=== PATIENT | male | born 1945 | race Caucasian/White ===

== ENCOUNTER 2023-08-21 15:14 | Outpatient (AMB) | payer OTHER, SELFPAY ==
--- NOTE | 2023-08-21 15:24 | HO.SPINEOV ---
Intake Intake Visit Reasons: back pain Intake Note: Mr. Ramirez is here today c/o back pain. Nursing Professor Required: No Assessment & Plan Assessment & Plan (1) Lumbar spinal stenosis due to adjacent segment disease after fusion procedure: Code(s): M48.061 - Spinal stenosis, lumbar region without neurogenic claudication; M51.36 - Other intervertebral disc degeneration, lumbar region Plan Dear colleague Thank you for referring Slava Ramirez to the office today with a chief complaint of back pain. HPI: This 77-year-old male underwent an L3-4 and L4-5 lumbar fusion in 2020 for chronic back pain. Dear original back pain disappeared but it was replaced by a back pain in the low lumbar region that comes with changing positions, standing or climbing stairs. Sitting relieves his symptoms. There is no radiation to the legs. He denies weakness or numbness. I had numerous followed up with x-rays that show a stable L3-L5 construct. I send him for L5-S1 facet blocks in the past which did not help. He recently saw a PA in the office with Dr. Patel who reviewed a new MRI and ordered standing x-rays and told the patient that there is no role for surgery in that he should go to acupuncture. He returns to my clinic. Physical Exam: He is uncomfortable with changing positions. Extension of the lumbar spine is painful. He walks in a slightly flexed position. No neurological deficits. Radiological Studies: MRI done at [facility] in July 2023 was compared to prior imaging and shows the development of adjacent degenerative disc disease L2-3 with moderate stenosis. A dynamic x-ray of the lumbar spine shows no instability. Impression/Plan: This patient is suffering from a new type of back pain following lumbar fusion surgery. The pain has features of lumbar stenosis with aggravation with standing. I would refer him back to with a request to do an L2-3 injection. He will return to my office after the injection to discuss the results. Thank you for allowing me to participate in your patients care. total time spent was 30 minutes in counseling ,coordination of plan, personal review of imaging, surgical decision making and subsequent plan Giovanny Rincon MD, PhD Spine Fellowship Trained Neurosurgeon Director, [facility] Orders: Referrals Physiatry Referral M48.061 - Spinal stenosis, lumbar region without neurogenic claudication, M51.36 - Other intervertebral disc degeneration, lumbar region Coding Level of Care Code New Pt Level 3 (45339) Diagnoses Lumbar spinal stenosis due to adjacent segment disease after fusion procedure M48.061; M51.36
== END 2023-08-21 16:31 | disposition home or self-care (01) ==
PROVIDERS: Visit Provider Neurological Surgery
DX: M48.061 Spinal stenosis, lumbar region without neurogenic claudication (principal); M51.36 Other intervertebral disc degeneration, lumbar region
CPT/HCPCS: 99203

== ENCOUNTER → 2023-08-21 15:14 | Outpatient (BNVA) | payer MEDICARE, SELFPAY | PROVIDERS: Visit Provider Neurological Surgery | DX: M48.061 Spinal stenosis, lumbar region without neurogenic claudication (principal); M51.36 Other intervertebral disc degeneration, lumbar region | CPT/HCPCS: 99202 ==

== ENCOUNTER 2023-10-16 15:03 | Outpatient (AMB) | payer OTHER, SELFPAY ==
--- NOTE | 2023-10-16 16:01 | MHC.OFFVIS ---
Intake Intake Visit Reasons: f/up after injection Marketing Database Coordinator Required: No Assessment & Plan Assessment & Plan (1) Status post lumbar and lumbosacral fusion by anterior technique: Code(s): Z98.1 - Arthrodesis status (2) Lumbar spinal stenosis due to adjacent segment disease after fusion procedure: Code(s): M48.061 - Spinal stenosis, lumbar region without neurogenic claudication; M51.36 - Other intervertebral disc degeneration, lumbar region Plan Dear colleague, Today I saw for follow-up Mr. Slava Ramirez. This patient underwent a minimally invasive lumbar fusion which address his original symptoms but gave him a new type of back pain with walking and standing. In other words he suffering from back pain without neurogenic claudication. His MRI shows adjacent lumbar stenosis L2-3 and therefore I referred him for an epidural steroid injection which unfortunately did not improve his symptoms. I explained to the patient that he is having back pain that we see inpatient with spinal stenosis that response to surgical intervention is unpredictable results. I would like to obtain a CT scan of the lumbar spine to assess fusion of the previously instrumented levels. He will return after the CT is done. Giovanny Rincon MD, PhD Spine Fellowship Trained Neurosurgeon Director, [facility] Orders: Orders CT lumbar spine wo IV con Today M48.061 - Spinal stenosis, lumbar region without neurogenic claudication, M51.36 - Other intervertebral disc degeneration, lumbar region, Z98.1 - Arthrodesis status Coding Level of Care Code Est Pt Level 2 (40056) Diagnoses Status post lumbar and lumbosacral fusion by anterior technique Z98.1 Lumbar spinal stenosis due to adjacent segment disease after fusion procedure M48.061; M51.36
== END 2023-10-16 16:42 | disposition home or self-care (01) ==
PROVIDERS: PCP Family Medicine; Visit Provider Physician Assistant
DX: Z98.1 Arthrodesis status (principal); M48.061 Spinal stenosis, lumbar region without neurogenic claudication; M51.36 Other intervertebral disc degeneration, lumbar region
CPT/HCPCS: 99212

== ENCOUNTER → 2023-10-16 15:03 | Outpatient (BNVA) | payer OTHER, SELFPAY | PROVIDERS: PCP Family Medicine; Visit Provider Physician Assistant ==

== ENCOUNTER 2024-01-24 11:20 | Outpatient (AMB) | payer OTHER, SELFPAY ==
--- NOTE | 2024-01-24 11:21 | A.SPINEOV_ITS ---
Intake Visit Reasons: Physical evaluation Intake Note: Mr. Ramirez is here today for a Physical Evaluation Digital Solution Architect Required: No Assessment & Plan Assessment & Plan (1) Lumbar radiculopathy: Code(s): M54.16 - Radiculopathy, lumbar region Category: Medical Plan Mr. Ramirez comes in today for a subsequent follow-up visit regarding his upcoming surgery; L2-3 Transkambin Lumbar Interbody Fusion. I extensively discussed his symptoms with him to get to the bottom of his pathology, and to most accurately continue his insurance appeal. After evaluation by Dr. Rincon he was scheduled for the surgery to address his low back pain with neurogenic claudication. He was quoted at 60-70% likelihood of relief of low back pain, and we discussed how his neurogenic claudication symptom resolution will likely be about the same, and will be a slow resolution over the course of multiple months as he heals from his surgery. Mr. Ramirez reports today during this office visit that he not only is suffering from low back pain and progressively worsening difficulties with ambulation, but has also been having shooting pains into the lateral sides of his bilateral hips / thighs for the past several months. He had this previously worked up by Orthopedics at [facility], and went so far as to have trochanteric bursa injections, after his hip MRIs revealed no notable pathology. He was under the impression that is shooting pain into the lateral hip/thighs was an issue unrelated to his back pain, and therefore told Dr. Rincon during his previous visit that he had no shooting pains into his legs. He further stated that he did not believe his hips / thighs constituted legs when he was questio derrick regarding his pain. Interestingly, this is actually classic for lumbar radiculopathy if the patient has pathology at L3. It seems he is suffering from a bilateral L3 lumbar radiculopathy due to the severe degenerative disc disease seen at L2-3. After this evaluation office today we will be resubmitting for insurance approval for his L2-3 transkambin lumbar interbody fusion. The primary reason for this fusion will be lumbar radiculopathy in an L3 dermatomal distribution, and we will be addressing his low back pain with neurogenic claudication on a secondary basis as a result this surgery. Jose Alejandro Rincon MD,PhD [facility] Coding Level of Care Code Est Pt Level 3 (84311) Diagnoses Lumbar radiculopathy M54.16
== END 2024-01-24 11:55 | disposition home or self-care (01) ==
PROVIDERS: PCP Family Medicine; Visit Provider Physician Assistant
DX: M54.16 Radiculopathy, lumbar region (principal)
CPT/HCPCS: 99213

== ENCOUNTER → 2024-01-24 11:20 | Outpatient (BNVA) | payer OTHER, SELFPAY | PROVIDERS: PCP Family Medicine; Visit Provider Physician Assistant ==

== ENCOUNTER 2024-03-20 10:04 | Outpatient (AMB) | payer OTHER, SELFPAY ==
--- NOTE | 2024-03-20 10:16 | A.SPINEOV_ITS ---
Intake Visit Reasons: Worsening Symptoms Intake Note: Mr. Ramirez is here today as his lower back pain in worsening. 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 He is a gentleman known to us from an L3- 5 fusion done a few years back for correction of a degenerative scoliosis. He did well initially after surgery and then presented back to our office with recurrent back pain as well as pain shooting into his left hip and into his left anterior thigh last year. The pain is aggravated with standing and walking. Even simple things like getting in the shower and standing and trying to reach for things makes him feel like he is going to fall because the pain will shoot down into his hip and leg. Getting out of bed is very difficult. There is a distinct sense of weakness when walking up stairs, he will have to go very slowly. He is very concerned about his lack of activities because he is a diabetic and obviously exercises critically important to his overall health. His A1c went from 8-12 due to the lack of activity. Overall his quality of life is suffering quite a bit and he is very frustrated with his inability to do meaningful things in his life that are enjoyable. We saw him here in the office and put him through a rigorous course of conservative management after doing an MRI at the [facility] which showed worsening of degeneration at L2-3 with almost complete collapse of the disc space, with a retrolisthesis at L2-3. There was mild to moderate stenosis at this level as well. Subsequent CT imaging confirms that the previous hardware is in good position with no evidence of pseudoarthrosis suggesting that the pain was coming from the L2-3 level. His course of conservative management included the followin weeks of physical therapy done last fall when the pain was escalating. That gave him no significant improvement. He has been taking Tylenol and anti-inflammatories as needed daily. He also underwent an L2-3 epidural which did give him a few weeks of relief, albeit temporary. Unfortunately his insurance company has continued to deny his surgery for various reasons, all of which have been accommodated for by our office. We were just recently told that he went past the 60 day window for his appeal so we would have to start his process of trying to get surgery approved all over again. He is here today to give me an update on his status. Obviously nothing has gotten better, in fact that is only continued to get worse. On my exam today, the patient is very uncomfortable having a hard time just getting out of the chair. He limps across the examining room to the examining table. I had to help him stand up to get up onto the table. He does have significant amounts of back pain with simple efforts such as motor testing. He has a slight left quadriceps weakness which I would rate as 4-5. Reflexes are intact at the patella. Negative MARYA testing. Positive straight leg raise at about 20 degrees. Impression: 78-year-old male with a history of an L3-4 fusion done a few years ago, presents with severe low back pain radiating down into his left hip and left anterior thigh. His clinical presentation is classic adjacent segment disease with almost complete collapse of the L2-3 disc space, and retrolisthesis at L2-3. He underwent generous amounts of conservative treatment. He did have a nice response to his epidural injection at L2-3 done in September which helps reinforced that this is the source of his pain. I can also see that compared to the CT done at [place] in 2021 of the abdomen, there was no retrolisthesis of the L2-3 at that time and the disc space has collapsed further on his more recent CT. His quality of life is suffering significantly. The insurance company has denied the surgery for reasons that still remain arbitrary. However, all of the objections to surgery and road blocks have been answered and accommodated for even up to and including the type of interbody cage that we will use. I am not sure what more can be done to prove that this is the source of his pain and that this is a surgical indication. I think we are doing this gentleman a great disservice by not allowing him to undergo this surgery that can yield him a significant potential improvement in his quality of life. Total amount of time spent in this visit was 20 minutes in discussion of symptoms, lumbar CT, lumbar MRI imaging results and subsequent plan of care Claude Rincon MD,PhD [facility] Coding Level of Care Code Est Pt Level 3 (74664) Diagnoses Lumbar radiculopathy M54.16 Lumbar spinal stenosis due to adjacent segment disease after fusion procedure M48.061; M51.36
== END 2024-03-20 13:01 | disposition home or self-care (01) ==
PROVIDERS: PCP Family Medicine; Visit Provider Physician Assistant
DX: M54.16 Radiculopathy, lumbar region (principal); M48.061 Spinal stenosis, lumbar region without neurogenic claudication; M51.36 Other intervertebral disc degeneration, lumbar region
CPT/HCPCS: 99213

== ENCOUNTER → 2024-03-20 10:04 | Outpatient (BNVA) | payer OTHER, SELFPAY | PROVIDERS: PCP Family Medicine; Visit Provider Physician Assistant ==

== ENCOUNTER → 2024-04-08 13:03 | Outpatient (BNV) | payer MEDICARE, SELFPAY | PROVIDERS: PCP Family Medicine; Visit Provider Internal Medicine Cardiovascular Disease | DX: R94.31 Abnormal electrocardiogram [ECG] [EKG] (principal); I49.1 Atrial premature depolarization; Z01.810 Encounter for preprocedural cardiovascular examination | CPT/HCPCS: 93010 ==

== ENCOUNTER 2024-04-22 06:02 | Inpatient (IN) | payer MEDICARE, SELFPAY ==
--- NOTE | 2024-04-08 | ECG_ITS ---
Test Reason : preop Blood Pressure : / mmHG Vent. Rate : 061 BPM Atrial Rate : 061 BPM P-R Int : 168 ms QRS Dur : 086 ms QT Int : 454 ms P-R-T Axes : 008 -40 043 degrees QTc Int : 457 ms Sinus rhythm with Premature atrial complexes Left axis deviation Inferior infarct , age undetermined Abnormal ECG No previous ECGs available Referred By: Kiera Jack Electronically Signed By:NOLBERTO MADERA MD
[2024-04-08 12:18] VITALS: BP 110/56; PULSE 63; RESP 18; O2SAT 94; BMI 32.0
[2024-04-08 13:57] LABS: Hematocrit 48.1 % (42.0-52.0); Hemoglobin 15.7 g/dl (14.0-18.0); Mean Corpuscular HGB Conc 32.6 g/dl (31.0-36.0); Mean Corpuscular Hemoglobin 29.7 pg (27.0-33.0); Mean Corpuscular Volume 90.9 fL (80.0-98.0); Mean Platelet Volume 9.6 fL (9.4-12.4); Platelet Count 222 X10*3/uL (160-400); Red Blood Count 5.29 X10*6/uL (4.60-5.80); Red Cell Distribution Width 13.7 % (11.0-16.0); White Blood Count 5.8 X10*3/uL (4.8-10.8)
[2024-04-08 14:33] LABS: Estimated Average Glucose 160 mg/dL; Hemoglobin A1c % 7.2 % (<6.0)
[2024-04-08 14:41] LABS: Anion Gap 15 (12-20); Blood Urea Nitrogen 13 mg/dL (9-16); Calcium 10.6 mg/dL (8.4-10.2); Carbon Dioxide 28 mmol/L (22-29); Chloride 101 mmol/L (96-108); Creatinine Clr Calc Pharmacy 86.6; Estimated Glomerular Filt Rate > 60; Glucose Random 119 mg/dL (60-115); Potassium 3.6 mmol/L (3.3-5.1); Sodium 140 mmol/L (135-145)
[2024-04-22] VITALS (15 sets, daily range): BP systolic 130–177; BP diastolic 64–102; PULSE 49–65; RESP 11–18; TEMP 35.7–36.8; O2SAT 94–98; BMI 32.5
--- NOTE | ~2024-04-22 | FL_ITS ---
EXAMINATION: XR FLUOROSCOPY WITH IMAGES CLINICAL INFORMATION: L2-L3 trans-Kambin revision. COMPARISON: None available. TECHNIQUE: Fluoroscopy Supervised By: Dr. Rincon. Fluoroscopy Time: 1 min 67 sec. Cumulative Dose: 73.9 mGy. DAP: 26.64 Gycm2. Images: 4. FINDINGS: Intraoperative fluoroscopy and spot films were performed during a procedure in the OR. Please correlate with Jose Albertos' report for complete details. FL/FL guidance in OR IMPRESSION: Intraoperative fluoroscopy and spot films were obtained. Please see Pennings' report for complete details.
[2024-04-22] MEDS: methocarbamoL 750 MG TABLET PO ×2 (06:30→17:01)
[2024-04-22] MEDS: Lactated Ringers 1,000 ML 100 ML IVCONT (06:31)
[2024-04-22 06:47] LABS: Glucose, Whole Blood 201 mg/dL (60-115)
--- NOTE | 2024-04-22 07:10 | P.CONAN_ITS ---
Documented by User: Kiera Jack NP 04/21/24 09:53 HPI - Anesthesia Eval Consult details Narrative: 78yo M for L2-3 Transkambin Lumbar Interbody Fusion, (Revision of Posterior Instrumentation), 04/22/24 No recent illness No CP/SOB withiin limits of back pain, golf 3 x weekly (uses cart) CAD: No prior intervention, medical management and obs only DM: FBS ~ 130 DVT's: 2020, eliquis ~ 1.5 years, No OAC now Anesthesia Pre-Procedure Meds Is the patient on any of the following meds?: SGLT2 Inhib PMFSH Active Problems Active Problems: All Active Problems Lumbar radiculopathy (Acute) Status post lumbar and lumbosacral fusion by anterior technique (Acute) Lumbar spinal stenosis due to adjacent segment disease after fusion procedure (Acute) Past Medical History Medical History (Updated 04/08/24 @ 11:53 by Gracie Lawrence RN) Back pain Obesity (BMI 30.0-34.9) HTN (hypertension) Hyperlipidemia BPH (benign prostatic hyperplasia) Vitamin D deficiency DDD (degenerative disc disease), cervical CAD (coronary artery disease) Chronic neck pain with history of cervical spinal surgery Tubular adenoma of colon History of basal cell carcinoma (BCC) of skin Actinic keratosis of scalp Diverticulosis Diabetes Chronic lower back pain Spinal stenosis at L4-L5 level Prostate cancer Acute deep vein thrombosis (DVT) of femoral vein of right lower extremity History of COVID-19 Dizziness 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 Lumbar degenerative disc disease Hyponatremia Adrenal nodule Nocturnal leg cramps Osteoarthritis of both hips Palpitations Nonhealing ulcer of right lower extremity PAC (premature atrial contraction) Atherosclerosis Insomnia Family History Family history of problems with anesthesia: No Surgical History Surgical History (Updated 04/08/24 @ 12:03 by Gracie Lawrence RN) History of back surgery Hx of bilateral cataract extraction Hx of prostate biopsy Hx of inguinal hernia repair Hx of shoulder surgery History of neck surgery H/O colonoscopy Hx of cardiac catheterization History of Problems with Anesthesia: No Social History Social History Are you a primary palliative care physician to a significant other at home: No Do you presently have visiting nurse or other home services: No Patient Tobacco Use Status: Never used Tobacco Use of substances other than those prescribed or required for medical reasons: Yes Substance Use Type Other:: THC Substance Use Frequency: Weekly Have you been hit, kicked, punched, or otherwise hurt by someone within the past year? If so, by whom?: No Are you DNR?: No Advance Directives: No Advance Directives Information Provided: Yes Advance Directives on File: No Recently lost weight without trying: No Eating poorly because of decreased appetite: No Nutrition Risks: No Nutritional Risk Poor oral hygiene: Yes (crowns upper and lower) Meds Allergies Allergy/AdvReac Type Severity Reaction Status Date / Time No Known Allergies Allergy Verified 04/22/24 06:10 Home Medications ?Medication ?Instructions ?Recorded ?Confirmed ?Last Taken ?Type acetaminophen 650 mg 650 mg PO Q8H PRN Pain 04/03/24 04/03/24 Unknown History tablet,extended release (Tylenol 8 Hour) atorvastatin 80 mg tablet 80 mg PO BEDTIME 04/03/24 04/08/24 04/21/24 History cholecalciferol (vitamin D3) 50 50 mcg PO DAILY 04/03/24 04/03/24 04/15/24 History mcg (2,000 unit) tablet (Vitamin D3) empagliflozin 10 mg tablet 10 mg PO DAILY 04/03/24 04/08/24 04/17/24 History ezetimibe 10 mg tablet 10 mg PO BEDTIME 04/03/24 04/08/24 04/21/24 History gabapentin 300 mg capsule 300 mg PO QAM 04/03/24 04/08/24 04/22/24 History hydroxyzine HCl 50 mg tablet 50 mg PO BEDTIME PRN Insomnia 04/03/24 04/03/24 04/21/24 History multivitamin 1 tab PO DAILY 04/03/24 04/03/24 04/15/24 History omega-3 fatty acids 1,000 mg 1,000 mg PO DAILY 04/03/24 04/03/24 04/15/24 History capsule aspirin 81 mg tablet,delayed 81 mg PO DAILY 04/08/24 04/08/24 04/16/24 History release gabapentin 300 mg capsule 600 mg PO BEDTIME 04/08/24 04/08/24 04/20/24 History glipizide 5 mg tablet 5 mg PO DAILY 04/08/24 04/08/24 04/21/24 History losartan 100 mg tablet 100 mg PO BEDTIME 04/08/24 04/08/24 04/21/24 History metoprolol succinate 25 mg 25 mg PO BID 04/08/24 04/08/24 04/22/24 History tablet,extended release 24 hr tadalafil 5 mg tablet 5 mg PO QPM 04/08/24 04/08/24 Unknown History Exam Height,Weight and Vital Signs: Height 5 ft 9 in Weight 98.43 kg Last Vital Signs Pulse 63 04/08/24 12:18 Resp 18 04/08/24 12:18 BP 110/56 L 04/08/24 12:18 Pulse Ox 94 04/08/24 12:18 O2 Del Method Room Air 04/08/24 12:18 Pertinent Lab Results Pertinent Lab Results: Lab Results 04/08/24 04/08/24 Range/Units 13:20 13:31 WBC 5.8 (4.8-10.8) X10*3/uL RBC 5.29 (4.60-5.80) X10*6/uL Hgb 15.7 (14.0-18.0) g/dl Hct 48.1 (42.0-52.0) % MCV 90.9 (80.0-98.0) fL MCH 29.7 (27.0-33.0) pg MCHC 32.6 (31.0-36.0) g/dl RDW 13.7 (11.0-16.0) % Plt Count 222 (160-400) X10*3/uL MPV 9.6 (9.4-12.4) fL Absolute Nucleated RBC 0.000 (0.0-0.012) X10*3/uL Nucleated RBC % (auto) 0.0 (0.0-0.2) /100WBC Sodium 140 (135-145) mmol/L Potassium 3.6 (3.3-5.1) mmol/L Chloride 101 (96-108) mmol/L Carbon Dioxide 28 (22-29) mmol/L Anion Gap 15 (12-20) BUN 13 (9-16) mg/dL Creatinine 0.80 (0.5-1.4) mg/dL Estim Creat Clear Calc 86.6 Estimated GFR > 60 Random Glucose 119 H (60-115) mg/dL Estimat Average Glucose 160 mg/dL Hemoglobin A1c % 7.2 H (<6.0) % Calcium 10.6 H (8.4-10.2) mg/dL Blood Type O Negative Antibody Screen NEGATIVE Narrative Narrative: EKG 03/2024 Vent. Rate : 061 BPM Atrial Rate : 061 BPM P-R Int : 168 ms QRS Dur : 086 ms QT Int : 454 ms P-R-T Axes : 008 -40 043 degrees QTc Int : 457 ms Sinus rhythm with Premature atrial complexes Left axis deviation Inferior infarct , age undetermined Abnormal ECG No previous ECGs available (no change when c/w previous outside EKG) Airway Mallampati Class: III TM Dist: <=3cm Neck ROM: Limited (s/p cspine) Loose/Missing/Broken Teeth: Yes (Molars pulled, crowns throughout) Heart: RRR Lungs: CTAB Assessment and Plan Assessment Anesthesia Assessment: Anesthesia Plan Discussed and PAT Visit Final Anesthetic Review Family History of Problems with Anesthesia: No History of Problems with Anesthesia: No Documented by User: Elizabeth Dean DO 04/22/24 07:15 HPI - Anesthesia Eval Anesthesia Pre-Procedure Meds Is the patient on any of the following meds?: SGLT2 Inhib If yes to any meds - educate patient: Pt education - increased risk of aspira tion and/or euvolemic [facility] Past Medical History Medical History (Updated 04/08/24 @ 11:53 by Gracie Lawrence RN) Back pain Obesity (BMI 30.0-34.9) HTN (hypertension) Hyperlipidemia BPH (benign prostatic hyperplasia) Vitamin D deficiency DDD (degenerative disc disease), cervical CAD (coronary artery disease) Chronic neck pain with history of cervical spinal surgery Tubular adenoma of colon History of basal cell carcinoma (BCC) of skin Actinic keratosis of scalp Diverticulosis Diabetes Chronic lower back pain Spinal stenosis at L4-L5 level Prostate cancer Acute deep vein thrombosis (DVT) of femoral vein of right lower extremity History of COVID-19 Dizziness 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 Lumbar degenerative disc disease Hyponatremia Adrenal nodule Nocturnal leg cramps Osteoarthritis of both hips Palpitations Nonhealing ulcer of right lower extremity PAC (premature atrial contraction) Atherosclerosis Insomnia Family History Family history of problems with anesthesia: No Surgical History Surgical History (Updated 04/08/24 @ 12:03 by Gracie Lawrence RN) History of back surgery Hx of bilateral cataract extraction Hx of prostate biopsy Hx of inguinal hernia repair Hx of shoulder surgery History of neck surgery H/O colonoscopy Hx of cardiac catheterization History of Problems with Anesthesia: No Social History Social History Are you a primary palliative care physician to a significant other at home: No Do you presently have visiting nurse or other home services: No Patient Tobacco Use Status: Never used Tobacco Use of substances other than those prescribed or required for medical reasons: Yes Substance Use Type Other:: THC Substance Use Frequency: Weekly Have you been hit, kicked, punched, or otherwise hurt by someone within the past year? If so, by whom?: No Are you DNR?: No Advance Directives: No Advance Directives Information Provided: Yes Advance Directives on File: No Recently lost weight without trying: No Eating poorly because of decreased appetite: No Nutrition Risks: No Nutritional Risk Poor oral hygiene: Yes (crowns upper and lower) Meds Allergies Allergy/AdvReac Type Severity Reaction Status Date / Time No Known Allergies Allergy Verified 04/22/24 06:10 Home Medications ?Medication ?Instructions ?Recorded ?Confirmed ?Last Taken ?Type acetaminophen 650 mg 650 mg PO Q8H PRN Pain 04/03/24 04/03/24 Unknown History tablet,extended release (Tylenol 8 Hour) atorvastatin 80 mg tablet 80 mg PO BEDTIME 04/03/24 04/08/24 04/21/24 History cholecalciferol (vitamin D3) 50 50 mcg PO DAILY 04/03/24 04/03/24 04/15/24 History mcg (2,000 unit) tablet (Vitamin D3) empagliflozin 10 mg tablet 10 mg PO DAILY 04/03/24 04/08/24 04/17/24 History ezetimibe 10 mg tablet 10 mg PO BEDTIME 04/03/24 04/08/24 04/21/24 History gabapentin 300 mg capsule 300 mg PO QAM 04/03/24 04/08/24 04/22/24 History hydroxyzine HCl 50 mg tablet 50 mg PO BEDTIME PRN Insomnia 04/03/24 04/03/24 04/21/24 History multivitamin 1 tab PO DAILY 04/03/24 04/03/2424 History omega-3 fatty acids 1,000 mg 1,000 mg PO DAILY 04/03/24 04/03/24 04/15/24 History capsule aspirin 81 mg tablet,delayed 81 mg PO DAILY 04/08/24 04/08/24 04/16/24 History release gabapentin 300 mg capsule 600 mg PO BEDTIME 04/08/24 04/08/24 04/20/24 History glipizide 5 mg tablet 5 mg PO DAILY 04/08/24 04/08/24 04/21/24 History losartan 100 mg tablet 100 mg PO BEDTIME 04/08/24 04/08/24 04/21/24 History metoprolol succinate 25 mg 25 mg PO BID 04/08/24 04/08/24 04/22/24 History tablet,extended release 24 hr tadalafil 5 mg tablet 5 mg PO QPM 04/08/24 04/08/24 Unknown History Exam Exam Date and Time: April 22, 2024709 Airway Mallampati Class: III TM Dist: <=3cm Neck ROM: Limited (hx of cervical fusion) Loose/Missing/Broken Teeth: Yes (broken molar right bottom jaw, a few missing molars) Heart: S1S2 Assessment and Plan Assessment Anesthesia Assessment: Anesthesia Plan Discussed and Chart Reviewed Final Anesthetic Review Family History of Problems with Anesthesia: No History of Problems with Anesthesia: No NPO: Yes ASA Class: III Final Preanesthetic Review: No Changes in Pt Med Stat, Meds/Allgs Chart Reviewed, Consent Obtained/Reviewed and Anes Risks/Benef Reviewed Patient Risk: Intermediate Procedure Risk: Intermediate Anesthetic Plan Anesthetic Plan: GA and Agree w/ Assess. and Plan Disposition: Standard PACU
--- NOTE | 2024-04-22 07:23 | MHC.SHP ---
Pre-Procedural Eval Section A - 24 Hr Update-Section A only Date of Service: 04/22/24 The patient is an INPATIENT: No Changes since office visit: No Cold of Flu in the past 2 weeks, No New Medical Problems, No Changes in Medication and No Patient answered all questions The patient has been examined within 24 hours of the surgical procedure. The History & Physical has been completed within 30 days and I have reviewed it.: No Section B - Complete if H&P > 30 days Chief Complaint: lumbar DDD Allergies: Allergies Allergy/AdvReac Type Severity Reaction Status Date / Time No Known Allergies Allergy Verified 04/22/24 06:10 Review of Systems Sugical H&P ROS: Negative: Constitution, Cardiovascular, Respiratory, Neurological, Psychiatric, Hem-Onc, Allergic/Immunologic, Gastrointestinal, Genitourinary, Musculoskeletal, Integumentary, Endocrine and Eyes/Ears/Nose/Throat Exam Surgical H&P Exam: Normal: HEENT, Normal: Heart, Normal: Lungs, Normal: Extremities, Normal: Abdomen, Normal: Skin and Normal: Neurological (awake, alert,oriented ) Plan Diagnosis/Plan: Unchanged L2-3 transkambin interbody fusion with revision of posterior instrumentation Time Spent With Patient Time: Total time managing care of this patient today _6___ minutes.
--- NOTE | 2024-04-22 10:13 | W.PM.OPN ---
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 2) status post L3-L5 lumbar fusion Postprocedure diagnosis: 1) same as above Procedure: 1) L2-3 oblique lateral lumbar interbody fusion with discectomy, preparation of the endplates and placement of a titanium bullet cage packed with allograft, anterior to the transverse process in modified prone position, with intraoperative biplanar fluoroscopy imaging and electrophysiological monitoring 2) Exploration of posterior instrumented fusion and removal of L4 and L5 pedicle screws 3) Posterior minimally invasive pedicle screw placement L2 and posterior lateral instrumentation and fusion L2-3 with intraoperative biplanar fluoroscopic imaging and electrophysiological monitoring Consent Informed Consent was obtained for this operation. I have explained the nature, purpose and benefits of the operation. I have discussed the risks and benefit of the operation including possible complications or adverse events with patient/family. Alternative(s) were discussed with the patient with their relative benefits and risks as well as the consequences of not accepting the operation were included in obtaining consent. Surgeon: LEA CHEN MD, PHD Procedure Assisted By: taylor Madden Description of Procedure: This is a complex surgery on the lumbar spine and an assistant professor of nursing as needed for safety of the surgery for setup of instrumentation, retraction and closing. History: 78-year-old male had a previous L 3 to L5 fusion done. He presented with adjacent degenerative disc disease L2-3. The patient was offered an oblique lumbar lateral interbody fusion L2-3 followed by exploration and partial removal of posterior instrumentation followed by a a posterior lateral instrumented fusion L2-3. The procedure and complications were explained and the patient was consented. Procedure: The patient was brought to the operating room and endotracheally intubated. The patient was positioned on the Tio spine table in a modified prone position for ease of access from the [] side.. 2C arms were installed for fluoroscopy. Prepping and draping was done followed by timeout. The landmarks, including spinal processes, transverse processes, disc space, endplates and pedicles are identified and marked. The following steps are taken for each specified level: L2-3 level: Cage size 10 mm high and 33 mm long titanium . The patient was turned using the rotation of the surgical table so a near direct anterior lateral approach to the lumbar spine could be achieved. A small incision was then made superior to the mid iliac crest and then using biplanar fluoroscopy visualization, under electrophysiological monitoring and stimulation, we introduced an electrophysiological probe through the retroperitoneal space into the desired disc anterior to the transverse process and then passed it into the disc space after finding a silent window. The sleeve was retained and the probe was removed, then the K wire was passed sequentially into the disc space. A dilating tube was then passed along the same route. Following this, a working channel, a working channel was then passed sequentially into the disc space. The working channel was manually held in position while a series of disc cleaning tools were passed through the channel to remove the affected disc under clear and direct biplanar fluoroscopic visualization, decompress the nerve roots and equal corticated vertebral endplates at this segment. Arthrodesis of the intervertebral space via an anterior retroperitoneal exposure was achieved through Kambin's Golva and lateral extraforaminal space. Allograft was added into the anterior disc space. The working channel was then removed. A titanium interbody cage tightly packed with allograft was then inserted into the midportion of the intervertebral disc space over a K-wire under biplanar fluoroscopic visualization and intraoperative neuro monitoring. The inter pedicular and intradiscal space was significantly enlarged and disc height was restored to worked normal anatomy there for releasing pressure on the nerve roots visual largely the spinal canal and lateral recess as well as foramen were bilateral decompressed and all bones were confined to the borders of the disc space . Accordingly the previous paramedian incisions were opened to expose the L3-L5 instrumentation. The locking caps were removed as well as the bilateral rods. Then the bilateral L4 and L5 pedicle screws were removed in the L3 screw was left insitu. A jamshidi was used to create a trajectory transpedicular into the L2 vertebral body. The K-wire was placed. A small periosteal decorticator along the screws to refresh the surface of the bone and facet and I put some amount of allograft for additional stability for the posterolateral fusion. Then a 6.5 x 45 mm screw was advanced over the K-wire into the L2 pedicle bilaterally. The L2 and L3 pedicle screws were connected with a 45 mm rods bilaterally. More allograft was laid down in the posterolateral gutter to finalize the L2-3 posterolateral fusion. The incisions were closed with 0 Vicryl for the fascia and a 3-0 Vicryl for the subdermal layer. Steri-Strips were used to approximate the incisions. An OpSite with Tegaderm was used to cover the incision. Final x-rays and AP and lateral projection showed good position of the interbody device and instrumentation. All sponge and needle counts were correct. The patient was extubated and transported in a stable condition to the recovery room. This procedure was done with the aid of a physician assistant professor of nursing as a qualified resident was not available. Anesthesia: General Estimated Blood Loss (ml): 130 ml Specimen: None Duration of Surgery: 2 hr 10 min Postoperative Plan: Admit to inpatient
[2024-04-22] MEDS: HYDROmorphone HCl 0.5 MG/0.5 ML SYRINGE IVPUSH ×2 (10:48→10:53)
[2024-04-22] MEDS: 0.9 % Sodium Chloride 1,000 ML 75 ML IVCONT (11:49)
[2024-04-22 11:59] LABS: Glucose, Whole Blood 229 mg/dL (60-115)
[2024-04-22] MEDS: oxyCODONE HCl Immed Release 5 MG TABLET 10 MG PO ×2 (11:59→19:50)
--- NOTE | 2024-04-22 13:00 | PHA.MEDREC ---
Addendum entered by Kelly Cortez RPh 04/22/24 13:08: reviewed by [facility] Original Note: Pharmacy Consult ? Medication Reconciliation Pharmacy has completed the medication reconciliation.Spoke to patient to confirm med list.
[2024-04-22] MEDS: ceFAZolin Sodium/Dextrose,Iso 2 GM/50 ML PIGGYBACK IV ×2 (13:51→19:51)
[2024-04-22] MEDS: Insulin Lispro 100 UNIT/ML 3 ML VIAL SUBCUT ×3 (13:53→21:35)
[2024-04-22] MEDS: HYDROmorphone HCl 1 MG/ML SYRINGE IVPUSH ×3 (14:12→22:07)
--- NOTE | 2024-04-22 15:05 | P.DS_ITS ---
DS: Providers Provider Date of Service: 04/23/24 Date of admission: 04/22/24 06:02 Primary care physician: Tammy Mooney MD DS: Summary Hospital Course Hospital Course: Eventful L2-3 fusion for adjacent degenerative disc disease. Patient is neurologically intact. The incisions are dry. No fever. Patient will be discharged today Time spent discussing smoking cessation with patient: more than 10 minutes Status at Discharge Functional status at discharge: independent ambulation Overall status at discharge: patient is back to baseline Time Attestation Total time managing care of this patient today: 10 mintues. Discharge Coordination Time (in mins): 10 minutes Quality: Safe Use of Opioids Does Pt have an Active Cancer Diagnosis on the Problem List?: No Quality: Stroke Does the patient have a stroke diagnosis?: No Physical Exam Vital Signs: Vital Signs: Last Vital Signs Temp 96.8 F 04/22/24 11:59 Pulse 50 04/22/24 13:26 Resp 16 04/22/24 11:59 BP 175/79 H 04/22/24 13:26 Pulse Ox 96 04/22/24 13:26 O2 Del Method Nasal Cannula 04/22/24 11:59 O2 Flow Rate 2 04/22/24 11:59 BMI result Body Mass Index 32.5 DS: Data Data Completed and Pending Labs on day of discharge: Laboratory Results - last 24 hr 04/22/24 04/22/24 06:44 11:54 POC Glucose 201 H 229 H Discharge Plan Discharge Anticipated Discharge Date/Time: 04/23/24 10:26 Patient Disposition: Home, Self-Care Discharge Diagnosis: Lumbar fusion L2-3 for adjacent lumbar degenerative disc disease Referrals: [facility] [Outside] - 3-5 Days ([facility] will call you to schedule physical therapy appointments) Tammy Mooney MD [Primary Care Provider] - 1 Week Discharge Medications: New oxycodone 5 mg tablet 5 mg PO Q6H PRN (Reason: pain) Qty: 30 0RF Rx Instructions: Partial Fill upon patient request. Continued hydroxyzine HCl 50 mg tablet 50 mg PO BEDTIME PRN (Reason: Insomnia) gabapentin 300 mg Capsule 300 mg PO TID multivitamin Tablet 1 tab PO DAILY atorvastatin 80 mg tablet 80 mg PO BEDTIME omega-3 fatty acids 1,000 mg Capsule 1,000 mg PO DAILY acetaminophen [Tylenol 8 Hour] 650 mg Tablet Extended Release 650 mg PO Q8H PRN (Reason: Pain) cholecalciferol (vitamin D3) [Vitamin D3] 50 mcg (2,000 unit) Tablet 50 mcg PO DAILY glipizide 5 mg tablet 5 mg PO DAILY metoprolol succinate 25 mg Tablet Extended Release 24 Hr 25 mg PO DAILY tadalafil 5 mg Tablet 5 mg PO QPM losartan-hydrochlorothiazide 100-25 mg tablet 1 tab PO DAILY Jardiance 25 mg tablet 25 mg PO DAILY Held aspirin 81 mg Tablet,Delayed Release (Dr/Ec) 81 mg PO DAILY Hold Instructions: Resume on 04/28/24. Diet: Advance to usual diet Activity on Discharge: As tolerated Stand Alone Forms: Patient Portal Discharge page Print Language: Nicaraguan Activity Restrictions/Additional Instructions: After your spinal surgery we ask you to observe the following restrictions/guidelines: Activity: It is normal to feel some discomfort as you increase your activity, but that will improve with time. We ask you avoid heavy lifting or acitivities that cause pain. As a general rule, 8lbs is a safe limit for lifting right after surgery. Walk as much as you feel comfortable but not to exhaustion. You will feel extra tired the first few days after surgery. Stay well hydrated. It is OK to walk up and down stairs You may return to driving when you are off narcotics (such as vicodin, oxycodone, dilaudid, etc), and you are back to normal functional capacity. If you have any concerns please check with office before driving. Return to work is specific to each patient and each surgery, so please speak with your doctor/PA at first follow up. Please bring paperwork such as FMLA at that time if you need it filled out. Medications: We will give you a short supply of narcotics after surgery (usually one weeks worth). If you need more please call the office but do not use more than prescribed. You will need to give our office 48 hours notice if you need narcotics refilled and we do not fill narcotics on weekends or evenings. If you are on a narcotic, it is a good idea to take a stool softener such as colace or senna to avoid constipation If you take blood thinner such as aspirin, Plavix, Coumadin, Effient, Eliquis etc for conditions such as Afib, DVT, Pulmonary embolus, coronary disease, stents etc please speak with your surgeon about specific details as to when you can resume these medications. You can resume NSAIDs on post op day 1 (eg: Motrin, Naproxen, etc). Follow up: Please call the office, , after surgery to arrange a 3 week follow up for wound check. Wound Care: You may remove your dressing on the first day after surgery. You may leave open to air. Please do not remove the steri strips underneath. they will fall off on their own in one week. IT IS NORMAL FOR THE WOUND TO OOZE OR BE BLOODY FOR A FEW DAYS AFTER SURGERY. IF THIS HAPPENS JUST PLACE NEW DRESSING OVER IT TO AVOID STAINING CLOTHES. You may shower on post op day # 1 We ask that you do not let the water soak the wound. If it does get wet, just towel dry lightly. Please do not scrub your incision or place any type of chemical/ointment on the wound. No tub baths, pools or jacuzzis for one month. If you have any leaking or redness from your wound, or fevers, please call office Care Plan Goals: Discharge home Health Concerns: None Plan of Treatment: Discharge home Assessment: Stable
[2024-04-22] MEDS: Acetaminophen 1,000 MG/100 ML PIGGYBACK 400 MG IV ×2 (15:13→21:28)
[2024-04-22] MEDS: hydrOXYzine HCL 25 MG TABLET PO ×2 (15:14→21:29)
[2024-04-22 16:14] LABS: Glucose, Whole Blood 233 mg/dL (60-115)
--- NOTE | 2024-04-22 16:43 | P.DS_ITS ---
DS: Providers Provider Date of Service: 04/22/24 Date of admission: 04/22/24 06:02 Date of discharge: 04/23/24 Primary care physician: Tammy Mooney MD Admitting clinician: Giovanny Rincon DS: Diagnosis Discharge Diagnosis (1) Lumbar spinal stenosis due to adjacent segment disease after fusion procedure: Status: Acute Physical Exam Vital Signs: Vital Signs: Last Vital Signs Temp 96.3 F L 04/22/24 15:58 Pulse 50 04/22/24 15:58 Resp 12 04/22/24 15:58 BP 152/71 H 04/22/24 15:58 Pulse Ox 96 04/22/24 15:58 O2 Del Method Nasal Cannula 04/22/24 15:58 O2 Flow Rate 2 04/22/24 15:58 BMI result Body Mass Index 32.5 DS: Data Data Completed and Pending Labs on day of discharge: Laboratory Results - last 24 hr 04/22/24 04/22/24 04/22/24 06:44 11:54 16:02 POC Glucose 201 H 229 H 233 H Discharge Plan Discharge Patient Disposition: Home, Self-Care Referrals: Tammy Mooney MD [Primary Care Provider] - 1 Week Discharge Medications: Continued hydroxyzine HCl 50 mg tablet 50 mg PO BEDTIME PRN (Reason: Insomnia) gabapentin 300 mg Capsule 300 mg PO TID multivitamin Tablet 1 tab PO DAILY atorvastatin 80 mg tablet 80 mg PO BEDTIME omega-3 fatty acids 1,000 mg Capsule 1,000 mg PO DAILY acetaminophen [Tylenol 8 Hour] 650 mg Tablet Extended Release 650 mg PO Q8H PRN (Reason: Pain) cholecalciferol (vitamin D3) [Vitamin D3] 50 mcg (2,000 unit) Tablet 50 mcg PO DAILY glipizide 5 mg tablet 5 mg PO DAILY metoprolol succinate 25 mg Tablet Extended Release 24 Hr 25 mg PO DAILY tadalafil 5 mg Tablet 5 mg PO QPM aspirin 81 mg Tablet,Delayed Release (Dr/Ec) 81 mg PO DAILY losartan-hydrochlorothiazide 100-25 mg tablet 1 tab PO DAILY Jardiance 25 mg tablet 25 mg PO DAILY Diet: Advance to usual diet Activity on Discharge: As tolerated Stand Alone Forms: Patient Portal Discharge page Print Language: Kinyarwanda Activity Restrictions/Additional Instructions: After your spinal surgery we ask you to observe the following restrictions/guidelines: Activity: It is normal to feel some discomfort as you increase your activity, but that will improve with time. We ask you avoid heavy lifting or acitivities that cause pain. As a general rule, 8lbs is a safe limit for lifting right after surgery. Walk as much as you feel comfortable but not to exhaustion. You will feel extra tired the first few days after surgery. Stay well hydrated. It is OK to walk up and down stairs You may return to driving when you are off narcotics (such as vicodin, oxycodone, dilaudid, etc), and you are back to normal functional capacity. If you have any concerns please check with office before driving. Return to work is specific to each patient and each surgery, so please speak with your doctor/PA at first follow up. Please bring paperwork such as FMLA at that time if you need it filled out. Medications: We will give you a short supply of narcotics after surgery (usually one weeks worth). If you need more please call the office but do not use more than prescribed. You will need to give our office 48 hours notice if you need narcotics refilled and we do not fill narcotics on weekends or evenings. If you are on a narcotic, it is a good idea to take a stool softener such as colace or senna to avoid constipation If you take blood thinner such as aspirin, Plavix, Coumadin, Effient, Eliquis etc for conditions such as Afib, DVT, Pulmonary embolus, coronary disease, stents etc please speak with your surgeon about specific details as to when you can resume these medications. You can resume NSAIDs on post op day 1 (eg: Motrin, Naproxen, etc). Follow up: Please call the office, , after surgery to arrange a 3 week follow up for wound check. Wound Care: You may remove your dressing on the first day after surgery. You may leave open to air. Please do not remove the steri strips underneath. they will fall off on their own in one week. IT IS NORMAL FOR THE WOUND TO OOZE OR BE BLOODY FOR A FEW DAYS AFTER SURGERY. IF THIS HAPPENS JUST PLACE NEW DRESSING OVER IT TO AVOID STAINING CLOTHES. You may shower on post op day # 1 We ask that you do not let the water soak the wound. If it does get wet, just towel dry lightly. Please do not scrub your incision or place any type of chemical/ointment on the wound. No tub baths, pools or jacuzzis for one month. If you have any leaking or redness from your wound, or fevers, please call office Care Plan Goals: Discharge home Health Concerns: None Plan of Treatment: Discharge home Assessment: Stable
[2024-04-22] MEDS: Ketorolac Tromethamine 15 MG/ML VIAL IVPUSH ×2 (16:58→21:35)
[2024-04-22 20:02] LABS: Glucose, Whole Blood 190 mg/dL (60-115)
[2024-04-22] MEDS: Melatonin 3 MG TABLET 6 MG PO (21:27)
[2024-04-22] MEDS: Docusate Sodium 100 MG CAPSULE PO (21:29)
[2024-04-22] MEDS: Atorvastatin Calcium 80 MG TABLET PO (21:29)
[2024-04-23] MEDS: HYDROmorphone HCl 1 MG/ML SYRINGE IVPUSH ×2 (01:05→08:02)
[2024-04-23] MEDS: ceFAZolin Sodium/Dextrose,Iso 2 GM/50 ML PIGGYBACK IV (01:09)
[2024-04-23] MEDS: 0.9 % Sodium Chloride 1,000 ML 75 ML IVCONT (01:11)
[2024-04-23] MEDS: Ketorolac Tromethamine 15 MG/ML VIAL IVPUSH (03:52)
[2024-04-23] MEDS: Acetaminophen 1,000 MG/100 ML PIGGYBACK 400 MG IV ×2 (03:53→09:37)
[2024-04-23 04:00] VITALS: BP 139/66; PULSE 52; RESP 18; TEMP 36.1; O2SAT 93
[2024-04-23] MEDS: oxyCODONE HCl Immed Release 5 MG TABLET 10 MG PO ×2 (05:44→09:44)
[2024-04-23 07:18] VITALS: BP 143/69; PULSE 53; RESP 16; TEMP 36; O2SAT 94
[2024-04-23 07:56] LABS: Glucose, Whole Blood 212 mg/dL (60-115)
[2024-04-23] MEDS: hydrOXYzine HCL 25 MG TABLET PO (08:04)
[2024-04-23 08:57] VITALS: BP 143/69; PULSE 53; O2SAT 94
[2024-04-23] MEDS: Multivitamin TABLET 1 TAB PO (09:02)
[2024-04-23] MEDS: glipiZIDE 5 MG TABLET PO (09:02)
[2024-04-23] MEDS: Docusate Sodium 100 MG CAPSULE PO (09:02)
[2024-04-23] MEDS: Cholecalciferol (Vitamin D3) 25 MCG TABLET 50 MCG PO (09:02)
[2024-04-23] MEDS: Gabapentin 300 MG CAPSULE PO (09:02)
[2024-04-23] MEDS: Metoprolol Succinate ER 25 MG TAB.ER.24H PO (09:02)
[2024-04-23] MEDS: Insulin Lispro 100 UNIT/ML 3 ML VIAL SUBCUT (09:08)
--- NOTE | 2024-04-23 09:40 | MHC.CM.PN ---
Addendum entered by Mihaela Villagran RN 04/23/24 09:43: IMM delivered. Original Note: Patient lives in a home w/ . Functionally independent. Denies use of DME or services. PCP Dr Mooney Patient reports he has an HCP naming as [facility]. Copy requested. DP: PT rec home w/ services. Patient prefers [facility], who has accepted. Medically cleared for dc home today. to transport.
--- NOTE | 2024-04-23 10:06 | HO.POSTANES ---
Post Anesthesia Evaluation Post Anesthesia Evaluation Date of Service: 04/22/24 Vital Signs: Vital Signs Temp Pulse Resp BP Pulse Ox O2 Del Method 04/23/24 08:57 53 143/69 H 94 04/23/24 07:18 96.8 F 53 16 143/69 H 94 Room Air 04/23/24 04:00 96.9 F 52 18 139/66 93 Room Air 04/22/24 23:04 97.4 F 52 18 130/64 95 Room Air Anesthesia: General Mental Status: Awake Pain Control: Satisfactory Nausea/Vomiting: None Hydration: Adequate Anesthesia-Related Issues: No Anes. Related Issues
--- NOTE | 2024-04-23 10:37 | W.MHC.F2F ---
Service Date Service Date: 04/23/24 Encounter Date of encounter: 04/23/24 Reasons for Services Signs and symptoms assessed: Status post L2-3 lumbar fusion. Need to muscle strengthening Reason for physical therapy: home safety and mobility and restore joint function Homebound: Leaving the home is medically contraindicated at this time without the asist of a device and/or another person due th the listed conditions above and below. Reason homebound: pain with ambulation Certification: Based on the above findings, I certify that this patient is confined to the home and needs intermittent custodial care, physical therapy and/or speech therapy, or continues to need occupational therapy. The patient is under my care, and I have initiated the establishment of the plan of care. The patient will be followed by a physician who will periodically review the plan of care. Time Spent With Patient Time: Total time managing care of this patient today 10____ minutes.
[2024-04-23 11:19] LABS: Glucose, Whole Blood 174 mg/dL (60-115)
== END 2024-04-23 12:56 | disposition home or self-care (01) | DRG 460 ==
LOC: HO.SSSA 06:23 → HO.S3 10:54
PROVIDERS: Nurse Practitioner; Admitting Provider Physician Assistant; PCP Family Medicine; Visit Provider Neurological Surgery
PROC: 0SG00A0 Fusion of Lumbar Vertebral Joint with Interbody Fusion Device, Anterior Approach, Anterior Column, Open Approach (ICD-10-PCS; principal; 2024-04-22 07:30)
DX: M48.061 Spinal stenosis, lumbar region without neurogenic claudication (principal); M51.36 Other intervertebral disc degeneration, lumbar region; I25.10 Atherosclerotic heart disease of native coronary artery without angina pectoris; E11.9 Type 2 diabetes mellitus without complications; Z98.1 Arthrodesis status; Z79.82 Long term (current) use of aspirin; Z79.84 Long term (current) use of oral hypoglycemic drugs; Z79.899 Other long term (current) drug therapy
CPT/HCPCS: 36415; 80048; 82947; 83036; 85027; 86850; 86900; 86901; 93005; 97116; 97162; C1713; C1889; C9290; J0131; J0665; J0690; J1100; J1170; J1596; J1885; J2250; J2405; J2704; J3010; L8699

== ENCOUNTER → 2024-04-22 06:02 | Outpatient (BNV) | payer MEDICARE, SELFPAY | PROVIDERS: Admitting Provider Physician Assistant; PCP Family Medicine; Visit Provider Neurological Surgery | DX: M51.36 Other intervertebral disc degeneration, lumbar region (principal) | CPT/HCPCS: 20930; 22558; 22612; 22840; 22853; 63056; 99499; G0180 ==

== ENCOUNTER 2024-05-13 14:29 | Outpatient (REF) | payer MEDICARE, SELFPAY ==
--- NOTE | ~2024-05-13 | XR_ITS ---
EXAMINATION: XR LUMBOSACRAL SPINE CLINICAL INFORMATION: Lumbar radiculopathy. COMPARISON: Fluoroscopy dated 04/22/2024. TECHNIQUE: AP and lateral views of the lumbar spine were obtained. Lateral views were obtained in flexion, extension, and neutral positions. FINDINGS: There is bony demineralization. There has been a prior posterior fusion at L2-3, with intact posterior fixator rods, pedicular screws and disc spacer. Further intact disc spacers are seen seen at L3-4 and L4-5. No acute fracture or spondylolisthesis is seen. There is multi-level endplate and facet arthropathy. The posterior elements are intact. There is diffuse aortoiliac atherosclerotic calcification. XR/XR lumbar spine 4V min IMPRESSION: There is well-maintained alignment status-post L2-3 posterior fusion and L3-4 and L4-5 discectomies. There is no hardware failure or loosening. Electronically signed by: Richard Holman MD 06/05/2024 11:14 PM EDT
== END 2024-05-13 14:30 | disposition home or self-care (01) ==
LOC: HO.HOSX 14:29
PROVIDERS: PCP Family Medicine; Visit Provider Physician Assistant
DX: M54.16 Radiculopathy, lumbar region (principal)
CPT/HCPCS: 72110; 99212

== ENCOUNTER 2024-05-13 14:29 | Outpatient (AMB) | payer MEDICARE, SELFPAY ==
--- NOTE | 2024-05-13 14:31 | HO.SPINEOV ---
Intake Visit Reasons: 1st post-op Intake Note: Mr. Ramirze is here today for his 1st post op visit. 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 Ramirez was seen today in follow up after hacing a L2-3 Tranksambin Lumbar Interbody Fusion completed 3-4 weeks ago. Unfortunately he has continued to report pain in his low back and shooting pains into his leg since the surgery. To briefly recap he had shooting pains into the lateral sides of his bilateral hips / thighs for the past several months prior to his surgery. He is now stating that he has shooting pains originating from his groin down his anterior/medial thighs bilaterally but worse on the left. He states the pain can not be controlled with [id number] medications and the current pain medication regimen that he is on. He has essentially been ?miserable? for the last couple of weeks and is here today seeking a solution to his current state. He is having difficulty with ambulation as this exacerbates the shooting pain into his anterior thighs. Some newer distribution radicular pain but no new neurological deficits. The patient is able to ambulate well and does not seem to have an antalgic or spastic gait. He is able to rise from a seated position on his own without bracing himself via the chair. His posterior incision sites are closed and well healed. There are a few Steri-Strips overlying 1 of his incision still which I removed. Slava is unfortunately continuing to suffer from some pretty severe postoperative pain. His oxycodone is not enough to keep him out of pain, and he is to the point where he is quite miserable. I canceled his oxycodone prescription and instead ordered him Dilaudid to be taken every 4 hours, I also canceled his methocarbamol prescription and ordered him baclofen to be taken 3 times daily. I informed him that both of these medications can make him quite drowsy and we discussed the risks/benefits of starting them. I believe it is important that he is not in so much pain is he is not able to focus on his recovery/healing in his not able to walk and complete ADLs without pain. I also sent him for a set of lumbar spine x-rays at the end of this visit. I informed him that I will send him a health portal message with the results after I review them. Jose Alejandro Rincon MD,PhD [facility] Orders: Orders XR lumbar spine 4V min Today M54.16 - Radiculopathy, lumbar region Medications: New hydromorphone 2 mg (1/2 x 4 mg) PO Q4H PRN 14 tabs 0RF severe pain (scale score 7-10) baclofen 10 mg PO TID 21 tabs 0RF msucle spasms / cramping Discontinued oxycodone Partial Fill upon patient request. Discontinued Reason: Doctor's Order 5 mg PO Q6H PRN 30 tabs 0RF severe pain (scale score 7-10) methocarbamol Discontinued Reason: Doctor's Order 500 mg PO TID 30 tabs 0RF pain Coding Level of Care Code Global (22987) Diagnoses Lumbar radiculopathy M54.16
== END 2024-05-13 15:28 | disposition home or self-care (01) ==
PROVIDERS: PCP Family Medicine; Visit Provider Physician Assistant
DX: M54.16 Radiculopathy, lumbar region (principal)
CPT/HCPCS: 99024

== ENCOUNTER 2024-05-14 15:19 | Outpatient (REF) | payer MEDICARE, SELFPAY ==
--- NOTE | ~2024-05-14 | CT_ITS ---
EXAMINATION: CT LUMBAR SPINE CLINICAL INFORMATION: Lumbar radiculopathy COMPARISON: Lumbar spine x-ray on 05/13/2024 TECHNIQUE: Multiple 2.0 and 1.5 mm axial images of the lumbar spine were obtained from lower T12 to S1 levels without IV contrast enhancement. Bone window and soft tissue window images were reconstructed. Coronal and Sagittal bone window images were also reconstructed from the axial image data. This CT examination was performed using dose optimization techniques as appropriate, variously including the following: *Automated exposure control *Adjustment of mA and/or kV according to patient size (this includes techniques or standardized protocols for targeted exams where dose is matched to indication/reason for exam; i.e. extremities or head) *Use of iterative reconstruction technique DLP: 827 mGy-cm FINDINGS: The visualized lumbar vertebrae are intact with normal alignment. T12/L1: Bony structures are intact with normal alignment. Intervertebral disc height is normal. Bilateral neuroforamina are patent. Bilateral apophyseal joints are intact with normal alignment. L-1/L-2: Bony structures are intact with normal alignment. Intervertebral disc height is normal. Bilateral neuroforamina are patent. Bilateral apophyseal joints are intact with normal alignment. L2/L3: There is L2-L3 interbody fusion with metallic spacer. Posterior L2-L3 spinal fixation with bilateral transpedicular screws and vertical posterior is seen. Bilateral neuroforamina are patent. Bilateral apophyseal joints are intact with normal alignment. Bilateral apophyseal joints show loss of joint space, sclerosis, facet hypertrophy and osteophytosis. L3/L4: There is L3-L4 interbody fusion with metallic spacer. Bilateral neuroforamina are patent. Bilateral apophyseal joints are intact with normal alignment. Bilateral apophyseal joints show loss of joint space, sclerosis, facet hypertrophy and osteophytosis. L4/L5: There is L4-L5 interbody fusion with metallic spacer. Bilateral neuroforamina are patent. Bilateral apophyseal joints are intact with normal alignment. Bilateral apophyseal joints show loss of joint space, sclerosis, facet hypertrophy and osteophytosis. L5/S1: Bony structures are intact with normal alignment. Intervertebral disc height is normal, with vacuum disc phenomenon. Bilateral neuroforamina are patent. Bilateral apophyseal joints are intact with normal alignment. Bilateral apophyseal joints show loss of joint space, sclerosis, facet hypertrophy and osteophytosis. A large 2.8 cm rim calcified gallstone is seen near the gallbladder neck. CT/CT lumbar spine wo IV con IMPRESSION: 1. No evidence of acute fracture or dislocation. 2. L2-L3 interbody fusion with metallic spacer. Posterior L2-L3 spinal fixation with bilateral transpedicular screws and vertical posterior rods. 3. L3-L4 interbody fusion with metallic spacer. 4. L4-L5 interbody fusion with metallic spacer. 5. L5-S1 degenerative disc disease. 6. Multilevel facet arthropathy. 7. Cholelithiasis. Electronically signed by: Bharat Rios MD 05/15/2024 10:36 AM EDT
== END 2024-05-14 15:20 | disposition home or self-care (01) ==
LOC: HO.CT 15:19
PROVIDERS: Visit Provider Physician Assistant
DX: M54.16 Radiculopathy, lumbar region (principal)
CPT/HCPCS: 72131

== ENCOUNTER 2024-06-24 13:25 | Outpatient (AMB) | payer MEDICARE, SELFPAY ==
--- NOTE | 2024-06-24 13:26 | A.SPINEOV_ITS ---
Intake Visit Reasons: 2nd post op Intake Note: Mr. Ramirez is here today for his 2nd post-op visit. 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 To recap he had quite a bit of pain after surgery and struggled with pain control. I changed his oxycodone and methocarbamol to Dilaudid and baclofen which provided good relief of his pain. He does feel a bit deconditioned due to his lack of mobility in the midst of the worst of his pain. He is now to the point where his radicular and low back pain has subsided and he feels very satisfied with his surgery. He does continue to report bilateral hip pain, but states this pain was present before surgery, and has previously been addressed with hip injections. No new neurological deficits. The patient is able to ambulate well and rises from a seated position without difficulty. He is well-appearing in no acute distress. Slava requested possible evaluation/treatment by physical therapy for his feeling of being weak/deconditioned. I completed a referral for him to take to [facility] in [place] where he would like to go. I also completed a referral to Orthopedics for evaluation of his hip pain. He does not feel the injections are worth getting anymore as they have provided less & less relief each time he gets them. The last time he got a hip injection it only provided him with 2 weeks of relief. Jose Alejandro Rincon MD,PhD [facility] Orders: Orders PT Evaluation and Treatment Today Z98.1 - Arthrodesis status Referrals Orthopedics Referral M25.551 - Pain in right hip, M25.552 - Pain in left hip Coding Level of Care Code Global (19049) Diagnoses S/P lumbar spinal fusion Z98.1
== END 2024-06-24 13:47 | disposition home or self-care (01) ==
PROVIDERS: PCP Family Medicine; Visit Provider Physician Assistant
DX: Z98.1 Arthrodesis status (principal)
CPT/HCPCS: 99024

== ENCOUNTER → 2024-06-24 13:25 | Outpatient (BNVA) | payer MEDICARE, SELFPAY | PROVIDERS: PCP Family Medicine; Visit Provider Physician Assistant | DX: M25.551 Pain in right hip (principal); M25.552 Pain in left hip; Z98.1 Arthrodesis status | CPT/HCPCS: 99212 ==

== ENCOUNTER 2024-07-21 08:27 | Outpatient (REF) | payer MEDICARE, SELFPAY ==
--- NOTE | ~2024-07-21 | XR_ITS ---
EXAMINATION: XR PELVIS 1 VIEW CLINICAL INFORMATION: Pain in unspecified hip M25.559. COMPARISON: None available TECHNIQUE: AP view of the pelvis. FINDINGS: No acute fracture is identified. There is asymmetric joint space narrowing of the right hip with severe medial narrowing with a [id number] appearance of the acetabulum and femoral head and small subchondral cyst formation. There is osteophyte formation at the margins of the right acetabulum. The hips are otherwise in alignment. There are mild degenerative changes of the sacroiliac joints. There are partially visualized postsurgical changes relating to lumbar discectomy and fusion. There are phleboliths within the pelvis. There is heterotopic ossification of the soft tissues on the left lateral to the acetabulum. XR/XR pelvis 1-2V IMPRESSION: Severe asymmetric degenerative change of the right hip with subchondral cyst formation of the acetabulum and femoral head compatible degenerative osteoarthritis. Electronically signed by: Jose Luis Rutledge MD 09/05/2024 02:19 PM [facility]
== END 2024-07-21 08:28 | disposition home or self-care (01) ==
LOC: HO.HOSX 08:27
PROVIDERS: Visit Provider Orthopaedic Surgery
DX: M25.551 Pain in right hip (principal); M25.552 Pain in left hip; M76.899 Other specified enthesopathies of unspecified lower limb, excluding foot; Z98.1 Arthrodesis status
CPT/HCPCS: 72170; 99202

== ENCOUNTER 2024-07-21 09:56 | Outpatient (AMB) | payer MEDICARE, SELFPAY ==
--- NOTE | 2024-07-21 10:02 | MHC.OFFVIS ---
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 Hx of L2-3 Tranksambin Lumbar Interbody Fusion. Patient reports that he has been having bilateral hip pain for a few years now. His hips are equally painful. Pain is worsened with gait initiation, once moving his symptoms improve. He does see Dr. Medina who injects bilateral hip hip bursas, last injection was dont sunday of last week. 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 Hx of L2-3 Tranksambin Lumbar Interbody Fusion. Patient reports that he has been having bilateral hip pain for a few years now. His hips are equally painful. Pain is worsened with gait initiation, once moving his symptoms improve. He does see Dr. Medina who injects bilateral hip hip bursas, last injection was last sunday of last week. He states his back has felt very good after surgery but his lateral hip pain persists. This has been something he has been dealing with for quite a while and has had bursa injections which are minimally helpful. He describes lateral hip pain left greater than right. If this is difficult for him when he is lying on his side, trying to sleep for going up and downstairs standing from a seated position. [facility] Medical History (Updated 07/21/24 @ 12:18 by Cristofer Soler MD) Back pain Obesity (BMI 30.0-34.9) HTN (hypertension) Hyperlipidemia BPH (benign prostatic hyperplasia) Vitamin D deficiency DDD (degenerative disc disease), cervical CAD (coronary artery disease) Chronic neck pain with history of cervical spinal surgery Tubular adenoma of colon History of basal cell carcinoma (BCC) of skin Actinic keratosis of scalp Diverticulosis Diabetes Chronic lower back pain Spinal stenosis at L4-L5 level Prostate cancer Acute deep vein thrombosis (DVT) of femoral vein of right lower extremity History of COVID-19 Dizziness 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 Lumbar degenerative disc disease Hyponatremia Adrenal nodule Nocturnal leg cramps Osteoarthritis of both hips Palpitations Nonhealing ulcer of right lower extremity PAC (premature atrial contraction) Atherosclerosis Insomnia Surgical History (Updated 06/24/24 @ 13:42 by ADE Paiz) History of back surgery Hx of bilateral cataract extraction Hx of prostate biopsy Hx of inguinal hernia repair Hx of shoulder surgery History of neck surgery H/O colonoscopy Hx of cardiac catheterization Social History Household Members: Spouse Housing: House Are you a primary professional healthcare representative to a significant other at home: No Do you presently have visiting nurse or other home services: No Comment: COUNTS CORRECT Patient Tobacco Use Status: Never used Tobacco service: No Physical Exam Vital Signs: BMI result Body Mass Index 31.5 Extrem Other: Eye exam he has a warm with gait. He has tenderness to palpation over the greater trochanter and pain along the course and the attachment of the gluteus medius. Results Reviewed Results Reviewed: I personally reviewed relevant radiographs. There is right greater troch enthesophytes and less so on the left. Mild left hip arthritis and moderate right hip arthritis Assessment & Plan Assessment & Plan (1) S/P lumbar spinal fusion: Code(s): Z98.1 - Arthrodesis status Category: Surgical Plan: Patient appears to be doing very well status post lumbar fusion. This is pain that is only indirectly related to the spine and that his core is weak and his gait mechanics are slightly abnormal. I recommend physical therapy. I reviewed with him his radiographs and do not think he would benefit from arthroplasty as his pain is extra-articular. I will see him back in 6 weeks. (2) Tendinitis involving hip abductors: Code(s): M76.899 - Other specified enthesopathies of unspecified lower limb, excluding foot Category: Medical Plan: Physical therapy written. I described to him the details of his ailment and what to work on in PT. Orders: Orders XR pelvis 1-2V Today M25.559 - Pain in unspecified hip Coding Level of Care Code New Pt Level 4 (64165) Diagnoses S/P lumbar spinal fusion Z98.1 Tendinitis involving hip abductors M76.899
[2024-07-21 10:07] VITALS: BMI 31.5
== END 2024-07-21 10:59 | disposition home or self-care (01) ==
PROVIDERS: PCP Family Medicine; Visit Provider Orthopaedic Surgery
DX: M25.561 Pain in right knee (principal); M25.562 Pain in left knee; Z98.1 Arthrodesis status; M76.899 Other specified enthesopathies of unspecified lower limb, excluding foot
CPT/HCPCS: 99204

== ENCOUNTER 2024-10-09 09:31 | Outpatient (AMB) | payer MEDICARE, SELFPAY ==
--- NOTE | 2024-10-09 09:32 | A.OFFVIS_ITS ---
Vital Signs 10/09/24 09:33 Height 5 ft 8.5 in Weight 210 lb BMI 31.5 Intake Visit Reasons: OV - Bilateral Hip tendonitis Intake Note: Slava is a 78 year old male who presents today as a new patient with complaints of right hip pain. Hx of L2-3 Tranksambin Lumbar Interbody Fusion. His pain is extra-articular/hip tendonitis and it is not believed that he would benefit from arthroplasty. Physical Therapy was ordered. Patient reports that he is here today for concerns of his lower back, not his hips. He explains that he has procedure done with [facility] which alleviated the shooting pain he was having in his back radiating to the hips, but it has not alleviated his general back pain. Allergies No Known Allergies Allergy (Verified 06/24/24 13:29) HPI HPI OV - Bilateral Hip tendonitis: Details: Slava is a 78 year old male who presents today as a new patient with complaints of right hip pain. Hx of L2-3 Tranksambin Lumbar Interbody Fusion. His pain is extra-articular/hip tendonitis and it is not believed that he would benefit from arthroplasty. Physical Therapy was ordered. Patient reports that he is here today for concerns of his lower back, not his hips. He explains that he has procedure done with [facility] which alleviated the shooting pain he was having in his back radiating to the hips, but it has not alleviated his general back pain. He complains of burning pain when he stands from a seated position. He complains of difficulty standing for extended periods with burning in the lumbar thoracic region. There is some mild left anterolateral pain. The posterolateral burning that was present prior to spine surgery is gone. [facility] Medical History (Updated 07/21/24 @ 12:18 by Cristofer Soler MD) Back pain Obesity (BMI 30.0-34.9) HTN (hypertension) Hyperlipidemia BPH (benign prostatic hyperplasia) Vitamin D deficiency DDD (degenerative disc disease), cervical CAD (coronary artery disease) Chronic neck pain with history of cervical spinal surgery Tubular adenoma of colon History of basal cell carcinoma (BCC) of skin Actinic keratosis of scalp Diverticulosis Diabetes Chronic lower back pain Spinal stenosis at L4-L5 level Prostate cancer Acute deep vein thrombosis (DVT) of femoral vein of right lower extremity History of COVID-19 Dizziness 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 Lumbar degenerative disc disease Hyponatremia Adrenal nodule Nocturnal leg cramps Osteoarthritis of both hips Palpitations Nonhealing ulcer of right lower extremity PAC (premature atrial contraction) Atherosclerosis Insomnia Surgical History (Updated 06/24/24 @ 13:42 by ADE Paiz) History of back surgery Hx of bilateral cataract extraction Hx of prostate biopsy Hx of inguinal hernia repair Hx of shoulder surgery History of neck surgery H/O colonoscopy Hx of cardiac catheterization Social History Household Members: Spouse Housing: House Are you a primary pediatric acute care unit nurse to a significant other at home: No Do you presently have visiting nurse or other home services: No Comment: COUNTS CORRECT Patient Tobacco Use Status: Never used Tobacco service: No Physical Exam Vital Signs: BMI result Body Mass Index 31.5 Extrem Other: On exam he does have mildly positive impingement test bilaterally. He has a nonantalgic gait. He has subjective discomfort in the lumbosacral spine and long the quadratus lumborum bilaterally. Results Reviewed Results Reviewed: I personally reviewed relevant radiographs. AP pelvis shows spinal fusion hardware with no obvious hardware complications. There is bilateral hip arthritis with moderate to severe on the right and [id number] on the left. Assessment & Plan Assessment & Plan (1) S/P lumbar spinal fusion: Code(s): Z98.1 - Arthrodesis status Category: Surgical Plan: Patient is seeing Dr. Moore and we will continue to follow up as needed. (2) Hip pain, bilateral: Code(s): M25.551 - Pain in right hip; M25.552 - Pain in left hip Category: Medical Plan: We had a long discussion regarding the patient's hip pain. I recommend physical therapy and a referral to Dr. Pedro Munguia in pain management. From my perspective, at this time, he has mood symptoms of arthritis that are mild and overall not contributory to his primary pain complaint. He understands this and would like to try physical therapy to strengthen his hips and talk to Dr. Munguia about possible interventions to alleviate some of the residual back pain that has persisted postoperatively. Coding Level of Care Code Est Pt Level 3 (34365) Diagnoses S/P lumbar spinal fusion Z98.1 Hip pain, bilateral M25.551; M25.552
[2024-10-09 09:33] VITALS: BMI 31.5
== END 2024-10-09 10:05 | disposition home or self-care (01) ==
PROVIDERS: PCP Family Medicine; Visit Provider Orthopaedic Surgery
DX: Z98.1 Arthrodesis status (principal); M25.551 Pain in right hip; M25.552 Pain in left hip
CPT/HCPCS: 99213

== ENCOUNTER → 2024-10-09 09:31 | Outpatient (BNVA) | payer MEDICARE, SELFPAY | PROVIDERS: PCP Family Medicine; Visit Provider Orthopaedic Surgery | DX: M25.551 Pain in right hip (principal); M25.552 Pain in left hip; Z98.1 Arthrodesis status | CPT/HCPCS: 99212 ==

== ENCOUNTER 2024-10-22 08:46 | Outpatient (AMB) | payer MEDICARE, SELFPAY ==
--- NOTE | 2024-10-22 08:51 | A.OFFVIS_ITS ---
Vital Signs 10/22/24 08:52 Height 5 ft 8.5 in Weight 223 lb BMI 33.4 BP 133/63 Blood Pressure Location Lt brachial Position Sitting Respiration 16 Pulse 86 Pulse Source Pulse Oximeter Pulse Oximetry (%) 94 Oxygen Delivery Method Room Air Intake Visit Reasons: Arthrodesis status Tool Mechanic Required: No Allergies No Known Allergies Allergy (Verified 10/22/24 08:56) Medication List - Last Reconciled 10/22/24 by Domitila Fisher LPN aspirin 81 mg PO DAILY atorvastatin 80 mg PO BEDTIME cholecalciferol (vitamin D3) (Vitamin D3) 50 mcg PO DAILY empagliflozin (Jardiance) 25 mg PO DAILY gabapentin 300 mg PO TID glipizide 10 mg PO BID hydroxyzine HCl 50 mg PO BEDTIME PRN losartan-hydrochlorothiazide 100-25 mg 1 tab PO DAILY metoprolol succinate ER 25 mg PO DAILY multivitamin 1 tab PO DAILY omega-3 fatty acids 1,000 mg PO DAILY tadalafil 5 mg PO QPM HPI HPI Arthrodesis status: Details: History of Present Illness The patient is a 78-year-old male presenting with chronic low back pain. This pain has persisted for 3 to 4 years, despite two prior lumbar surgeries. The patient underwent an L3-5 lumbar fusion in approximately and an L2-3 lateral lumbar interbody fusion in March last year. Previous surgical interventions alleviated certain pain symptoms, particularly those radiating int o the hip, but left a persistent issue above the surgical site. The pain intensifies upon standing and is non-existent while sitting. It is exacerbated by movement such as standing or walking, and engaging in daily tasks becomes increasingly difficult beyond short periods. Previous interventions included opioid treatment for neck pain, which ended following a neck operation and a shift in pain management approach using Zoloft. Observations allude to post- laminectomy syndrome as a contributing factor to the recurrent and persistent back pain. Pain Description - Intensity described as 10/10 - Pain onset: 3 to 4 years ago - Quality: Burning, aching pain localized in the lower lumbar region; described as burning in the center when standing - Pain exacerbated by standing for more than 5 minutes, walking, and performing tasks like brushing teeth or preparing food - Pain alleviated by sitting - Post-surgical pain radiating into the hip was alleviated by previous surgeries - Non-existent when sitting Physical Exam - Musculoskeletal- Well-healed incisions from prior lumbar surgeries, no tenderness upon palpation of the lumbar spinous processes - Localization of pain to the lower lumbar region upon standing Results Pain Management - Affect: Current pain level of 10/10; patient reports impact on performing daily activities and normal functioning - Analgesia: Previously on opioids; now taking aspirin; not seeking further opioids - Adverse Effects: History of significant opioid use with ineffective pain relief; transitioned off opioids successfully - Activities of Daily Living: Significant interference due to pain when standing or performing simple tasks; localized burning pain greatly limits activity - Aberrant Drug-Related Behaviors: History of long-term opioid use, currently managed without opioids [facility] Medical History (Updated 11/04/24 @ 10:05 by Bashir Dominguez MD) Back pain Obesity (BMI 30.0-34.9) HTN (hypertension) Hyperlipidemia BPH (benign prostatic hyperplasia) Vitamin D deficiency DDD (degenerative disc disease), cervical CAD (coronary artery disease) Chronic neck pain with history of cervical spinal surgery Tubular adenoma of colon History of basal cell carcinoma (BCC) of skin Actinic keratosis of scalp Diverticulosis Diabetes Chronic lower back pain Spinal stenosis at L4-L5 level Prostate cancer Acute deep vein thrombosis (DVT) of femoral vein of right lower extremity History of COVID-19 Dizziness 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 Lumbar degenerative disc disease Hyponatremia Adrenal nodule Nocturnal leg cramps Osteoarthritis of both hips Palpitations Nonhealing ulcer of right lower extremity PAC (premature atrial contraction) Atherosclerosis Insomnia Surgical History (Updated 06/24/24 @ 13:42 by ADE Paiz) History of back surgery Hx of bilateral cataract extraction Hx of prostate biopsy Hx of inguinal hernia repair Hx of shoulder surgery History of neck surgery H/O colonoscopy Hx of cardiac catheterization Social History Household Members: Spouse Housing: House Are you a primary social worker palliative care to a significant other at home: No Do you presently have visiting nurse or other home services: No Comment: COUNTS CORRECT Patient Tobacco Use Status: Never used Tobacco service: No Physical Exam Vital Signs: Last Vital Signs Pulse 86 10/22/24 08:52 Resp 16 10/22/24 08:52 BP 133/63 10/22/24 08:52 Pulse Ox 94 10/22/24 08:52 Oxygen Delivery Method Room Air 10/22/24 08:52 BMI result Body Mass Index 33.4 Assessment & Plan Assessment & Plan (1) Lumbar radiculopathy: Code(s): M54.16 - Radiculopathy, lumbar region Category: Medical (2) Postlaminectomy syndrome: Code(s): M96.1 - Postlaminectomy syndrome, not elsewhere classified Category: Medical Plan Plan - Obtain psychological clearance prior to initiating a spinal cord stimulation trial. - Discuss and consider a Misael Sci spinal cord stimulator trial as a non-invasive intervention for pain management. - If trial proves successful, plan for implantation of spinal cord stimulator leads and battery under sedation. - As a secondary option, consider intrathecal pump trial local opioid administration if spinal cord stimulator is ineffective. Patient was informed and verbally consented to the use of an ambient scribe for clinic note documentation during this visit. Discussion Notes I discussed the persistent chronic low back pain likely secondary to post- laminectomy syndrome, exploring non-invasive pain management avenues. I elab orated on the potential benefits, risks, and procedural details of the spinal cord stimulation trial, including a need for psychological evaluation as part of insurance requirements. The patient expressed a clear understanding of the 3- step process: psychological clearance, trial with an external device, and if successful, permanent implantation of the spinal cord stimulator. We agreed on this approach with patient consent. I advised him to weigh the option of canceling his appointment with another clinician, considering the plan we established appears comprehensive. Patient Instructions - Proceed with obtaining psychological clearance, as discussed. - Await scheduling for the spinal cord stimulator trial. - Monitor and report any significant changes in symptoms. - Engage in prescribed activities that do not exacerbate the pain. - Cancel the appointment with Dr. Rincon if our outlined management plan takes precedence over further consultations. Coding Level of Care Code New Pt Level 4 (33478) Diagnoses Lumbar radiculopathy M54.16 Postlaminectomy syndrome M96.1
[2024-10-22 08:52] VITALS: BP 133/63; PULSE 86; RESP 16; O2SAT 94; BMI 33.4
--- OUTSIDE RECORDS SUMMARY | 2024-10-22 09:31 | XMS_ITS | Encounter Summary ---
Author Organization [facility] Address [address] [place] [address] Care Team Providers Care Set Up And Lay Out Inspector Name Role Phone Tammy Mooney MD Primary Care Pr ovider Reason for Visit * Reason Comments Follow-up 3 mo diabetic foot e xam Encounter Details Date Type Department Care Team ([facility] st Contact Info) Description 10/15/2024 8:30 AM EST Office Visit Orthopedic Surgery - [place] [address] [phone] Abdoul Chavez, DPM [address] [address] Diabetic mononeuropathy simplex (CMS/HCC) (Primary Dx); Dermatophytosis of nail; Pain in toe of right foot; Pain in toe of left foot; Type II diabetes mellitus with peripheral circulatory disorder (CMS/HCC); Corns and callosities; Tailor's bunionette, right; Tailor's bunionette, left Social History Tobacco Use Types Packs/Day Years Used Date Smoking Tobacco: Never Smokeless Tobacco: Never Tobacco Cessation:Counseling Given: Not Answered Alcohol Use Standard Drinks/Week Comments Yes 0 (1 standard drink = 0.6 oz pur e alcohol) Sex and Gender Information Value Date Recorded Sex Assigned at Male 07/25/2024 12:34 PM EDT Gender Identity Male 07/25/2024 12:34 PM EDT Sexual Orientation Straight 07/25/2024 12 :34 PM EDT Job Start Date Occupation Industry Not on file Not on file Not on file documented as of this encounter Last Filed Vital Signs Vital Sign Reading Time Taken Comments Blood Pressure - - Pulse - - Temperature - - Respiratory Rate - - Oxygen Saturation - - Inhaled Oxygen Concentration - - Weight 99.8 kg (220 lb) 10/15/2024 8:23 AM EST Height 172.7 cm (5' 7.99 ) 10/15/2024 8:23 AM ES T Body Mass Index 33.46 10/15/2024 8:23 AM EST documented in this encounter Progress Notes * Abdoul Chavez DPM - 10/15/2024 8:30 AM EST Last PCP visit:Referring MD: 10/06/2024 Dr. Tammy Mooney MD IDENTIFIER: James is a 78 y.o. year old male who presents for consultation. CC: Foot pain HPI: Presents today complaining of worsening numbness burning tingling to his feet states more experiencing at night he has been symptoms it wakes him up he feels like is been irritating achy he notes he is a type II diabetic states his swelling has been well-controlled he denies new wound formations does note that his nails elongated painful thickened his skin and calluses and assess his feet he has been using the padding previously instructed and prescribed it states is helped tremendously his callus have not been getting as thick or painful ROS: GENERAL: Pt denies nausea, fever, vomiting, chills, or shortness of breath. Pt in NAD. CARDIOLOGY: pt denies chest pain, palpitations LUNGS: pt denies shortness of breath MUSCULOSKELETAL: See HPI, otherwise no joint pain or swelling, back pain, or muscle pain. 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 (CMS/HCC) Adrenal nodule (CMS/HCC) Atherosclerosis of chilkoot artery of both lower extremities with rest pain (CMS/HCC) BPH (benign prostatic hyperplasia) Cataract Chronic deep vein thrombosis (DVT) of femoral vein of right lower extremity (CMS/HCC) Chronic bilateral low back pain without sciatica Chronic neck pain Coronary artery disease involving chilkoot coronary artery of chilkoot heart without angina pectoris DDD (degenerative disc disease), cervical Lumbar degenerative disc disease Diverticulosis Dizziness Essential hypertension Insomnia Hyperlipidemia Nocturnal leg cramps Obesity (BMI 30.0-34.9) Osteoarthritis of both hips PAC (premature atrial contraction) Palpitations Prostate cancer (CMS/HCC) Spinal stenosis at L4-L5 level Trochanteric bursitis of both hips Tubular adenoma of colon 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) 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 aspirin 81 mg EC tablet Take 1 Tablet by mouth. atorvastatin (LIPITOR) 80 mg tablet Take 1 Tablet by mouth daily. Autolet lancing device LANCET DEVICES (ONE TOUCH DELICA LANCING DEV) [facility] [place] Use to test blood sugar once a day . DX-E11.9. NIDDM *One Touch Ultra 2* blood sugar diagnostic (ONETOUCH ULTRA TEST [facility] [place] USE TO TEST BLOOD SUGAR ONCE DAILY blood-glucose meter kit Use to test blood sugar once a day . DX-E11.9. NIDDM *One Touch Ultra 2* cholecalciferol (VITAMIN D-3) 50 mcg (2,000 unit) tablet Take 2,000 Units by mouth daily. empagliflozin (Jardiance) 25 mg tablet Take 1 tablet (25 mg total) by mouth 1 (one) time each day in the morning. 90 tablet 1 ezetimibe (ZETIA) 10 mg tablet TAKE 1 TABLET BY MOUTH EVERY DAY FA/mv,Ca,iron,min/lycopene/lut (MULTIVITAL ORAL) Take by mouth. gabapentin (NEURONTIN) 300 mg capsule Take 1 Capsule by mouth 2 times daily. 1 caps in the morning and 2 in the evening glipiZIDE (GLUCOTROL) 10 mg tablet Take 1 tablet (10 mg total) by mouth 2 (two) times a day before meals. 180 each 1 hydrOXYzine HCL (ATARAX) 50 mg tablet Take 1 Tablet by mouth at bedtime as needed for Anxiety (insomnia). lancets (Over[employer] DelAwdio Plus Lancet) 33 gauge USE TO TEST BLOOD SUGAR DAILY losartan-hydroCHLOROthiazide (HYZAAR) 100-25 mg per tablet Take 1 tablet by mouth 1 (one) time eachday. 90 each 1 metoprolol succinate (TOPROL-XL) 50 mg 24 hr tablet TAKE ONE TABLET BY MOUTH DAILY 90 tablet 3 omega-3 acid ethyl esters (LOVAZA) 1 gram capsule Take 1 g by mouth daily. tadalafiL (CIALIS) 5 mg tablet Take 1 Tablet by mouth daily. ALLERGIES: No Known Allergies PHYSICAL EXAM: Visit Vitals Ht 1.727 m (67.99 ) Wt 99.8 kg (220 lb) BMI 33.46 kg/m?? Smoking Status Never BSA 2.13 m?? PODIATRIC EXAMINATION: GENERAL: Patient appears well nourished, with NAD. VASCULAR: Dorsalis pedis pulses are 0/4 bilaterally and Posterior tibial pulses are 0/4 bilaterally. Capillary filling time within normal limits the digits. No pallor on elevation or rubor on dependency. No varicosities. Denies rest pain or claudication pain. NEUROLOGICAL: Sharp/dull sensation slightly altered, protective sensation intact 10/10 with 5.07 semmes janna bilaterally, vibratory sensation with tuning fork intact to the tibial tuberosity. ORTHOPEDIC: Good muscle strength 5/5 of all flexors and extensors. Dorsi flexion of ankle ,10 degrees, plantar flexion WNL. No muscle atrophy. DERMATOLOGICAL:. Toenails: Left Toenail(s) 1-5: Crumbling upon debridement, subungual debris, discoloration, dystrophy, elongation, mycotic appearance, onychomycosis, pain and thickening. Right Toenail(s) 1-5: Crumbling upon debridement, subungual debris, discoloration, dystrophy, elongation, mycotic appearance, onychomycosis, pain and thickening. Annular scaling bilateral feet moccasin distribution Skin thinning texture shiny appearance diffuse hyperpigmentation bilaterally pedal hair decreased Hyperkeratotic tissue outer border of subfifth metatarsal bilateral BIOMECHANICS: Ankle ROM WNL, STJ ROM wnl, MTJ ROM wnl, 1st MPJ ROM wnl. IMAGING: IMPRESSION: 1. Diabetic mononeuropathy simplex (CMS/HCC) 2. Dermatophytosis of nail 3. Pain in toe of right foot 4. Pain in toe of left foot 5. 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 Corns and callosities 7. Tailor's bunionette, right 8. Tailor's bunionette, left PLAN: Pt was seen and examined, history reviewed. Lidocaine patches discussed prescription offered patient declined he would like to pursue [id number] options recommendations given for lidocaine topical New signs of neuritis and neuropathy were discussed and reviewed Alternative options including Voltaren gel for arthritis was neuritis was discussed Continue with previously adjusted insoles Discussed with patient regarding proper glucose control, exercise, and diet. Explained to patient proper shoe gear, and importance of daily foot checks. I reviewed neuropathy and why it occurs in diabetics. I educated the patient on proper blood sugar control and the importance of an HgBA1c of less than 7.0%. I reviewed the signs and symptoms of neuropathy with the patient Pt to return for another evaluation in 3 months. Debridement of mycotic toenails 6-10: Verbal informed consent was obtained from the patient. Greater than 6 nails were aseptically debrided in thickness and length with nail nippers Hyperkeratotic tissue debrided pared with a number #15 scalpel blade x2 Abdoul Chavez DPM documented in this encounter Plan of Treatment Upcoming Encounters Date Type Department Care Team (Late st Contact Info) Description 10/23/2024 8:15 AM EST Appointment Radiology Department [address] [phone] 11/07/2024 10:40 AM EST Office Visit [facility] [address] [phone] Shu Styles NP 300 [facility] 102 [place] [address] 11/19/2024 1:20 PM EST Office Visit Gastroenterology - [address] [phone] Brenna Savage, FIRST SAMPLER [address] [address] 01/15/2025 8:15 AM EDT Office Visit Orthopedic Surgery - [place] [address] [phone] Abdoul Chavez, DPM [address] [address] 01/15/2025 9:45 AM EDT Office Visit Endocrinology [address] [phone] Lacey Bey MD [address] [place] [phone] 02/03/2025 8:30 AM EDT Office Visit Adult Medicine [address] [phone] Lena Sorto PA [address] [place] [address] documented as of this encounter Visit Diagnoses Diagnosis Diabetic mononeuropathy simplex (CMS/HCC)- Primary Type II or unspecified type diabetes mellitus with neurological manifestations, not stated as uncontrolled Dermatophytosis of nail Pain in toe of right foot Pain in soft tissues of limb Pain in toe of left foot Pain in soft tissues of limb 

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
--- OUTSIDE RECORDS SUMMARY | 2024-10-22 09:31 | XMS_ITS | Clinical Summary ---
Author Organization [facility] Address [address] [id number] Care Team Providers Care Sales Operations Analyst Name Role Phone Tl Stevens MD Primary Care Provider Unavailab le Allergies No known active allergies Medications Medication Sig Dispensed Refills Start Date End Date Status ezetimibe (ZETIA) tablet 10 mg Take 1 tablet (10 mg total) by mouth daily. 0 Active gabapentin (NEURONTIN) 300 MG capsule Take 1 capsule (300 mg total) by mouth 3 (three) times a day. 0 Active metoprolol succinate (TOPROL-XL) 24 hr tablet 50 mg Take by mouth daily. 0 Active losartan (COZAAR) 100 MG tablet Take 1 tablet (100 mg total) by mouth daily. 0 Active amLODIPine (NORVASC) tablet 10 mg Take 1 tablet (10 mg total) by mouth daily. 0 Active atorvastatin (LIPITOR) tablet 80 mg Take 1 tablet (80 mg total) by mouth daily. 0 Active empagliflozin (Jardiance) 10 MG tablet Take 5 mg by mouth 2 (two) times a day. 0 Active metFORMIN (GLUCOPHAGE) tablet 500 mg Take 1 tablet (500 mg total) by mouth 2 (two) times a day with meals. 0 Active Cholecalciferol (Vitamin D3) 50 MCG (2000 UT) capsule Take 2,000 Units by mouth daily. 0 Active aspirin EC 81 MG tablet Take 1 tablet (81 mg total) by mouth daily. 0 Active Marion-3 Fatty Acids (Fish Oil) 1000 MG CPDR Take by mouth. 0 Active Multiple Vitamins-Iron (MULTIVITAMIN/IRON PO) Take by mouth. 0 Active apixaban (ELIQUIS) 5 MG TABS tablet Take 1 tablet (5 mg total) by mouth every 12 (twelve) hours. 180 tablet 3 10/03/2022 Active apixaban (Eliquis) 2.5 MG TABS tablet Take 1 tablet (2.5 mg total) by mouth every 12 (twelve) hours. 180 tablet 3 10/03/2022 Active Active Problems Problem Noted Date Diagnosed Date Acute deep vein thrombosis ( DVT) of proximal vein of left lower extremity 08/18/2020 Immunizations Name Administration Dates Next Due Covid-19 (Pfizer) Dilution Required 11/17/2020,0 10/25/2020 Family History Medical History Relation Name Comments Stroke Father Uterine cancer Mother Relation Name Status Comments Father Mother Social History Tobacco Use Types Packs/Day Years Used Date Smoking Tobacco: Never Smokeless Tobacco: Never Alcohol Use Standard Drinks/Week Comments No 0 (1 standard drink = 0.6 oz pur e alcohol) Sex and Gender Information Value Date Recorded Sex Assigned at Not on file Gender Identity Not on file Sexual Orientation Not on file Job Start Date Occupation Industry Not on file Not on file Not on file Last Filed Vital Signs Vital Sign Reading Time Taken Comments Blood Pressure 112/55 10/02/2023 9:05 AM EST Pulse 80 10/02/2023 9:05 AM EST Temperature 36.4 ??C (97.6 ??F) 10/02/2023 9:05 AM ES T Respiratory Rate - - Oxygen Saturation 98% 10/02/2023 9:05 AM EST Inhaled Oxygen Concentration - - Weight 95.4 kg (210 lb 6.4 oz) 10/02/2023 9:05 A M EST Height 172.7 cm (5' 8 ) 04/03/2023 9:09 AM EDT Body Mass Index 31.99 04/03/2023 9:09 AM EDT Plan of Treatment Health Maintenance Due Date Last Done Comments Hepatitis C Screening 1944 Depression Screening 1956 BMI Counseling 1962 Preventative Health Evaluation 1962 Fall Risk Assessment 2009 RSV Adult > 60+ Yrs or (1 - 1-dose 75+ series) 2019 COVID-19 Vaccine ( season) 2024 06/26/2023, 06/16/2022, 12/26/2021, Additional history exists Influenza Vaccine (#1) 2024 , 06/15/2022, 06/15/2022, Additional history exists DTap / Tdap / Td (3 - Td or Tdap) 01/15/2033 01/15/2023, 04/24/2018 Pneumococcal Vaccine Completed 06/19/2017, 01/31/20 13 Shingrix-Zoster Vaccine Completed 01/10/20, 09/20/2021, 08/24/2021 Hepatitis B Vaccines Aged Out No long er eligible based on patient's age to complete this topic RSV Ped < 20 months Aged Out No longe r eligible based on patient's age to complete this topic Care Teams Sales Operations Analyst Relationship Specialty Start Date End Date Tl Stevens MD PCP - General Internal Medicine 10/03/22
--- OUTSIDE RECORDS SUMMARY | 2024-10-22 09:31 | XMS_ITS | Encounter Summary ---
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 Chest pain, unspecified type Tammy Mooney MD [address] [place] [phone] Abiodun Nichols MD [address] [place] [id number] Referral ID Status Reason Start Date Expiration Date Visits Requested Visits Authorized [id number] Authorized Specialty Services Required 10/06/2024 10/06/2025 6 6 Reason for Visit * Reason Comments Diabetes Hyperlipidemia Coronary Artery Disease Hypertension Encounter Details Date Type Department Care Team (Late st Contact Info) Description 10/06/2024 12:45 PM EST Office Visit Adult Medicine [address] [phone] Tammy Mooney MD [address] [place] [address] 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); Mixed hyperlipidemia; Benign prostatic hyperplasia, unspecified whether lower urinary tract symptoms present; History of prostate cancer; Essential hypertension; Easy bruising; Need for hepatitis C screening test; Coronary artery disease involving saxman coronary artery of saxman heart, unspecified whether angina present; Chest pain, unspecified type Social History Tobacco Use Types Packs/Day Years [...] Sign Reading Time Taken Comments Blood Pressure 136/77 10/06/2024 12:45 PM EST Pulse 63 10/06/2024 12:45 PM EST Temperature 36.9 ??C (98.5 ??F) 10/06/2024 12:[address] Respiratory Rate 17 10/06/2024 12:45 PM EST Oxygen Saturation - - Inhaled Oxygen Concentration - - Weight 99.8 kg (220 lb) 10/06/2024 12:45 PM EST Height 172.7 cm (5' 8 ) 10/06/2024 12:45 PM EST Body Mass Index 33.45 10/06/2024 12:45 PM EST documented in this encounter Ordered Prescriptions Prescription Sig Dispensed Refills Start Date End Da te losartan-hydroCHLOROthiaz kenan (HYZAAR) 100-25 mg per tabletIndications:Fabiano al hypertension,Coronary artery disease involving saxman coronary artery of saxman heart, unspecified whether angina present Take 1 tablet by mouth 1 (one) time each day. 90 each 1 10/07/2024 04/05/2025 empagliflozin (Jardiance) 25 mg tablet Take 1 tablet (25 mg total) by mouth 1 (one) time each day in the morning. 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 Continue Cialis 5mg daily * Tammy Mooney MD - 10/06/2024 12:45 PM ESTAssociated Problem(s): Essential hypertension BP is stable. Goal is <130/80. Close to goal. Continue current meds. Orders: losartan-hydroCHLOROthiazide (HYZAAR) 100-25 mg per tablet; Take 1 tablet by mouth 1 (one) time each day. 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 He noted some chest aching ; he reiterated multiple times this was not Chest pain . 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 He had a stress test done in February 2023 which was negative He was counselled on signs and symptoms of ACS. Strongly advised to go to the ER if he experiences ACS symptoms In the meantime I do think he needs more urgent follow up with cardiology. Will send a message to his administrative services officer-Dr. Nichols Orders: ECG 12 lead Tracing Only; Future Ambulatory referral to Cardiology; Future losartan-hydroCHLOROthiazide (HYZAAR) 100-25 mg per tablet; Take 1 tablet by mouth 1 (one) time each day. * Tammy Mooney MD - 10/06/2024 12:45 PM EST Images from the original note were not included. Patient Education High Blood Pressure: Care Instructions Overview It's normal for blood pressure to go up and down throughout the day. But if it stays up, you have high blood pressure. Another name for high blood pressure is hypertension. For diagnosis, the top number may be 130 to 140 or higher. The bottom number may be 80 to 90 or higher. Despite what a lot of people think, high blood pressure usually doesn't cause headaches or make youfeel dizzy or lightheaded. It usually has no symptoms. But it does increase your risk of stroke, heart attack, and other problems. You and your doctor will talk about your risks of these problems based on your blood pressure. Your doctor will give you a goal for your blood pressure. Your goal will be based on your health and your age. Lifestyle changes, such as eating healthy and being active, are always important to help lower blood pressure. You might also take medicine to reach your blood pressure goal. Follow-up care is a barbosa part of your treatment and safety. Be sure to make and go to all appointments, and call your doctor if you are having problems. It's also a good idea to know your test resultsand keep a list of the medicines you take. How can you care for yourself at home? Medical treatment If you stop taking your medicine, your blood pressure will go back up. You may take one or more types of medicine to lower your blood pressure. Be safe with medicines. Take your medicine exactly as prescribed. Call your doctor if you think you are having a problem with your medicine. Talk to your doctor before you start taking aspirin every day. Aspirin can help certain people lower their risk of a heart attack or stroke. But taking aspirin isn't right for everyone, because it can cause serious bleeding. See your doctor regularly. You may need to see the doctor more often at first or until your blood pressure comes down. If you are taking blood pressure medicine, talk to your doctor before you take decongestants or anti-inflammatory medicine, such as ibuprofen. Some of these medicines can raise blood pressure. Learn how to check your blood pressure at home. Lifestyle changes Stay at a healthy weight. This is especially important if you put on weight around the waist. Losing even 10 pounds can help you lower your blood pressure. If your doctor recommends it, get more exercise. Walking is a good choice. Bit by bit, increase theamount you walk every day. Try for at least 30 minutes on most days of the week. You also may want to swim, bike, or do other activities. Avoid or limit alcohol. Talk to your doctor about whether you can drink any alcohol. Try to limit how much sodium you eat to less than 2,300 milligrams (mg) a day. Your doctor may ask you to try to eat less than 1,500 mg a day. Eat plenty of fruits (such as bananas and oranges), vegetables, legumes, whole grains, and low-fat dairy products. Lower the amount of saturated fat in your diet. Saturated fat is found in animal products such as milk, cheese, and meat. Limiting these foods may help you lose weight and also lower your risk for heart disease. Do not smoke. Smoking increases your risk for heart attack and stroke. If you need help quitting, talk to your doctor about stop-smoking programs and medicines. These can increase your chances of quitting for good. When should you call for help? Call 911 anytime you think you may need emergency care. This may mean having symptoms that suggest that your blood pressure is causing a serious heart or blood vessel problem. Your blood pressure maybe over 180/120. For example, call 911 if: You have symptoms of a heart attack. These may include: Chest pain or pressure, or a strange feeling in the chest. Sweating. Shortness of breath. Nausea or vomiting. Pain, pressure, or a strange feeling in the back, neck, jaw, or upper belly or in one or both shoulders or arms. Lightheadedness or sudden weakness. A fast or irregular heartbeat. You have symptoms of a stroke. These may include: Sudden numbness, tingling, weakness, or loss of movement in your face, arm, or leg, especially on only one side of your body. Sudden vision changes. Sudden trouble speaking. Sudden confusion or trouble understanding simple statements. Sudden problems with walking or balance. A sudden, severe headache that is different from past headaches. You have severe back or belly pain. Do not wait until your blood pressure comes down on its own. Get help right away. Call your doctor now or seek immediate care if: Your blood pressure is much higher than normal (such as 180/120 or higher), but you don't have symptoms. You think high blood pressure is causing symptoms, such as: Severe headache. Blurry vision. Watch closely for changes in your health, and be sure to contact your doctor if: Your blood pressure measures higher than your doctor recommends at least 2 times. That means the top number is higher or the bottom number is higher, or both. You think you may be having side effects from your blood pressure medicine. Where can you learn more? Scan the QR code or Go to https://www.[employer].net/danniechart Enter X567 in the search box to learn more about High Blood Pressure: Care Instructions. Current as of: July 17, 2023 Content Version: 14.2 ?? 2023 [facility] DailyLook. Care instructions adapted under license by your healthcare professional. If you have questions about a medical condition or this instruction, always ask your healthcare professional. [employer] disclaims any warranty or liability for your use of this information. * Tammy Mooney MD - 10/06/2024 12:45 PM EST Images from the original note were not included. Chief Complaint Slava Ramirez is a 78 y.o. male presenting for Diabetes, Hyperlipidemia, Coronary Artery Disease, and Hypertension Subjective Type 2 Diabetes with microalbuminuria/hyperlipidemia: Continues on Jardiance 25 mg daily and glipizide 10mg BID. Now Following with Dr. Bey Last A1c was 7.9 in August. Now has CGM He continues on atorvastatin 80 mg daily and Zetia 10 mg daily for hyperlipidemia. Hx of prostate cancer/BPH: following with urology. Continues on Cialis 5mg daily Hypertension/CAD: Continues on metoprolol 50 mg daily, losartan- hydrochlorothiazide 100-25 mg daily. BP today is 136/77. He reports he has chest aches/discomfort that comes and goes. Very brief. Not related to exertion. Onset about a month ago. He does have a known hx of CAD confirmed by angiography done by cardiology when he lived in [facility]. He tells me plan was for stent placement vs other intervention but when he moved to [facility] this was deferred. He has been following with cardiology() and was last seen in June 2024. Visit notes reviewed He notes easy brusing in the arms and legs. 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 He has been off eliquis for about a year but takes aspirin daily. The following portions of the patient's history were reviewed by a provider in this encounter and updated as appropriate: Meds Allergies: He has No Known Allergies. Medications: Current Outpatient Medications Medication Instructions acetaminophen (TYLENOL 8 HOUR) 650 mg 8 hr tablet Take 1 Tablet by mouth every 8 hours as needed for Pain. aspirin 81 mg EC tablet Take 1 Tablet by mouth. atorvastatin (LIPITOR) 80 mg tablet Take 1 Tablet by mouth daily. Autolet lancing device LANCET DEVICES (ONE TOUCH DELICA LANCING DEV) [facility]: Use to test blood sugar once a day . DX-E11.9. NIDDM *One Touch Ultra 2* blood sugar diagnostic (ONETOUCH ULTRA TEST [facility]) USE TO TEST BLOOD SUGAR ONCE DAILY blood-glucose meter kit Use to test blood sugar once a day . DX-E11.9. NIDDM *One Touch Ultra 2* cholecalciferol (VITAMIN D-3) 50 mcg (2,000 unit) tablet Take 2,000 Units by mouth daily. empagliflozin (JARDIANCE) 25 mg, oral, Every morning ezetimibe (ZETIA) 10 mg tablet TAKE 1 TABLET BY MOUTH EVERY DAY FA/mv,Ca,iron,min/lycopene/lut (MULTIVITAL ORAL) Take by mouth. gabapentin (NEURONTIN) 300 mg capsule Take 1 Capsule by mouth 2 times daily. 1 caps in the morning and 2 in the evening glipiZIDE (GLUCOTROL) 10 mg, oral, 2 times daily before meals hydrOXYzine HCL (ATARAX) 50 mg tablet Take 1 Tablet by mouth at bedtime as needed for Anxiety (insomnia). lancets ([employer] Plus Lancet) 33 gauge USE TO TEST BLOOD SUGAR DAILY losartan-hydroCHLOROthiazide (HYZAAR) 100-25 mg per tablet 1 tablet, oral, Daily metoprolol succinate (TOPROL-XL) 50 mg 24 hr tablet Take 1 Tablet by mouth daily. omega-3 acid ethyl esters (LOVAZA) 1 gram capsule Take 1 g by mouth daily. tadalafiL (CIALIS) 5 mg tablet Take 1 Tablet by mouth daily. Depression Screening (PHQ2/9): Anxiety Screening: Social Influencer of Health (SIOH): Review of Systems: Review of Systems As noted in HPI Objective BP 136/77 Pulse 63 Temp 36.9 ??C (98.5 ??F) (Temporal) Resp 17 Ht 1.727 m (68 ) Wt 99.8 kg (220 lb) BMI 33.45 kg/m?? Physical Exam Constitutional: Appearance: Normal appearance. He is obese. HENT: Head: Normocephalic and atraumatic. Cardiovascular: Rate and Rhythm: Normal rate and regular rhythm. Pulses: Normal pulses. Heart sounds: No murmur heard. Pulmonary: Effort: Pulmonary effort is normal. No respiratory distress. Breath sounds: Normal breath sounds. Abdominal: Palpations: Abdomen is soft. Tenderness: There is no abdominal tenderness. Skin: Comments: Multiple areas of bruising across the arms. Venous stasis changes in the legs Neurological: General: No focal deficit present. Mental Status: He is alert and oriented to person, place, and time. Psychiatric: Mood and Affect: Mood normal. 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 Continue Cialis 5mg daily History of prostate cancer PSA is undetectable Essential hypertension BP is stable. Goal is <130/80. Close to goal. Continue current meds. Orders: losartan-hydroCHLOROthiazide (HYZAAR) 100-25 mg per tablet; Take 1 tablet by mouth 1 (one) time each day. Easy bruising Likely related to aspirin use ; counseling provided regarding changes in skin which occurs with ageand aspirin use. Will check labs Orders: CBC and differential; Future Prothrombin time with INR; Future Von Willebrand factor activity; Future Activated partial thromboplastin time; Future Need for hepatitis C screening test Orders: Hepatitis C antibody; Future Coronary artery disease involving saxman coronary artery of saxman heart, unspecified whether angina present See HPI. He noted some chest aching ; he reiterated multiple times this was not Chest pain . 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 He had a stress test done in February 2023 which was negative He was counselled on signs and symptoms of ACS. Strongly advised to go to the ER if he experiences ACS symptoms In the meantime I do think he needs more urgent follow up with cardiology. Will send a message to his administrative services officer-Dr. Nichols Orders: ECG 12 lead Tracing Only; Future Ambulatory referral to Cardiology; Future losartan-hydroCHLOROthiazide (HYZAAR) 100-25 mg per tablet; Take 1 tablet by mouth 1 (one) time each day. Chest pain, unspecified type As above Orders: ECG 12 lead Tracing Only; Future Ambulatory referral to Cardiology; Future Tammy Mooney MD ADULT MEDICINE [facility] [address] Dept: [phone] Dept Date of Visit: 10/06/2024 documented in this encounter Plan of Treatment Upcoming Encounters Date Type Department Care Team (Late st Contact Info) Description 10/23/2024 8:15 AM EST Appointment Radiology Department - [address] [phone] 11/07/2024 10:40 AM EST Office Visit [facility] [address] [phone] Shu Styles NP [address] [address] 11/19/2024 1:20 PM EST Office Visit Gastroenterology - [address] [place] [phone] Brenna Savage, WOOD BARKER [address] [address] 01/15/2025 8:15 AM EDT Office Visit Orthopedic Surgery - [place] [address] [phone] Abdoul Chavez DPM [address] [address] 01/15/2025 9:45 AM EDT Office Visit Endocrinology - [address] [phone] Lacey Bey MD [address] [place] [phone] 02/03/2025 8:30 AM EDT Office Visit Adult Medicine [address] [phone] Lena Sorto PA [address] [place] [address] Scheduled Orders Name Type Priority Associated Diagnoses Orde r Schedule ECG 12 lead Tracing Only ECG Routine Coronary artery disease involving saxman coronary artery of saxman heart, unspecified whether angina present Chest pain, unspecified type 1 Occurrences starting 10/06/2024 until 10/06/2025 Scheduled Referrals Name Type Priority Associated Diagnoses Order Schedule Ambulatory referral to Cardiology Outpatient Referral Routine Coronary artery disease involving saxman coronary artery of saxman heart, unspecified whether angina present Chest pain, unspecified type 1 Occurrences starting 10/06/2024 until 10/06/2025 documented as of this encounter Results * Hepatitis C antibody (10/06/2024 1:54 PM EST) [facility] Hepatitis C Antibody Negative Negative LAB CHEMISTRY METHOD 10/06/2024 6:44 PM EST [facility] Blood Venous blood specimen / Unknown Venipuncture / Unknown 10/06/2024 1:54 PM EST 10/06/2024 1:54 PM EST Tammy Mooney MD LAB BLOO D ORDERABLES [facility] [address] [place] [address], * Activated partial thromboplastin time (10/06/2024 1:54 PM EST) [facility] aPTT 38.1 24.1 - 39.3 sec LAB COAGULATION METHOD 10/06/2024 4:51 PM EST [facility] Blood Venous blood specimen / Unknown Venipuncture / Unknown 10/06/2024 1:54 PM EST 10/06/2024 1:54 PM EST Tammy Mooney MD LAB BLOO D ORDERABLES [facility] [address] [place] [address], * Von Willebrand factor activity (10/06/2024 1:54 PM EST) [facility] von Willebrand Factor Activity Percent 96 51 - 215 % 10/11/2024 1:24 PM EST [facility] Comment: REFERENCE INTERVAL: von Willebrand Factor, Activity (RCF) Access complete set of age- and/or gender-specific reference intervals for this test in the [facility] Test Directory ([employer]). Performed By: [facility] [address] [place] [address] Prison Guard: Eric Luu MD, PhD CLIA Number: [id number] Blood Venous blood specimen / Unknown Venipuncture / Unknown 10/06/2024 1:54 PM EST 10/06/2024 1:54 PM EST Tammy Mooney MD LAB BLOO D ORDERABLES Performing Organization Address City/[facility]/ZIP Co de Phone Number [facility] [address] 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)- Primary Mixed hyperlipidemia Benign prostatic hyperplasia, unspecified whether lower urinary tract symptoms present History of prostate cancer Personal history of malignant neoplasm of prostate Essential hypertension Unspecified essential hypertension Easy bruising Other symptoms involving skin and integumentary tissues Need for hepatitis C screening test Special screening examination for other specified viral diseases Coronary artery disease involving saxman coronary artery of saxman heart, unspecified whether angina present Chest pain, unspecified type documented in this encounter Discontinued Medications Medication Sig Discontinue Reason Start Date End Da te empagliflozin (Jardiance) 25 mg tablet Take 1 tablet (25 mg total) by mouth 1 (one) time each day in the morning. Reorder 08/27/2024 10/06/2024 silver sulfADIAZINE (SILVADENE, SSD) 1 % cream Apply topically to wound bed daily Therapy completed 11/27/2023 10/07/2024 losartan-hydroCHLOROthia zide (HYZAAR) 100-25 mg per tablet Take 1 Tablet by mouth daily. Reorder 02/01/2024 10/07/2024 documented as of this encounter Care Teams Fingerprint Technician Relationship Specialty Start Date End Date Tammy Mooney MD [address] [place] [phone] PCP - General Internal Medicine 09/04/24 documented as of this encounter
--- OUTSIDE RECORDS SUMMARY | 2024-10-22 09:33 | XMS_ITS | Encounter Summary ---
Author Organization [facility] Address [address] [place] [address] Care Team Providers Care Dairy Hand Name Role Phone Tammy Mooney MD Primary Care Pr ovider Reason for Visit * Reason Comments Blood Sugar Problem Encounter Details Date Type Department Care Team ([facility] st Contact Info) Description 09/23/2024 8:30 AM EST Consult Endocrinology - [id number] [place] [phone] Lacey Bey MD [address] [place] [address] Type 2 diabetes mellitus with cataract ([facility]/HCC) (Primary Dx) Social History Tobacco Use Types Packs/Day Years [...] Sign Reading Time Taken Comments Blood Pressure 130/78 09/23/2024 8:27 AM EST Pulse 71 09/23/2024 8:27 AM EST Temperature 36.3 ??C (97.3 ??F) 09/23/2024 8:27 AM ES T Respiratory Rate - - Oxygen Saturation 97% 09/23/2024 8:27 AM EST Inhaled Oxygen Concentration - - Weight 103 kg (228 lb) 09/23/2024 8:27 AM EST Height 172.7 cm (5' 8 ) 09/23/2024 8:27 AM EST Body Mass Index 34.67 09/23/2024 8:27 AM EST documented in this encounter Progress Notes * Lacey Bey MD - 09/23/2024 8:[address] the michael 3 CGM sample * Lacey Bey MD - 09/23/2024 8:30 AM EST CHIEF COMPLAINT: Blood Sugar Problem IDENTIFIER: Slava Ramirez is a 78 y.o. old male. REFERRING PROVIDER: Tammy Mooney MD HPI: 78 years old M referred for DM type 2 Diagnosed since 4 years Currently on Jardiance 25 mg daily and Glipizide 10 mg BID Checking sugars, not very often. He was on metformin, was having GI issues so stopped. ROS: No new complaints. PAST MEDICAL HISTORY: Patient Active Problem List Diagnosis Date Noted Chronic deep vein thrombosis (DVT) of femoral vein of right lower extremity ([facility]) 06/25/2024 Type 2 diabetes mellitus with cataract ([facility]) 06/25/2024 Trochanteric bursitis of both hips 06/05/2024 Insomnia 04/27/2023 Atherosclerosis of kiana artery of both lower extremities with rest pain ([facility]) 03/22/2023 PAC (premature atrial contraction) 03/19/2023 Venous stasis ulcer of right calf limited to breakdown of skin with varicose veins ([facility]) 03/19/2023 Palpitations 02/07/2023 Nocturnal leg cramps 01/01/2023 Osteoarthritis of both hips 01/01/2023 Adrenal nodule ([facility]) 07/07/2022 Lumbar degenerative disc disease 09/26/2021 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 ([facility]/HCC) 03/23/2021 Dizziness 02/09/2021 Acute deep vein thrombosis (DVT) of femoral vein of right lower extremity ([facility]) 07/27/2020 Prostate cancer ([facility]) 03/16/2020 Spinal stenosis at L4-L5 level 09/30/2019 Chronic bilateral low back pain without sciatica 04/02/2019 Cataract 02/26/2019 Type 2 diabetes mellitus with microalbuminuria ([facility]) 02/26/2019 Diverticulosis 01/14/2019 Actinic keratosis 12/30/2018 Chronic neck pain 12/12/2018 Tubular adenoma of colon 12/12/2018 BPH (benign prostatic hyperplasia) 12/04/2018 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 lancets ([employer] Delica Plus Lancet) 33 gauge USE TO TEST BLOOD SUGAR DAILY losartan-hydroCHLOROthiazide (HYZAAR) 100-25 mg per tablet Take 1 Tablet by mouth daily. metoprolol succinate (TOPROL-XL) 50 mg 24 hr tablet Take 1 Tablet by mouth daily. omega-3 acid ethyl esters (LOVAZA) 1 gram capsule Take 1 g by mouth daily. silver sulfADIAZINE (SILVADENE, SSD) 1 % cream Apply topically to wound bed daily tadalafiL (CIALIS) 5 mg tablet Take 1 Tablet by mouth daily. ALLERGIES: No Known Allergies PHYSICAL EXAM: Visit Vitals BP 130/78 (BP Location: Right arm, Patient Position: Sitting, BP Cuff Size: Adult) Pulse 71 Temp 36.3 ??C (97.3 ??F) (Temporal) Ht 1.727 m (68 ) Wt 103 kg (228 lb) SpO2 97% BMI 34.67 kg/m?? Smoking Status Never BSA 2.16 m?? APPEARANCE: Alert and in no acute distress EYES: EOMI. HEART: RRR with normal S1 and S2, no murmurs NECK: no adenopathy, thyroid symmetric and of normal size LUNG: clear to auscultation ABDOMEN: soft, non-tender NEURO: Awake, alert LABS: Lab Results Component Value Date HGBA1C 7.9 (H) 09/04/2024 CHOL 152 09/04/2024 LDL 58 02/29/2024 HDL 66 09/04/2024 TRIG 135 09/04/2024 IMPRESSION: 1. Type 2 diabetes mellitus with cataract ([facility]) PLAN: Had a detailed discussion, discussed the medications he is on and the potential side effects. Limited data, A1c moves a bit. Shall get more data and gave michael 3 CGM sample shall review in a week. Gave names and he shall ask regarding coverage of GLP1A. All questions answered. Retinopathy: absent; Last Eye Exam within previous: 12 months Neuropathy: Denies Nephropathy: Last UAC not elevated Lipids: On statins Medication and lab orders: Orders Placed This Encounter Procedures POC glucose manually resulted Other orders: None Lacey Bey MD on 09/23/2024 at 9:17 AM EST * Jyothi Shanks MA - 09/23/2024 8:30 AM EST Procedures documented in this encounter Plan of Treatment Upcoming Encounters Date Type Department Care Team (Late st Contact Info) Description 10/23/2024 8:15 AM EST Appointment Radiology Department - [address] [phone] 11/07/2024 10:40 AM EST Office Visit [facility] [address] [facility] [address] [place] [phone] Shu Styles, ENIO [address] [address] 11/19/2024 1:20 PM EST Office Visit Gastroenterology - [address] [facility] [address] [phone] Brenna Savage NP [address] [address] 01/15/2025 8:15 AM EDT Office Visit Orthopedic Surgery - [place] [address] [phone] Abdoul Chavez, DPM [address] [address] 01/15/2025 9:45 AM EDT Office Visit Endocrinology - [address] [phone] Lacey Bey MD [address] [place] [phone] 02/03/2025 8:30 AM EDT [facility] - [address] [phone] Lena Sorto PA [address] [place] [address] documented as of this encounter Procedures Procedure Name Priority Date/Time Associated Diagnosis Comments POC GLUCOSE Routine 09/23/2024 8:53 AM EST 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) documented in this encounter Results * (ABNORMAL) POC glucose manually resulted (09/23/2024 8:53 AM EST) Glucose POC 180 mg/dL Blood Capillary blood specimen / Unknown 09/23/2024 8:53 AM EST Lacey Bey MD POINT OF CARE TEST E NTER/EDIT ORDERABLES documented in this encounter Visit Diagnoses Diagnosis 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)- Primary documented in this encounter Care Teams Dairy Hand Relationship Specialty Start Date End Date Tammy Mooney MD [address] [place] [phone] PCP - General Internal Medicine 09/04/24 documented as of this encounter
--- OUTSIDE RECORDS SUMMARY | 2024-10-22 09:33 | XMS_ITS | Clinical Summary ---
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 Assembler: Eric Luu MD, PhD CLIA Number: [id number] Blood Venous blood specimen / Unknown Venipuncture / Unknown 10/06/2024 1:54 PM EST 10/06/2024 1:54 PM EST Tammy Mooney MD LAB BLOO D ORDERABLES [facility] [address] [place] [address] * Activated partial thromboplastin time (10/06/2024 1:54 PM EST) Pathologist [facility] aPTT 38.1 24.1 - 39.3 sec LAB COAGULATION METHOD 10/06/2024 4:51 PM EST [facility] Blood Venous blood specimen / Unknown Venipuncture / Unknown 10/06/2024 1:54 PM EST 10/06/2024 1:54 PM EST Tammy Mooney MD LAB BLOO D ORDERABLES Performing Organization Address City/[facility]/ZIP Co de Phone Number [facility] [address] [place] [address], [place] [phone] * Prothrombin time with INR (10/06/2024 1:54 PM EST) [facility] Protime 11.4 10.6 - 13.9 sec LAB COAGULATION METHOD 10/06/2024 4:51 PM EST [facility] INR 0.9 LAB COAGULATION METHOD 10/06/2024 4:51 PM EST [facility] Blood Venous blood specimen / Unknown Venipuncture / Unknown 10/06/2024 1:54 PM EST 10/06/2024 1:54 PM EST Tammy Mooney MD LAB BLOO D ORDERABLES Performing Organization Address City/[facility]/ZIP Co de Phone Number [facility] [address] [place] [address], [place] [phone] * (ABNORMAL) Hepatic function panel (10/06/2024 1:54 PM EST) [facility] Total Protein 7.6 6.0 - 8.0 g/dL LAB CHEMISTRY METHOD 10/06/2024 5:56 PM EST [facility] Albumin 4.4 3.2 - 5.0 g/dL LAB CHEMISTRY METHOD 10/06/2024 5:56 PM EST [facility] Total Bilirubin 2.1(H) 0.0 - 1.4 mg/dL LAB CHEMISTRY METHOD 10/06/2024 5:56 PM EST [facility] Bilirubin, Direct 0.4(H) 0.0 - 0.3 mg/dL LAB CHEMISTRY METHOD 10/06/2024 5:56 PM [facility] Bilirubin, Indirect 1.7(H) 0.0 - 1.1 mg/dL LAB CHEMISTRY METHOD 10/06/2024 5:56 PM [facility] ALT (SGPT) 41 10 - 60 unit/L LAB CHEMISTRY METHOD 10/06/2024 5:56 PM [facility] AST (SGOT) 26 10 - 42 unit/L LAB CHEMISTRY METHOD 10/06/2024 5:56 PM [facility] Alkaline Phosphatase 82 42 - 121 unit/L LAB CHEMISTRY METHOD 10/06/2024 5:56 PM [facility] Blood Venous blood specimen / Unknown Venipuncture / Unknown 10/06/2024 1:54 PM EST 10/06/2024 1:54 PM EST Tammy Mooney MD LAB BLOO D ORDERABLES [facility] [address] [place] [address], * (ABNORMAL) POC glucose manually resulted (09/23/2024 8:53 AM EST) Glucose POC 180 mg/dL Blood Capillary blood specimen / Unknown 09/23/2024 8:53 AM EST Lacey Bey MD POINT OF CARE TEST E NTER/EDIT ORDERABLES * Lipid panel with reflex to direct LDL (09/04/2024 9:59 AM EST) Cholesterol 152 0 - 200 mg/dL LAB CHEMISTRY METHOD 09/04/2024 1:50 PM EST [facility] Triglycerides 135 0 - 150 mg/dL LAB CHEMISTRY METHOD 09/04/2024 1:50 PM EST [facility] HDL 66 >=40 mg/dL LAB CHEMISTRY METHOD 09/04/2024 1:50 PM [facility] LDL Calculated 59 0 - 100 mg/dL LAB CHEMISTRY METHOD 09/04/2024 1:50 PM EST [facility] VLDL Cholesterol Alex 27 mg/dL LAB CHEMISTRY METHOD 09/04/2024 1:50 PM [facility] Non HDL Chol. (LDL+VLDL) 86 <145 mg/dL LAB CHEMISTRY METHOD 09/04/2024 1:50 PM [facility] Chol/HDL Ratio 2.3 0.0 - 4.4 LAB CHEMISTRY METHOD 09/04/2024 1:50 PM EST [facility] Blood Venous blood specimen / Unknown Venipuncture / Unknown 09/04/2024 9:59 AM EST 09/04/2024 9:59 AM EST Tammy Mooney MD LAB BLOO D ORDERABLES [facility] [address] [place] [address], * Microalbumin creatinine urine ratio (09/04/2024 9:59 AM EST) Creatinine, Urine 57.0 mg/dL LAB CHEMISTRY METHOD 09/04/2024 4:54 PM [facility] Microalb, Ur 15.5 0.0 - 29.0 mg/L LAB CHEMISTRY METHOD 09/04/2024 4:54 PM [facility] Microalb/Creat Ratio 27 <30 mg/g creat LAB CHEMISTRY METHOD 09/04/2024 4:54 PM [facility] Urine Urine specimen obtained by clean catch procedure / Unknown Non-blood Collection / Unknown 09/04/2024 9:59 AM EST 09/04/2024 9:59 AM EST Tammy Mooney MD LAB URIN E ORDERABLES Performing Organization Address [facility]/ZIP Co de Phone Number [facility] [address] [place] [address], * (ABNORMAL) Hemoglobin A1c (09/04/2024 9:59 AM EST) Pathologist [facility] Hemoglobin A1C 7.9(H) <6.5 % LAB CHEMISTRY METHOD 09/04/2024 3:18 PM EST [facility] Mean Bld Glu Estim. 180 mg/dL LAB CHEMISTRY METHOD 09/04/2024 3:18 PM EST [facility] Blood Venous blood specimen / Unknown Venipuncture / Unknown 09/04/2024 9:59 AM EST 09/04/2024 9:59 AM EST Tammy Mooney MD LAB BLOO D ORDERABLES Performing Organization Address [facility]/ZIP Co de Phone Number [facility] [address] [place] [address], * (ABNORMAL) Comprehensive metabolic panel (09/04/2024 9:59 AM EST) Pathologist [facility] Sodium 141 133 - 145 mmol/L LAB CHEMISTRY METHOD 09/04/2024 1:50 PM EST [facility] Potassium 3.9 3.5 - 5.5 mmol/L LAB CHEMISTRY METHOD 09/04/2024 1:50 PM EST [facility] Chloride 106 96 - 110 mmol/L LAB CHEMISTRY METHOD 09/04/2024 1:50 PM EST [facility] CO2 26 21 - 32 mmol/L LAB CHEMISTRY METHOD 09/04/2024 1:50 PM [facility] Anion Gap 9 3 - 11 LAB CHEMISTRY METHOD 09/04/2024 1:50 PM [facility] Glucose 167(H) 70 - 100 mg/dL LAB CHEMISTRY METHOD 09/04/2024 1:50 PM [facility] BUN 13 5 - 25 mg/dL LAB CHEMISTRY METHOD 09/04/2024 1:50 PM [facility] Creatinine 0.86 0.70 - 1.30 mg/dL LAB CHEMISTRY METHOD 09/04/2024 1:50 PM [facility] eGFR 88 >=60 mL/min/1. 73m2 LAB CHEMISTRY METHOD 09/04/2024 1:50 PM [facility] Comment:Calculation based on the??Chronic Kidney Disease Epidemiology Collaboration (CKD-EPI) equation refit??without adjustment for race. BUN/Creatinine Ratio 15.1 LAB CHEMISTRY METHOD 09/04/2024 1:50 PM [facility] Calcium 9.8 8.5 - 10.5 mg/dL LAB CHEMISTRY METHOD 09/04/2024 1:50 PM [facility] AST (SGOT) 18 10 - 42 unit/L LAB CHEMISTRY METHOD 09/04/2024 1:50 PM [facility] ALT (SGPT) 30 10 - 60 unit/L LAB CHEMISTRY METHOD 09/04/2024 1:50 PM [facility] Alkaline Phosphatase 74 42 - 121 unit/L LAB CHEMISTRY METHOD 09/04/2024 1:50 PM [facility] Total Protein 6.9 6.0 - 8.0 g/dL LAB CHEMISTRY METHOD 09/04/2024 1:50 PM [facility] Albumin 4.0 3.2 - 5.0 g/dL LAB CHEMISTRY METHOD 09/04/2024 1:50 PM [facility] Total Bilirubin 1.7(H) 0.0 - 1.4 mg/dL LAB CHEMISTRY METHOD 09/04/2024 1:50 PM EST [facility] Blood Venous blood specimen / Unknown Venipuncture / Unknown 09/04/2024 9:59 AM EST 09/04/2024 9:59 AM EST Tammy Mooney MD LAB BLOO D ORDERABLES Performing Organization Address [facility]/ZIP Co de Phone Number [facility] [address] [place] [address], [place] [phone] * PSA total, free and complexed (08/13/2024 10:27 AM EST) PSA <0.06 0.00 - 4.00 ng/mL LAB CHEMISTRY METHOD 08/14/2024 9:37 PM EST [facility] PSA, Complexed <0.07 0.00 - 3.00 ng/mL LAB CHEMISTRY METHOD 08/14/2024 9:37 PM EST [facility] PSA, Free LAB CHEMISTRY METHOD 08/14/2024 9:37 PM EST [facility] PSA, Free Pct LAB CHEMISTRY METHOD 08/14/2024 9:37 PM EST [facility] Blood Venous blood specimen / Unknown 08/13/2024 10:27 AM EST 08/13/2024 1:22 PM EST Narrative [facility] - 08/14/2024 9:37 PM EST Free PSA is a calculated value. ??The diagnostic usefulness of % free PSA has not been established in patients with Total PSA below 2.6 or above 10 ng/mL. ?? This test was performed using the [employer] Chemiluminescent method. ??PSA values obtained with other methods cannot be used interchangeably. Aden Stevens MD LAB BLOOD ORDERABLES Performing Organization Address City/[facility]/ZIP Co de Phone Number [facility] [address] [place] [address], [place] [phone] from Last 3 Months Care Teams Service Now Developer Relationship Specialty Start Date End Date Tammy Mooney MD [address] [place] [address] PCP - General Internal Medicine 09/04/24
--- OUTSIDE RECORDS SUMMARY | 2024-10-22 09:33 | XMS_ITS | Encounter Summary ---
Author Organization [facility] Address [address] [place] [address] Care Team Providers Care Loan Supervisor Name Role Phone Tammy Mooney MD Primary Care Pr ovider Encounter Details Date Type Department Care Team (Late Contact Info) Description 08/13/2024 Lab Requisition [facility] - Main Lab [address] [facility] [place] [address] Aden Stevens MD [address] [facility] [address] [place] [phone] Personal history of malignant neoplasm of prostate Social History Tobacco Use Types Packs/Day Years Used Date Smoking Tobacco: Never Smokeless Tobacco: Never Alcohol Use Standard Drinks/Week Comments Yes 0 [...] on file documented as of this encounter Plan of Treatment Upcoming Encounters Date Type Department Care Team (Late Contact Info) Description 10/23/2024 8:15 AM EST Appointment Radiology Department - [address] [phone] 11/07/2024 10:40 AM EST Office Visit [facility] [address] [phone] Shu Styles, ENIO [address] [address] 11/19/2024 1:20 PM EST Office Visit Gastroenterology - [address] [phone] Brenna Savage NP [address] [address] 01/15/2025 8:15 AM EDT Office Visit Orthopedic Surgery - [place] [address] [phone] Abdoul Chavez DPM [address] [address] 01/15/2025 9:45 AM EDT Office Visit Endocrinology [address] [phone] Lacey Bey MD [address] [place] [phone] 02/03/2025 8:30 AM EDT Office Visit Adult Medicine [address] [phone] Lena Sorto PA [address] [place] [address] documented as of this encounter Procedures Procedure Name Priority Date/Time Associated Diagnosis Comments PSA TOTAL, FREE AND COMPLEXED, DIAGNOSTIC Routine 08/13/2024 10:27 AM EST Personal history of malignant neoplasm of prostate documented in this encounter Results * PSA total, free and complexed (08/13/2024 10:27 AM EST) PSA <0.06 0.00 - 4.00 ng/mL LAB CHEMISTRY METHOD 08/14/2024 9:37 PM [facility] PSA, Complexed <0.07 0.00 - 3.00 ng/mL LAB CHEMISTRY METHOD 08/14/2024 9:37 PM [facility] PSA, Free LAB CHEMISTRY METHOD 08/14/2024 9:37 PM [facility] PSA, Free Pct LAB CHEMISTRY METHOD 08/14/2024 9:37 PM [facility] Blood Venous blood specimen / Unknown 08/13/2024 10:27 AM EST 08/13/2024 1:22 PM EST [facility] - 08/14/2024 9:37 PM EST Free PSA is a calculated value. ??The diagnostic usefulness of % free PSA has not been established in patients with Total PSA below 2.6 or above 10 ng/mL. ?? This test was performed using the Centaur Chemiluminescent method. ??PSA values obtained with other methods cannot be used interchangeably. Aden Stevens MD LAB BLOOD ORDERABLES [facility] [address] [place] [address], documented in this encounter Visit Diagnoses Diagnosis Personal history of malignant neoplasm of prostate documented in this encounter Care Teams Loan Supervisor Relationship Specialty Start Date End Date Tammy Mooney MD [address] [place] [address] PCP - General Internal Medicine 09/04/24 documented as of this encounter
--- OUTSIDE RECORDS SUMMARY | 2024-10-22 09:33 | XMS_ITS | Patient Health Record ---
Author Organization [facility] fatimah DotyHenderson Address [address] [facility] [place] [address] Care Team Providers Care Sql Report Developer Name Role Phone Medina Catherine Unavailable [phone] Allergies No Known Allergies Reason For Referral No Information Medications Medication SIG (Take, Route, Frequency, Duration) Notes Start Date End Date Status Andrew Low Dose Not-T aking Finasteride 5 MG 1 tablet Orally Not-Taking Eliquis 2.5 MG 1 tablet Orally Twic e a day Active Vitamin D3 Active Jardiance 10 MG 1 tablet Orally Once a day Active Red Yeast Rice Not-T aking metFORMIN HCl Active Gabapentin 300 MG 1 capsule Orally thr ee a day Active glipiZIDE Not-Taking Multi Vitamin Active Ezetimibe 10 MG Orally Acti ve Extra Depth Orthopedic Shoes (1 Pair) with Customized Heat Molded Multidensity Innersoles (3 Pair) as directed Dx: NIDDM (E11.9), Hammertoe Foot Deformity (M20.41,M20.42), Preulcerative Skin Lesion(s) (L85.1) 11/15/2020 Active Atorvastatin Calcium 80 MG 1 tablet Orally Once a day Active Metoprolol Succinate 50 MG 1 capsule Orally Once a day Active amLODIPine Besylate 10 MG 1 tablet Orally Once a day Not-Taking Losartan Potassium 100 MG 1 tablet Orally Once a day Active Immunizations Vaccine Route Administration Date Status Comme nts COVID-19 Pfizer BioNTech Vaccine Unknown 10/25/2020 Adm inistered Influenza Unknown 06/09/2022 Administered Social History Tobacco Use: Social History Observation Description Date Details (start date - stop date) Never Smoker NA - NA Tobacco Use/Smoking Question Answer Notes Are you a: nonsmoker Additional Findings: Tobacco Non-User Aggressive non-smoker Alcohol Screen Question Answer Notes Did you have a drink contain ing alcohol in the past year? Yes How often did you have a dri nk containing alcohol in the past year? 2 to 3 times a week (3 points) How many drinks did you have on a typical day when you were drinking in the past year? 3 or 4 drinks (1 point) How often did you have 6 or more drinks on one occasion in the past year? Never (0 point) Points 4 Interpretation Positive Tobacco use other than smoking: Question Answer Notes Are you an other tobacco user? No Problems Problem Type SNOMED Code ICD Code Onset Dates Problem Status W/U Status Risk Notes Problem Acquired hammer toe of right foot (960449469282386 5) Other hammer toe(s) (acquired), right foot (M20.41) Active confirmed Problem Acquired hammer toe of left foot (378675905372171 3) Other hammer toe(s) (acquired), left foot (M20.42) Active confirmed Problem Type II diabetes mellitus without complication (419623552) Type 2 diabetes mellitus without complications (E11.9) Active confirmed Problem 75162757 Osteoarthritis o f right ankle and foot (M19.071) Active confirmed Problem 89087999 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.072) Active confirmed Plan Of Treatment Pending Test Test Name Order Date X ray : Foot, left 3V 11/15/2020 X ray : Foot, right 3V 11/15/2020 [id number] NAIL, 6 OR MORE 02/27/2023 Insurance Providers Payer Name Payer Address Payer Phone Subscriber Number Group Number Insured Name Patient Relationship to Insured Coverage Start Date Coverage End Date [address] [place] [phone] [id number] Slava Ramirez Self - patient is the insured Medical (General) History Medical History History ICD Code Back,Hip,and Knee pain type II diabetes High blood pressure Measles Mumps Chicken pox Prostate cancer Surgical History Surgery Date(Month/Year) neck fusion 2016 prostate surgery 02/2020 lower back surgery 08/2021
== END 2024-10-22 09:41 | disposition home or self-care (01) ==
PROVIDERS: PCP Family Medicine; Referring Provider Orthopaedic Surgery; Visit Provider Internal Medicine
DX: M54.16 Radiculopathy, lumbar region (principal); M96.1 Postlaminectomy syndrome, not elsewhere classified
CPT/HCPCS: 99204

== ENCOUNTER → 2024-10-22 08:46 | Outpatient (BNVA) | payer MEDICARE, SELFPAY | PROVIDERS: PCP Family Medicine; Referring Provider Orthopaedic Surgery; Visit Provider Internal Medicine | DX: M54.16 Radiculopathy, lumbar region (principal); M96.1 Postlaminectomy syndrome, not elsewhere classified | CPT/HCPCS: 99202 ==

== ENCOUNTER 2024-11-19 14:18 | Outpatient (AMB) | payer MEDICARE, SELFPAY ==
--- NOTE | 2024-11-19 14:24 | HO.SPINEOV ---
Intake Visit Reasons: persistent LBP sx 04/22/24 Intake Note: Mr. Ramirez is here today c/o Persistent Low back pain. Plaster Form Maker Required: No Allergies No Known Allergies Allergy (Verified 10/22/24 08:56) Assessment & Plan Assessment & Plan (1) Postlaminectomy syndrome: Code(s): M96.1 - Postlaminectomy syndrome, not elsewhere classified Category: Medical Plan Dear colleague, On November 19, 2024, I saw Slava Ramirez. I performed 2 lumbar fusion surgeries on him for neurogenic claudication symptoms which disappeared. However, he continues to complain of a lumbar back pain with walking and standing that disappears when he sits down. I explained to him that this is a symptom that usually does not respond to any forms of surgery. He was seen by pain management and he did not like the original position. He is going to see tomorrow to discuss the possibility of a spinal cord stimulator, , which seems to be a reasonable approach to his ongoing problem. I spent 12 minutes in his consult for answering questions. Giovanny Rincon MD, PhD Spine Fellowship Trained Neurosurgeon Director, [facility] Coding Level of Care Code Est Pt Level 2 (00261) Diagnoses Postlaminectomy syndrome M96.1
--- OUTSIDE RECORDS SUMMARY | 2024-11-19 17:43 | XMS_ITS | Encounter Summary ---
Author Organization [facility] Address [address] [place] [address] Care Team Providers Care Athletic Agent Name Role Phone Tammy Mooney MD Primary Care Pr ovider Reason for Visit * Reason Comments Follow-up hyperbillirubinimia Encounter Details Date Type Department Care Team (Latest Contact Info) Description 11/19/2024 1:20 PM EST Office Visit Gastroenterology - [address] [facility] [address] [place] [phone] Brenna Savage, ENIO [address] [place] [phone] Hyperbilirubinemia (Primary Dx) Social History Tobacco Use Types Packs/Day Years Used Date Smoking Tobacco: Never Smokeless Tobacco: Never Alcohol Use Standard Drinks/Week Comments Not Currently 0 (1 standard drink = 0.6 oz pur e alcohol) Sex and Gender Information Value Date Recorded Sex Assigned at Male 07/25/2024 12:34 PM EDT Legal Sex Male 10:18 AM EST Gender Identity Male 07/25/2024 12:34 PM EDT Sexual Orientation Straight 07/25/2024 12 :34 PM EDT documented as of this encounter Last Filed Vital Signs Vital Sign Reading Time Taken Comments Blood Pressure - - Pulse - - Temperature - - Respiratory Rate - - Oxygen Saturation - - Inhaled Oxygen Concentration - - Weight 102 kg (225 lb) 11/19/2024 1:30 PM EST Height 165.1 cm (5' 5 ) 11/19/2024 1:30 PM EST Body Mass Index 37.44 11/19/2024 1:30 PM EST documented in this encounter Progress Notes * Brenna Savage, HAND MOLDER - 11/19/2024 1:20 PM EST CHIEF COMPLAINT: Large gallstone on US Elevated Bilirubin DATE OF LAST ENDOSCOPIC PROCEDURES: HPI: Slava Ramirez is a 79 y.o. old male who was originally referred to us by Tammy Mooney MD now presents to the gastroenterology department today as a new patient. Mr. Ramirez has ahistory of fatty liver. His risk factors for this are obesity, hyperlipidemia and diabetes. He tells me he stopped using alcohol years ago. He feels well overall. He had a recent ultrasound showing a large gallstone for which he is asymptomatic. He tells me he is scheduled for a surgical consultation soon. 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 No intervention is needed. He had no GI complaints today. He denies abdominal pain, weight loss, nausea or vomiting. He tells me he has had CRC screening in the past with normal results and at age 79 no longer requires screening. ROS: GENERAL: No malaise, significant weight loss or fever HEENT: No changes in hearing or vision or swallowing problems RESPIRATORY: No cough, wheezing or shortness of breath CARDIOVASCULAR: No chest pain, leg swelling or palpitations GI: See H&P The remainder of the review of systems is reviewed and negative. PAST MEDICAL HISTORY: Past Medical History: Diagnosis Date Acute deep vein thrombosis (DVT) (CMS/HCC) DX:Acute deep vein thrombosis (DVT) (HCC) BPH (benign prostatic hyperplasia) 12/04/2018 DX:BPH (benign prostatic hyperplasia); COMMENT: History of elevated PSA and several biopsies done in [facility]. Negative for malignancy CAD (coronary artery disease) 12/04/2018 DX:CAD (coronary artery disease); COMMENT: With severely abnormal calcium score Cataract 02/26/2019 DX:Cataract; COMMENT: 2017, Bilateral, removed Chronic neck pain 12/12/2018 DX:Chronic neck pain; COMMENT: S/p 2 surgeries DDD (degenerative disc disease), cervical 12/04/2018 DX:DDD (degenerative disc disease), cervical Diabetes mellitus (CMS/HCC) DX:Diabetes mellitus (HCC) Diabetes mellitus type 2, uncontrolled 12/30/2018 DX:Diabetes mellitus type 2, uncontrolled Diverticulosis 01/14/2019 DX:Diverticulosis History of basal cell carcinoma (BCC) of skin 12/12/2018 DX:History of basal cell carcinoma (BCC) of skin; COMMENT: Mid back, abdomen, rodriguez Hyperlipemia DX:Hyperlipemia Hyperlipidemia 12/04/2018 DX:Hyperlipidemia Hypertension DX:Hypertension Hypertension 12/04/2018 DX:Hypertension Hyponatremia 04/03/2022 DX:Hyponatremia Obesity (BMI 30.0-34.9) 12/04/2018 DX:Obesity (BMI 30.0-34.9) Prostate cancer (CMS/HCC) DX:Prostate cancer (HCC) Prostate cancer (CMS/HCC) DX:Prostate cancer (HCC) Skin cancer DX:Skin cancer Tubular adenoma of colon 12/12/2018 DX:Tubular adenoma of colon 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) 02/26/2019 DX:Type 2 diabetes mellitus with cataract (HCC) Vitamin D deficiency 12/04/2018 DX:Vitamin D deficiency PAST SURGICAL HISTORY: Past Surgical History: Procedure Laterality Date BACK [...] HISTORY PROCEDURE:neck fusion OTHER SURGICAL HISTORY PROCEDURE: VA BIOPSY PROSTATE INCISIONAL ANY APPROACH; COMMENT: x6 SHOULDER SURGERY Bilateral PROCEDURE: HISTORICAL SHOULDER SURGERY; COMMENT: acromioplasty SOCIAL HISTORY: Social History Tobacco Use Smoking status: Never Smokeless tobacco: Never Substance Use Topics Alcohol use: Not Currently FAMILY HISTORY: Family History Problem Relation Name Age of Onset Uterine cancer Mother Stroke Father Diabetes Mother Cancer- other, CAD ACTIVE MEDICATIONS: Current Outpatient Medications Medication Sig Dispense Refill aspirin 81 mg EC tablet Take 1 Tablet by mouth. atorvastatin (LIPITOR) 80 mg tablet Take 1 Tablet by mouth daily. Autolet lancing device LANCET DEVICES (ONE TOUCH DELICA LANCING DEV) [facility]: Use to test blood sugar once a day . DX-E11.9. NIDDM *One Touch Ultra 2* blood sugar diagnostic (ONETOUCH ULTRA TEST [facility]) USE TO TEST BLOOD SUGAR ONCE [...] a day before meals. 180 each 1 lancets (JolancerTouch Delica Plus Lancet) 33 gauge USE TO [...] tablet Take 1 Tablet by mouth daily. No current facility-administered medications for this visit. ALLERGIES: No Known Allergies PHYSICAL EXAM: Visit Vitals Smoking Status Never APPEARANCE: Alert and in no acute distress EYES: PERRLA, conjunctiva and sclera normal. 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 I would like to thank Tammy Mooney MD for the opportunity to partake in the patient's care. Board Certified Gastroenterology [facility] Medical [facility] W [phone] [place] [id number] [email or web address] Brenna Savage NP documented in this encounter Plan of Treatment Upcoming Encounters Date Type Department Care Team (Late st Contact Info) Description 11/25/2024 8:15 AM EST Appointment Radiology Department - [address] [phone] 12/29/2024 9:00 AM EDT Consult General Surgery [address] [phone] Alejandro Casas MD [address] [address] 01/15/2025 8:15 AM EDT Office Visit Orthopedic Surgery - [place] [address] [phone] Abdoul Chavez DPM [address] [address] 01/15/2025 9:45 AM EDT Office Visit Endocrinology - [address] [phone] Lacey Bey MD [address] [place] [phone] 02/03/2025 8:30 AM EDT Office Visit Adult Medicine [address] [phone] Lena Sorto PA [address] [place] [address] 06/02/2025 9:10 AM EDT Office Visit [facility] [address] [phone] Shu Styles, ENIO [address] [address] documented as of this encounter Visit Diagnoses Diagnosis Hyperbilirubinemia- Primary Disorders of bilirubin excretion documented in this encounter Care Teams Athletic Agent Relationship Specialty Start Date End Date Tammy Mooney MD [address] [place] [address] PCP - General Internal Medicine 09/04/24 documented as of this encounter
--- OUTSIDE RECORDS SUMMARY | 2024-11-19 17:43 | XMS_ITS | Clinical Summary ---
Author Organization [facility] Address [address] [id number] Care Team Providers Care Labor Contractor Name Role Phone Tl Stevnes MD Primary Care Provider Unavailab le Allergies [...] mg total) by mouth daily. 0 Active [place]-3 Fatty Acids (Fish Oil) 1000 MG CPDR [...] Health Maintenance Due Date Last Done Comments Depression Screening 1956 BMI Counseling 1962 Preventative [...] age to complete this topic Care Teams Labor Contractor Relationship Specialty Start Date End Date Tl Stevens MD PCP - General Internal Medicine 10/03/22
--- OUTSIDE RECORDS SUMMARY | 2024-11-19 17:43 | XMS_ITS | Continuity of Care Document ---
Author Organization [facility] [address] [facility] [address] [place] [address] Phone [phone] Care Team Providers Care Supervisor Cook Room Name Role Phone Pari Villafana M.D. Care Team Information Manager [employer] [phone] Tammy Mooney Care Team Information Rece iver [phone] Problems Active Problems Provider Date Type 2 diabetes mellitus Francis Colmenares M.D. Onset: 06/13/2022 Coronary atherosclerosis Francis Colmenares M.D. Onset: 06/13/2022 Hyperlipidemia Francis Colmenares M.D. Onset: 0 06/13/2022 Deep venous thrombosis Francis Colmenares M.D. O nset: 06/13/2022 Carcinoma of prostate Francis Colmenares M.D. On set: 06/13/2022 Essential hypertension Francis Colmenares M.D. O nset: 06/13/2022 Social History Type Date Description Comments Sex Unknown Lives With Spouse ETOH Use Occasionally consumes alcoho l Tobacco Use Start: Unknown Patient has never smoked Smoking Status Reviewed: 01/23/23 Patient has never sm oked Allergies and adverse reactions Description No Known Drug Allergies Medications Active Medications SIG Qnty Indications Order ing Provider Date [id number] Tablets 1 tab by mouth every day as directed 90tabs Francis Colmenares M.D. 03/13/2024 Omwqzbwcl0wt Tablets 1 tablet by mouth twice daily 180tabs Francis Colmenares M.D. 12/06/2023 [id number] Capsules 1 tab by mouth three times a day as directed 180caps Francis Colmenares M.D. 06/13/2022 Zvbujsn77rn Tablets 1 by mouth every day 90tabs Francis Colmenares M.D. 06/13/[address] 1 by mouth every day Francis Colmenares M.D. 06/13/2022 Onetouch UltraStrips Pari Huggins M.D. Atorvastatin [id number] Tablets Take 1 tablet daily Unknown Npfybbnka15ev Tablets Take 1 tablet daily Unknown Metoprolol Succinate ER50mg Tablets ER 24HR Take 1 tablet daily Unknown Losartan Potassium/Hydrochloro bvirzpvi466-08nl Tablets Take 1 tablet daily Unknown History Medications Wcqqwckf5xo/0.5ML Solution Pen-Inject 1 injection every week as directed 2ml Francis Colmenares M.D. 06/26/2024 - 06/26/2024 Vital Signs Date Vital Result Comment 06/26/2024 9:22am BP Systolic 122 mmHg BP Diastolic 76 mmHg Heart Rate 72 /min Height 69 inches 5'9 Weight 218.00 lb BMI (Body Mass Index) 32.2 kg/m2 Results Test Acquired Date Facility Test Result H/L Range N ote Laboratory test finding 06/26/2024 Inhouse Glucose Fingerstick 155 Laboratory test finding 03/13/2024 Inhouse Glucose Fingerstick 144 Laboratory test finding 12/06/2023 Inhouse Glucose Fingerstick 291 Laboratory test finding 09/03/2023 Inhouse Glucose Fingerstick 334 Laboratory test finding 05/22/2023 Inhouse Glucose Fingerstick 157 Laboratory test finding 01/23/2023 Inhouse Glucose Fingerstick 157 Hemoglobin A1c 7.3% Laboratory test finding 10/17/2022 Inhouse Hemoglobin A1c 7.7% Laboratory test finding 06/13/2022 Inhouse Glucose Fingerstick 120 Hemoglobin A1c 6.9% Medical Devices Description No Information Available Encounters Type Date Location Provider Dx Diagnosis Office Visit 06/26/2024 9:15a Main Office Francis Colmenares M.D. E11.8 Type 2 diabetes mellitus with unspecified complications I25.10 Athscl heart disease of [place] coronary artery w/o ang pctrs Assessments Date Code Description Provider 06/26/2024 E11.8 Type 2 diabetes mellitus with unspecified complications Francis Colmenares M.D. 06/26/2024 I25.10 Coronary arteriosclerosis Ara Colmenares M.D. Plan of Treatment 06/26/2024 - Francis Colmenares M.D.* E11.8 Type 2 diabetes mellitus with unspecified complications * I25.10 Coronary arteriosclerosis * Functional Status Description No Information Available Mental Status Description No Information Available Referrals Description No Information Available
--- OUTSIDE RECORDS SUMMARY | 2024-11-19 17:43 | XMS_ITS | Encounter Summary ---
Author Organization [facility] Address [address] [place] [address] Care Team Providers Care Corporate Legal Intern Name Role Phone Tammy Mooney MD Primary Care Pr ovider Reason for Referral * Cardiac Stress Testing (Routine) - Closed Specialty Diagnoses / Procedures Referred By Alicja nina Referred To Contact Cardiology Diagnoses Coronary artery disease involving tununak coronary artery of tununak heart, unspecified whether angina present Chest pain, unspecified type Procedures Exercise nuclear stress test with myocardial perfusion MT MYOCARDIAL PERFUSION IMAGING TOMOGRAPHIC MULTI STUDIES AT REST OR STRESS MT MYOCARDIAL PERFUSION IMAGING TOMOGRAPHIC SINGLE STUDY AT REST OR STRESS MT CARDIOVASCULAR STRESS TEST GLOBAL MT CV TMST/BIKE MAX/SUBMAX CONTINUOUS ECG MON/PHARM STRESS SUPVSR ONLY MT CV STRESS TEST/BIKE CONT ECG MON/PHARM STRESS INTERP & REPORT ONLY MT TEST STRESS CARDIOVASCULAR TRACING ONLY Abiodun Dong MD [address] [address] Phone: tel: fax: [facility] Referral ID Status Reason Start Date Expiration Date Visits Re quested Visits Authorized [id number] Closed 10/24/2024 04/22/2025 1 1 * Consultation (Urgent) - Authorized Specialty Diagnoses / Procedures Referred By Contac t Referred To Contact Cardiology Diagnoses Coronary artery disease involving tununak coronary artery of tununak heart without angina pectoris Chest pain, unspecified type Tammy Mooney MD [address] [place] [address] Phone: tel: fax: Abiodun Dong MD [address] [address] Phone: tel: fax: Referral ID Status Reason Start Date Expiration Date Visits Requested Visits Authorized [id number] Authorized Specialty Services Required 10/06/2024 10/06/2025 6 6 Reason for Visit * Reason Comments Diabetes Hyperlipidemia Coronary Artery Disease Hypertension Encounter Details Date Type Department Care Team (Late st Contact Info) Description 10/06/2024 12:45 PM EST Office Visit Adult Medicine [address] [phone] Tammy Mooney MD [address] [place] [address] Coronary artery disease involving tununak coronary artery of tununak heart, unspecified whether angina present (Primary Dx); 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); Mixed hyperlipidemia; Benign prostatic hyperplasia, unspecified whether lower urinary tract symptoms present; History of prostate cancer; Essential hypertension; Easy bruising; Need for hepatitis C screening test; Chest pain, unspecified type Social History Tobacco [...] in this encounter Ordered Prescriptions Prescription Sig Dispense Quantity Refills Last Filled Start Date End Date losartan-hydroCHLO ROthiazide (HYZAAR) 100-25 mg per tabletIndications: Essential hypertension,Coron rajat artery disease involving tununak coronary artery of tununak heart, unspecified whether angina present Take 1 [...] PM ESTAssociated Problem(s): Coronary artery disease involving tununak coronary artery of tununak heart See HPI. He noted some chest aching [...] cardiology. 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 Dong Orders: ECG 12 lead Tracing Only; Future [...] Where can you learn more? Scan the ROCKETHOME code or Go to [email or web address] Enter X567 in the search box to learn more about High Blood Pressure: Care Instructions. Current as of: July 17, 2023 Content Version: 14.2 ?? 2023 [employer]. Care instructions adapted under license by your healthcare professional. If you have questions about a medical condition or this instruction, always ask your healthcare professional. [employer] disclaims any warranty or liability for your use of this information. * Abiodun Dong MD - 10/06/2024 12:45 PM ESTAddended by: ABIODUN DONG on: 10/24/2024 12:26 PM Modules accepted: Orders * Tammy Mooney MD - 10/06/2024 12:45 [...] done by cardiology when he lived in [facility]. He tells me plan was for stent placement vs other intervention but when he moved to [facility] this was deferred. He has been following [...] LANCET DEVICES (ONE TOUCH DELICA LANCING DEV) [facility]: Use to test blood sugar once a day . DX-E11.9. NIDDM *One Touch Ultra 2* blood sugar diagnostic (ONETOUCH ULTRA TEST [facility]) USE TO TEST BLOOD SUGAR ONCE DAILY [...] bedtime as needed for Anxiety (insomnia). lancets (OneTouch Delica Plus Lancet) 33 gauge [...] C antibody; Future Coronary artery disease involving tununak coronary artery of tununak heart, unspecified whether angina present See HPI. [...] cardiology. 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 Dong Orders: ECG 12 lead Tracing Only; Future Ambulatory referral to Cardiology; Future losartan-hydroCHLOROthiazide (HYZAAR) 100-25 mg per tablet; Take 1 tablet by mouth 1 (one) time each day. Chest pain, unspecified type As above Orders: ECG 12 lead Tracing Only; Future Ambulatory referral to Cardiology; Future Tammy Mooney MD ADULT MEDICINE [address] Dept: [phone] Dept Date of Visit: 10/06/2024 documented in this encounter Plan of Treatment Upcoming Encounters Date Type Department Care Team (Late st Contact Info) Description 11/25/2024 8:15 AM EST Appointment Radiology Department [address] [phone] 12/29/2024 9:00 AM EDT Consult General Surgery [facility] [address] [phone] Alejandro Casas MD [address] [address] 01/15/2025 8:15 AM EDT Office Visit Orthopedic Surgery [place] [address] [phone] Abdoul Chavez DPM [address] [address] 01/15/2025 9:45 AM EDT Office Visit Endocrinology - [address] [phone] Lacey Bey MD [address] [place] [phone] 02/03/2025 8:30 AM EDT Office Visit Adult Medicine [place] - [address] [phone] Lena Sorto PA [address] [place] [address] 06/02/2025 9:10 AM EDT Office Visit [facility] - [address] [place] [phone] Shu Styles NP [address] [place] [address] Scheduled Orders Name Type Priority Associated Diagnoses Orde r Schedule ECG 12 lead Tracing Only ECG Routine Coronary artery disease involving tununak coronary artery of tununak heart, unspecified whether angina present Chest pain, unspecified type 1 Occurrences starting 10/06/2024 until 10/06/2025 Scheduled Referrals Name Type Priority Associated Diagnoses Order Schedule Ambulatory referral to Cardiology Outpatient Referral Routine Coronary artery disease involving tununak coronary artery of tununak heart, unspecified whether angina present Chest pain, unspecified type 1 Occurrences starting 10/06/2024 until 10/06/2025 documented as of this encounter Results * NM EXERCISE STRESS TEST W/ MYOCARDIAL PERFUSION (10/27/2024 10:49 AM EST) Exercise/injec tion duration (min) 4 CV PACS STRESS Exercise/injec tion duration (sec) 15 CV PACS STRESS Peak SBP 158 mmHg CV PACS STRESS Peak DBP 78 mmHg CV PACS STRESS Peak HR 127 bpm CV PACS STRESS Baseline HR 74 bpm CV PACS STRESS Baseline SBP 124 mmHg CV PACS STRESS Baseline DBP 60 mmHg CV PACS STRESS Estimated workload 4.6 METS CV PACS STRESS Percent HR 90 % CV PACS STRESS Rate Pressure Product 20,066.0 mmHg*bpm CV PACS STRESS Target HR 120 bpm CV PACS STRESS BSA 2.2 m2 CV PACS STRESS TID 1.06 CV PACS STRESS Nuc Stress EF 78 % CV PAC S STRESS Nuc Rest EF 70 % CV PACS STRESS Anatomical Region Laterality Modality Nuclear Medicine 10/27/2024 9:40 AM EST 10/27/2024 10:24 AM EST Impressions 10/27/2024 2:49 PM EST Normal exercise ??stress test with nuclear imaging. ?? Nuclear imaging revealed normal myocardial perfusion without ischemic and infarction after attenuation correction was applied. There is a normal TID ratio. Gated SPECT imaging was performed and revealed normal LV systolic function and regional wall motion with an LVEF of >75%. The right ventricle is ??normal in size with normal systolic function. Narrative 10/27/2024 2:49 PM EST ?Exercise stress test was performed. Patient reported no chest pain during the stress test. Exercise capacity was below average. Normal blood pressure response. The test was stopped because the patient experienced fatigue and mild dizziness which resolved in early recovery. The patient reported no chest pain during the stress test. ?Stress ECG was normal. ?Nuclear imaging results below. Raw imaging reveals diaphragmatic attenuation artifact in the inferior wall. The left ventricular cavity is small (55 ml end diastolic volume). ?? There is also slight vertical and horizontal motion artifact seen on sinogram and linogram. ??It does not appear to be affecting the quality of the image however. Myocardial perfusion imaging of the left ventricle reveals a decrease in counts at the basal to mid inferior and inferoseptal piedra on both rest and stress imaging. CT attenuation correction was applied to the study which completely normalized the previously mentioned perfusion abnormality. ??Taken together, this likely represents diaphragmatic attenuation artifact. There are no other residual defects noted. Gated SPECT imaging was performed which demonstrated normal left ventricular systolic function. Regional wall motion is normal. The calculated LVEF is greater than 75%. TID ratio is 1.06. The right ventricle is normal in size. Right ventricular systolic function is normal. Stress Findings A modified Hernan protocol stress test was performed, held in stage 1. Overall, the patient's exercise capacity was below average. Total stress time was 4 min and 15 sec. The test was stopped because the patient experienced fatigue and mild dizziness which resolved in early recovery. Blood pressure demonstrated a normal response. Heart rate demonstrated a normal response. The patient reported no chest pain during the stress test. ECG 78 year old male with reports of atypical chest discomfort. PMH of CAD, HTN, HLD and DM. The ECG shows normal sinus rhythm. There are occasional APCs. The ECG axis shows left deviation. The baseline ECG has poor R-wave progression. Non-specific ST abnormalities noted at baseline. Arrhythmias during stress: occasional premature atrial contractions (PACs) . There is no significant ST abnormalities during stress. Arrhythmias during recovery: occasional premature atrial contractions (PACs). The result of the stress ECG was negative for ischemia. Nuclear Study Quality Study technique: MPI, SPECT, multi, rest and stress, 1 day. Overall image quality is excellent. CT attenuation correction was utilized. There are no artifacts present. No radiopharmaceutical dose was extravasated. The time from injection to rest imaging is 35 mins. The time from injection to stress imaging is 25 mins. Stress Function Comments Stress ejection fraction is 78%. Rest Function Comments Resting ejection fraction was 70%. Abiodun Dong MD CV STRESS PROCEDURES Final Resu lt * Hepatitis C antibody (10/06/2024 1:54 PM EST) [facility] Hepatitis C Antibody Negative Negative LAB CHEMISTRY METHOD 10/06/2024 6:44 PM EST [facility] Blood Venous blood specimen / Unknown Venipuncture / Unknown 10/06/2024 1:54 PM EST 10/06/2024 1:54 PM EST Tammy Mooney MD LAB BLOOD ORDERA BLES Final Result [facility] [address] [place] [address], [place] [phone] * Activated partial thromboplastin time (10/06/2024 1:54 PM EST) [facility] aPTT 38.1 24.1 - 39.3 sec LAB COAGULATION METHOD 10/06/2024 4:51 PM EST [facility] Blood Venous blood specimen / Unknown Venipuncture / Unknown 10/06/2024 1:54 PM EST 10/06/2024 1:54 PM EST Tammy Mooney MD LAB BLOOD ORDERA BLES Final Result Performing Organization Address City/[facility]/ZIP Co de Phone Number [facility] [address] [place] [address], [place] [phone] * Von Willebrand factor activity (10/06/2024 1:54 PM EST) [facility] von Willebrand Factor Activity Percent 96 51 - 215 % 10/11/2024 1:24 PM EST [facility] Comment: REFERENCE INTERVAL: von Willebrand Factor, Activity (RCF) Access complete set of age- and/or gender-specific reference intervals for this test in the [employer] ([employer]) Laboratory Test Directory ([employer]). Performed By: [employer] [address] [place] [id number] Rectification Printer: Eric Luu MD, PhD CLIA Number: [id number] Blood Venous blood specimen / Unknown Venipuncture / Unknown 10/06/2024 1:54 PM EST 10/06/2024 1:54 PM EST Tammy Mooney MD LAB BLOOD ORDERA BLES Final Result [facility] [address] [place] [address] * Prothrombin time with INR (10/06/2024 1:54 PM EST) [facility] Protime 11.4 10.6 - 13.9 sec LAB COAGULATION METHOD 10/06/2024 4:51 PM EST [facility] INR 0.9 LAB COAGULATION METHOD 10/06/2024 4:51 PM EST [facility] Blood Venous blood specimen / Unknown Venipuncture / Unknown 10/06/2024 1:54 PM EST 10/06/2024 1:54 PM EST Tammy Mooney MD LAB BLOOD ORDERA BLES Final Result [facility] [address] [place] [address], documented in this encounter Visit Diagnoses Diagnosis Coronary artery disease involving tununak coronary artery of tununak heart, unspecified whether angina present- Primary 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) Mixed hyperlipidemia Benign prostatic hyperplasia, unspecified whether lower urinary tract symptoms present History of prostate cancer Personal history of malignant neoplasm of prostate Essential hypertension Unspecified essential hypertension Easy bruising Other symptoms involving skin and integumentary tissues Need for hepatitis C screening test Special screening examination for other specified viral diseases Chest pain, unspecified type Coronary artery disease involving tununak coronary artery of tununak heart, unspecified whether angina present Chest pain, [...] documented as of this encounter Care Teams Corporate Legal Intern Relationship Specialty Start Date End Date Tammy Mooney MD [address] [place] [address] PCP - General Internal Medicine 09/04/24 documented as of this encounter
--- OUTSIDE RECORDS SUMMARY | 2024-11-19 17:43 | XMS_ITS | Encounter Summary ---
Author Organization [facility] Address [address] [place] [address] Care Team Providers Care Real Estate Firm Manager Name Role Phone Tammy Mooney MD Primary Care Pr ovider Encounter Details Date Type Department Care Team (Late Contact Info) Description 08/13/2024 Lab Requisition [facility] [address] [facility] [place] [address] Aden Stevens MD [address] [facility] 103 [place] [phone] Personal history of malignant neoplasm of prostate [...] PM EDT documented as of this encounter Plan of Treatment Upcoming Encounters Date Type Department Care Team (Late Contact Info) Description 11/25/2024 8:15 AM EST Appointment Radiology Department - [address] [phone] 12/29/2024 9:00 AM EDT Consult General Surgery - [address] [place] [phone] Alejandro Casas MD 175 [facility] 110 [place] [address] 01/15/2025 8:15 AM EDT Office Visit Orthopedic Surgery - [place] [address] 175 [facility] 250 [place] [address] Abdoul Chavez, DPM [address] [address] 01/15/2025 9:45 AM EDT Office Visit Endocrinology [address] [phone] Lacey Bey MD [address] [place] [address] 02/03/2025 8:30 AM EDT Office Visit Adult Medicine [address] [phone] Lena Sorto PA [address] [place] [address] 06/02/2025 9:10 AM EDT Office Visit [facility] - [facility] 102 300 [facility] 102 [place] [phone] Shu Styles NP 300 [facility] 102 [place] [address] documented as of this encounter Procedures Procedure Name Priority Date/Time Associated Diagnosis Comments PSA TOTAL, FREE AND COMPLEXED, DIAGNOSTIC Routine 08/13/2024 10:27 AM EST Personal history of malignant neoplasm of prostate documented in this encounter Results * PSA total, free and complexed (08/13/2024 10:27 AM EST) PSA <0.06 0.00 - 4.00 ng/mL LAB CHEMISTRY METHOD 08/14/2024 9:37 PM [facility] PSA, Complexed <0.07 0.00 - 3.00 ng/mL LAB CHEMISTRY METHOD 08/14/2024 9:37 PM [facility] PSA, Free LAB CHEMISTRY METHOD 08/14/2024 9:37 PM [facility] PSA, Free Pct LAB CHEMISTRY METHOD 08/14/2024 9:37 PM [facility] Blood Venous blood specimen / Unknown 08/13/2024 10:27 AM EST 08/13/2024 1:22 PM EST [facility] - 08/14/2024 9:37 PM EST Free PSA is a calculated value. ??The diagnostic usefulness of % free PSA has not been established in patients with Total PSA below 2.6 or above 10 ng/mL. ?? This test was performed using the [employer] Chemiluminescent method. ??PSA values obtained with other methods cannot be used interchangeably. us Aden Stevens MD LAB BLOOD ORDERABLES Final Resul t [facility] [address] [place] [address], documented in this encounter Visit Diagnoses Diagnosis Personal history of malignant neoplasm of prostate documented in this encounter Care Teams Real Estate Firm Manager Relationship Specialty Start Date End Date Tammy Mooney MD [address] [place] [address] PCP - General Internal Medicine 09/04/24 documented as of this encounter
--- OUTSIDE RECORDS SUMMARY | 2024-11-19 17:44 | XMS_ITS | Encounter Summary ---
Author Organization [facility] Address [address] [place] [address] Care Team Providers Care Residential Insurance Inspector Name Role Phone Tammy Mooney MD Primary Care Pr ovider Reason for Visit * Reason Comments Follow-up Chest pain f/u * Consultation (Urgent) - Authorized Specialty Diagnoses / Procedures Referred By Contac t Referred To Contact Cardiology Diagnoses Coronary artery disease involving [place] coronary artery of [place] heart without angina pectoris Chest pain, unspecified type Tammy Mooney MD [address] [place] [address] Phone: tel: fax: Abiodun Nichols MD [address] [place] [address] Phone: tel: fax: Referral ID Status Reason Start Date Expiration Date Visits Requested Visits Authorized [id number] Authorized Specialty Services Required 10/06/2024 10/06/2025 6 6 Encounter Details Date Type Department Care Team (Late st Contact Info) Description 11/07/2024 10:40 AM EST Office Visit [facility] [address] 300 [facility] 102 [place] [address] Shu Styles NP 300 [facility] [address] [place] [address] Essential hypertension (Primary Dx); Chest pain, unspecified type; Coronary artery disease involving [place] coronary artery of [place] heart, unspecified whether angina present; Hyperlipidemia, unspecified hyperlipidemia type; Obesity (BMI 30.0-34.9) Social History Tobacco Use Types Packs/Day Years [...] Sign Reading Time Taken Comments Blood Pressure 120/70 11/07/2024 10:48 AM EST Pulse 62 11/07/2024 10:48 AM EST Temperature - - Respiratory Rate - - Oxygen Saturation 98% 11/07/2024 10:48 AM EST Inhaled Oxygen Concentration - - Weight 101 kg (223 lb) 11/07/2024 10:48 AM EST Height - - Body Mass Index 33.41 10/27/2024 8:37 AM EST documented in this encounter Progress Notes * Shu Styles NP - 11/07/2024 10:40 AM ESTAssociated Problem(s): Coronary artery disease involving [place] coronary artery of [place] heart The patient has a history of abnormal calcium score in 2018 with subsequent cardiac catheterizationshowing 70% LAD lesion that was treated medically. As above, his recent reports of chest discomfortare atypical and he had a normal stress test which is reassuring. Within his current functional capacity, he does not experience any exertional symptoms; he was encouraged to increase his activity level as tolerated, returning to care or seeking emergent medical attention as appropriate for any exertional symptoms that do not resolve with rest. We will continue with cardioprotective medical therapies including metoprolol, ezetimibe and atorvastatin, and daily ASA. The patient was advised to seek emergent medical attention by calling 911 if they were to develop severe dyspnea, chest pain that did not resolve with rest or nitroglycerin, or if they were to faint. Orders: Ambulatory referral to Cardiology * Shu Styles NP - 11/07/2024 10:40 AM ESTAssociated Problem(s): Chest pain Though the patient does have a documented history of coronary artery disease, his current chest discomfort appears atypical for a cardiac cause. Additionally, he had a normal exercise nuclear stress test on 10/27/2024. We had an in depth discussion regarding this today and he was reassured by these findings. Orders: Ambulatory referral to Cardiology * Shu Styles NP - 11/07/2024 10:40 AM ESTAssociated Problem(s): Essential hypertension Blood pressure is favorable on current medical therapy; continue metoprolol and losartan-hydrochlorothiazide. The patient's most recent metabolic panel showed stable renal function and electrolytes. * Shu Styles NP - 11/07/2024 10:40 AM ESTAssociated Problem(s): Hyperlipidemia LDL goal for this patient was a history of coronary artery disease as well as diabetes is less than55. The patient's most recent lipid panel completed 09/04/2024 revealed an LDL of 59 which is very close to goal. We discussed lifestyle modifications with improved diet and increased activity as tolerated to help meet this goal in addition to continuing ezetimibe and atorvastatin 80 mg daily. I have reviewed with the patient the importance of a heart healthy lifestyle which includes eating a low-fat low-salt diet, getting regular exercise, maintaining a healthy weight, not smoking, and following up with routine medical care. * Shu Styles NP - 11/07/2024 10:40 AM ESTAssociated Problem(s): Obesity (BMI 30.0-34.9) The patient is obese. Approaches towards weight loss are discussed, including burning more caloriesthan one takes in by portion control and regular exercise with an emphasis on duration rather than intensity. * Shu Styles NP - 11/07/2024 10:40 AM EST Images from the original note were not included. [facility] PRIMARY GREASE RACK WORKER: Abiodun Nichols MD PCP: Tammy Mooney MD HPI: Slava Ramirez is a 79 y.o. old male with a past medical history of CAD, hypertension, hyperlipidemia, prostate cancer, type 2 diabetes, and history of DVT while ill with COVID in 2019 (Eliquis has since been stopped due to bruising). In March 2024 he had an L2-L3 fusion at [facility] for degene rative disc disease. He was last seen by Dr. Nichols in June 2024. He has known moderate coronary disease managed medically; diagnosed via cardiac cath in 2018 in [place], [place] after the patient was found to have an elevated calcium score. Cath revealed a 70%LAD lesion, FFR was normal, 60% circumflex OMB lesion, and mild disease in the RCA. In 2020 he underwent a stress echocardiogram, exercising for 7 minutes to 94% MPHR, no EKG changes suggestive for ischemia. There were no resting wall motion abnormalities though the postexercise imaging was poor. The patient underwent exercise treadmill test on 02/14/2023 for reports of palpitations, exercising for a total of 3 minutes and 30 seconds on a standard Hernan protocol achieving 114% of max predictedheart rate. He had no chest pain and no ECG changes suggestive of ischemia. Frequent PACs but no significant arrhythmias. Functional capacity was average for age and gender. Beta-lisa was increased at that time. The CTA of the head and neck dated 02/20/2023 revealed mild diffuse atherosclerotic changes without any significant stenosis, aneurysm, thrombosis or occlusion. 14-day ROCT completed on 04/01/2023 revealed predominant rhythm of sinus rhythm with sinus arrhythmia. There were premature atrial contractions (burden of 1.3%) and couplets and occasional atrial runs with the fastest reaching 140-150 beats for about 8 beats. Rare PVCs and ventricular couplets. Therewere 3 patient triggered symptomatic events that coincided with premature atrial activity. Lower extremity arterial duplex in March 2023 revealed an LANDON of 1.1 on the right and left. Mild plaque in the bilateral lower extremity arteries. He was followed previously by podiatry for lower extremity wounds which have since healed. Exercise nuclear stress test completed 10/27/2024 for reports of chest pain was normal; he exercised for 4 minutes and 15 seconds to 90% MPHR. He presents today for triage visit to follow up on reports of chest pain. History of Present Illness He has been experiencing intermittent chest discomfort, described as an ache or mild burn, for approximately 1.5 months. This discomfort is not associated with sleep disturbances or exertion. It is typically non-radiating and is located over his left chest; episodes are brief, lasting only a few seconds. He has a history of 2 back surgeries, which have limited his physical activity. He is currently undergoing physical therapy twice a week, which has improved his ability to ascend and descend stairs; he rides a stationary bike and also does leg exercises as tolerated. He is considering a trialnerve stimulator for pain management in the near future. He experiences difficulty with activities that require him to remain upright as this precipitates his back pain. He denies any chest pain or pressure with exertion; no shortness of breath at rest or with exertion. No palpitations, peripheral edema, lightheadedness or dizziness, syncope or presyncope, orthopnea or PND. He reports no current wounds. He reports excellent blood pressure control. ACTIVE MEDICATIONS: Current Outpatient Medications Medication Instructions acetaminophen (TYLENOL 8 HOUR) 650 mg 8 hr tablet Take 1 Tablet by mouth every 8 hours as needed for Pain. aspirin 81 mg EC tablet Take 1 Tablet by mouth. atorvastatin (LIPITOR) 80 mg tablet Take 1 Tablet by mouth daily. Autolet lancing device LANCET DEVICES (ONE TOUCH DELICA LANCING DEV) [facility] Use to test blood sugar once a day . DX-E11.9. NIDDM *One Touch Ultra 2* blood sugar diagnostic (ONETOUCH ULTRA TEST [facility] USE TO TEST BLOOD SUGAR ONCE DAILY [...] meals hydrOXYzine HCL (ATARAX) 50 mg tablet 1 tablet (50 mg total). lancets (iiyumaTouch Delica Plus Lancet) 33 gauge USE TO TEST BLOOD SUGAR DAILY losartan-hydroCHLOROthiazide (HYZAAR) 100-25 mg per tablet 1 tablet, oral, Daily metoprolol succinate (TOPROL-XL) 50 mg, oral, Daily omega-3 acid ethyl esters (LOVAZA) 1 gram capsule Take 1 g by mouth daily. tadalafiL (CIALIS) 5 mg tablet Take 1 Tablet by mouth daily. 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 (CMS/HCC) Adrenal nodule (CMS/HCC) Atherosclerosis of [place] artery of both lower extremities with rest pain (CMS/HCC) BPH (benign prostatic hyperplasia) Cataract Chronic deep vein thrombosis (DVT) of femoral vein of right lower extremity (CMS/HCC) Chronic bilateral low back pain without sciatica Chronic neck pain Coronary artery disease involving [place] coronary artery of [place] heart DDD (degenerative disc disease), cervical Lumbar degenerative [...] with varicose veins (CMS/HCC) Vitamin D deficiency Fatty liver Chest pain ALLERGIES: No Known Allergies SOCIAL HISTORY: Social History Tobacco Use Smoking status: Never Smokeless tobacco: Never Substance Use Topics Alcohol use: Not Currently PHYSICAL EXAM: Vitals: 11/07/24 1048 BP: 120/70 Pulse: 62 SpO2: 98% Weight: 101 kg (223 lb) Body mass index is 33.41 kg/m??. Physical Exam Vitals reviewed. Constitutional: General: He is not in acute distress. Appearance: Normal appearance. He is obese. He is not ill-appearing. HENT: Head: Normocephalic and atraumatic. Mouth/Throat: Mouth: Mucous membranes are moist. Eyes: General: No scleral icterus. Extraocular Movements: Extraocular movements intact. Pupils: Pupils are equal, round, and reactive to light. Neck: Vascular: No carotid bruit. Cardiovascular: Rate and Rhythm: Normal rate and regular rhythm. Pulses: Normal pulses. Heart sounds: Normal heart sounds. No murmur heard. No friction rub. No gallop. Comments: No chest wall discomfort with palpitation Pulmonary: Effort: Pulmonary effort is normal. No respiratory distress. Breath sounds: Normal breath sounds. No wheezing, rhonchi or rales. Abdominal: General: There is no distension. Palpations: Abdomen is soft. Tenderness: There is no abdominal tenderness. Musculoskeletal: General: No swelling. Cervical back: Neck supple. Right lower leg: No edema. Left lower leg: No edema. Skin: General: Skin is warm and dry. Neurological: General: No focal deficit present. Mental Status: He is alert and oriented to person, place, and time. Cranial Nerves: No cranial nerve deficit. Gait: Gait normal. Psychiatric: Attention and Perception: Attention normal. Mood and Affect: Mood and affect normal. Behavior: Behavior normal. Thought Content: Thought content normal. EKG: Not completed today. TESTING: Lab Results Component Value Date CHOL 152 09/04/2024 CHOL 146 02/29/2024 Lab Results Component Value Date HDL 66 09/04/2024 HDL 63 02/29/2024 Lab Results Component Value Date LDLCALC 59 09/04/2024 Lab Results Component Value Date TRIG 135 09/04/2024 TRIG 127 02/29/2024 Lab Results Component Value Date CHOLHDL 2.3 09/04/2024 Lab Results Component Value Date WBC 7.6 10/06/2024 HGB 16.5 10/06/2024 HCT 51.8 10/06/2024 MCV 95.0 10/06/2024 PLT 269 10/06/2024 Lab Results Component Value Date GLUCOSE 180 09/23/2024 CALCIUM 9.8 09/04/2024 NA 141 09/04/2024 K 3.9 09/04/2024 CO2 26 09/04/2024 CL 106 09/04/2024 BUN 13 09/04/2024 CREATININE 0.86 09/04/2024 Lab Results Component Value Date HGBA1C 7.9 (H) 09/04/2024 ASSESSMENT/PLAN: Assessment & Plan Chest pain, unspecified type Though the patient does have a documented history of coronary artery disease, his current chest discomfort appears atypical for a cardiac cause. Additionally, he had a normal exercise nuclear stress test on 10/27/2024. We had an in depth discussion regarding this today and he was reassured by these findings. Orders: Ambulatory referral to Cardiology Coronary artery disease involving [place] coronary artery of [place] heart, unspecified whether angina present The patient has a history of abnormal calcium score in 2018 with subsequent cardiac catheterizationshowing 70% LAD lesion that was treated medically. As above, his recent reports of chest discomfortare atypical and he had a normal stress test which is reassuring. Within his current functional capacity, he does not experience any exertional symptoms; he was encouraged to increase his activity level as tolerated, returning to care or seeking emergent medical attention as appropriate for any exertional symptoms that do not resolve with rest. We will continue with cardioprotective medical therapies including metoprolol, ezetimibe and atorvastatin, and daily ASA. The patient was advised to seek emergent medical attention by calling 911 if they were to develop severe dyspnea, chest pain that did not resolve with rest or nitroglycerin, or if they were to faint. Orders: Ambulatory referral to Cardiology Essential hypertension Blood pressure is favorable on current medical therapy; continue metoprolol and losartan-hydrochlorothiazide. The patient's most recent metabolic panel showed stable renal function and electrolytes. Hyperlipidemia, unspecified hyperlipidemia type LDL goal for this patient was a history of coronary artery disease as well as diabetes is less than55. The patient's most recent lipid panel completed 09/04/2024 revealed an LDL of 59 which is very close to goal. We discussed lifestyle modifications with improved diet and increased activity as tolerated to help meet this goal in addition to continuing ezetimibe and atorvastatin 80 mg daily. I have reviewed with the patient the importance of a heart healthy lifestyle which includes eating a low-fat low-salt diet, getting regular exercise, maintaining a healthy weight, not smoking, and following up with routine medical care. Obesity (BMI 30.0-34.9) The patient is obese. Approaches towards weight loss are discussed, including burning more caloriesthan one takes in by portion control and regular exercise with an emphasis on duration rather than intensity. I have obtained verbal consent from Slava Ramirez prior to the recording. I have advised Slava Ramirez that he may refuse the recording and require the recording to be turned off at any time during this encounter. Thank you for allowing us to participate in the care of this patient. The patient will follow up in6 months, sooner PRN. As per AHA guidelines and previously established plan of care by Dr. Abiodun Nichols MD, we discussed the following today: 1. Essential hypertension 2. Chest pain, unspecified type 3. Coronary artery disease involving [place] coronary artery of [place] heart, unspecified whether angina present 4. Hyperlipidemia, unspecified hyperlipidemia type 5. Obesity (BMI 30.0-34.9) [facility] Cosigned by Alexandria Yap MD at 11/10/2024 8:52 PM EST documented in this encounter Plan of Treatment Upcoming Encounters Date Type Department Care Team (Late st Contact Info) Description 11/25/2024 8:15 AM EST Appointment Radiology Department [address] [phone] 12/29/2024 9:00 AM EDT Consult General Surgery - [place] [address] [phone] Alejandro Casas MD [address] [address] 01/15/2025 8:15 AM EDT Office Visit Orthopedic Surgery - [place] [address] [phone] Abdoul Chavez, DPDavid [address] [address] 01/15/2025 9:45 AM EDT Office Visit Endocrinology [address] [phone] Lacey Bey MD 725 [place] [address] 02/03/2025 8:30 AM EDT Office Visit Adult Medicine [address] [phone] Lena Sorto PA 305 [place] [address] 06/02/2025 9:10 AM EDT Office Visit [facility] - [facility] [address] [phone] Shu Styles NP [address] [address] documented as of this encounter Visit Diagnoses Diagnosis Essential hypertension- Primary Unspecified essential hypertension Chest pain, unspecified type Coronary artery disease involving [place] coronary artery of [place] heart, unspecified whether angina present Hyperlipidemia, unspecified hyperlipidemia type Obesity (BMI 30.0-34.9) documented in this encounter Orders Outpatient Referral Count Last Ordered Date Fir st Ordered Date AMB REFERRAL TO CARDIOLOGY 11/07/2024 documented in this encounter Care Teams Residential Insurance Inspector Relationship Specialty Start Date End Date Tammy Mooney MD [address] [place] [address] PCP - General Internal Medicine 09/04/24 documented as of this encounter
--- OUTSIDE RECORDS SUMMARY | 2024-11-19 17:44 | XMS_ITS | Encounter Summary ---
Author Organization [facility] Address [address] [place] [address] Care Team Providers Care Robotics Specialist Name Role Phone Tammy Mooney MD Primary Care Pr ovider Encounter Details Date Type Department Care Team (Late st Contact Info) Description 11/12/2024 Nurse Triage Adult Medicine [address] [phone] Evelina Meek, RN Social History Tobacco Use Types Packs/Day Years [...] PM EDT documented as of this encounter Progress Notes * Evelina Meek RN - 11/12/2024 4:21 PM EST An appointment was made for him to be seen in the office on 11/18/24 at 2:00 pm with Lena Hathaway he is in agreement with this plan. Answer Assessment - Initial Assessment Questions 1. ONSET: When did the pain begin? He denies neck pain but reports swelling to the right side of his neck. 2. LOCATION: Where does it hurt? Right side of his neck 3. PATTERN Does the pain come and go, or has it been constant since it started? He said the swelling started last summer and was the size of a golf ball. [place] [facility] [place] cause [place] be found. The swelling resolved on it's own. No palpable lump at this time. He denies difficulty swallowing or breathing. 4. SEVERITY: How bad is the pain? (Scale 1-10; or mild, moderate, severe) - NO PAIN (0): no pain or only slight stiffness - MILD (1-3): doesn't interfere with normal activities - MODERATE (4-7): interferes with normal activities or awakens from sleep - SEVERE (8-10): excruciating pain, unable to do any normal activities 0/10 5. RADIATION: Does the pain go anywhere else, shoot into your arms? none 6. CORD SYMPTOMS: Any weakness or numbness of the arms or legs? No 7. CAUSE: What do you think is causing the neck pain? Unknown 8. NECK OVERUSE: Any recent activities that involved turning or twisting the neck? No 9. OTHER SYMPTOMS: Do you have any other symptoms? (e.g., headache, fever, chest pain, difficultybreathing, neck swelling) Neck swelling. No other symptoms 10. : Is there any chance you are ? When was your last menstrual period? No. Pt is a male. He is able to touch his chin to his chest. Protocols used: Neck Pain or [id number] documented in this encounter Plan of Treatment Upcoming Encounters Date Type Department Care Team (Late st Contact Info) Description 11/25/2024 8:15 AM EST Appointment Radiology Department [address] [phone] 12/29/2024 9:00 AM EDT Consult General Surgery [facility] [address] [phone] Alejandro Casas MD 175 [facility] 110 [place] [address] 01/15/2025 8:15 AM EDT Office Visit Orthopedic Surgery [facility] 250 175 [facility] 250 [place] [phone] Abdoul Chavez, DPM 175 [facility] 250 [place] [address] 01/15/2025 9:45 AM EDT Office Visit Endocrinology [address] [phone] Lacey Bey MD 725 [place] [address] 02/03/2025 8:30 AM EDT Office Visit Adult Medicine [place] - [address] [phone] Lena Sorto PA 305 [place] [address] 06/02/2025 9:10 AM EDT Office Visit [facility] 102 300 [facility] 102 [place] [address] Shu Styles, ENIO [address] [address] documented as of this encounter Visit Diagnoses Not on filedocumented in this encounter Care Teams Robotics Specialist Relationship Specialty Start Date End Date Tammy Mooney MD [address] [place] [address] PCP - General Internal Medicine 09/04/24 documented as of this encounter
--- OUTSIDE RECORDS SUMMARY | 2024-11-19 17:44 | XMS_ITS | Encounter Summary ---
Author Organization [facility] Address [address] [place] [address] Care Team Providers Care Director Transportation Name Role Phone Tammy Mooney MD Primary Care Pr ovider Reason for Visit * Reason Onset Date Comments Medication 11/13/2024 Pre-op Visit 11/13/2024 Encounter Details Date Type Department Care Team (Late st Contact Info) Description 11/13/2024 Telephone [facility] - [facility] 102 300 [facility] 102 [place] [phone] Shu Styles NP 300 [facility] 102 [place] [address] Medication; Pre-op Visit Social History Tobacco Use Types Packs/Day Years [...] as of this encounter Progress Notes * Emani Vick RN - 11/14/2024 9:38 AM EST Faxed information wit Dr. Nichols's response to fax number as requested attn Lena I called Lena as well. * Ovi Lobo - 11/13/2024 2:45 PM EST Lena from [facility] states patient is having a Spinal Cord Stimulator on 12/10/[address]. Bashir Dominguez. She would like to know if patient can stop aspirin 7 days prior. Please fax confirmation to [phone] documented in this encounter Plan of Treatment Upcoming Encounters Date Type Department Care Team (Late st Contact Info) Description 11/25/2024 8:15 AM EST Appointment Radiology Department [address] [phone] 12/29/2024 9:00 AM EDT Consult General Surgery [address] [phone] Alejandro Casas MD [address] [place] [address] 01/15/2025 8:15 AM EDT Office Visit Orthopedic Surgery [facility] [address] [place] [phone] Abdoul Chavez DPM [address] [place] [address] 01/15/2025 9:45 AM EDT Office Visit Endocrinology [address] [phone] Lacey Bey MD [address] [place] [phone] 02/03/2025 8:30 AM EDT Office Visit Adult Medicine [address] [phone] Lena Sorto PA [address] [place] [address] 06/02/2025 9:10 AM EDT Office Visit [facility] [address] 300 [facility] 102 [place] [address] Shu Styles, ENIO 300 [facility] 102 [place] [address] documented as of this encounter Visit Diagnoses Not on filedocumented in this encounter Care Teams Director Transportation Relationship Specialty Start Date End Date Tammy Mooney MD [address] [place] [address] PCP - General Internal Medicine 09/04/24 documented as of this encounter
--- OUTSIDE RECORDS SUMMARY | 2024-11-19 17:44 | XMS_ITS | Clinical Summary ---
Author Organization 175 [facility] Address 175 [place] [address] Phone Care Team Providers Care Mold Finisher Name Role Phone Tammy Mooney MD Primary Care Pr ovider Allergies No known active allergies Medications aspirin 81 mg EC tablet Take 1 Tablet by mouth. Active atorvastatin (LIPITOR) 80 mg tablet Take 1 Tablet by mouth daily. 02/01/20 24 Active blood-glucose meter kit Use to test blood sugar once a day . DX-E11.9. NIDDM *One Touch Ultra 2* 02/01/20 19 Active cholecalciferol (VITAMIN D-3) 50 mcg (2,000 unit) tablet Take 2,000 Units by mouth daily. Active ezetimibe (ZETIA) 10 mg tablet TAKE 1 TABLET BY MOUTH EVERY DAY 07/10/20 24 Active gabapentin (NEURONTIN) 300 mg capsule Take 1 Capsule by mouth 2 times daily. 1 caps in the morning and 2 in the evening Active blood sugar diagnostic (ONETOUCH ULTRA TEST MISC) USE TO TEST BLOOD SUGAR ONCE DAILY 02/16/20 23 Active lancets (OneTouch Delica Plus Lancet) 33 gauge USE TO TEST BLOOD SUGAR DAILY 08/24/20 21 Active FA/mv,Ca,iron,min/l ycopene/lut (MULTIVITAL ORAL) Take by mouth. Active omega-3 acid ethyl esters (LOVAZA) 1 gram capsule Take 1 g by mouth daily. Active tadalafiL (CIALIS) 5 mg tablet Take 1 Tablet by mouth daily. Active Autolet lancing device LANCET DEVICES (ONE TOUCH DELICA LANCING DEV) [facility]: Use to test blood sugar once a day . DX-E11.9. NIDDM *One Touch Ultra 2* 07/31/20 Active glipiZIDE (GLUCOTROL) 10 mg tabletIndications:T ype 2 diabetes mellitus with microalbuminuria (CMS/HCC) Take 1 tablet (10 mg total) by mouth 2 (two) times a day before meals. 180 each 1 09/04/20 24 025 Active empagliflozin (Jardiance) 25 mg tablet Take 1 tablet (25 mg total) by mouth 1 (one) time each day in the morning. 90 tablet 1 10/06/19 25 Active losartan-hydroCHLOR Othiazide (HYZAAR) 100-25 mg per tabletIndications:E ssential hypertension,Carballo ry artery disease involving northway coronary artery of northway heart, unspecified whether angina present Take 1 tablet by mouth 1 (one) time each day. 90 each 1 10/07/19 25 025 Active metoprolol succinate (TOPROL-XL) 50 mg 24 hr tablet TAKE ONE TABLET BY MOUTH DAILY 90 tablet 3 10/09/19 25 Active acetaminophen (TYLENOL 8 HOUR) 650 mg 8 hr tablet Take 1 Tablet by mouth every 8 hours as needed for Pain. 02/17/20 22 025 Discontinued hydrOXYzine HCL (ATARAX) 50 mg tablet 1 tablet (50 mg total). 07/12/20 23 025 Discontinued Hospital, Clinic, or Other Facility Administered Medication Ordered Dose Route Frequency Start Date End Date Status TC-99M tetrofosmin P radio-isotope injection 9.9 millicurie 9.9 millicurie IV Once in imaging 10/27/2024 10/27/2024 Ended TC-99M tetrofosmin P radio-isotope injection 30 millicurie 30 millicurie IV Once in imaging 10/27/2024 10/27/2024 Ended Active Problems Problem Noted Date Diagnosed Date Hyperbilirubinemia 11/19/2024 Chest pain 11/07/2024 Assessment & Plan (11/09/2024 2:11 PM EST): Though the patient does have a documented history of coronary artery disease, his current chest discomfort appears atypical for a cardiac cause. Additionally, he had a normal exercise nuclear stress test on 10/27/2024. We had an in depth discussion regarding this today and he was reassured by these findings. Orders: Ambulatory referral to Cardiology Fatty liver 10/24/2024 Chronic deep vein thrombosis (DVT) of femoral vein of right lower extremity 06/25/2024 Type 2 diabetes mellitus with cataract Trochanteric bursitis of both hips 06/05/2024 Insomnia 04/27/2023 Atherosclerosis of northway ar ashley of both lower extremities with [...] elevated PSA and several biopsies done in [facility]. Negative for malignancy Assessment & Plan (10/07/2024 9:15 PM EST): Continue follow up with urology. Continue Cialis 5mg daily Coronary artery disease invo lving northway coronary artery of northway heart 12/04/2018 Assessment & Plan (11/09/2024 2:11 PM EST): The patient has a history of abnormal calcium score in 2018 with subsequent cardiac catheterization showing 70% LAD lesion that was treated medically. As above, his recent reports of chest discomfort are atypical and he had a normal stress [...] to faint. Orders: Ambulatory referral to Cardiology Assessment & Plan (10/07/2024 9:15 PM EST): [...] cardiology. Will send a message to his grab operator-Dr. Nichols Orders: ECG 12 lead Tracing Only; [...] 07/12/2023. Continue current plan. Assessment & Plan (11/09/2024 2:11 PM EST): Blood pressure is favorable on current medical therapy; continue metoprolol and losartan-hydrochlorothiazide. The patient's most recent metabolic panel showed stable renal function and electrolytes. Assessment & Plan (10/07/2024 9:15 PM EST): [...] Continue statin and Zetia. Assessment & Plan (11/09/2024 2:11 PM EST): LDL goal for this patient was a history of coronary artery disease as well as diabetes is less than 55. The patient's most recent lipid panel completed [...] and following up with routine medical care. Assessment & Plan (10/07/2024 9:15 PM EST): Continue atorvastatin 80 mg daily and Zetia 10 mg daily Obesity (BMI 30.0-34.9) 12/04/2018 Overview (08/12/2024): Last Assessment & Plan: Patient is overweight. Approaches towards weight loss are discussed, including burning more calories than one takes in by portion control and regular exercise with an emphasis on duration rather than intensity . Assessment & Plan (11/09/2024 2:11 PM EST): The patient is obese. Approaches towards weight loss are discussed, including burning more calories than one takes in by portion control and regular exercise with an emphasis on duration rather than intensity. Vitamin D deficiency 12/04/2018 Encounters Date Type Department Care Team Description 11/19/2024 1:20 PM EST Office Visit Gastroenterology - [address] [facility] [address] [place] [phone] Brenna Savage NP Hyperbilirubinemia (Primary Dx) 11/18/2024 2:00 PM EST Office Visit Adult Medicine [address] [phone] Lena Sorto PA Localized swelling, mass or lump of neck (Primary Dx); Calculus of gallbladder without cholecystitis without obstruction; DDD (degenerative disc disease), cervical; Chronic neck pain 11/13/2024 Telephone [facility] 102 300 [facility] 102 [place] [address] Shu Styles NP Medication; Pre-op Visit 11/12/2024 Nurse Triage Adult Medicine [address] [phone] Evelina Meek RN 11/07/2024 10:40 AM EST Office Visit [facility] [address] [facility] [address] [place] [address] Shu Styles NP Essential hypertension (Primary Dx); Chest pain, unspecified type; Coronary artery disease involving northway coronary artery of northway heart, unspecified whether angina present; Hyperlipidemia, unspecified hyperlipidemia type; Obesity (BMI 30.0-34.9) 10/27/2024 8:30 AM EST Ancillary Procedure [facility]iology [facility] [address] [facility] [address] [place] [address] Coronary artery disease involving northway coronary artery of northway heart, unspecified whether angina present; Chest pain, unspecified type 10/23/2024 7:45 AM EST - 10/23/2024 11:59 PM EST Hospital Encounter Radiology Department [address] [phone] Hyperbilirubinemia Discharge Disposition: Home or Self Care 10/17/2024 12:00 PM EST Office Visit [address] [phone] Lacey Bey MD 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) (Primary Dx); Essential hypertension 10/15/2024 8:30 AM EST Office Visit Orthopedic Surgery [facility] 250 175 [facility] 250 [place] [phone] Abdoul Chavez DPDavid Diabetic mononeuropathy simplex (CMS/HCC) (Primary Dx); Dermatophytosis of nail; Pain in toe of right foot; Pain in toe of left foot; Type II diabetes mellitus with peripheral circulatory disorder (CMS/HCC); Corns and callosities; Tailor's bunionette, right; Tailor's bunionette, left 10/06/2024 12:45 PM EST Office Visit Adult Medicine [address] [phone] Tammy Mooney MD Coronary artery disease involving northway coronary artery of northway heart, unspecified whether angina present (Primary Dx); 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); Mixed hyperlipidemia; Benign prostatic hyperplasia, unspecified whether lower urinary tract symptoms present; History of prostate cancer; Essential hypertension; Easy bruising; Need for hepatitis C screening test; Chest pain, unspecified type 09/23/2024 8:30 AM EST Consult [address] [phone] Lacey Bey MD 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) (Primary Dx) 09/03/2024 Telephone Adult Medicine [address] [phone] Tammy Mooney MD PT Progress Note (ATI/Progress Note 08/25/24) from Last 3 Months Immunizations Name Administration Dates Next Due Influenza trivalent, 0.5mL ( Fluad) 65yo and older 06/21/2023,05/30/2019 Influenza trivalent, 0.5mL, preservative free (Fluarix; FluLaval; Fluzone) ages 6mo and older (Afluria) 3 years and older 06/15/2022,06/03/2020 Influenza trivalent, with pr eservative (Fluzone; Afluria) 6mo and older 06/01/2021 Moderna SARS-CoV-2 COVID-19, mRNA, LNP-S, preservative free 06/04/2024 Pfizer (ages 12 & older) Bivalent, COVID-19 /10/2022,06/16/2022 Pfizer SARS-CoV-2 COVID-19, mRNA, LNP-S, preservative free [...] SURGERY; COMMENT: acromioplasty OTHER SURGICAL HISTORY PROCEDURE: [place] BIOPSY PROSTATE INCISIONAL ANY APPROACH; COMMENT: x6 [...] elevated PSA and several biopsies done in [facility]. Negative for malignancy Hyperlipidemia 12/04/2018 DX:Hyperlipidemi a [...] Type 2 diabetes mellitus wit h cataract ([facility]/HCC) 02/26/2019 DX:Type 2 diabetes mellitus with cataract (HCC) Cataract 02/26/2019 DX:Cataract; COM MENT: 2017, Bilateral, removed Prostate cancer ([facility]) DX:Pro state cancer (HCC) Hyponatremia 04/03/2022 DX:Hyponatremia Family History Medical History Relation Name Comments Stroke Father Diabetes Mother Cancer- other, CAD Uterine cancer Mother Relation Name Status Comments Brother 1 Alive Brother 2 Alive Father Mother Sister Alive Social History Tobacco Use Types Packs/Day Years Used Date Smoking Tobacco: Never Smokeless Tobacco: Never Tobacco Cessation:Counseling Given: Not Answered Alcohol Use Standard Drinks/Week Comments Not Currently 0 (1 standard drink = 0.6 oz pur e alcohol) Sex and Gender Information Value Date Recorded Sex Assigned at Male 07/25/2024 12:34 PM EDT Legal Sex Male 10:18 AM EST Gender Identity Male 07/25/2024 12:34 PM EDT Sexual Orientation Straight 07/25/2024 12 :34 PM EDT Obstetrics History Last Filed Vital Signs Vital Sign Reading Time Taken Comments Blood Pressure 131/69 11/18/2024 2:03 PM EST Pulse 63 11/18/2024 2:03 PM EST Temperature 36.4 ??C (97.5 ??F) 11/18/2024 2:03 PM ES T Respiratory Rate 12 11/18/2024 2:03 PM EST Oxygen Saturation 95% 11/18/2024 2:03 PM EST Inhaled Oxygen Concentration - - Weight 102 kg (225 lb) 11/19/2024 1:30 PM EST Height 165.1 cm (5' 5 ) 11/19/2024 1:30 PM EST Body Mass Index 37.44 11/19/2024 1:30 PM EST Plan of Treatment Upcoming Encounters Date Type Department Care Team (Late st Contact Info) Description 11/25/2024 8:15 AM EST Appointment Radiology Department - [address] [phone] 12/29/2024 9:00 AM EDT Consult General Surgery [facility] [address] [phone] Alejandro Casas MD [address] [phone] 01/15/2025 8:15 AM EDT Office Visit Orthopedic Surgery [facility] [address] [phone] Abdoul Chavez DPM [address] [phone] 01/15/2025 9:45 AM EDT Office Visit Endocrinology - [address] [phone] Lacey Bey MD [address] [place] [phone] 02/03/2025 8:30 AM EDT Office Visit Adult Medicine [facility] - [address] [phone] Lena Sorto PA [address] [place] [phone] 06/02/2025 9:10 AM EDT Office Visit [facility] [address] [phone] Shu Styles NP [address] [address] Health Maintenance Due Date Last Done Comments [...] Tdap) 01/15/2033 01/15/2023, 05/21/2021, 04/24/2018 Pneumococcal Vaccine: 50+ Years Completed 06/19/2017, 01/30/2013 Zoster Vaccines Completed 01/09/2022, 08/25, 08/24/2021, Additional history exists RSV Immunization Patients 60+ Years Old Completed 06/26/2023 Influenza Vaccine Completed 06/02/2024, , 06/15/2022, Additional history exists HIB Vaccines Aged Out No longer eligi [...] patient's age to complete this topic Meningococcal B Vacine Aged Out No lo nger eligible based on patient's age to complete this topic RSV Immunization Patients Under 20 months Aged Out No longer eligible based on patient's age to complete this topic Varicella Vaccines Aged Out No longer eligible based on patient's age to complete this topic Procedures Procedure Name Priority Date/Time Associated Diagnosis Comments NM EXERCISE STRESS TEST W/ MYOCARDIAL PERFUSION Routine 10/27/2024 10:49 AM EST Coronary artery disease involving northway coronary artery of northway heart, unspecified whether angina present Chest pain, unspecified type US ABDOMEN COMPLETE Routine 10/23/2024 8 :23 AM EST Hyperbilirubinemia CBC WITH AUTO DIFFERENTIAL Routine 10/06/2024 1:54 [...] 9:59 AM EST Coronary artery disease involving northway coronary artery of northway heart without angina pectoris 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) Mixed hyperlipidemia CBC AND DIFFERENTIAL Routine 09/04/2024 9:59 AM EST Coronary artery disease involving northway coronary artery of northway heart without angina pectoris 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) Mixed hyperlipidemia MICROALBUMIN CREATININE URINE RATIO Routine 09/04/2024 9:59 AM EST Coronary artery disease involving northway coronary artery of northway heart without angina pectoris 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) Mixed hyperlipidemia HEMOGLOBIN A1C Routine 09/04/2024 9:59 AM EST Coronary artery disease involving northway coronary artery of northway heart without angina pectoris 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) Mixed hyperlipidemia LIPID PANEL WITH REFLEX TO DIRECT LDL Routine 09/04/2024 9:59 AM EST Coronary artery disease involving northway coronary artery of northway heart without angina pectoris 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) Mixed hyperlipidemia COMPREHENSIVE METABOLIC PANEL Routine 09/04/2024 9:59 AM EST Coronary artery disease involving northway coronary artery of northway heart without angina pectoris 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) Mixed hyperlipidemia from Last 3 Months Results * NM EXERCISE STRESS TEST W/ [...] Function Comments Resting ejection fraction was 70%. us Abiodun Nichols MD CV STRESS PROCEDURES Final Resu lt * US Abdomen Complete (10/23/2024 8:23 AM EST) Anatomical Region Laterality Modality Body Ultrasound 10/23/2024 9:01 AM EST Impressions 10/23/2024 9:03 AM EST Solitary 2.6 cm gallstone. Hepatic steatosis. -------- FINAL REPORT -------- Dictated By: Rohini Marroquin Dictated Date: 10/23/2024 09:01 ET Assigned Physician: Rohini Marroquin Reviewed and Electronically Signed By: Rohini Marroquin Signed Date: 10/23/2024 09:03 ET Workstation ID: [id number] Transcribed By: Self Edit Transcribed Date: 10/23/2024 09:01 ET Narrative 10/23/2024 9:03 AM EST ABDOMINAL ULTRASOUND History: ??Elevated bilirubin levels. Comparison: CT abdomen 07/07/2022. FINDINGS: There is a 2.6 cm mobile gallstone. The common bile duct is not dilated, measuring 3 mm. ??The gallbladder wall is not thickened. No pericholecystic fluid is seen. No ascites are seen. The pancreas is not visualized. The liver measures 15.8 cm in length and demonstrates echogenic echotexture. No focal lesions are seen in the liver and there is no evidence of intrahepatic ductal dilation. Normal hepatopedal flow is seen in the main portal vein. No evidence of hydronephrosis, mass, or calculus was seen in either kidney. ??The right kidney measures 12.3 cm in greatest length. ??The left kidney measures 11.2 cm in length. The spleen measures ??10.8 cm in length. There is atherosclerosis. The visualized abdominal aorta and IVC are otherwise unremarkable. Procedure Note Rohini Marroquin MD - 10/23/2024 ABDOMINAL ULTRASOUND History: Elevated bilirubin levels. Comparison: CT abdomen 07/07/2022. FINDINGS: There is a 2.6 cm mobile gallstone. The common bile duct is notdilated, measuring 3 mm. The gallbladder wall is not thickened. Nopericholecystic fluid is seen. No ascites are seen. The pancreas is not visualized. The liver measures 15.8 cm in length and demonstrates echogenicechotexture. No focal lesions are seen in the liver and there is noevidence of intrahepatic ductal dilation. Normal hepatopedal flow is seenin the main portal vein. No evidence of hydronephrosis, mass, or calculus was seen in eitherkidney. The right kidney measures 12.3 cm in greatest length. The leftkidney measures 11.2 cm in length. The spleen measures 10.8 cm in length. There is atherosclerosis. The visualized abdominal aorta and IVC areotherwise unremarkable. IMPRESSION: Solitary 2.6 cm gallstone. Hepatic steatosis. -------- FINAL REPORT -------- Dictated By: Rohini Marroquin Dictated Date: 10/23/2024 09:01 ET Assigned Physician: Rohini Marroquin Reviewed and Electronically Signed By: Rohini Marroquin Signed Date: 10/23/2024 09:03 ET Workstation ID: [id number] Transcribed By: Self Edit Transcribed Date: 10/23/2024 09:01 ET us Tammy Mooney MD [facility] US PROCEDURE S Final Result * Hepatitis C antibody (10/06/2024 1:54 PM EST) Hepatitis C Antibody Negative Negative LAB CHEMISTRY METHOD 10/06/2024 6:44 PM EST [facility] Blood Venous blood specimen / Unknown Venipuncture / Unknown 10/06/2024 1:54 PM EST 10/06/2024 1:54 PM EST Tammy Mooney MD LAB BLOOD ORDERA BLES Final Result [facility] [address] [place] [address], * (ABNORMAL) CBC auto differential (10/06/2024 1:54 PM EST) Only the most recent of2 resultswithin the time period is included. WBC 7.6 4.8 - 10.8 K/mcL LAB HEMETOLOGY METHOD 10/06/2024 4:48 PM [facility] RBC 5.50 4.50 - 5.50 M/mcL LAB HEMETOLOGY METHOD 10/06/2024 4:48 PM [facility] Hemoglobin 16.5 13.5 - 17.5 g/dL LAB HEMETOLOGY METHOD 10/06/2024 4:48 PM [facility] Hematocrit 51.8 42.0 - 54.0 % LAB HEMETOLOGY METHOD 10/06/2024 4:48 PM [facility] MCV 95.0 79.0 - 98.0 FL LAB HEMETOLOGY METHOD 10/06/2024 4:48 PM [facility] MCH 30.3 27.0 - 32.0 pcg LAB HEMETOLOGY METHOD 10/06/2024 4:48 PM [facility] MCHC 31.9(L) 32.0 - 37.0 g/dL LAB HEMETOLOGY METHOD 10/06/2024 4:48 PM [facility] RDW 14.2 11.0 - 15.0 % LAB HEMETOLOGY METHOD 10/06/2024 4:48 PM [facility] Platelets 269 130 - 400 K/mcL LAB HEMETOLOGY METHOD 10/06/2024 4:48 PM [facility] MPV 10.2 7.0 - 11.0 FL LAB HEMETOLOGY METHOD 10/06/2024 4:48 PM [facility] NRBC 0.0 <1.0 % LAB HEMETOLOGY METHOD 10/06/2024 4:48 PM [facility] NRBC Absolute 0.00 <0.10 K/mcL LAB HEMETOLOGY METHOD 10/06/2024 4:48 PM [facility] Neutrophils Relative 65.6 % LAB HEMETOLOGY METHOD 10/06/2024 4:48 PM [facility] Lymphocytes Relative 21.3 % LAB HEMETOLOGY METHOD 10/06/2024 4:48 PM [facility] Monocytes Relative 10.7 % LAB HEMETOLOGY METHOD 10/06/2024 4:48 PM [facility] Eosinophils Relative 1.1 % LAB HEMETOLOGY METHOD 10/06/2024 4:48 PM [facility] Basophils Relative 0.9 % LAB HEMETOLOGY METHOD 10/06/2024 4:48 PM [facility] Immature Granulocytes Relative 0.4 % LAB HEMETOLOGY METHOD 10/06/2024 4:48 PM [facility] Neutrophils Absolute 4.97 1.50 - 7.00 K/mcL LAB HEMETOLOGY METHOD 10/06/2024 4:48 PM [facility] Lymphocytes Absolute 1.61 1.00 - 5.00 K/mcL LAB HEMETOLOGY METHOD 10/06/2024 4:48 PM [facility] Monocytes Absolute 0.81 0.20 - 1.00 K/mcL LAB HEMETOLOGY METHOD 10/06/2024 4:48 PM [facility] Eosinophils Absolute 0.08 0.00 - 0.50 K/mcL LAB HEMETOLOGY METHOD 10/06/2024 4:48 PM EST [facility] Basophils Absolute 0.07 0.00 - 0.20 K/[facility] LAB HEMETOLOGY METHOD 10/06/2024 4:48 PM EST [facility] Immature Granulocytes Absolute 0.03 0.00 - 0.03 K/[facility] LAB HEMETOLOGY METHOD 10/06/2024 4:48 PM EST [facility] Blood Venous blood specimen / Unknown Venipuncture / Unknown 10/06/2024 1:54 PM EST 10/06/2024 1:54 PM EST Tammy Mooney MD LAB BLOOD ORDERA BLES Final Result Performing Organization Address City/[facility]/ZIP Co de Phone Number [facility] [address] [place] [address], * Von Willebrand factor activity (10/06/2024 1:54 PM EST) von Willebrand Factor Activity Percent 96 51 - 215 % 10/11/2024 1:24 PM EST [facility] Comment: REFERENCE INTERVAL: von Willebrand Factor, Activity (RCF) Access complete set of age- and/or gender-specific reference intervals for this test in the [employer] Laboratory Test Directory ([employer]). Performed By: [employer] [address] [place] [id number] Milk Vendor: Eric Luu MD, PhD CLIA Number: [id number] Blood Venous blood specimen / Unknown Venipuncture / Unknown 10/06/2024 1:54 PM EST 10/06/2024 1:54 PM EST Tammy Mooney MD LAB BLOOD ORDERA BLES Final Result [facility] [address] [place] [address] * Activated partial thromboplastin time (10/06/2024 1:54 PM EST) [facility] aPTT 38.1 24.1 - 39.3 sec LAB COAGULATION METHOD 10/06/2024 4:51 PM EST [facility] Blood Venous blood specimen / Unknown Venipuncture / Unknown 10/06/2024 1:54 PM EST 10/06/2024 1:54 PM EST Tammy Mooney MD LAB BLOOD ORDERA BLES Final Result [facility] [address] [place] [address], [place] [phone] * Prothrombin time with INR (10/06/2024 1:54 PM EST) [facility] Protime 11.4 10.6 - 13.9 sec LAB COAGULATION METHOD 10/06/2024 4:51 PM EST [facility] INR 0.9 LAB COAGULATION METHOD 10/06/2024 4:51 PM EST [facility] Blood Venous blood specimen / Unknown Venipuncture / Unknown 10/06/2024 1:54 PM EST 10/06/2024 1:54 PM EST Tammy Mooney MD LAB BLOOD ORDERA BLES Final Result [facility] [address] [place] [address], [place] [phone] * (ABNORMAL) Hepatic function panel (10/06/2024 1:54 PM EST) [facility] Total Protein 7.6 6.0 - 8.0 g/dL LAB CHEMISTRY METHOD 10/06/2024 5:56 PM EST [facility] Albumin 4.4 3.2 - 5.0 g/dL LAB CHEMISTRY METHOD 10/06/2024 5:56 PM EST [facility] Total Bilirubin 2.1(H) 0.0 - 1.4 mg/dL LAB CHEMISTRY METHOD 10/06/2024 5:56 PM [facility] Bilirubin, Direct 0.4(H) 0.0 - 0.3 mg/dL LAB CHEMISTRY METHOD 10/06/2024 5:56 PM [facility] Bilirubin, Indirect 1.7(H) 0.0 - 1.1 mg/dL LAB CHEMISTRY METHOD 10/06/2024 5:56 PM [facility] ALT (SGPT) 41 10 - 60 unit/L LAB CHEMISTRY METHOD 10/06/2024 5:56 PM [facility] AST (SGOT) 26 10 - 42 unit/L LAB CHEMISTRY METHOD 10/06/2024 5:56 PM [facility] Alkaline Phosphatase 82 42 - 121 unit/L LAB CHEMISTRY METHOD 10/06/2024 5:56 PM [facility] Blood Venous blood specimen / Unknown Venipuncture / Unknown 10/06/2024 1:54 PM EST 10/06/2024 1:54 PM EST Tammy Mooney MD LAB BLOOD ORDERA BLES Final Result [facility] [address] [place] [address], * (ABNORMAL) POC glucose manually resulted (09/23/2024 8:53 AM EST) Glucose POC 180 mg/dL Blood Capillary blood specimen / Unknown 09/23/2024 8:53 AM EST Lacey Bey MD POINT OF CARE TEST ENTER/EDIT OR DERABLES Final Result * Lipid panel with reflex to direct LDL (09/04/2024 9:59 AM EST) Cholesterol 152 0 - 200 mg/dL LAB CHEMISTRY METHOD 09/04/2024 1:50 PM EST [facility] Triglycerides 135 0 - 150 mg/dL LAB CHEMISTRY METHOD 09/04/2024 1:50 PM [facility] HDL 66 >=40 mg/dL LAB CHEMISTRY METHOD 09/04/2024 1:50 PM EST [facility] LDL Calculated 59 0 - 100 mg/dL LAB CHEMISTRY METHOD 09/04/2024 1:50 PM [facility] VLDL Cholesterol Alex 27 mg/dL LAB CHEMISTRY METHOD 09/04/2024 1:50 PM [facility] Non HDL Chol. (LDL+VLDL) 86 <145 mg/dL LAB CHEMISTRY METHOD 09/04/2024 1:50 PM [facility] Chol/HDL Ratio 2.3 0.0 - 4.4 LAB CHEMISTRY METHOD 09/04/2024 1:50 PM [facility] Blood Venous blood specimen / Unknown Venipuncture / Unknown 09/04/2024 9:59 AM EST 09/04/2024 9:59 AM EST Tammy Mooney MD LAB BLOOD ORDERA BLES Final Result [facility] [address] [place] [address], * Microalbumin creatinine urine ratio (09/04/2024 9:59 AM EST) Creatinine, Urine 57.0 mg/dL LAB CHEMISTRY METHOD 09/04/2024 4:54 PM EST [facility] Microalb, Ur 15.5 0.0 - 29.0 mg/L LAB CHEMISTRY METHOD 09/04/2024 4:54 PM [facility] Microalb/Creat Ratio 27 <30 mg/g creat LAB CHEMISTRY METHOD 09/04/2024 4:54 PM EST [facility] Urine Urine specimen obtained by clean catch procedure / Unknown Non-blood Collection / Unknown 09/04/2024 9:59 AM EST 09/04/2024 9:59 AM EST Tammy Mooney MD LAB URINE ORDERA BLES Final Result Performing Organization Address [facility]/ZIP Co de Phone Number [facility] [address] [place] [address], [place] [phone] * (ABNORMAL) Hemoglobin A1c (09/04/2024 9:59 AM EST) Hemoglobin A1C 7.9(H) <6.5 % LAB CHEMISTRY METHOD 09/04/2024 3:18 PM EST [facility] Mean Bld Glu Estim. 180 mg/dL LAB CHEMISTRY METHOD 09/04/2024 3:18 PM [facility] Blood Venous blood specimen / Unknown Venipuncture / Unknown 09/04/2024 9:59 AM EST 09/04/2024 9:59 AM EST Tammy Mooney MD LAB BLOOD ORDERA BLES Final Result Performing Organization Address City/[facility]/ZIP Co de Phone Number [facility] [address] [place] [address], [place] [phone] * (ABNORMAL) Comprehensive metabolic panel (09/04/2024 9:59 AM EST) Sodium 141 133 - 145 mmol/L LAB CHEMISTRY METHOD 09/04/2024 1:50 PM EST [facility] Potassium 3.9 3.5 - 5.5 mmol/L LAB CHEMISTRY METHOD 09/04/2024 1:50 PM EST [facility] Chloride 106 96 - 110 mmol/L LAB CHEMISTRY METHOD 09/04/2024 1:50 PM [facility] CO2 26 21 - 32 mmol/L LAB CHEMISTRY METHOD 09/04/2024 1:50 PM [facility] Anion Gap 9 3 - 11 LAB CHEMISTRY METHOD 09/04/2024 1:50 PM [facility] Glucose 167(H) 70 - 100 mg/dL LAB CHEMISTRY METHOD 09/04/2024 1:50 PM [facility] BUN 13 5 - 25 mg/dL LAB CHEMISTRY METHOD 09/04/2024 1:50 PM [facility] Creatinine 0.86 0.70 - 1.30 mg/dL LAB CHEMISTRY METHOD 09/04/2024 1:50 PM [facility] eGFR 88 >=60 mL/min/1. 73m2 LAB CHEMISTRY METHOD 09/04/2024 1:50 PM [facility] Comment:Calculation based on the??Chronic Kidney Disease Epidemiology Collaboration (CKD-EPI) equation refit??without adjustment for race. BUN/Creatinine Ratio 15.1 LAB CHEMISTRY METHOD 09/04/2024 1:50 PM [facility] Calcium 9.8 8.5 - 10.5 mg/dL LAB CHEMISTRY METHOD 09/04/2024 1:50 PM [facility] AST (SGOT) 18 10 - 42 unit/L LAB CHEMISTRY METHOD 09/04/2024 1:50 PM [facility] ALT (SGPT) 30 10 - 60 unit/L LAB CHEMISTRY METHOD 09/04/2024 1:50 PM [facility] Alkaline Phosphatase 74 42 - 121 unit/L LAB CHEMISTRY METHOD 09/04/2024 1:50 PM [facility] Total Protein 6.9 6.0 - 8.0 g/dL LAB CHEMISTRY METHOD 09/04/2024 1:50 PM [facility] Albumin 4.0 3.2 - 5.0 g/dL LAB CHEMISTRY METHOD 09/04/2024 1:50 PM EST [facility] Total Bilirubin 1.7(H) 0.0 - 1.4 mg/dL LAB CHEMISTRY METHOD 09/04/2024 1:50 PM EST [facility] Blood Venous blood specimen / Unknown Venipuncture / Unknown 09/04/2024 9:59 AM EST 09/04/2024 9:59 AM EST Tammy Mooney MD LAB BLOOD ORDERA BLES Final Result [facility] ([facility]) [facility] [address] [place] [address], from Last 3 Months Insurance [employer] MED[employer]ARE [employer] Care Teams Mold Finisher Relationship Specialty Start Date End Date Tammy Mooney MD [address] [place] [phone] PCP - General Internal Medicine 09/04/24
--- OUTSIDE RECORDS SUMMARY | 2024-11-19 17:44 | XMS_ITS | Encounter Summary ---
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, unspecified whether angina present Chest pain, unspecified type Procedures Exercise nuclear stress test with myocardial perfusion OR MYOCARDIAL PERFUSION IMAGING TOMOGRAPHIC MULTI STUDIES AT REST OR STRESS OR MYOCARDIAL PERFUSION IMAGING TOMOGRAPHIC SINGLE STUDY AT REST OR STRESS OR CARDIOVASCULAR STRESS TEST GLOBAL OR CV TMST/BIKE MAX/SUBMAX CONTINUOUS ECG MON/PHARM STRESS SUPVSR ONLY OR CV STRESS TEST/BIKE CONT ECG MON/PHARM STRESS INTERP & REPORT ONLY OR TEST STRESS CARDIOVASCULAR TRACING ONLY Abiodun Nichols MD [address] [place] [address] Phone: tel: fax: [facility] Referral ID Status Reason Start Date Expiration Date Visits Re quested Visits Authorized [id number] Closed 10/24/2024 04/22/2025 1 1 Encounter Details Date Type Department Care Team (Latest Contact Info) Description 10/27/2024 8:30 AM EST Ancillary Procedure [facility] - [address] [place] [address] 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, unspecified whether angina present; Chest pain, [...] Sign Reading Time Taken Comments Blood Pressure 124/60 10/27/2024 8:52 AM EST Pulse - - Temperature - - Respiratory Rate - - Oxygen Saturation - - Inhaled Oxygen Concentration - - Weight 99.8 kg (220 lb) 10/27/2024 8:37 AM EST Height 174 cm (5' 8.5 ) 10/27/2024 8:37 AM EST Body Mass Index 32.96 10/27/2024 8:37 AM EST documented in this encounter Plan of Treatment Upcoming Encounters Date Type Department Care Team (Late st Contact Info) Description 11/25/2024 8:15 AM EST Appointment Radiology Department - [address] [phone] 12/29/2024 9:00 AM EDT Consult General Surgery [facility] [address] [phone] Alejandro Casas MD [address] [address] 01/15/2025 8:15 AM EDT Office Visit Orthopedic Surgery [facility] [address] [phone] Abdoul Chavez DPDavid [address] [address] 01/15/2025 9:45 AM EDT Office Visit Endocrinology [address] [phone] Lacey Bey MD [address] [place] [phone] 02/03/2025 8:30 AM EDT Office Visit Adult Medicine [facility] [address] [place] [address] Lena Sorto PA [address] [place] [address] 06/02/2025 9:10 AM EDT Office Visit [facility] - [address] [place] [address] Shu Styles NP [address] [place], [place] [phone] documented as of this encounter Procedures Procedure Name Priority Date/Time Associated Diagnosis Comments NM EXERCISE STRESS TEST W/ MYOCARDIAL PERFUSION Routine 10/27/2024 10:49 AM EST 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, unspecified whether angina present Chest pain, unspecified type documented in this encounter Results * NM EXERCISE STRESS [...] MD CV STRESS PROCEDURES Final Resu lt documented in this encounter Visit Diagnoses Diagnosis 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, unspecified whether angina present Chest pain, unspecified type documented in this encounter Administered Medications Inactive Administered Medications - up to 3 most recent administrations Medication Order MAR Action Action Date Dose Rate Site TC-99M tetrofosmin P radio-isotope injection 30 millicurie 30 millicurie, intravenous, Once in imaging, Starting on Sun10/27/24 at 1046, For 1 dose Given 10/27/2024 10:00 AM EST 30 millicuries Left Antecubital TC-99M tetrofosmin P radio-isotope injection 9.9 millicurie 9.9 millicurie, intravenous, Once in imaging, Starting on Sun10/27/24 at 0838, For 1 dose Given 10/27/2024 8:44 AM EST 9.9 millicuries Left Antecubital documented in this encounter Care Teams Billing Machine Operator Relationship Specialty Start Date End Date Tammy Mooney MD [address] [place] [phone] PCP - General Internal Medicine 09/04/24 documented as of this encounter
--- OUTSIDE RECORDS SUMMARY | 2024-11-19 17:44 | XMS_ITS | Encounter Summary ---
Author Organization [facility] Address [address] [place] [address] Care Team Providers Care Bag Sealer Name Role Phone Tammy Mooney MD Primary Care Pr ovider Reason for Referral * Consultation (Routine) - Pending Review Specialty Diagnoses / Procedures Referred By Contact Referred To Contact Physical Medicine and Rehabilitation Diagnoses DDD (degenerative disc disease), cervical Chronic neck pain Lena Sorto PA [address] [place] [address] Phone: tel: fax: Yesenia Campos, DO [address] [place] [address] Phone: tel:[phone] fax:[phone] Referral ID Status Reason Start Date Expiration Date Visits Requested Visits Authorized [id number] Pending Review Specialty Services Required 11/18/2024 11/18/2025 1 1 * Imaging (Routine) - Pending Review Specialty Diagnoses / Procedures Referred By Contvahid t Referred To Contact Radiology Diagnoses Localized swelling, mass or lump of neck Procedures US Head Neck Soft Tissue Lena Sorto PA [address] [place] [address] Phone: tel: fax: [address] Phone: tel: Referral ID Status Reason Start Date Expiration Date V isits Requested Visits Authorized [id number] Pending Review 11/18/2024 11/18/2025 1 1 * Consultation (Routine) - Authorized Specialty Diagnoses / Procedures Referred By Contac t Referred To Contact General Surgery Diagnoses Calculus of gallbladder without cholecystitis without obstruction Lena Sorto PA [address] [place] [address] Phone: tel: fax: Paulino Grubbs, DO [address] [address] Phone: tel: fax: Referral ID Status Reason Start Date Expiration Date Visits Requested Visits Authorized [id number] Authorized Specialty Services Required 11/18/2024 11/18/2025 1 1 Reason for Visit * Reason Comments neck sweeling Right side of neck Encounter Details Date Type Department Care Team (Late st Contact Info) Description 11/18/2024 2:00 PM EST Office Visit Adult Medicine [address] [phone] Lena Sorto PA [address] [place] [address] Localized swelling, mass or lump of neck (Primary Dx); Calculus of gallbladder without cholecystitis without obstruction; DDD (degenerative disc disease), cervical; Chronic neck pain Social History Tobacco Use Types Packs/Day Years [...] - - Weight 101 kg (223 lb) 11/18/2024 2:03 PM EST Height 175.3 cm (5' 9 ) 11/18/2024 2:03 PM EST Body Mass Index 32.93 11/18/2024 2:03 PM EST documented in this encounter Progress Notes * ADE Padilla - 11/18/2024 2:00 PM EST [facility] Dr Yesenia Campos * ADE Padilla - 11/18/2024 2:00 PM EST CHIEF COMPLAINT: neck sweeling (Right side of neck) IDENTIFIER: Slava Ramirez is a 79 y.o. old male. HPI: 79 year old male presents to office for evaluation of right sided neck swelling. Patient states over the summer he was babysitting his grandchildren when his grandson pointed out swelling to the right side of his neck. Patient states that he then noticed a golf ball sized swollen area to the right side of his neck. He states that they were out [place] [address] at the time, he went to an urgent care, was prescribed an antibiotic and the area did seem to improve after this. He states that he was seeing his legal project manager recently and they were talking about this right sided neck swelling and they recommended that he follow-up with PCP regarding this He states that he still feels swelling over the right side of his neck, mildly tender to palpation.He denies any trouble swallowing. Patient has noticed night sweats, ongoing, not worsening since the summer, but feeling more noticeable over the past month or so with no associated fever. He denies any unintentional weight loss, chills. He denies any nausea or vomiting, reports appetite seems stable Patient states he is going to be consulting with GI tomorrow regarding recent testing done by PCP that revealed elevated bilirubin. He also underwent ultrasound of the abdomen on 10/23 due to the elevated bilirubin that revealed hepatic steatosis and a solitary 2.6 cm gallstone, which could be contributing to the bilirubin elevation. He denies RUQ pain Patient states that he had 2 procedures done on his neck over the summer with Dr. Rincon. He states that he was referred to pain management for consultation and a spine stimulator was recommended. He is looking for a second opinion ROS: GENERAL: No malaise or fever HEENT: No changes in hearing or vision RESPIRATORY: No cough, wheezing or shortness of breath CARDIOVASCULAR: No chest pain, leg swelling or palpitations GI: No abdominal pain, diarrhea, constipation, blood in stool MUSCULOSKELETAL: SEE HPI NEURO: No persistent headache, syncope, numbness All other systems reviewed and negative. PAST MEDICAL HISTORY: Patient Active Problem List Diagnosis Date Noted Chest pain 11/07/2024 Fatty liver 10/24/2024 Chronic deep vein thrombosis (DVT) of femoral vein of right lower extremity ([facility]) 06/25/2024 Type 2 diabetes mellitus with cataract ([facility]) 06/25/2024 Trochanteric bursitis of both hips 06/05/2024 Insomnia 04/27/2023 Atherosclerosis of [place] artery of both lower extremities with rest pain ([facility]) 03/22/2023 PAC (premature atrial contraction) 03/19/2023 Venous stasis ulcer of right calf limited to breakdown of skin with varicose veins ([facility]) 03/19/2023 Palpitations 02/07/2023 Nocturnal leg cramps 01/01/2023 Osteoarthritis of both hips 01/01/2023 Adrenal nodule ([facility]) 07/07/2022 Lumbar degenerative disc disease 09/26/2021 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 ([facility]) 03/23/2021 Dizziness 02/09/2021 Acute deep vein thrombosis (DVT) of femoral vein of right lower extremity ([facility]) 07/27/2020 Prostate cancer ([facility]) 03/16/2020 Spinal stenosis at L4-L5 level 09/30/2019 Chronic bilateral low back pain without sciatica 04/02/2019 Cataract 02/26/2019 Type 2 diabetes mellitus with microalbuminuria ([facility]) 02/26/2019 Diverticulosis 01/14/2019 Actinic keratosis 12/30/2018 Chronic neck pain 12/12/2018 Tubular adenoma of colon 12/12/2018 BPH (benign prostatic hyperplasia) 12/04/2018 Coronary artery disease involving takotna coronary artery of takotna heart 12/04/2018 DDD (degenerative disc disease), cervical 12/04/2018 Essential hypertension 12/04/2018 Hyperlipidemia 12/04/2018 Obesity (BMI 30.0-34.9) 12/04/2018 Vitamin D deficiency 12/04/2018 ACTIVE MEDICATIONS: Current Outpatient Medications Medication Instructions aspirin 81 mg EC tablet Take 1 Tablet by mouth. atorvastatin (LIPITOR) 80 mg tablet Take 1 Tablet by mouth daily. Autolet lancing device LANCET DEVICES (ONE TOUCH DELICA LANCING DEV) [facility] Use to test blood sugar once a day . DX-E11.9. NIDDM *One Touch Ultra 2* blood sugar diagnostic (ON[facility]OUCH ULTRA TEST [facility]) USE TO TEST BLOOD SUGAR ONCE DAILY [...] mg, oral, 2 times daily before meals lancets (The Rat[employer]ar [employer]uch Delica Plus Lancet) 33 gauge USE TO TEST BLOOD SUGAR DAILY losartan-hydroCHLOROthiazide (HYZAAR) 100-25 mg per tablet 1 tablet, oral, Daily metoprolol succinate (TOPROL-XL) 50 mg, oral, Daily omega-3 acid ethyl esters (LOVAZA) 1 gram capsule Take 1 g by mouth daily. tadalafiL (CIALIS) 5 mg tablet Take 1 Tablet by mouth daily. ALLERGIES: No Known Allergies PHYSICAL EXAM: Blood pressure 131/69, pulse 63, temperature 36.4 ??C (97.5 ??F), temperature source Temporal, resp. rate 12, height 1.753 m (69 ), weight 101 kg (223 lb), SpO2 95%. Body mass index is 32.93 kg/m??. APPEARANCE: Alert and in no acute distress EYES: Conjunctiva and sclera normal NECK: Right side of neck with slight swelling/prominence when compared bilaterally. No palpable LAD HEART: RRR with normal S1 and S2 LUNG: clear to auscultation, no wheezing, rales, or rhonchi EXTREMITIES: Extremities warm and well perfused without clubbing, cyanosis, or edema NEURO: Awake, alert and oriented x 3 LABS/IMAGING: Results for orders placed during the hospital encounter of 10/23/24 US Abdomen Complete Narrative ABDOMINAL ULTRASOUND History: Elevated bilirubin levels. Comparison: CT abdomen 07/07/2022. FINDINGS: There is a 2.6 cm mobile gallstone. The common bile duct is not dilated, measuring 3 mm. The gallbladder wall is not thickened. No pericholecystic [...] or calculus was seen in either kidney. The right kidney measures 12.3 cm in greatest length. The left kidney measures 11.2 cm in length. The spleen measures 10.8 cm in length. There is atherosclerosis. The visualized abdominal aorta and IVC are otherwise unremarkable. Impression Solitary 2.6 cm gallstone. Hepatic steatosis. -------- FINAL REPORT -------- Dictated By: Rohini Marroquin Dictated Date: 10/23/2024 09:01 ET Assigned Physician: Rohini Marroquin Reviewed and Electronically Signed By: oRhini Marroquin Signed Date: 10/23/2024 09:03 ET Workstation ID: [id number] Transcribed By: Self Edit Transcribed Date: 10/23/2024 09:01 ET Lab Results Component Value Date ALT 41 10/06/2024 AST 26 10/06/2024 ALKPHOS 82 10/06/2024 BILITOT 2.1 (H) 10/06/2024 IMPRESSION: 1. Localized swelling, mass or lump of neck 2. Calculus of gallbladder without cholecystitis without obstruction 3. DDD (degenerative disc disease), cervical 4. Chronic neck pain PLAN: Patient experiencing right sided neck swelling since summer, responsive to ABX course from urgent care around the time. On exam, there is prominence/swelling of right lateral neck when compared bilaterally. Will obtain US Gallstone - given size on US, referral to general surgery placed for a consult DDD cervical spine - mentioned [facility] in [facility] for possible 2nd opinion, referral placed in computer incase needed Patient verbalized understanding and is in agreement with plan ADDITIONAL ORDERS: Orders Placed This Encounter Procedures US Head Neck Soft Tissue Ambulatory referral to General Surgery Ambulatory referral to Physical Medicine Rehab AMB REFERRAL TO GENERAL SURGERY AMB REFERRAL TO PHYSICAL MEDICINE REHAB US HEAD NECK SOFT TISSUE ADE Padilla on 11/18/2024 at 5:45 PM EST Today's documentation was made using voice recognition software.This note may contain grammatical errors secondary to this software. documented in this encounter Plan of Treatment Upcoming Encounters Date Type Department Care Team (Late st Contact Info) Description 11/25/2024 8:15 AM EST Appointment Radiology Department [address] [phone] 12/29/2024 9:00 AM EDT Consult General Surgery [facility] [address] [phone] Alejandro Casas MD [address] [address] 01/15/2025 8:15 AM EDT Office Visit Orthopedic Surgery [place] [address] [phone] Abdoul Chavez DPM [address] [address] 01/15/2025 9:45 AM EDT Office Visit Endocrinology - [address] [phone] Lacey Bey MD [address] [place] [address] 02/03/2025 8:30 AM EDT Office Visit Adult Medicine [place] - [address] [phone] Lena Sorto PA [address] [place] [address] 06/02/2025 9:10 AM EDT Office Visit [facility] - [facility] [address] [phone] Shu Styles NP [address] [place] [phone] Scheduled Orders Name Type Priority Associated Diagnoses Orde r Schedule US Head Neck Soft Tissue Imaging Routine Localized swelling, mass or lump of neck Expected: 11/18/2024, Expires: 11/18/2025 Scheduled Referrals Name Type Priority Associated Diagnoses Orde r Schedule Ambulatory referral to General Surgery Outpatient Referral Routine Calculus of gallbladder without cholecystitis without obstruction 1 Occurrences starting 11/18/2024 until 11/18/2025 Ambulatory referral to Physical Medicine Rehab Outpatient Referral Routine DDD (degenerative disc disease), cervical Chronic neck pain 1 Occurrences starting 11/18/2024 until 11/18/2025 documented as of this encounter Visit Diagnoses Diagnosis Localized swelling, mass or lump of neck- Primary Calculus of gallbladder without cholecystitis without obstruction DDD (degenerative disc disease), cervical Degeneration of cervical intervertebral disc Chronic neck pain Cervicalgia documented in this encounter Discontinued Medications Medication Sig Discontinue Reason Start Date End Da te hydrOXYzine HCL (ATARAX) 50 mg tablet 1 tablet (50 mg total). 07/12/2023 11/18/2024 acetaminophen (TYLENOL 8 HOUR) 650 mg 8 hr tablet Take 1 Tablet by mouth every 8 hours as needed for Pain. 02/16/2022 11/18/2024 documented as of this encounter Care Teams Bag Sealer Relationship Specialty Start Date End Date Tammy Mooney MD [address] [place] [phone] PCP - General Internal Medicine 09/04/24 documented as of this encounter
--- OUTSIDE RECORDS SUMMARY | 2024-11-19 17:44 | XMS_ITS | Patient Health Record ---
Author Organization [facility] fatimah DotyMiky Address [address] [facility] [place] [address] Care Team Providers Care Medical Secretary Teacher Name Role Phone Medina Catherine Unavailable [phone] Allergies No Known Allergies Reason For Referral [...] Problem Acquired hammer toe of right foot (064473301444802 5) Other hammer toe(s) (acquired), right foot (M20.41) Active confirmed Problem Acquired hammer toe of left foot (204614280619510 3) Other hammer toe(s) (acquired), left foot (M20.42) Active confirmed Problem Type II diabetes mellitus without complication (067331408) Type 2 diabetes mellitus without complications (E11.9) Active confirmed Problem 41501724 Osteoarthritis o f right ankle and foot (M19.071) Active confirmed Problem 87229151 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.072) Active confirmed Plan Of Treatment Pending Test Test Name Order Date X ray : Foot, left 3V 11/15/2020 X ray : Foot, right 3V 11/15/2020 [id number] NAIL, 6 OR MORE 02/27/2023 Insurance Providers Payer Name Payer Address Payer Phone Subscriber Number Group Number Insured Name Patient Relationship to Insured Coverage Start Date Coverage End Date [address] [place] [address] [id number] Slava Ramirez Self - patient is the insured Medical (General) History Medical History History ICD Code Back,Hip,and Knee pain type II diabetes High blood pressure Measles Mumps Chicken pox Prostate cancer Surgical History Surgery Date(Month/Year) neck fusion 2016 prostate surgery 02/2020 lower back surgery 08/2021
--- OUTSIDE RECORDS SUMMARY | 2024-11-19 17:44 | XMS_ITS | Encounter Summary ---
Author Organization [facility] Address [address] [place] [address] Care Team Providers Care Travel Director Name Role Phone Tammy Mooney MD Primary Care Pr ovid Reason for Referral * Imaging (Routine) - Pending Review Specialty Diagnoses / Procedures Referred By Alicja nina Referred To Contact Radiology Diagnoses Hyperbilirubinemia Procedures US Abdomen Complete Tammy Mooney MD [address] [place] [address] Phone: tel: fax: [address] Phone: tel: Referral ID Status Reason Start Date Expiration Date V isits Requested Visits Authorized [id number] Pending Review 10/14/2024 10/14/2025 1 1 Reason for Visit * Imaging (Routine) - Pending Review Specialty Diagnoses / Procedures Referred By Alicja nina Referred To Contact Radiology Diagnoses Hyperbilirubinemia Procedures US Abdomen Complete Tammy Mooney MD [address] [place] [address] Phone: tel: fax: [address] Phone: tel: Referral ID Status Reason Start Date Expiration Date V isits Requested Visits Authorized [id number] Pending Review 10/14/2024 10/14/2025 1 1 Encounter Details Date Type Department Care Team (Latest Contact Info) Description 10/23/2024 7:45 AM EST - 10/23/2024 11:59 PM EST Hospital Encounter Radiology Department - [address] [phone] Hyperbilirubinemia Discharge Disposition: Home or Self Care Social History Tobacco Use Types Packs/Day Years [...] PM EDT documented as of this encounter Medications at Time of Discharge aspirin 81 mg EC tablet Take 1 Tablet by mouth. atorvastatin (LIPITOR) 80 mg tablet Take 1 Tablet by mouth daily. 02/01/2024 Autolet lancing device LANCET DEVICES (ONE TOUCH DELICA LANCING DEV) [facility]: Use to test blood sugar once a day . DX-E11.9. NIDDM *One Touch Ultra 2* 07/31/2020 blood sugar diagnostic (ONETOUCH ULTRA TEST [facility]) USE TO TEST BLOOD SUGAR ONCE DAILY 02/15/2023 blood-glucose meter kit Use to test blood sugar once a day . DX-E11.9. NIDDM *One Touch Ultra 2* 01/31/2019 cholecalciferol (VITAMIN D-3) 50 mcg (2,000 unit) tablet Take 2,000 Units by mouth daily. empagliflozin (Jardiance) 25 mg tablet Take 1 tablet (25 mg total) by mouth 1 (one) time each day in the morning. 90 tablet 1 10/06/2024 ezetimibe (ZETIA) 10 mg tablet TAKE 1 TABLET BY MOUTH EVERY DAY 07/10/2024 FA/mv,Ca,iron,min/lyco pene/lut (MULTIVITAL ORAL) Take by mouth. gabapentin (NEURONTIN) 300 mg capsule Take 1 Capsule by mouth 2 times daily. 1 caps in the morning and 2 in the evening glipiZIDE (GLUCOTROL) 10 mg tabletIndications: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) Take 1 tablet (10 mg total) by mouth 2 (two) times a day before meals. 180 each 1 09/04/2024 5 lancets ([employer] Delica Plus Lancet) 33 gauge USE TO TEST BLOOD SUGAR DAILY 08/24/2021 losartan-hydroCHLOROth iazide (HYZAAR) 100-25 mg per tabletIndications:Esse ntial hypertension,Coronary artery disease involving standing rock coronary artery of standing rock heart, unspecified whether angina present Take 1 tablet by mouth 1 (one) time each day. 90 each 1 10/07/2024 5 metoprolol succinate (TOPROL-XL) 50 mg 24 hr tablet TAKE ONE TABLET BY MOUTH DAILY 90 tablet 3 10/09/2024 omega-3 acid ethyl esters (LOVAZA) 1 gram capsule Take 1 g by mouth daily. tadalafiL (CIALIS) 5 mg tablet Take 1 Tablet by mouth daily. acetaminophen (TYLENOL 8 HOUR) 650 mg 8 hr tablet Take 1 Tablet by mouth every 8 hours as needed for Pain. 02/16/2022 5 hydrOXYzine HCL (ATARAX) 50 mg tablet 1 tablet (50 mg total). 07/12/2023 5 documented as of this encounter Discharge Disposition Disposition Code Departure Means Destination Home or Self Care documented in this encounter Plan of Treatment Upcoming Encounters Date Type Department Care Team (Late st Contact Info) Description 11/25/2024 8:15 AM EST Appointment Radiology Department [address] [phone] 12/29/2024 9:00 AM EDT Consult General Surgery - [place] [address] [phone] Alejandro Casas MD 175 [facility] [address] [place] [address] 01/15/2025 8:15 AM EDT Office Visit Orthopedic Surgery - [place] 250 175 [facility] [address] [place] [address] Abdoul Chavez, DPM [address] [address] 01/15/2025 9:45 AM EDT Office Visit [address] [phone] Lacey Bey MD [address] [place] [address] 02/03/2025 8:30 AM EDT Office Visit Adult Medicine [address] [phone] Lena Sorto PA [address] [place] [address] 06/02/2025 9:10 AM EDT Office Visit [facility] 102 300 [facility] 102 [place] [phone] Shu Styles NP 300 [facility] [address] [place] [address] documented as of this encounter Procedures Procedure Name Priority Date/Time Associated Diagnosis Comments US ABDOMEN COMPLETE Routine 10/23/2024 8 :23 AM EST Hyperbilirubinemia documented in this encounter Results * US Abdomen Complete (10/23/2024 8:23 AM EST) Anatomical Region Laterality Modality Body Ultrasound 10/23/2024 9:01 AM EST Impressions 10/23/2024 9:03 AM EST Solitary 2.6 cm gallstone. Hepatic steatosis. -------- FINAL REPORT -------- Dictated By: Rohini Marroquin Dictated Date: 10/23/2024 09:01 ET Assigned Physician: Rohini Marroquin Reviewed and Electronically Signed By: Rohini Marroquin Signed Date: 10/23/2024 09:03 ET Workstation ID: [id number] Transcribed By: Self Edit Transcribed Date: 10/23/2024 [...] Signed Date: 10/23/2024 09:03 ET Workstation ID: [id number] Transcribed By: Self Edit Transcribed Date: 10/23/2024 09:01 ET us Tammy Mooney MD IMG US PROCEDURE S Final Result documented in this encounter Visit Diagnoses Diagnosis Hyperbilirubinemia Disorders of bilirubin excretion documented in this encounter Care Teams Travel Director Relationship Specialty Start Date End Date Tammy Mooney MD [address] [place] [address] PCP - General Internal Medicine 09/04/24 documented as of this encounter
--- OUTSIDE RECORDS SUMMARY | 2024-11-19 17:44 | XMS_ITS ---
Author Name [facility] Organization Unknown Results Test Name/Text Value Interpretation Date Range Source LAB AP DIAGNOSIS COMMENT Received from [facility], [address], [place] [address], are one slide and one block labeled [id number] , which are retained for our files. Normal [facility] LAB AP GROSS DESCRIPTION Received in formalin is an irregularly shaped fragment of skin measuring 1.1 x 0.8 x 0.1 cm. The specimen is serially sectioned and submitted entirely in one cassette. (Gross description performed by [facility].) Normal [facility] AP CLINICAL INFORMATION Basal cell carcinoma Normal [facility] LAB AP DIAGNOSIS COMMENT Received from [facility], [address], [place] [address], are 1 slide and 1 block labeled [id number] , which are retained for our files. Normal [facility] UCON[facility] LAB AP GROSS DESCRIPTION Received in formalin is an irregularly shaped fragment of skin measuring 1.6 x 1.1 x 0.1 cm. The specimen is serially sectioned and submitted entirely in one cassette. (Gross Description performed by [facility], [place], [place]) Normal [facility] LAB AP CLINICAL INFORMATION BCC vs SCC Normal [facility]
== END 2024-11-19 14:53 | disposition home or self-care (01) ==
PROVIDERS: PCP Family Medicine; Visit Provider Neurological Surgery
DX: M96.1 Postlaminectomy syndrome, not elsewhere classified (principal)
CPT/HCPCS: 99212

== ENCOUNTER → 2024-11-19 14:18 | Outpatient (BNVA) | payer MEDICARE, SELFPAY | PROVIDERS: PCP Family Medicine; Visit Provider Neurological Surgery | DX: M96.1 Postlaminectomy syndrome, not elsewhere classified (principal); Z98.1 Arthrodesis status | CPT/HCPCS: 99212 ==

== ENCOUNTER 2024-11-20 09:24 | Outpatient (AMB) | payer MEDICARE, SELFPAY ==
[2024-11-20 09:26] VITALS: BP 160/76; PULSE 73; O2SAT 96; BMI 33.6
--- NOTE | 2024-11-20 09:26 | A.OFFVIS_ITS ---
Vital Signs 11/20/24 09:26 Height 5 ft 8.5 in Weight 224 lb 2 oz BMI 33.6 BP 160/76 H Blood Pressure Location Lt brachial Position Sitting Pulse 73 Pulse Source Pulse Oximeter Pulse Oximetry (%) 96 Oxygen Delivery Method Room Air Intake Visit Reasons: [employer] SCS Discussion (Per Pt Request) Allergies No Known Allergies Allergy (Verified 11/20/24 09:31) HPI Comments Details: Slava is back in my office for the 2nd opinion. He is upset about the discussion he had last time in this office, he wants more detailed explanation. He suffers from chronic back pain. He had L3-L4 L5 lumbar fusion in 2020 2021 and he had L2-L3 lumbar interbody fusion in . Some of his symptoms were alleviated including pain radiating to the lower extremity however he continues to complain on axial back pain at the lowest portion of his bilateral scars from L3-L5 fusion. He points out to the approximate projection of the iliac crest bilaterally. However unfortunately the signs of sacroiliitis bilaterally negative see description as below. He was scheduled for a trial of [employer] spinal cord stimulator and now he wants to reschedule it on my schedule. He reports his pain mostly aggravates him with standing and walking. He denies pain with sitting and laying flat down. He also complains on diabetic po lyneuropathy. We discussed possibility of switching [employer] spinal cord stimulator device to Nevro device in the middle of the trial if [employer] machine will not be effective to control his pain. Longevity of the spinal cord stimulator actions were discussed with the patient. Criteria for implantation were also discussed with the patient. Patient expressed understanding and he asked multiple appropriate questions. Pain Management - Affect: Current pain level of 10/10; patient reports impact on performing daily activities and normal functioning - Analgesia: Previously on opioids; now taking aspirin; not seeking further opioids - Adverse Effects: History of significant opioid use with ineffective pain relief; transitioned off opioids successfully - Activities of Daily Living: Significant interference due to pain when standing or performing simple tasks; localized burning pain greatly limits activity - Aberrant Drug-Related Behaviors: History of long-term opioid use, currently managed without opioids. 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 Lumbar degenerative disc disease Hyponatremia Adrenal nodule Nocturnal leg cramps Osteoarthritis of both hips Palpitations Nonhealing ulcer of right lower extremity PAC (premature atrial contraction) Atherosclerosis Insomnia Surgical History History of back surgery Hx of bilateral cataract extraction Hx of prostate biopsy Hx of inguinal hernia repair Hx of shoulder surgery History of neck surgery H/O colonoscopy Hx of cardiac catheterization Social History Household Members: Spouse Housing: House Are you a primary acute care clinical nurse specialist to a significant other at home: No Do you presently have visiting nurse or other home services: No Comment: COUNTS CORRECT Patient Tobacco Use Status: Never used Tobacco service: No Review of Systems Const All systems reviewed & are unremarkable except as noted in HPI and below ENT Reports Normal hearing present Neuro Reports Normal hearing present, Denies Abnormal speech present, Reports confusion and Denies Sensory deficit (Neuro) Psych Reports confusion Physical Exam Vital Signs: Last Vital Signs Pulse 73 11/20/24 09:26 BP 160/76 H 11/20/24 09:26 Pulse Ox 96 11/20/24 09:26 Oxygen Delivery Method Room Air 11/20/24 09:26 BMI result Body Mass Index 33.6 Const General: no acute distress and confusion Nutritional Appearance: obese centrally obese Orientation/consciousness: patient oriented x3 and confusion Limitations: no limitations Eyes General: appearance normal, both eyes and all related structures Pupils: Equal, round and reactive pupils present EOM: EOMs intact bilaterally Neck Neck: Yes full ROM Chest Chest palpation & inspection: normal inspection of the chest Resp Effort & Inspection: normal respiratory effort, able to speak in complete sentences, normal respiratory pattern, no audible wheezes and no cough Cardio Jugular venous distension: no JVD GI Inspection: Yes normal to inspection Back/Spine/Pelvis Other: Bilateral paramedian scars in the projection of L3-L4 -L5 vertebras are examined, this scars very well-healed. Able to stand on bilateral tiptoes in bilateral heels exhibits non affected gait, Korey test is negative bilaterally. Reports pain in projection of greater trochanter with Korey test. Neuro General: patient oriented x3, gait normal and confusion Cranial nerves: Yes CN's II-XII intact bilaterally, Yes Equal, round and reactive pupils present, Yes Normal hearing present and Yes Ability to bilaterally elevate shoulders present Speech: No Abnormal speech present Gait exam (Neuro): Normal gait present Motor exam (neuro): 5/5 motor strength present throughout Sensory Exam: No Sensory deficit (Neuro) Extrem General: No pedal edema Psych Speech and movement: Normal speech and movement present Affect: normal affect Attitude: cooperative Thought process: Normal thought process present Thought content: Normal thought content present Insight: Good insight present (Psych) Judgement: Good judgement present (Psych) Results Reviewed Results Reviewed: I personally reviewed CT scan of the lumbar spine and x-ray of the lumbar spine of this patient. He has hardware pedicular screws L2-L3 and also he has laminectomy and anterior fusion with replaced discs L3 through L5. There is a possibility to perform spinal cord stimulation this patient however treatment with intrathecal pain pump at least at this time seem to be difficult if not impossible. Assessment & Plan Assessment & Plan (1) Lumbar radiculopathy: Code(s): M54.16 - Radiculopathy, lumbar region Category: Medical (2) Postlaminectomy syndrome: Code(s): M96.1 - Postlaminectomy syndrome, not elsewhere classified Category: Medical Plan This patient will be rescheduled on my schedule for a trial of [employer] spinal cord stimulator. If the trial of [employer] spinal cord stimulator will go well we will proceed with implantation of the device. However if in the middle of the trial the patient will not be satisfied with spinal cord stimulator [employer] the device will be switched to Nevro device. After the exam of the patient's CT scan and x-ray there is significant hardware which possibly can prevent appropriate approach for intrathecal pain pump. MRI of the lumbar spine might need to be evaluated if the question of pain pump will be raised in the future. Patient Instructions: I here by testify that I spent 45 minutes in conversation with this patient as well as evaluating his prior records, evaluating prior diagnostic studies prior diagnostic reports and diagnostic images as well as planning his care and organizing this note. Coding Level of Care Code Est Pt Level 5 (24970) Diagnoses Lumbar radiculopathy M54.16 Postlaminectomy syndrome M96.1
--- OUTSIDE RECORDS SUMMARY | 2024-11-20 10:30 | XMS_ITS | Encounter Summary ---
Author Organization [facility] Address [address] [place] [address] Care Team Providers Care Crimping Machine Operator Name Role Phone Pari Dawkins MD Primary Care Provider [facility] Pari Dawkins MD Unavailable Unavail able Abiodun Nichols MD Unavailable Charissa Bonilla NP Unavailable Unavailab Tl Chavis MD Primary Care Provider [phone] Tammy Mooney MD Primary Care Provider + Lisa Patel MD Unavailable [phone] Adri PolkC Unavailable [phone] Nj Steele PATannaC Unavailable [phone] Shu Styles RECEPTION CLERK Unavailable [phone] Encounter Details Date Type Department Care Team Description 11/19/2019 User Experience Lead Report Medical Records [address] [place] [address] Aden Stevens MD Social History Tobacco Use Types Packs/Day Years Used Date Smoking Tobacco: Never Smokeless Tobacco: Never Alcohol Use Standard Drinks/Week Comments No 0 (1 standard drink = 0.6 oz pur e alcohol) no Sex Assigned at Date Recorded Male 02/09/2021 1:36 PM E DT Job Start Date Occupation Industry Not on file Not on file Not on file documented as of this encounter Plan of Treatment Not on file documented as of this encounter Visit Diagnoses Not on filedocumented in this encounter Care Teams Crimping Machine Operator Relationship Specialty Start Date End Date Pari Dawkins MD PCP - General 12/27/18 07/23/22 Tl Stevens MD PCP - General Internal Medicine 07/24/22 11/21/22 Tammy Mooney MD [address] [place] [address] PCP - General Internal Medicine 11/22/22 Pari Dawkins MD Internal Medicine 12/27/18 Abiodun Nichols MD Aircraft Engine Assembler Cardiovascular Disease 01/14/21 Charissa Bonilla NP Nurse Practitioner Cardiology 07/29/21 Lisa Patel MD [address] [address] Surgeon Neurosurgery 08/01/23 Adri Polk PA-C [address] [address] Specialist Neurosurgery 08/01/23 Nj Steele PA-C [address] [address] Specialist Neurosurgery 08/01/23 Shu Styles NP [address] [address] Cardiology 09/27/23 documented as of this encounter
--- OUTSIDE RECORDS SUMMARY | 2024-11-20 10:30 | XMS_ITS | Encounter Summary ---
Author Organization [facility] Address [address] [place] [address] Care Team Providers Care Sulfide Head Operator Name Role Phone Pari Dawkins MD Primary Care Provider [facility] Pari Dawkins MD Unavailable Unavail able Abiodun Nichols MD Unavailable Charissa Bonilla NP Unavailable Unavailab Tl Chavis MD Primary Care Provider [phone] Tammy Mooney MD Primary Care Provider + Lisa Patel MD Unavailable [phone] Adri PolkC Unavailable Nj Steele PATannaC Unavailable Shu Styles TEACHER RESOURCE Unavailable Encounter Details Date Type Department Care Team Description 09/30/2019 Pt. Non Urgent Medical Question Adult Medicine B - [place] [address] [place] [address] Pari Dawkins MD Social History Tobacco Use Types Packs/Day [...] on filedocumented in this encounter Care Teams Sulfide Head Operator Relationship Specialty Start Date End Date Pari Dawkins MD PCP - General 12/27/18 07/23/22 Tl Stevens MD PCP - General Internal Medicine 07/24/22 11/21/22 Tammy Mooney MD [address] [place] [address] PCP - General Internal Medicine 11/22/22 Pari Dawkins MD Internal Medicine 12/27/18 Abiodun Nichols MD Physical Education Professor Cardiovascular Disease 01/14/21 Charissa Bonilla NP Nurse Practitioner Cardiology 07/29/21 Lisa Patel MD [address] [address] Surgeon Neurosurgery 08/01/23 Adri Polk PA-C [address] [address] Specialist Neurosurgery 08/01/23 Nj Steele PA-C [address] [address] Specialist Neurosurgery 08/01/23 Shu Styles NP [address] [address] Cardiology 09/27/23 documented as of this encounter
--- OUTSIDE RECORDS SUMMARY | 2024-11-20 10:30 | XMS_ITS | Encounter Summary ---
Author Organization [facility] Address [address] [place] [address] Care Team Providers Care Critical Care Unit Nurse Name Role Phone Pari Dawkins MD Primary Care Provider U [facility] Pari Dawkins MD Unavailable Unavail able Abiodun Nichols MD Unavailable Charissa Bonilla NP Unavailable Unavailab Tl Chavis MD Primary Care Provider [phone] Tammy Mooney MD Primary Care Provider + Lisa Patel MD Unavailable [phone] Adri Polk PA-C Unavailable [phone] Nj Steele PA-C Unavailable [phone] Shu Styles NP Unavailable [phone] Encounter Details Date Type Department Care Team Description 11/18/2019 Hospital Medical Records [address] [place] [address] Yobany Snider DO Social History Tobacco Use Types Packs/Day Years Used Date Smoking Tobacco: Never Smokeless Tobacco: Never Alcohol Use Standard Drinks/Week Comments Yes 0 (1 standard drink = 0.6 oz pur e alcohol) 3 times a week while golfing Sex Assigned at Date Recorded Male 02/09/2021 1:36 PM E DT Job Start Date Occupation Industry Not on file Not on file Not on file documented as of this encounter Plan of Treatment Not on file documented as of this encounter Visit Diagnoses Not on filedocumented in this encounter Care Teams Critical Care Unit Nurse Relationship Specialty Start Date End Date Pari Dawkins MD PCP - General 12/27/18 07/23/22 Tl Stevens MD PCP - General Internal Medicine 07/24/22 11/21/22 Tammy Mooney MD [address] [place] [address] PCP - General Internal Medicine 11/22/22 Pari Dawkins MD Internal Medicine 12/27/18 Abiodun Nichols MD [employer] Instructor Cardiovascular Disease 01/14/21 Charissa Bonilla NP Nurse Practitioner Cardiology 07/29/21 Lisa Patel MD [address] [address] Surgeon Neurosurgery 08/01/23 Adri Polk PA-C [address] [address] Specialist Neurosurgery 08/01/23 Nj Steele PA-C [address] [address] Specialist Neurosurgery 08/01/23 Shu Styles NP [address] [address] Cardiology 09/27/23 documented as of this encounter
--- OUTSIDE RECORDS SUMMARY | 2024-11-20 10:30 | XMS_ITS | Encounter Summary ---
[facility] Organization [facility] Address [address] [place] [address] Care Team Providers Care Rn Charge Name Role Phone Pari Dawkins MD Primary Care Provider U [facility] Pari Dawkins MD Unavailable Unavail able Abiodun Nichols MD Unavailable Charissa Bonilla NP Unavailable Unavailab Tl Chavis MD Primary Care Provider [phone] Tammy Mooney MD Primary Care Provider + Lisa Patel MD Unavailable [phone] Adri Polk PA-C Unavailable [phone] Nj Steele PA-C Unavailable [phone] Shu Styles ANALYTICAL CHEMIST Unavailable [phone] Encounter Details Date Type Department Care Team Description 11/24/2019 Pt. Non Urgent Medic al Question Physiatry - [place] [address] [place] [address] Kai Moreno PA-C Social History Tobacco Use Types Packs/Day Years [...] on filedocumented in this encounter Care Teams Rn Charge Relationship Specialty Start Date End Date Pari Dawkins MD PCP - General 12/27/18 07/23/22 Tl Stevens MD PCP - General Internal Medicine 07/24/22 11/21/22 Tammy Mooney MD [address] [place] [address] PCP - General Internal Medicine 11/22/22 Pari Dawkins MD Internal Medicine 12/27/18 Abiodun Nichols MD Vocational Nursing Instructor Cardiovascular Disease 01/14/21 Charissa Bonilla NP Nurse Practitioner Cardiology 07/29/21 Lisa Patel MD [address] [address] Surgeon Neurosurgery 08/01/23 Adri Polk PA-C [address] [address] Specialist Neurosurgery 08/01/23 Nj Steele PA-C [address] [address] Specialist Neurosurgery 08/01/23 Shu Styles NP [address] [address] Cardiology 09/27/23 documented as of this encounter
--- OUTSIDE RECORDS SUMMARY | 2024-11-20 10:30 | XMS_ITS | Encounter Summary ---
Author Organization [facility] Address [address] [place] [address] Care Team Providers Care Fire Manager Name Role Phone Pari Dawkins MD Primary Care Provider [facility] Pari Dawkins MD Unavailable Unavail able Abiodun Nichols MD Unavailable Charissa Bonilla NP Unavailable Unavailab Tl Chavis MD Primary Care Provider [phone] Tammy Mooney MD Primary Care Provider + Lisa Patel MD Unavailable [phone] Adri PolkC Unavailable [phone] Nj Steele PATannaC Unavailable [phone] Shu Styles TECHNICAL OPERATIONS SPECIALIST Unavailable [phone] Encounter Details Date Type Department Care Team Description 09/29/2019 Bobbin Washer Report Medical Records [address] [place] [address] Aden Stevens MD Social History Tobacco Use [...] on filedocumented in this encounter Care Teams Fire Manager Relationship Specialty Start Date End Date Pari Dawkins MD PCP - General 12/27/18 07/23/22 Tl Stevens MD PCP - General Internal Medicine 07/24/22 11/21/22 Tammy Mooney MD [address] [place] [address] PCP - General Internal Medicine 11/22/22 Pari Dawkins MD Internal Medicine 12/27/18 Abiodun Nichols MD Training And Development Assistant Cardiovascular Disease 01/14/21 Charissa Bonilla NP Nurse Practitioner Cardiology 07/29/21 Lisa Patel MD [address] [address] Surgeon Neurosurgery 08/01/23 Adri Polk PA-C [address] [address] Specialist Neurosurgery 08/01/23 Nj Steele PA-C [address] [address] Specialist Neurosurgery 08/01/23 Shu Styles NP [address] [address] Cardiology 09/27/23 documented as of this encounter
--- OUTSIDE RECORDS SUMMARY | 2024-11-20 10:30 | XMS_ITS | Encounter Summary ---
Author Organization [facility] Address [address] [place] [address] Care Team Providers Care Teller Supervisor Name Role Phone Pari Dawkins MD Primary Care Provider [facility] Pari Dawkins MD Unavailable Unavail able Abiodun Nichols MD Unavailable Charissa Bonilla NP Unavailable Unavailab Tl Chavis MD Primary Care Provider [phone] Tammy Mooney MD Primary Care Provider + Lisa Patel MD Unavailable [phone] Adri PolkC Unavailable [phone] Nj Steele PATannaC Unavailable [phone] Shu Styles RADIO FREQUENCY DESIGN ENGINEER Unavailable [phone] Encounter Details Date Type Department Care Team Description 12/01/2019 Monitoring And Evaluation Advisor Report Medical Records [address] [place] [address] Aden Stevens MD Social History Tobacco Use [...] on filedocumented in this encounter Care Teams Teller Supervisor Relationship Specialty Start Date End Date Pari Dawkins MD PCP - General 12/27/18 07/23/22 Tl Stevens MD PCP - General Internal Medicine 07/24/22 11/21/22 Tammy Mooney MD [address] [place] [address] PCP - General Internal Medicine 11/22/22 Pari Dawkins MD Internal Medicine 12/27/18 Abiodun Nichols MD Automobile Contract Clerk Cardiovascular Disease 01/14/21 Charissa Bonilla NP Nurse Practitioner Cardiology 07/29/21 Lisa Patel MD [address] [address] Surgeon Neurosurgery 08/01/23 Adri Polk PA-C [address] [address] Specialist Neurosurgery 08/01/23 Nj Steele PA-C [address] [address] Specialist Neurosurgery 08/01/23 Shu Styles NP [address] [address] Cardiology 09/27/23 documented as of this encounter
--- OUTSIDE RECORDS SUMMARY | 2024-11-20 10:30 | XMS_ITS | Encounter Summary ---
Author Organization [facility] Address [address] [place] [address] Care Team Providers Care Slitting Machine Operator Helper Name Role Phone Pari Dawkins MD Primary Care Provider [facility] Pari Dawkins MD Unavailable Unavail able Abiodun Nichols MD Unavailable Charissa Bonilla NP Unavailable Unavailab Tl Chavis MD Primary Care Provider [phone] Tammy Mooney MD Primary Care Provider + Lisa Patel MD Unavailable [phone] Adri Polk PA-C Unavailable [phone] Nj Steele PATannaC Unavailable Shu Styles PREPARATION PLANT SUPERVISOR Unavailable [phone] Encounter Details Date Type Department Care Team Description 07/14/2019 Pot Feeder Report Medical Records [address] [place] [address] Lisa Patel MD 175 [facility] [address] [place], [place] [id number] Social History Tobacco Use Types Packs/Day Years [...] on filedocumented in this encounter Care Teams Slitting Machine Operator Helper Relationship Specialty Start Date End Date Pari Dawkins MD PCP - General 12/27/18 07/23/22 Tl Stevens MD PCP - General Internal Medicine 07/24/22 11/21/22 Tammy Mooney MD [address] [place] [address] PCP - General Internal Medicine 11/22/22 Pari Dawkins MD Internal Medicine 12/27/18 Abiodun Nichols MD Glass Sagger Cardiovascular Disease 01/14/21 Charissa Bonilla NP Nurse Practitioner Cardiology 07/29/21 Lisa Patel MD [address] [address] Surgeon Neurosurgery 08/01/23 Adri Polk PA-C [address] [address] Specialist Neurosurgery 08/01/23 Nj Steele PA-C [address] [address] Specialist Neurosurgery 08/01/23 Shu Styles NP [address] [address] Cardiology 09/27/23 documented as of this encounter
--- OUTSIDE RECORDS SUMMARY | 2024-11-20 10:30 | XMS_ITS | Encounter Summary ---
Author Organization [facility] Address [address] [place] [address] Care Team Providers Care Hydraulic Bull Riveter Operator Name Role Phone Pari Dawkins MD Primary Care Provider U [facility] Pari Dawkins MD Unavailable Unavail able Abiodun Nichols MD Unavailable Charissa Bonilla NP Unavailable Unavailab Tl Chavis MD Primary Care Provider [phone] Tammy Mooney MD Primary Care Provider + Lisa Patel MD Unavailable [phone] Adri Polk PA-C Unavailable [phone] Nj Steele PA-C Unavailable Shu Styles PRESALES ENGINEER Unavailable [phone] Encounter Details Date Type Department Care Team Description 10/23/2019 Pt. Non Urgent Medic al Question Physiatry - [place] [address] [place] [address] Kai Moreno PA-C Social History Tobacco Use [...] on filedocumented in this encounter Care Teams Hydraulic Bull Riveter Operator Relationship Specialty Start Date End Date Pari Dawkins MD PCP - General 12/27/18 07/23/22 Tl Stevens MD PCP - General Internal Medicine 07/24/22 11/21/22 Tammy Mooney MD [address] [place] [address] PCP - General Internal Medicine 11/22/22 Pari Dawkins MD Internal Medicine 12/27/18 Abiodun Nichols MD Replanter Cardiovascular Disease 01/14/21 Charissa Bonilla NP Nurse Practitioner Cardiology 07/29/21 Lisa Patel MD [address] [address] Surgeon Neurosurgery 08/01/23 Adri Polk PA-C [address] [address] Specialist Neurosurgery 08/01/23 Nj Steele PA-C [address] [address] Specialist Neurosurgery 08/01/23 Shu Styles NP [address] [address] Cardiology 09/27/23 documented as of this encounter
--- OUTSIDE RECORDS SUMMARY | 2024-11-20 10:31 | XMS_ITS | Encounter Summary ---
Author Organization [facility] Address [address] [place] [address] Care Team Providers Care Operations Assistant Name Role Phone Pari Dawkins MD Primary Care Provider U [facility] Pari Dawkins MD Unavailable Unavail able Abiodun Nichols MD Unavailable Charissa Bonilla NP Unavailable Unavailab Tl Chavis MD Primary Care Provider [phone] Tammy Mooney MD Primary Care Provider + Lisa Patel MD Unavailable [phone] Adri Polk-C Unavailable [phone] Nj Steele PA-C Unavailable Shu Styles DONKEY ENGINE FIRER/FIREMAN Unavailable Encounter Details Date Type Department Care Team Description 01/09/2022 Pt. Non Urgent Medical Question Adult Medicine [facility] [address] [place] [address] Pari Dawkins MD Social History Tobacco Use Types Packs/Day Years Used Date Smoking Tobacco: Never Smokeless Tobacco: Never Alcohol Use Standard Drinks/Week Comments No 0 (1 standard drink = 0.6 oz pur e alcohol) no Sex Assigned at Date Recorded Male 02/09/2021 1:36 PM E DT Job Start Date Occupation Industry Not on file Not on file Not on file COVID-19 Exposure Response Date Recorded In the last 10 days, have yo u been in contact with someone who was confirmed or suspected to have Coronavirus/COVID-19? No / Unsure 01/05/2022 10:10 AM EDT documented as of this encounter Miscellaneous Notes * Telephone Encounter - Lexie Corrales M.A. - 01/09/2022 12:20 PM EDTFrom: Slava Ramirez To: David Villafana Sent: 01/09/2022 12:13 PM EDT Subject: New Shots Please update my record to reflect: - Shingles shots-1st one in Aug 2021, 2nd today at [facility] - 2nd Phizer Booster12/26/21 Big Y documented in this encounter Plan of Treatment Not on file documented as of this encounter Visit Diagnoses Not on filedocumented in this encounter Care Teams Operations Assistant Relationship Specialty Start Date End Date Pari Dawkins MD PCP - General 12/27/18 07/23/22 Tl Stevens MD PCP - General Internal Medicine 07/24/22 11/21/22 Tammy Mooney MD [address] [place] [address] PCP - General Internal Medicine 11/22/22 Pari Dawkins MD Internal Medicine 12/27/18 Abiodun Nichols MD Bridge Tender Cardiovascular Disease 01/14/21 Charissa Bonilla NP Nurse Practitioner Cardiology 07/29/21 Lisa Patel MD [address] [address] Surgeon Neurosurgery 08/01/23 Adri Polk PA-C [address] [address] Specialist Neurosurgery 08/01/23 Nj Steele PA-C 175 [facility] [address] [place] [address] Specialist Neurosurgery 08/01/23 Shu Styles NP 175 [facility] [address] [place] [address] Cardiology 09/27/23 documented as of this encounter
--- OUTSIDE RECORDS SUMMARY | 2024-11-20 10:31 | XMS_ITS | Encounter Summary ---
Author Organization [facility] Address [address] [place] [address] Care Team Providers Care Product Marketing Engineer Name Role Phone Pari Dawkins MD Unavailable Unavail able Abiodun Nichols MD Unavailable Charissa Bonilla NP Unavailable Unavailab Tammy Gutiérrez MD Primary Care Provider + Lisa Patel MD Unavailable [phone] Adri Polk PA-C Unavailable [phone] Nj Steele PA-C Unavailable [phone] Shu Styles NP Unavailable Encounter Details Date Type Department Care Team Description 01/17/2023 [facility] [address] [address] Abdoul Chavez DPM [address] [id number] Social History Tobacco Use Types Packs/Day Years [...] suspected to have Coronavirus/COVID-19? No / Unsure 01/18/2023 2:40 PM EDT documented as of this encounter Plan of Treatment Not on file documented as of this encounter Visit Diagnoses Not on filedocumented in this encounter Care Teams Product Marketing Engineer Relationship Specialty Start Date End Date Tammy Mooney MD [address] [place] [address] PCP - General Internal Medicine 11/22/22 Pari Dawkins MD Internal Medicine 12/27/18 Abiodun Nichols MD Spinning And Winding Supervisor Cardiovascular Disease 01/14/21 Charissa Bonilla NP Nurse Practitioner Cardiology 07/29/21 Lisa Patel MD [address] [address] Surgeon Neurosurgery 08/01/23 Adri Polk PA-C [address] [address] Specialist Neurosurgery 08/01/23 Nj Steele PA-C [address] [address] Specialist Neurosurgery 08/01/23 Shu Styles NP [address] [address] Cardiology 09/27/23 documented as of this encounter
--- OUTSIDE RECORDS SUMMARY | 2024-11-20 10:31 | XMS_ITS | Encounter Summary ---
Author Organization [employer] [facility] Address [address] [place] [address] Care Team Providers Care Fishing Reel Assembler Name Role Phone Pari Dawkins MD Unavailable Unavail able Abiodun Nichols MD Unavailable Tammy Mooney MD Primary Care Provider + Lisa Patel MD Unavailable [phone] Adri Polk-C Unavailable Nj Steele PA-C Unavailable Shu Styles NP Unavailable [phone] Encounter Details Date Type Department Care Team Description 12/12/2023 Orders Only Medical Records [address] [place] [address] Aden Stevens MD Social History Tobacco Use [...] on file documented as of this encounter Procedures Procedure Name Priority Date/Time Associated Diagnosis Comments OUTSIDE LAB Routine 11/27/2023 documented in this encounter Results * OUTSIDE LAB (11/27/2023) Aden Stevens MD LAB documented in this encounter Visit Diagnoses Not on filedocumented in this encounter Care Teams Fishing Reel Assembler Relationship Specialty Start Date End Date Tammy Mooney MD [address] [place] [address] PCP - General Internal Medicine 11/22/22 Prai Dawkins MD Internal Medicine 12/27/18 Abiodun Nichols MD Patch Driller Cardiovascular Disease 01/14/21 Lisa Patel MD [address] [address] Surgeon Neurosurgery 08/01/23 Adri Polk PA-C [address] [address] Specialist Neurosurgery 08/01/23 Nj Steele PA-C [address] [address] Specialist Neurosurgery 08/01/23 Shu Styles NP [address] [address] Cardiology 09/27/23 documented as of this encounter
--- OUTSIDE RECORDS SUMMARY | 2024-11-20 10:31 | XMS_ITS | Encounter Summary ---
Author Organization [facility] Address [address] [place] [address] Care Team Providers Care Shipwright Helper Name Role Phone Pari Dawkins MD Primary Care Provider [facility] Pari Dawkins MD Unavailable Unavail able Abiodun Nichols MD Unavailable Charissa Bonilla NP Unavailable Unavailab Tl Chavis MD Primary Care Provider [phone] Tammy Mooney MD Primary Care Provider + Lisa Patel MD Unavailable [phone] Adri Polk PA-C Unavailable [phone] Nj Steele PA-C Unavailable [phone] Shu Styles FUNDS DEVELOPMENT DIRECTOR Unavailable [phone] Encounter Details Date Type Department Care Team Description 06/28/2021 Orders Only Physiatry - [address] [address] Kai Moreno PA-C Social History Tobacco Use [...] Exposure Response Date Recorded In the last month, have you been in contact with someone who was confirmed or suspected to have Coronavirus / COVID-19? No / Unsure 06/27/2021 1:25 PM EDT documented as of this encounter Plan of Treatment Not on file documented as of this encounter Visit Diagnoses Not on filedocumented in this encounter Care Teams Shipwright Helper Relationship Specialty Start Date End Date Pari Dawkins MD PCP - General 12/27/18 07/23/22 Tl Stevens MD PCP - General Internal Medicine 07/24/22 11/21/22 Tammy Mooney MD [address] [place] [address] PCP - General Internal Medicine 11/22/22 Pari Dawkins MD Internal Medicine 12/27/18 Abiodun Nichols MD Track Subway Repair Supervisor Cardiovascular Disease 01/14/21 Charissa Bonilla NP Nurse Practitioner Cardiology 07/29/21 Lisa Patel MD [address] [address] Surgeon Neurosurgery 08/01/23 Adri Polk PA-C [address] [address] Specialist Neurosurgery 08/01/23 Nj Steele PA-C [address] [address] Specialist Neurosurgery 08/01/23 Shu Styles NP [address] [address] Cardiology 09/27/23 documented as of this encounter
--- OUTSIDE RECORDS SUMMARY | 2024-11-20 10:31 | XMS_ITS | Encounter Summary ---
Author Organization [facility] Address [address] [place] [address] Care Team Providers Care Rail Doweling Machine Operator Name Role Phone Pari Dawkins MD Unavailable Unavail able Abiodun Nichols MD Unavailable Charissa Bonilla NP Unavailable Unavailab Tammy Gutiérrez MD Primary Care Provider + Lisa Patel MD Unavailable [phone] Adri Polk PA-C Unavailable Nj Steele PATannaC Unavailable Shu Styles CLOSED CIRCUIT SCREEN WATCHER Unavailable Encounter Details Date Type Department Care Team Description 12/07/2022 [facility] Neurosurgery [place] [address] [place] [phone] Giovanny Rincon MD, PHD Social History Tobacco Use Types Packs/Day Years [...] on filedocumented in this encounter Care Teams Rail Doweling Machine Operator Relationship Specialty Start Date End Date Tammy Mooney MD [address] [place] [address] PCP - General Internal Medicine 11/22/22 Pari Dawkins MD Internal Medicine 12/27/18 Abiodun Nichols MD Customer Account Coordinator Cardiovascular Disease 01/14/21 Charissa Bonilla NP Nurse Practitioner Cardiology 07/29/21 Lisa Patel MD [address] [address] Surgeon Neurosurgery 08/01/23 Adri Polk PA-C [address] [address] Specialist Neurosurgery 08/01/23 Nj Steele PA-C [address] [address] Specialist Neurosurgery 08/01/23 Shu Styles NP [address] [address] Cardiology 09/27/23 documented as of this encounter
--- OUTSIDE RECORDS SUMMARY | 2024-11-20 10:31 | XMS_ITS | Encounter Summary ---
Author Organization [facility] Address [address] [place] [address] Care Team Providers Care Health Support Specialist Name Role Phone Tammy Mooney MD Primary Care Pr ovider Reason for Visit * Reason Comments Follow-up hyperbillirubinimia Encounter Details Date Type Department Care Team (Latest Contact Info) Description 11/19/2024 1:20 PM EST Office Visit Gastroenterology - [address] [facility] [address] [place] [phone] Brenna Savage, ENIO [address] [place] [address] Hyperbilirubinemia (Primary Dx) Social History Tobacco Use [...] this encounter Progress Notes * Brenna Savage, SKOOG MACHINE OPERATOR - 11/19/2024 1:20 PM EST CHIEF COMPLAINT: Large gallstone on US Elevated Bilirubin DATE OF LAST ENDOSCOPIC PROCEDURES: HPI: Slvaa Ramirez is a 79 y.o. 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 No intervention [...] and several biopsies done in [facility]. Negative for malignancy CAD (coronary artery disease) [...] HISTORY PROCEDURE:neck fusion OTHER SURGICAL HISTORY PROCEDURE: [place] BIOPSY PROSTATE [...] LANCET DEVICES (ONE TOUCH DELICA LANCING DEV) [facility]: Use to test blood sugar once a day . DX-E11.9. NIDDM *One Touch Ultra 2* blood sugar diagnostic (ONETOUCH ULTRA TEST [facility]) USE TO TEST BLOOD SUGAR ONCE DAILY [...] day before meals. 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 I would like to thank Tammy Mooney MD for the opportunity to partake in the patient's care. Board Certified Gastroenterology [facility] Medical [facility] W [phone] [place] [address] [email or web address] Brenna Savage NP documented in this encounter Plan of Treatment Upcoming Encounters Date Type Department Care Team (Late st Contact Info) Description 11/25/2024 8:15 AM EST Appointment Radiology Department - [address] [phone] 12/29/2024 9:00 AM EDT Consult General Surgery [address] [phone] Alejandro Casas MD [address] [address] 01/15/2025 8:15 AM EDT Office Visit Orthopedic Surgery - [place] [address] [phone] Abdoul Chavez DPM [address] [address] 01/15/2025 9:45 AM EDT Office Visit Endocrinology - [address] [phone] Lacey Bey MD [address] [place] [phone] 02/03/2025 8:30 AM EDT Office Visit Adult Medicine [address] [phone] Lena Sorto PA [address] [place] [address] 06/02/2025 9:10 AM EDT Office Visit [facility] [address] [phone] Shu Styles, ENIO [address] [address] documented as of this encounter Visit Diagnoses Diagnosis Hyperbilirubinemia- Primary Disorders of bilirubin excretion documented in this encounter Care Teams Health Support Specialist Relationship Specialty Start Date End Date Tammy Mooney MD [address] [place] [address] PCP - General Internal Medicine 09/04/24 documented as of this encounter
--- OUTSIDE RECORDS SUMMARY | 2024-11-20 10:31 | XMS_ITS | Encounter Summary ---
Author Organization [facility] Address [address] [place] [address] Care Team Providers Care Blade Filer Name Role Phone Pari Dawkins MD Primary Care Provider [facility] Pari Dawkins MD Unavailable Unavail able Abiodun Nichols MD Unavailable Charissa Bonilla NP Unavailable Unavailab Tl Chavis MD Primary Care Provider [phone] Tammy Mooney MD Primary Care Provider + Lisa Patel MD Unavailable [phone] Adri Polk PA-C Unavailable [phone] Nj SteeleC Unavailable [phone] Shu Styles DAIRY QUALITY ASSURANCE OFFICER Unavailable [phone] Encounter Details Date Type Department Care Team Description 05/23/2021 Phlebotomy Lab Assistant Report Medical Records [address] [place] [address] Yobany Snider DO Social History Tobacco Use [...] have Coronavirus / COVID-19? No / Unsure 05/19/2021 2:29 PM EDT documented as of this encounter Plan of Treatment Not on file documented as of this encounter Visit Diagnoses Not on filedocumented in this encounter Care Teams Blade Filer Relationship Specialty Start Date End Date Pari Dawkins MD PCP - General 12/27/18 07/23/22 Tl Stevens MD PCP - General Internal Medicine 07/24/22 11/21/22 Tammy Mooney MD [address] [place] [address] PCP - General Internal Medicine 11/22/22 Pari Dawkins MD Internal Medicine 12/27/18 Abiodun Nichols MD Music Publisher Cardiovascular Disease 01/14/21 Charissa Bonilla NP Nurse Practitioner Cardiology 07/29/21 Lisa Patel MD [address] [address] Surgeon Neurosurgery 08/01/23 Adri Polk PA-C [address] [address] Specialist Neurosurgery 08/01/23 Nj Steele PA-C [address] [address] Specialist Neurosurgery 08/01/23 Shu Styles NP [address] [address] Cardiology 09/27/23 documented as of this encounter
--- OUTSIDE RECORDS SUMMARY | 2024-11-20 10:31 | XMS_ITS | Encounter Summary ---
Author Organization [facility] [employer] [facility] Address [address] [place] [address] Care Team Providers Care On Call Name Role Phone Pari Dawkins MD Primary Care Provider [facility] Pari Dawkins MD Unavailable Unavail able Abiodun Nichols MD Unavailable Charissa Bonilla NP Unavailable Unavailab Tl Chavis MD Primary Care Provider [phone] Tammy Mooney MD Primary Care Provider + Lisa Patel MD Unavailable [phone] Adri PolkC Unavailable [phone] Nj Steele PATannaC Unavailable Shu Styles ACID PATROLLER Unavailable Encounter Details Date Type Department Care Team Description 11/17/2021 Pt. Non Urgent Medical Question Adult Medicine [facility] [address] [place] [address] Pari Dawkins MD Social History Tobacco Use [...] have Coronavirus / COVID-19? No / Unsure 2021 1:08 PM EST documented as of this encounter Miscellaneous Notes * Telephone Encounter - Patience Eller - 11/17/2021 4:38 PM ESTFrom: Slava Ramirez To: David Villafana Sent: 11/17/2021 4:35 PM EST Subject: Appt 11/18 I am not happy that you cancel and it takes 2 months to get in to see my pcp. I will accept a phone or video call tomorrow. Let me know documented in this encounter Plan of Treatment Not on file documented as of this encounter Visit Diagnoses Not on filedocumented in this encounter Care Teams On Call Relationship Specialty Start Date End Date Pari Dawkins MD PCP - General 12/27/18 07/23/22 Tl Stevens MD PCP - General Internal Medicine 07/24/22 11/21/22 Tammy Mooney MD [address] [place] [address] PCP - General Internal Medicine 11/22/22 Pari Dawkins MD Internal Medicine 12/27/18 Abiodun Nichols MD Opera Singer Cardiovascular Disease 01/14/21 Charissa Bonilla NP Nurse Practitioner Cardiology 07/29/21 Lisa Patel MD [address] [address] Surgeon Neurosurgery 08/01/23 Adri Pokl PA-C [address] [address] Specialist Neurosurgery 08/01/23 Nj Steele PA-C [address] [address] Specialist Neurosurgery 08/01/23 Shu Styles, ENIO 175 [facility] [address] [place] [address] Cardiology 09/27/23 documented as of this encounter
--- OUTSIDE RECORDS SUMMARY | 2024-11-20 10:31 | XMS_ITS | Encounter Summary ---
Author Organization [employer] [facility] Address [address] [place] [address] Care Team Providers Care Accounts Payable Accountant Name Role Phone Pari Dawkins MD Primary Care Provider U [facility] Pari Dawkins MD Unavailable Unavail able Abiodun Nichols MD Unavailable Charissa Bonilla NP Unavailable Unavailab Tl Chavis MD Primary Care Provider Tammy Mooney MD Primary Care Provider + Lisa Patel MD Unavailable [phone] Adri Polk PA-C Unavailable [phone] Nj Steele PA-C Unavailable Shu Styles NP Unavailable Encounter Details Date Type Department Care Team Description 01/18/2022 Telephone Cardio PVC POC [address] [facility] [address] [place], [place] [id number] Abiodun Nichols MD [address] [place] [address] [id number] Social History Tobacco Use Types Packs/Day Years [...] Recorded In the last 10 days, have russ jones been in contact with someone who was confirmed or suspected to have Coronavirus/COVID-19? No / Unsure 01/05/2022 10:10 AM EDT documented as of this encounter Miscellaneous Notes * Telephone Encounter - Kaykay Virgen - 01/18/2022 11:26 AM EDT Please see my chart message and response from Dr. Nichols. Sent to Device Triage in error documented in this encounter Plan of Treatment Not on file documented as of this encounter Visit Diagnoses Not on filedocumented in this encounter Care Teams Accounts Payable Accountant Relationship Specialty Start Date End Date Pari Dawkins MD PCP - General 12/27/18 07/23/22 Tl Stevens MD PCP - General Internal Medicine 07/24/22 11/21/22 Tammy Mooney MD [address] [place] [address] PCP - General Internal Medicine 11/22/22 Pari Dawkins MD Internal Medicine 12/27/18 Abiodun Nichols MD Clinical Information Systems Director Cardiovascular Disease 01/14/21 Charissa Bonilla NP Nurse Practitioner Cardiology 07/29/21 Lisa Patel MD 175 [facility] [address] [place] [address] Surgeon Neurosurgery 08/01/23 Adri Polk PA-C [address] [address] Specialist Neurosurgery 08/01/23 Nj Steele PA-C 175 [facility] [address] [place] [address] Specialist Neurosurgery 08/01/23 Shu Styles NP 175 [facility] [address] [place] [address] Cardiology 09/27/23 documented as of this encounter
--- OUTSIDE RECORDS SUMMARY | 2024-11-20 10:31 | XMS_ITS | Encounter Summary ---
Author Organization [facility] Address [address] [place] [address] Care Team Providers Care Track Helper Name Role Phone Pair Dawkins MD Primary Care Provider [facility] Pari Dawkins MD Unavailable Unavail able Abiodun Nichols MD Unavailable Charissa Bonilla NP Unavailable Unavailab Tl Chavis MD Primary Care Provider Tammy Mooney MD Primary Care Provider + Lisa Patel MD Unavailable [phone] Adri Polk PA-C Unavailable Nj Steele PA-C Unavailable [phone] Shu Styles NP Unavailable [phone] Encounter Details Date Type Department Care Team Description 06/07/2021 Pt. Non Urgent Medical Question Vascular [place] [address] [place] [address] Mica Virgen PA-C 300 [facility] [address] [place] [address] Social History Tobacco Use Types Packs/Day Years [...] have Coronavirus / COVID-19? No / Unsure 06/06/2021 3:40 PM EDT documented as of this encounter Plan of Treatment Not on file documented as of this encounter Visit Diagnoses Not on filedocumented in this encounter Care Teams Track Helper Relationship Specialty Start Date End Date Pari Dawkins MD PCP - General 12/27/18 07/23/22 Tl Stevens MD PCP - General Internal Medicine 07/24/22 11/21/22 Tammy Mooney MD [address] [place] [address] PCP - General Internal Medicine 11/22/22 Pari Dawkins MD Internal Medicine 12/27/18 Abiodun Nichols MD Latin Professor Cardiovascular Disease 01/14/21 Charissa Bonilla NP Nurse Practitioner Cardiology 07/29/21 Lisa Patel MD [address] [address] Surgeon Neurosurgery 08/01/23 Adri Polk PA-C [address] [address] Specialist Neurosurgery 08/01/23 Nj Steele PA-C [address] [address] Specialist Neurosurgery 08/01/23 Shu Styles NP [address] [address] Cardiology 09/27/23 documented as of this encounter
--- OUTSIDE RECORDS SUMMARY | 2024-11-20 10:31 | XMS_ITS | Encounter Summary ---
[facility] Address [address] [place] [address] Care Team Providers Care Customs And Border Protection Officer Name Role Phone Pari Dawkins MD Primary Care Provider [facility] Pari Dawkins MD Unavailable Unavail able Abiodun Nichols MD Unavailable Charissa Bonilla NP Unavailable Unavailab Tl Chavis MD Primary Care Provider [phone] Tammy Mooney MD Primary Care Provider + Lisa Patel MD Unavailable [phone] Adri PolkC Unavailable [phone] Nj Steele PATannaC Unavailable [phone] Shu Styles NP Unavailable [phone] Encounter Details Date Type Department Care Team Description 05/06/2021 Principal Archaeologist Report Medical Records [address] [place] [address] Francis Colmenares MD Social History Tobacco Use Types Packs/Day [...] have Coronavirus / COVID-19? No / Unsure 05/05/2021 2:09 PM EDT documented as of this encounter Plan of Treatment Not on file documented as of this encounter Visit Diagnoses Not on filedocumented in this encounter Care Teams Customs And Border Protection Officer Relationship Specialty Start Date End Date Pari Dawkins MD PCP - General 12/27/18 07/23/22 Tl Stevens MD PCP - General Internal Medicine 07/24/22 11/21/22 Tammy Mooney MD [address] [place] [address] PCP - General Internal Medicine 11/22/22 Pari Dawkins MD Internal Medicine 12/27/18 Abiodun Nichols MD Nuclear Power Reactor Operator Cardiovascular Disease 01/14/21 Charissa Bonilla NP Nurse Practitioner Cardiology 07/29/21 Lisa Patel MD [address] [address] Surgeon Neurosurgery 08/01/23 Adri Polk PA-C [address] [address] Specialist Neurosurgery 08/01/23 Nj Steele PA-C [address] [address] Specialist Neurosurgery 08/01/23 Shu Styles NP [address] [address] Cardiology 09/27/23 documented as of this encounter
--- OUTSIDE RECORDS SUMMARY | 2024-11-20 10:31 | XMS_ITS | Encounter Summary ---
Author Organization [facility] Address [address] [place] [address] Care Team Providers Care University Services Program Associate Name Role Phone Pari Dawkins MD Primary Care Provider U [facility] Pari Dawkins MD Unavailable Unavail able Abiodun Nichols MD Unavailable Charissa Bonilla NP Unavailable Unavailab Tl Chavis MD Primary Care Provider [phone] Tammy Mooney MD Primary Care Provider + Lisa Patel MD Unavailable [phone] Adri Polk PA-C Unavailable [phone] Nj SteeleC Unavailable [phone] Shu Styles AEGIS OPERATIONS SPECIALIST Unavailable [phone] Encounter Details Date Type Department Care Team Description 04/26/2021 Waste Management Recycling Technician Report Medical Records [address] [place] [address] Yobany Snider DO Social History Tobacco Use [...] on filedocumented in this encounter Care Teams University Services Program Associate Relationship Specialty Start Date End Date Pari Dawkins MD PCP - General 12/27/18 07/23/22 Tl Stevens MD PCP - General Internal Medicine 07/24/22 11/21/22 Tammy Mooney MD [address] [place] [address] PCP - General Internal Medicine 11/22/22 Pari Dawkins MD Internal Medicine 12/27/18 Abiodun Nichols MD Watch Parts Grinder Cardiovascular Disease 01/14/21 Charissa Bonilla NP Nurse Practitioner Cardiology 07/29/21 Lisa Patel MD [address] [address] Surgeon Neurosurgery 08/01/23 Adri Polk PA-C [address] [address] Specialist Neurosurgery 08/01/23 Nj Steele PA-C [address] [address] Specialist Neurosurgery 08/01/23 Shu Styles NP [address] [address] Cardiology 09/27/23 documented as of this encounter
--- OUTSIDE RECORDS SUMMARY | 2024-11-20 10:31 | XMS_ITS | Encounter Summary ---
Author Organization [facility] Address [address] [place] [address] Care Team Providers Care Safety Sitter Name Role Phone Pari Dawkins MD Primary Care Provider U [facility] Pari Dawkins MD Unavailable Unavail able Abiodun Nichols MD Unavailable Charissa Bonilla NP Unavailable Unavailab Tl Chavis MD Primary Care Provider [phone] Tammy Mooney MD Primary Care Provider + Lisa Patel MD Unavailable [phone] Adri PolkC Unavailable [phone] Nj SteeleC Unavailable [phone] Shu Styles BI[employer]EDICAL ENGINEERING [employer] Unavailable [phone] Encounter Details Date Type Department Care Team Description 02/08/2022 Plastic Fabricator Report Medical Records [address] [place] [address] Simi Rogers Social History Tobacco Use Types Packs/Day Years [...] suspected to have Coronavirus/COVID-19? No / Unsure 02/07/2022 12:09 PM EDT documented as of this encounter Plan of Treatment Not on file documented as of this encounter Visit Diagnoses Not on filedocumented in this encounter Care Teams Safety Sitter Relationship Specialty Start Date End Date Pari Dawkins MD PCP - General 12/27/18 07/23/22 Tl Stevens MD PCP - General Internal Medicine 07/24/22 11/21/22 Tammy Mooney MD [address] [place] [address] PCP - General Internal Medicine 11/22/22 Pari Dawkins MD Internal Medicine 12/27/18 Abiodun Nichols MD Railroad Brakeman Cardiovascular Disease 01/14/21 Charissa Bonilla NP Nurse Practitioner Cardiology 07/29/21 Lisa Patel MD [address] [address] Surgeon Neurosurgery 08/01/23 Adri Polk PA-C [address] [address] Specialist Neurosurgery 08/01/23 Nj Steele PA-C [address] [address] Specialist Neurosurgery 08/01/23 Shu Styles NP [address] [address] Cardiology 09/27/23 documented as of this encounter
--- OUTSIDE RECORDS SUMMARY | 2024-11-20 10:31 | XMS_ITS | Continuity of Care Document ---
Author Organization [facility] 2 [facility] [address] [place] [address] Phone [phone] Care Team Providers Care Manager Of Production Name Role Phone Pari Villafana M.D. Care Team Information Ironing Pleater [phone] Tammy Mooney Care Team Information Rece iver [phone] Problems Active Problems Provider Date Type 2 [...] SIG Qnty Indications Order ing Provider Date Yxjtbwpnz68vs Tablets 1 tab by mouth every day as directed 90tabs Francis Colmenares M.D. 03/13/2024 Idfmcxdhm3by Tablets 1 tablet by mouth twice daily 180tabs Francis Colmenares M.D. 12/06/2023 Uqyccaxwna750cm Capsules 1 tab by mouth three times a day as directed 180caps Francis Colmenares M.D. 06/13/2022 Tyeqfen83va Tablets 1 by mouth every day 90tabs Francis Colmenares M.D. 06/13/[address] 1 by mouth every day Francis Colmenares M.D. 06/13/2022 Onetouch UltraStrips Pari Huggins M.D. 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
--- OUTSIDE RECORDS SUMMARY | 2024-11-20 10:31 | XMS_ITS | Encounter Summary ---
Author Organization [facility] Address [address] [place] [address] Care Team Providers Care Car Rental Clerk Name Role Phone Pari Dawkins MD Unavailable Unavail able Abiodun Nichols MD Unavailable Charissa Bonilla NP Unavailable Unavailab Tammy Gutiérrez MD Primary Care Provider + Lisa Patel MD Unavailable [phone] Adri Polk PA-C Unavailable [phone] Nj Steele PA-C Unavailable Shu Styles BUSINESS APPLICATIONS SPECIALIST Unavailable Encounter Details Date Type Department Care Team Description 01/22/2023 Pt. Non Urgent Medical Question Adult Medicine [facility] [address] [place] [address] Lena Sorto PA-C [address] [place] [address] [phone] Social History Tobacco Use Types Packs/Day Years [...] suspected to have Coronavirus/COVID-19? No / Unsure 01/25/2023 11:13 AM EDT documented as of this encounter Miscellaneous Notes * Telephone Encounter - Manju Astorga M.A. - 01/22/2023 11:39 AM EDTFrom: Slava Ramirez To: Edilberto Sorto Sent: 01/22/2023 11:34 AM EDT Subject: GAbapentin Lena Did you receive my message about renewing the Gabapentin script? documented in this encounter Plan of Treatment Not on file documented as of this encounter Visit Diagnoses Not on filedocumented in this encounter Care Teams Car Rental Clerk Relationship Specialty Start Date End Date Tammy Mooney MD [address] [place] [address] PCP - General Internal Medicine 11/22/22 Pari Dawkins MD Internal Medicine 12/27/18 Abiodun Nichols MD Naval Gunfire Spotter Cardiovascular Disease 01/14/21 Charissa Bonilla NP Nurse Practitioner Cardiology 07/29/21 Lisa Patel MD [address] [address] Surgeon Neurosurgery 08/01/23 Adri Polk PA-C [address] [address] Specialist Neurosurgery 08/01/23 Nj Steele PA-C [address] [address] Specialist Neurosurgery 08/01/23 Shu Styles NP [address] [address] Cardiology 09/27/23 documented as of this encounter
--- OUTSIDE RECORDS SUMMARY | 2024-11-20 10:31 | XMS_ITS | Encounter Summary ---
Author Organization [facility] Address [address] [place] [address] Care Team Providers Care Voip Network Technician Name Role Phone Pari Dawkins MD Unavailable Unavail able Abiodun Nichols MD Unavailable Charissa Bonilla NP Unavailable Unavailab Tl Chavis MD Primary Care Provider [phone] Tammy Mooney MD Primary Care Provider + Lisa Patel MD Unavailable [phone] Adri Polk PA-C Unavailable [phone] Nj Steele PA-C Unavailable Shu Styles PHYSICIAN UNDERWRITER Unavailable Encounter Details Date Type Department Care Team Description 11/14/2022 Pt. Non Urgent Medical Question Cardio PVCA Diag Testing 101 300 [facility] [address] [place] [address] Abiodun Nichols MD [address] [place] [address] [id number] Social History Tobacco Use Types Packs/Day Years [...] suspected to have Coronavirus/COVID-19? No / Unsure 10/24/2022 12:52 PM EST documented as of this encounter Plan of Treatment Not on file documented as of this encounter Visit Diagnoses Not on filedocumented in this encounter Care Teams Voip Network Technician Relationship Specialty Start Date End Date Tl Stevens MD PCP - General Internal Medicine 07/24/22 11/21/22 Tammy Mooney MD [address] [place] [address] PCP - General Internal Medicine 11/22/22 Pari Dawkins MD Internal Medicine 12/27/18 Abiodun Nichols MD Ict Systems Test Engineer Cardiovascular Disease 01/14/21 Charissa Bonilla NP Nurse Practitioner Cardiology 07/29/21 Lisa Patel MD [address] [address] Surgeon Neurosurgery 08/01/23 Adri Polk PA-C [address] [address] Specialist Neurosurgery 08/01/23 Nj Steele PA-C [address] [address] Specialist Neurosurgery 08/01/23 Shu Styles NP [address] [address] Cardiology 09/27/23 documented as of this encounter
--- OUTSIDE RECORDS SUMMARY | 2024-11-20 10:31 | XMS_ITS | Encounter Summary ---
Author Organization [facility] Address [address] [place] [address] Care Team Providers Care Pipe Testing Technician Name Role Phone Pari Dawkins MD Primary Care Provider [facility] Pari Dawkins MD Unavailable Unavail able Abiodun Nichols MD Unavailable Charissa Bonilla NP Unavailable Unavailab Tl Chavis MD Primary Care Provider [phone] Tammy Mooney MD Primary Care Provider + Lisa Patel MD Unavailable [phone] Adri PolkC Unavailable [phone] Nj SteeleC Unavailable [phone] Shu Styles NP Unavailable [phone] Encounter Details Date Type Department Care Team Description 01/31/2021 Design Engineering Technician Report Medical Records [address] [place] [address] Lena Sprague, JUAN Social History Tobacco Use Types Packs/Day Years [...] have Coronavirus / COVID-19? No / Unsure 01/20/2021 1:10 PM EDT documented as of this encounter Plan of Treatment Not on file documented as of this encounter Visit Diagnoses Not on filedocumented in this encounter Care Teams Pipe Testing Technician Relationship Specialty Start Date End Date Pari Dawkins MD PCP - General 12/27/18 07/23/22 Tl Stevens MD PCP - General Internal Medicine 07/24/22 11/21/22 Tammy Mooney MD [address] [place] [address] PCP - General Internal Medicine 11/22/22 Pari Dawkins MD Internal Medicine 12/27/18 Abiodun Nichols MD Finance Associate Cardiovascular Disease 01/14/21 Charissa Bonilla NP Nurse Practitioner Cardiology 07/29/21 Lisa Patel MD [address] [address] Surgeon Neurosurgery 08/01/23 Adri Polk PA-C [address] [address] Specialist Neurosurgery 08/01/23 Nj Steele PA-C [address] [address] Specialist Neurosurgery 08/01/23 Shu Styles NP [address] [address] Cardiology 09/27/23 documented as of this encounter
--- OUTSIDE RECORDS SUMMARY | 2024-11-20 10:31 | XMS_ITS | Encounter Summary ---
Author Organization [facility] Address [address] [place] [address] Care Team Providers Care Vp Site Name Role Phone Pari Dawkins MD Unavailable Unavail able Abiodun Nichols MD Unavailable Charissa Bonilla NP Unavailable Unavailab Tammy Gutiérrez MD Primary Care Provider + Lisa Patel MD Unavailable [phone] Adri Polk PA-C Unavailable Nj Steele PA-C Unavailable [phone] Shu Styles STENCIL CUTTER Unavailable Encounter Details Date Type Department Care Team Description 02/06/2023 SCAN Medical Records [address] [place] [address] Aden Stevens MD Social History Tobacco Use [...] suspected to have Coronavirus/COVID-19? No / Unsure 02/07/2023 1:08 PM EDT documented as of this encounter Plan of Treatment Not on file documented as of this encounter Procedures Procedure Name Priority Date/Time Associated Diagnosis Comments OUTSIDE LAB Routine 02/06/2023 documented in this encounter Results * OUTSIDE LAB (02/06/2023) Provider Default LAB documented in this encounter Visit Diagnoses Not on filedocumented in this encounter Care Teams Vp Site Relationship Specialty Start Date End Date Tammy Mooney MD [address] [place] [address] PCP - General Internal Medicine 11/22/22 Pari Dawkins MD Internal Medicine 12/27/18 Abiodun Nichols MD Call Manager Cardiovascular Disease 01/14/21 Charissa Bonilla NP Nurse Practitioner Cardiology 07/29/21 Lisa Patel MD [address] [address] Surgeon Neurosurgery 08/01/23 Adri Polk PA-C [address] [address] Specialist Neurosurgery 08/01/23 Nj Steele PA-C [address] [address] Specialist Neurosurgery 08/01/23 Shu Styles NP [address] [address] Cardiology 09/27/23 documented as of this encounter
--- OUTSIDE RECORDS SUMMARY | 2024-11-20 10:31 | XMS_ITS | Encounter Summary ---
Author Organization [facility] [facility] Address [address] [place] [address] Care Team Providers Care Nursing Home Assistant Administrator Name Role Phone Pari Dawkins MD Primary Care Provider [facility] Pari Dawkins MD Unavailable Unavail able Abiodun Nichols MD Unavailable Charissa Bonilla NP Unavailable Unavailab Tl Chavis MD Primary Care Provider Tammy Mooney MD Primary Care Provider + Lisa Patel MD Unavailable [phone] Adri PolkC Unavailable Nj Steele PATannaC Unavailable [phone] Shu Styles SUPERVISOR DUMPING Unavailable [phone] Encounter Details Date Type Department Care Team Description 12/15/2021 Pt. Non Urgent Medical Question Adult Medicine B - [place] [address] [place] [address] Lena Sorto PA-C [address] [place], [place] [id number] Social History Tobacco Use Types Packs/Day Years [...] In the last 10 days, have russ u been in contact with someone who was confirmed or suspected to have Coronavirus/COVID-19? No / Unsure 12/16/2021 2:55 PM EDT documented as of this encounter Miscellaneous Notes * Telephone Encounter - Patience Eller - 12/15/2021 10:43 AM EDTFrom: Slava Ramirez To: Edilberto Sorto Sent: 12/15/2021 9:25 AM EDT Subject: Blood work Dr Sorto didn't mention it on our call this AM. What's the follow up for? documented in this encounter Plan of Treatment Not on file documented as of this encounter Visit Diagnoses Not on filedocumented in this encounter Care Teams Nursing Home Assistant Administrator Relationship Specialty Start Date End Date Pari Dawkins MD PCP - General 12/27/18 07/23/22 Tl Stevens MD PCP - General Internal Medicine 07/24/22 11/21/22 Tammy Mooney MD [address] [place] [address] PCP - General Internal Medicine 11/22/22 Pari Dawkins MD Internal Medicine 12/27/18 Abiodun Nichols MD Fmd Teacher Cardiovascular Disease 01/14/21 Charissa Bonilla NP Nurse Practitioner Cardiology 07/29/21 Lisa Patel MD 175 [facility] [address] [place] [address] Surgeon Neurosurgery 08/01/23 Adri Polk PA-C 175 [facility] [address] [place] [address] Specialist Neurosurgery 08/01/23 Nj Steele PA-C 175 [facility] [address] [place] [address] Specialist Neurosurgery 08/01/23 Shu Styles NP 175 [facility] [address] [place] [address] Cardiology 09/27/23 documented as of this encounter
--- OUTSIDE RECORDS SUMMARY | 2024-11-20 10:32 | XMS_ITS | Encounter Summary ---
Author Organization [employer] [facility] Address [address] [place] [address] Care Team Providers Care Washer Carcass Name Role Phone Pari Dawkins MD Unavailable Unavail able Abiodun Nichols MD Unavailable Tammy Mooney MD Primary Care Provider + Lisa Patel MD Unavailable [phone] Adri Polk PA-C Unavailable [phone] Nj Steele PATannaC Unavailable Shu Styles NP Unavailable Encounter Details Date Type Department Care Team Description 09/28/2023 [place] [facility] Report Medical Records [address] [place] [address] Yobany Snider DO Social History Tobacco Use [...] on filedocumented in this encounter Care Teams Washer Carcass Relationship Specialty Start Date End Date Tammy Mooney MD [address] [place] [address] [phone] PCP - General Internal Medicine 11/22/22 Pari Dawkins MD Internal Medicine 12/27/18 Abiodun Nichols MD Weight Count Operator Cardiovascular Disease 01/14/21 Lisa Patel MD [address] [address] Surgeon Neurosurgery 08/01/23 Adri Polk PA-C [address] [address] Specialist Neurosurgery 08/01/23 Nj Steele PA-C [address] [address] Specialist Neurosurgery 08/01/23 Shu Styles NP [address] [address] Cardiology 09/27/23 documented as of this encounter
--- OUTSIDE RECORDS SUMMARY | 2024-11-20 10:32 | XMS_ITS | Encounter Summary ---
Author Organization [facility] Address [address] [place] [address] Care Team Providers Care Christian Education Director Name Role Phone Pari Dawkins MD Unavailable Unavail able Abiodun Nichols MD Unavailable Charissa Bonilla NP Unavailable Unavailab Tl Chavis MD Primary Care Provider [phone] Tammy Mooney MD Primary Care Provider + Lisa Patel MD Unavailable [phone] Adri Plok PA-C Unavailable [phone] Nj Steele PATannaC Unavailable Shu Styles ENVIRONMENTAL STUDIES PROGRAM DIRECTOR Unavailable Encounter Details Date Type Department Care Team Description 10/17/2022 [facility] Medical Records [address] [place] [address] Abstract, Provider Social History Tobacco Use Types Packs/Day Years [...] on filedocumented in this encounter Care Teams Christian Education Director Relationship Specialty Start Date End Date Tl Stevens MD PCP - General Internal Medicine 07/24/22 11/21/22 Tammy Mooney MD [address] [place] [address] PCP - General Internal Medicine 11/22/22 Pari Dawkins MD Internal Medicine 12/27/18 Abiodun Nichols MD Customs Appraiser Cardiovascular Disease 01/14/21 Charissa Bonilla NP Nurse Practitioner Cardiology 07/29/21 Lisa Patel MD [address] [address] Surgeon Neurosurgery 08/01/23 Adri Polk PA-C [address] [address] Specialist Neurosurgery 08/01/23 Nj Steele PA-C [address] [address] Specialist Neurosurgery 08/01/23 Shu Styles NP [address] [address] Cardiology 09/27/23 documented as of this encounter
--- OUTSIDE RECORDS SUMMARY | 2024-11-20 10:32 | XMS_ITS | Encounter Summary ---
Author Organization [facility] Address [address] [place] [address] Care Team Providers Care Tank Setter Helper Name Role Phone Pari Dawkins MD Unavailable Unavail able Abiodun Nichols MD Unavailable Tammy Mooney MD Primary Care Provider + Lisa Patel MD Unavailable [phone] Adri Polk PA-C Unavailable Nj SteeleC Unavailable [phone] Shu Styles NP Unavailable Encounter Details Date Type Department Care Team Description 11/01/2023 Orders Only Medical Records [address] [place] [address] Giovanny Rincon MD, PHD Social History Tobacco [...] Name Priority Date/Time Associated Diagnosis Comments OUTSIDE CT Routine 10/25/2023 documented in this encounter Results * OUTSIDE CT (10/25/2023) Giovanny Rincon MD, PHD RADIOLOGY documented in this encounter Visit Diagnoses Not on filedocumented in this encounter Care Teams Tank Setter Helper Relationship Specialty Start Date End Date Tammy Mooney MD [address] [place] [address] PCP - General Internal Medicine 11/22/22 Pari Dawkins MD Internal Medicine 12/27/18 Abiodun Nichols MD School Speech Therapist Cardiovascular Disease 01/14/21 Lisa Patel MD [address] [address] Surgeon Neurosurgery 08/01/23 Adri Polk PA-C [address] [address] Specialist Neurosurgery 08/01/23 Nj Steele PA-C [address] [address] Specialist Neurosurgery 08/01/23 Shu Styles NP [address] [address] Cardiology 09/27/23 documented as of this encounter
--- OUTSIDE RECORDS SUMMARY | 2024-11-20 10:32 | XMS_ITS | Encounter Summary ---
Author Organization [facility] Address [address] [place] [address] Care Team Providers Care Rest Room Maid Name Role Phone Tammy Mooney MD Primary Care Pr ovider Reason for Referral * Consultation (Routine) - Pending Review Specialty Diagnoses / Procedures Referred By Contact Referred To Contact Physical Medicine and Rehabilitation Diagnoses DDD (degenerative disc disease), cervical Chronic neck pain Lena Sorto PA [address] [place] [address] Phone: tel: fax: Yesenia Campos, DO [address] [place] [address] Phone: tel:[phone] fax:[phone] Referral ID Status Reason Start Date Expiration Date Visits Requested Visits Authorized [id number] Pending Review Specialty Services Required 11/18/2024 11/18/2025 1 1 * Imaging (Routine) - Pending Review Specialty Diagnoses / Procedures Referred By Contvahid t Referred To Contact Radiology Diagnoses Localized swelling, mass or lump of neck Procedures US Head Neck Soft Tissue Lena Sorto PA [address] [place] [address] Phone: tel: fax: [address] Phone: tel: Referral ID Status Reason Start Date Expiration Date V isits Requested Visits Authorized [id number] Pending Review 11/18/2024 11/18/2025 1 1 * Consultation (Routine) - Authorized Specialty Diagnoses / Procedures Referred By Contac t Referred To Contact General Surgery Diagnoses Calculus of gallbladder without cholecystitis without obstruction Lena Sorto PA [address] [place] [address] Phone: tel: fax: Paulino Grubbs, DO [address] [address] Phone: tel: fax: Referral ID Status Reason Start Date Expiration Date Visits Requested Visits Authorized [id number] Authorized Specialty Services Required 11/18/2024 11/18/2025 1 1 Reason for Visit * Reason Comments neck sweeling Right side of neck Encounter Details Date Type Department Care Team (Late st Contact Info) Description 11/18/2024 2:00 PM EST Office Visit Adult Medicine [address] [address] Lena Sorto PA [address] [place] [address] Localized swelling, mass or lump of neck [...] ADE Padilla - 11/18/2024 2:00 PM EST [facility] Dr Yesenia Campos * ADE Padilla [...] He states that they were out [place] [address] at the time, he went to an urgent care, was prescribed an antibiotic and the area did seem to improve after this. 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 and they were talking about this [...] of femoral vein of right lower extremity ([facility]) 06/25/2024 Type 2 diabetes mellitus with cataract ([facility]) 06/25/2024 Trochanteric bursitis of both hips 06/05/2024 Insomnia 04/27/2023 Atherosclerosis of solomon artery of both lower extremities with rest pain ([facility]) 03/22/2023 PAC (premature atrial contraction) 03/19/2023 Venous stasis ulcer of right calf limited to breakdown of skin with varicose veins ([facility]) 03/19/2023 Palpitations 02/07/2023 Nocturnal leg cramps 01/01/2023 Osteoarthritis of both hips 01/01/2023 Adrenal nodule ([facility]) 07/07/2022 Lumbar degenerative disc disease 09/26/2021 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 ([facility]) 03/23/2021 Dizziness 02/09/2021 Acute deep vein thrombosis (DVT) of femoral vein of right lower extremity ([facility]) 07/27/2020 Prostate cancer ([facility]) 03/16/2020 Spinal stenosis at L4-L5 level 09/30/2019 Chronic bilateral low back pain without sciatica 04/02/2019 Cataract 02/26/2019 Type 2 diabetes mellitus with microalbuminuria ([facility]) 02/26/2019 Diverticulosis 01/14/2019 Actinic keratosis 12/30/2018 Chronic neck pain 12/12/2018 Tubular adenoma of colon 12/12/2018 BPH (benign prostatic hyperplasia) 12/04/2018 Coronary artery disease involving solomon coronary artery of solomon heart 12/04/2018 DDD (degenerative disc disease), cervical 12/04/2018 Essential hypertension 12/04/2018 Hyperlipidemia 12/04/2018 Obesity (BMI 30.0-34.9) 12/04/2018 Vitamin D deficiency 12/04/2018 ACTIVE MEDICATIONS: Current Outpatient Medications Medication Instructions aspirin 81 mg EC tablet Take 1 Tablet by mouth. atorvastatin (LIPITOR) 80 mg tablet Take 1 Tablet by mouth daily. Autolet lancing device LANCET DEVICES (ONE TOUCH DELICA LANCING DEV) [facility]: Use to test blood sugar once a day . DX-E11.9. NIDDM *One Touch Ultra 2* blood sugar diagnostic (ONETOUCH ULTRA TEST [facility]) USE TO TEST BLOOD SUGAR ONCE DAILY [...] oral, 2 times daily before meals lancets (SimScaleuch Delica Plus Lancet) 33 gauge USE TO [...] Signed Date: 10/23/2024 09:03 ET Workstation ID: [id number] Transcribed By: Self Edit Transcribed Date: 10/23/2024 [...] DDD cervical spine - mentioned [facility] in [facility] for possible 2nd opinion, referral placed [...] 11/25/2024 8:15 AM EST Appointment Radiology Department [address] [address] 12/29/2024 9:00 AM EDT Consult General Surgery [facility] [address] [phone] Alejandro Casas MD [address] [address] 01/15/2025 8:15 AM EDT Office Visit Orthopedic Surgery [place] [address] [phone] Abdoul Chavez DPM [address] [address] 01/15/2025 9:45 AM EDT Office Visit Endocrinology - [address] [phone] Lacey Bey MD [address] [place] [address] 02/03/2025 8:30 AM EDT Office Visit Adult Medicine South - [address] [phone] Lena Sorto PA [address] [place] [address] 06/02/2025 9:10 AM EDT Office Visit [facility] [address] [address] Shu Styles NP [address] [place] [address] Scheduled Orders Name Type Priority Associated Diagnoses [...] documented as of this encounter Care Teams Rest Room Maid Relationship Specialty Start Date End Date Tammy Mooney MD [address] [place] [address] PCP - General Internal Medicine 09/04/24 documented as of this encounter
--- OUTSIDE RECORDS SUMMARY | 2024-11-20 10:32 | XMS_ITS | Encounter Summary ---
Author Organization [facility] Address [address] [place] [address] Care Team Providers Care Manager Of Revenue Name Role Phone Tammy Mooney MD Primary Care Pr ovid Reason for Referral * Imaging (Routine) - Pending Review Specialty Diagnoses / Procedures Referred By Alicja nina Referred To Contact Radiology Diagnoses Hyperbilirubinemia Procedures US Abdomen Complete Tammy Mooney MD [address] [place] [address] Phone: tel: fax: [address] Phone: tel: Referral ID Status Reason Start Date Expiration Date V isits Requested Visits Authorized [id number] Pending Review 10/14/2024 10/14/2025 1 1 Reason for Visit * Imaging (Routine) - Pending Review Specialty Diagnoses / Procedures Referred By Alicja nina Referred To Contact Radiology Diagnoses Hyperbilirubinemia Procedures US Abdomen Complete Tammy Mooney MD [address] [place] [address] Phone: tel: fax: [address] Phone: tel: Referral ID Status Reason Start Date Expiration Date V isits Requested Visits Authorized [id number] Pending Review 10/14/2024 10/14/2025 1 1 Encounter Details Date Type Department Care Team (Latest Contact Info) Description 10/23/2024 7:45 AM EST - 10/23/2024 11:59 PM EST Hospital Encounter Radiology Department - [address] [phone] Hyperbilirubinemia Discharge Disposition: Home or Self Care [...] LANCET DEVICES (ONE TOUCH DELICA LANCING DEV) [facility]: Use to test blood sugar once a day . DX-E11.9. NIDDM *One Touch Ultra 2* 07/31/2020 blood sugar diagnostic (ONETOUCH ULTRA TEST [facility]) USE TO TEST [...] meals. 180 each 1 09/04/2024 5 lancets (Marvinuch Delica Plus Lancet) 33 gauge USE TO TEST BLOOD SUGAR DAILY 08/24/2021 losartan-hydroCHLOROth iazide (HYZAAR) 100-25 mg per tabletIndications:Esse ntial hypertension,Coronary artery disease involving absentee-shawnee coronary artery of absentee-shawnee heart, unspecified whether angina present Take 1 [...] 11/25/2024 8:15 AM EST Appointment Radiology Department [address] [address] 12/29/2024 9:00 AM EDT Consult General Surgery - [place] [address] [phone] Alejandro Casas MD 175 [facility] 110 [place] [address] 01/15/2025 8:15 AM EDT Office Visit Orthopedic Surgery - [place] 250 175 [facility] 250 [place] [address] Abdoul Chavez, DPM [address] [address] 01/15/2025 9:45 AM EDT Office Visit [address] [phone] Lacey Bey MD 725 [place] [address] 02/03/2025 8:30 AM EDT Office Visit Adult Medicine [address] [phone] Lena Sorto PA [address] [place] [address] 06/02/2025 9:10 AM EDT Office Visit [facility] - [facility] 102 300 [facility] 102 [place] [phone] Shu Styles NP 300 [facility] 102 [place] [address] documented as of this encounter Procedures Procedure [...] Signed Date: 10/23/2024 09:03 ET Workstation ID: [id number] Transcribed By: Self Edit Transcribed Date: 10/23/2024 [...] Signed Date: 10/23/2024 09:03 ET Workstation ID: [id number] Transcribed By: Self Edit Transcribed Date: 10/23/2024 09:01 ET us Tammy Mooney MD IMG US PROCEDURE S Final Result documented in this encounter Visit Diagnoses Diagnosis Hyperbilirubinemia Disorders of bilirubin excretion documented in this encounter Care Teams Manager Of Revenue Relationship Specialty Start Date End Date Tammy Mooney MD [address] [place] [address] PCP - General Internal Medicine 09/04/24 documented as of this encounter
--- OUTSIDE RECORDS SUMMARY | 2024-11-20 10:32 | XMS_ITS | Encounter Summary ---
Author Organization [facility] Address [address] [place] [address] Care Team Providers Care Control Clerk Auditing Name Role Phone aPri Dawkins MD Primary Care Provider [facility] Pari Dawkins MD Unavailable Unavail able Abiodun Nichols MD Unavailable Charissa Bonilla NP Unavailable Unavailab Tl Chavis MD Primary Care Provider [phone] Tammy Mooney MD Primary Care Provider + Lisa Patel MD Unavailable [phone] Adri PolkC Unavailable Nj Steele PATannaC Unavailable Shu Styles PIPE COREMAKER Unavailable [phone] Encounter Details Date Type Department Care Team Description 11/07/2021 [facility] Medical [facility] Neuro[facility] [place] [address] [place] [address] Giovanny Rincon MD, PHD Social History Tobacco [...] on filedocumented in this encounter Care Teams Control Clerk Auditing Relationship Specialty Start Date End Date Pari Dawkins MD PCP - General 12/27/18 07/23/22 Tl Stevens MD PCP - General Internal Medicine 07/24/22 11/21/22 Tammy Mooney MD [address] [place] [address] PCP - General Internal Medicine 11/22/22 Pari Dawkins MD Internal Medicine 12/27/18 Abiodun Nichols MD Conveyor Tender Cardiovascular Disease 01/14/21 Charissa Bonilla NP Nurse Practitioner Cardiology 07/29/21 Lisa Patel MD [address] [address] Surgeon Neurosurgery 08/01/23 Adri Polk PA-C [address] [address] Specialist Neurosurgery 08/01/23 Nj Steele PA-C [address] [address] Specialist Neurosurgery 08/01/23 Shu Styles NP [address] [address] Cardiology 09/27/23 documented as of this encounter
--- OUTSIDE RECORDS SUMMARY | 2024-11-20 10:32 | XMS_ITS | Encounter Summary ---
Author Organization [facility] Address [address] [place] [address] Care Team Providers Care Medical Staff Services Manager Name Role Phone Tammy Mooney MD Primary Care Pr ovider Reason for Visit * Cardiac Stress Testing (Routine) - Closed Specialty Diagnoses / Procedures Referred By Contac t Referred To Contact Cardiology Diagnoses Coronary artery disease involving pilot point coronary artery of pilot point heart, unspecified whether angina present Chest pain, unspecified type Procedures Exercise nuclear stress test with myocardial perfusion [place] MYOCARDIAL PERFUSION IMAGING TOMOGRAPHIC MULTI STUDIES AT REST OR STRESS [place] MYOCARDIAL PERFUSION IMAGING TOMOGRAPHIC SINGLE STUDY AT REST OR STRESS [place] CARDIOVASCULAR STRESS TEST GLOBAL [place] CV TMST/BIKE MAX/SUBMAX CONTINUOUS ECG MON/PHARM STRESS SUPVSR ONLY [place] CV STRESS TEST/BIKE CONT ECG MON/PHARM STRESS INTERP & REPORT ONLY [place] TEST STRESS CARDIOVASCULAR TRACING ONLY Abiodun Nichols MD [address] [place] [address] Phone: tel: fax: [facility] Referral ID Status Reason Start Date Expiration Date Visits Re quested Visits Authorized [id number] Closed 10/24/2024 04/22/2025 1 1 Encounter Details Date Type Department Care Team (Latest Contact Info) Description 10/27/2024 8:30 AM EST Ancillary Procedure [facility] - [address] [place] [address] Coronary artery disease involving pilot point coronary artery of pilot point heart, unspecified whether angina present; Chest pain, [...] AM EST Appointment Radiology Department - [address] [address] 12/29/2024 9:00 AM EDT Consult General Surgery [facility] [address] [phone] Alejandro Casas MD [address] [address] 01/15/2025 8:15 AM EDT Office Visit Orthopedic Surgery [facility] [address] [phone] Abdoul Chavez DPDavid [address] [address] 01/15/2025 9:45 AM EDT Office Visit Endocrinology [address] [phone] Lacey Bey MD [address] [place] [phone] 02/03/2025 8:30 AM EDT Office Visit Adult Medicine [facility] [address] [place] [address] Lena Sorto PA [address] [place] [address] 06/02/2025 9:10 AM EDT Office Visit [facility] - [address] [place] [address] Shu Styles NP [address] [place], [place] [address] documented as of this encounter Procedures Procedure Name Priority Date/Time Associated Diagnosis Comments NM EXERCISE STRESS TEST W/ MYOCARDIAL PERFUSION Routine 10/27/2024 10:49 AM EST Coronary artery disease involving pilot point coronary artery of pilot point heart, unspecified whether angina present Chest pain, [...] Visit Diagnoses Diagnosis Coronary artery disease involving pilot point coronary artery of pilot point heart, unspecified whether angina present Chest pain, [...] Antecubital documented in this encounter Care Teams Medical Staff Services Manager Relationship Specialty Start Date End Date Tammy Mooney MD [address] [place] [address] PCP - General Internal Medicine 09/04/24 documented as of this encounter
--- OUTSIDE RECORDS SUMMARY | 2024-11-20 10:32 | XMS_ITS | Encounter Summary ---
Author Organization [facility] Address [address] [place] [address] Care Team Providers Care Guard Museum Name Role Phone Pari Dawkins MD Unavailable Unavail able Abiodun Nichols MD Unavailable Charissa Bonilla NP Unavailable Unavailab Tl Chavis MD Primary Care Provider [phone] Tammy Mooney MD Primary Care Provider + Lisa Patel MD Unavailable [phone] Adri Polk PA-C Unavailable [phone] Nj Steele PA-C Unavailable Shu Styles PARTS PRODUCT ANALYST Unavailable Encounter Details Date Type Department Care Team Description 11/07/2022 [facility] Medical [facility] Neurosurgery [place] [address] [place] [address] Giovanny Rincon MD, PHD Social History Tobacco [...] on filedocumented in this encounter Care Teams Guard Museum Relationship Specialty Start Date End Date Tl Stevens MD PCP - General Internal Medicine 07/24/22 11/21/22 Tammy Mooney MD [address] [place] [address] PCP - General Internal Medicine 11/22/22 Pari Dawkins MD Internal Medicine 12/27/18 Abiodun Nichols MD Electric Powerline Examiner Cardiovascular Disease 01/14/21 Charissa Bonilla NP Nurse Practitioner Cardiology 07/29/21 Lisa Patel MD [address] [address] Surgeon Neurosurgery 08/01/23 Adri Polk PA-C [address] [address] Specialist Neurosurgery 08/01/23 Nj Steele PA-C [address] [address] Specialist Neurosurgery 08/01/23 Shu Styles NP [address] [address] Cardiology 09/27/23 documented as of this encounter
--- OUTSIDE RECORDS SUMMARY | 2024-11-20 10:32 | XMS_ITS | Encounter Summary ---
Author Organization [facility] Address [address] [place] [address] Care Team Providers Care Tax Services Professional Name Role Phone Tammy Mooney MD Primary Care Pr ovider Reason for Visit * Reason Comments Follow-up Chest pain f/u * Consultation (Urgent) - Authorized Specialty Diagnoses / Procedures Referred By Contac t Referred To Contact Cardiology Diagnoses Coronary artery disease involving sycuan coronary artery of sycuan heart without angina pectoris Chest pain, unspecified type Tammy Mooney MD [address] [place] [address] Phone: tel: fax: Abiodun Nichols MD [address] [place] [address] Phone: tel: fax: Referral ID Status Reason Start Date Expiration Date Visits Requested Visits Authorized [id number] Authorized Specialty Services Required 10/06/2024 10/06/2025 6 6 Encounter Details Date Type Department Care Team (Late st Contact Info) Description 11/07/2024 10:40 AM EST Office Visit [facility] Associates - [facility] [address] [facility] 102 [place] [address] Shu Styles NP 300 [facility] [address] [place] [address] Essential hypertension (Primary Dx); Chest pain, unspecified type; Coronary artery disease involving sycuan coronary artery of sycuan heart, unspecified whether angina present; Hyperlipidemia, unspecified [...] AM ESTAssociated Problem(s): Coronary artery disease involving sycuan coronary artery of sycuan heart The patient has a history of [...] from the original note were not included. [facility] PRIMARY FRAME EXPANDER: Abiodun Nichols MD PCP: Tammy Mooney MD HPI: Slava Ramirez is a 79 y.o. old male with a past medical history of CAD, hypertension, hyperlipidemia, prostate cancer, type 2 diabetes, and history of DVT while ill with COVID in 2019 (Eliquis has since been stopped due to bruising). In March 2024 he had an L2-L3 fusion at [facility] for degene rative disc disease. He was last seen by Dr. Nichols in June 2024. He has known moderate coronary disease managed medically; diagnosed via cardiac cath in 2018 in [place], [place] after the patient was found to [...] tablet 1 tablet (50 mg total). 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 Coronary artery disease involving sycuan coronary artery of sycuan heart, unspecified whether angina present 4. Hyperlipidemia, unspecified hyperlipidemia type 5. Obesity (BMI 30.0-34.9) [facility] Cosigned by Alexandria Yap MD at 11/10/2024 8:52 PM EST documented in this encounter Plan of Treatment Upcoming Encounters Date Type Department Care Team (Late st Contact Info) Description 11/25/2024 8:15 AM EST Appointment Radiology Department [address] [address] 12/29/2024 9:00 AM EDT Consult General Surgery - [place] [address] [phone] Alejandro Casas MD [address] [address] 01/15/2025 8:15 AM EDT Office Visit Orthopedic Surgery - [place] [address] [phone] Abdoul Chavez, DPDavid [address] [address] 01/15/2025 9:45 AM EDT Office Visit Endocrinology [address] [phone] Lacey Bey MD 725 [place] [address] 02/03/2025 8:30 AM EDT Office Visit Adult Medicine [address] [phone] Lena Sorto PA 305 [place] [address] 06/02/2025 9:10 AM EDT Office Visit [facility] - [facility] [address] [phone] Shu Styles NP [address] [address] documented as of this encounter Visit Diagnoses Diagnosis Essential hypertension- Primary Unspecified essential hypertension Chest pain, unspecified type Coronary artery disease involving sycuan coronary artery of sycuan heart, unspecified whether angina present Hyperlipidemia, unspecified hyperlipidemia type Obesity (BMI 30.0-34.9) documented in this encounter Orders Outpatient Referral Count Last Ordered Date Fir st Ordered Date AMB REFERRAL TO CARDIOLOGY 11/07/2024 documented in this encounter Care Teams Tax Services Professional Relationship Specialty Start Date End Date Tammy Mooney MD [address] [place] [address] PCP - General Internal Medicine 09/04/24 documented as of this encounter
--- OUTSIDE RECORDS SUMMARY | 2024-11-20 10:32 | XMS_ITS | Encounter Summary ---
Author Organization [facility] [facility] Address [address] [place] [address] Care Team Providers Care Spray Rig Operator Name Role Phone Pari Dawkins MD Unavailable Unavail able Abiodun Nichols MD Unavailable Charissa Bonilla NP Unavailable Unavailab Tl Chavis MD Primary Care Provider [phone] Tammy Mooney MD Primary Care Provider + Lisa Patel MD Unavailable [phone] Adri Polk PATannaC Unavailable [phone] Nj Steele PA-C Unavailable Shu Styles RCP Unavailable Reason for Visit * Reason Onset Date Comments Call From Pharmacy 10/04/2022 Encounter Details Date Type Department Care Team Description 10/04/2022 Refill Internal Medicine - [address], [address] [place] [address] Tl Stevens MD [address] [place], [place] [id number] Call From Pharmacy Social History Tobacco Use Types Packs/Day Years [...] suspected to have Coronavirus/COVID-19? No / Unsure 09/15/2022 8:14 AM EST documented as of this encounter Miscellaneous Notes * Telephone Encounter - Theresa Mckeon - 10/04/2022 3:36 PM EST 06/15/2022 06/08/2022 1 GABAPENTIN 300 MG CAPSULE [address] [place] [id number] Big (3248) 0/0 Comm Ins [place] MASS PAT PRINTED WILL LEAVE ON YOUR DESK FOR REVIEW Pended to pcp documented in this encounter Plan of Treatment Not on file documented as of this encounter Visit Diagnoses Not on filedocumented in this encounter Care Teams Spray Rig Operator Relationship Specialty Start Date End Date Tl Stevens MD PCP - General Internal Medicine 07/24/22 11/21/22 Tammy Mooney MD [address] [place] [address] PCP - General Internal Medicine 11/22/22 Pari Dawkins MD Internal Medicine 12/27/18 Abiodun Nichols MD Branch Lead Cardiovascular Disease 01/14/21 Charissa Bonilla NP Nurse Practitioner Cardiology 07/29/21 Lisa Patel MD [address] [address] Surgeon Neurosurgery 08/01/23 Adri Polk PA-C [address] [address] Specialist Neurosurgery 08/01/23 Nj Steele PA-C 175 [facility] [address] [place] [address] Specialist Neurosurgery 08/01/23 Shu Styles, ENIO 175 [facility] [address] [place] [address] Cardiology 09/27/23 documented as of this encounter
--- OUTSIDE RECORDS SUMMARY | 2024-11-20 10:32 | XMS_ITS | Encounter Summary ---
Author Organization [employer] [facility] Address [address] [place] [address] Care Team Providers Care Science Job Titles Name Role Phone Pari Dawkins MD Unavailable Unavail able Abiodun Nichols MD Unavailable Tammy Mooney MD Primary Care Provider + Lisa Patel MD Unavailable [phone] Adri Polk PA-C Unavailable Nj Steele PA-C Unavailable [phone] Shu Styles NP Unavailable [phone] Encounter Details Date Type Department Care Team Description 10/16/2023 Tv News Director Report Medical Records [address] [place] [address] Claude Dinh PA-C 175 [facility] [address] [place] [address] Social History Tobacco Use Types Packs/Day Years [...] on filedocumented in this encounter Care Teams Science Job Titles Relationship Specialty Start Date End Date Tammy Mooney MD [address] [place] [address] PCP - General Internal Medicine 11/22/22 Pari Dawkins MD Internal Medicine 12/27/18 Abiodun Nichols MD Ice Grinder Cardiovascular Disease 01/14/21 Lisa Patel MD [address] [address] Surgeon Neurosurgery 08/01/23 Adri Polk PA-C [address] [address] Specialist Neurosurgery 08/01/23 Nj Steele PA-C [address] [address] Specialist Neurosurgery 08/01/23 Shu Styles NP [address] [address] Cardiology 09/27/23 documented as of this encounter
--- OUTSIDE RECORDS SUMMARY | 2024-11-20 10:32 | XMS_ITS | Encounter Summary ---
Author Organization [facility] Address [address] [place] [address] Care Team Providers Care Rfid Developer Name Role Phone Tammy Mooney MD Primary Care Pr ovider Reason for Visit * Reason Onset Date Comments Medication 11/13/2024 Pre-op Visit 11/13/2024 Encounter Details Date Type Department Care Team (Late st Contact Info) Description 11/13/2024 Telephone [facility] Associates - [facility] 102 300 [facility] 102 [place] [address] Shu Styles NP 300 [facility] 102 [place] [address] Medication; Pre-op Visit Social History Tobacco Use [...] - 11/13/2024 2:45 PM EST Lena from [facility] states patient is having a Spinal Cord Stimulator on 12/10/24 [address]Dr. Bashir Dominguez. She would like to know if patient can stop aspirin 7 days prior. Please fax confirmation to [phone] documented in this encounter Plan of Treatment Upcoming Encounters Date Type Department Care Team (Late st Contact Info) Description 11/25/2024 8:15 AM EST Appointment Radiology Department [address] [phone] 12/29/2024 9:00 AM EDT Consult General Surgery [address] [phone] Alejandro Casas MD [address] [place] [address] 01/15/2025 8:15 AM EDT Office Visit Orthopedic Surgery [facility] [address] [place] [phone] Abdoul Chavez DPM [address] [place] [address] 01/15/2025 9:45 AM EDT Office Visit Endocrinology [address] [phone] Lacey Bey MD [address] [place] [phone] 02/03/2025 8:30 AM EDT Office Visit Adult Medicine [address] [phone] Lena Sorto PA [address] [place] [address] 06/02/2025 9:10 AM EDT Office Visit [facility] Cardiology Associates - [facility] [address] 300 [facility] 102 [place] [address] Shu Styles, ENIO 300 [facility] 102 [place] [address] documented as of this encounter Visit Diagnoses Not on filedocumented in this encounter Care Teams Rfid Developer Relationship Specialty Start Date End Date Tammy Mooney MD [address] [place] [address] PCP - General Internal Medicine 09/04/24 documented as of this encounter
--- OUTSIDE RECORDS SUMMARY | 2024-11-20 10:32 | XMS_ITS | Encounter Summary ---
Author Organization [employer] [facility] Address [address] [place] [address] Care Team Providers Care Cork Pressing Machine Operator Name Role Phone Pari Dawkins MD Unavailable Unavail able Abiodun Nichols MD Unavailable Tammy Mooney MD Primary Care Provider + Lisa Patel MD Unavailable [phone] Adri Polk PA-C Unavailable [phone] Nj Steele PA-C Unavailable Shu Styles NP Unavailable Reason for Visit * Reason Comments E-prescribe Rx Request Metoprolol Succin ate Encounter Details Date Type Department Care Team Description 10/14/2023 Refill Cardio PVC POC [address] [place], [place] [phone] Shu Beatty TERRITORY SALES PROFESSIONAL [address] [place] [address] E-prescribe Rx Request (Metoprolol Succinate ) Social History Tobacco Use Types Packs/Day Years [...] on file documented as of this encounter Miscellaneous Notes * Telephone Encounter - Gracie Solares RN - 10/24/2023 9:54 AM EST Spoke with vitaliy at pharmacy, prescription for Metoprolol Succinate was not received by pharmacy despite it being receipt confirmed on our end. I resent the prescription electronically and called pharmacy to confirm receipt. * Telephone Encounter - Tamar Drew C.M.A. - 10/15/2023 10:33 AM EST Last [facility] visit Sep 2023 Ju Styles TERRITORY SALES PROFESSIONAL documented in this encounter Plan of Treatment Not on file documented as of this encounter Visit Diagnoses Not on filedocumented in this encounter Care Teams Cork Pressing Machine Operator Relationship Specialty Start Date End Date Tammy Mooney MD [address] [place] [address] PCP - General Internal Medicine 11/22/22 Pari Dawkins MD Internal Medicine 12/27/18 Abiodun Nichols MD Rectifier Operator Cardiovascular Disease 01/14/21 Lisa Patel MD [address] [address] Surgeon Neurosurgery 08/01/23 Adri Polk PA-C [address] [address] Specialist Neurosurgery 08/01/23 Nj Steele PA-C [address] [address] Specialist Neurosurgery 08/01/23 Shu Styles NP [address] [address] Cardiology 09/27/23 documented as of this encounter
--- OUTSIDE RECORDS SUMMARY | 2024-11-20 10:32 | XMS_ITS | Encounter Summary ---
Author Organization [facility] Address [address] [place] [address] Care Team Providers Care Trimming Press Operator Name Role Phone Pari Dawkins MD Unavailable Unavail able Abiodun Nichols MD Unavailable Tammy Mooney MD Primary Care Provider + Lisa Patel MD Unavailable [phone] Adri Polk PA-C Unavailable [phone] Nj Steele PA-C Unavailable Shu Styles NP Unavailable [phone] Encounter Details Date Type Department Care Team Description 11/02/2023 Pt. Non Urgent Medical Question Adult Medicine [address] [phone] Tammy Mooney MD [address] [place] [phone] Social History Tobacco Use Types Packs/Day Years [...] encounter Miscellaneous Notes * Telephone Encounter - Daphnie Gil - 11/02/2023 4:14 PM ESTFrom: Slava Ramirez To: Pedro Mooney Sent: 11/02/2023 3:41 PM EST Subject: change apt on 01/16 I'm having a back operation on 01/14 so I probably won't be up and going for the . Can we move this back a couple of weeks? documented in this encounter Plan of Treatment Not on file documented as of this encounter Visit Diagnoses Not on filedocumented in this encounter Care Teams Trimming Press Operator Relationship Specialty Start Date End Date Tammy Mooney MD [address] [place] [address] PCP - General Internal Medicine 11/22/22 Pari Dawkins MD Internal Medicine 12/27/18 Abiodun Nichols MD Roll Plugger Machine Operator Cardiovascular Disease 01/14/21 Lisa Patel MD [address] [address] Surgeon Neurosurgery 08/01/23 Adri Polk PA-C [address] [address] Specialist Neurosurgery 08/01/23 Nj Steele PA-C [address] [address] Specialist Neurosurgery 08/01/23 Shu Styles NP [address] [address] Cardiology 09/27/23 documented as of this encounter
--- OUTSIDE RECORDS SUMMARY | 2024-11-20 10:32 | XMS_ITS | Encounter Summary ---
Author Organization [facility] Address [address] [place] [address] Care Team Providers Care Political Organizer Name Role Phone Tammy Mooney MD Primary Care Pr ovider Encounter Details Date Type Department Care Team (Late st Contact Info) Description 11/12/2024 Nurse Triage Adult Medicine [address] [phone] Evelina Meek, RN Social History Tobacco Use [...] of a golf ball. He went to [facility] and no cause could be found. The [...] his chest. Protocols used: Neck Pain or [id number] documented in this encounter Plan of Treatment Upcoming Encounters Date Type Department Care Team (Late st Contact Info) Description 11/25/2024 8:15 AM EST Appointment Radiology Department [address] [phone] 12/29/2024 9:00 AM EDT Consult General Surgery [facility] [address] [phone] Alejandro Casas MD 175 [facility] 110 [place] [address] 01/15/2025 8:15 AM EDT Office Visit Orthopedic Surgery [facility] 250 175 [facility] 250 [place] [phone] Abdoul Chavez, DPM 175 [facility] 250 [place] [address] 01/15/2025 9:45 AM EDT Office Visit Endocrinology [address] [phone] Lacey Bey MD [address] [place] [address] 02/03/2025 8:30 AM EDT Office Visit Adult Medicine South - [address] [phone] Lena Sorto PA 305 [place] [address] 06/02/2025 9:10 AM EDT Office Visit [facility] Cardiology Associates - [facility] 102 300 [facility] 102 [place] [address] Shu Styles, ENIO [address] [address] documented as of this encounter Visit Diagnoses Not on filedocumented in this encounter Care Teams Political Organizer Relationship Specialty Start Date End Date Tammy Mooney MD [address] [place] [address] PCP - General Internal Medicine 09/04/24 documented as of this encounter
--- OUTSIDE RECORDS SUMMARY | 2024-11-20 10:33 | XMS_ITS | Encounter Summary ---
Author Organization [employer] [facility] Address [address] [place] [address] Care Team Providers Care Freight Inspector Name Role Phone Pari Dawkins MD Primary Care Provider [facility] Pari Dawkins MD Unavailable Unavail able Abiodun Nichols MD Unavailable Charissa Bonilla NP Unavailable Unavailab Tl Chavis MD Primary Care Provider [phone] Tammy Mooney MD Primary Care Provider + Lisa Patel MD Unavailable [phone] Adri Polk PA-C Unavailable [phone] Nj Steele PA-C Unavailable Shu Styles NP Unavailable [phone] Encounter Details Date Type Department Care Team Description 06/06/2022 Pt. Non Urgent Medic al Question Cardio [facility] [address] 300 [facility] [address] [place] [address] Charissa Bonilla NP Social History Tobacco Use Types Packs/Day Years [...] suspected to have Coronavirus/COVID-19? No / Unsure 05/30/2022 1:00 PM EDT documented as of this encounter Plan of Treatment Not on file documented as of this encounter Visit Diagnoses Not on filedocumented in this encounter Care Teams Freight Inspector Relationship Specialty Start Date End Date Pari Dawkins MD PCP - General 12/27/18 07/23/22 Tl Stevens MD PCP - General Internal Medicine 07/24/22 11/21/22 Tammy Mooney MD [address] [place] [address] PCP - General Internal Medicine 11/22/22 Pari Dawkins MD Internal Medicine 12/27/18 Abiodun Nichols MD Linoleum Floor Installer Cardiovascular Disease 01/14/21 Charissa Bonilla NP Nurse Practitioner Cardiology 07/29/21 Lisa Patel MD [address] [address] Surgeon Neurosurgery 08/01/23 Adri Polk PA-C [address] [address] Specialist Neurosurgery 08/01/23 Nj Steele PA-C [address] [address] Specialist Neurosurgery 08/01/23 Shu Styles NP [address] [address] Cardiology 09/27/23 documented as of this encounter
--- OUTSIDE RECORDS SUMMARY | 2024-11-20 10:33 | XMS_ITS | Encounter Summary ---
Author Organization [employer] [facility] Address [address] [place] [address] Care Team Providers Care Wind Turbine Sheet Metal Worker Name Role Phone Pari Dawkins MD Primary [facility] Provider [facility] Pari Dawkins MD Unavailable Unavail able Abiodun Nichols MD Unavailable Charissa Bonilla NP Unavailable Unavailab Tl Chavis MD Primary Care Provider [phone] Tammy Mooney MD Primary Care Provider + Lisa Patel MD Unavailable [phone] Adri Polk PA-C Unavailable [phone] Nj Steele PA-C Unavailable Shu Styles TAR DISTILLATION SUPERVISOR Unavailable [phone] Reason for Visit * Reason Comments E-prescribe Rx Request Encounter Details Date Type Department Care Team Description 03/11/2022 Refill Adult Medicine [facility] 305 [place] [address] Pari Dawkins MD E-prescribe Rx Request Social History Tobacco Use Types Packs/Day Years [...] suspected to have Coronavirus/COVID-19? No / Unsure 02/16/2022 2:08 PM EDT documented as of this encounter Miscellaneous Notes * Telephone Encounter - Maribell Park M.A. - 03/13/2022 11:40 AM EDT Faxed to pharmacy * Telephone Encounter - Anali Hope M.A. - 03/13/2022 10:36 AM EDT Last office visit 11.29.21 Lab Results Component Value Date NA 140 11/28/2021 K 4.8 11/28/2021 CO2 21 11/28/2021 CL 109 11/28/2021 BUN 13 11/28/2021 CREAT 0.79 11/28/2021 GLU 101 11/28/2021 CA 9.9 11/28/2021 GFR > 60 11/28/2021 * Telephone Encounter - Beverly Ruiz - 03/13/2022 9:25 AM EDT Patient would like script to be: E-PRESCRIBED/FAXED TO PHARMACY WHEN WAS THE PATIENT'S LAST APPOINTMENT IN ADULT MEDICINE? 11-29-21 WHEN WAS THE LAST TIME THE PATIENT SAW THEIR PCP? 08-12-21 Does patient have an upcoming appointment? Yes 03-30-22 (THE MEDICATION REQUESTED IS ON THE MED LIST ABOVE) All of the medications requested were on the CURRENT MEDS list Did you check the Pharmacy information above?: YES Patient wants: 30 -day supply Is this a mail order prescription request ? NO If the refill is from a FAXED refill request what is the RX # listed on the fax? N/A Patients current insurance carrier is: Payor: [employer] MEDICARE / Plan: MEDICARE FFS $0 SHERRON DICKEY [id number] / Product Type: MEDICARE [id number] documented in this encounter Plan of Treatment Not on file documented as of this encounter Visit Diagnoses Not on filedocumented in this encounter Care Teams Wind Turbine Sheet Metal Worker Relationship Specialty Start Date End Date Pari Dawkins MD PCP - General 12/27/18 07/23/22 Tl Stevens MD PCP - General Internal Medicine 07/24/22 11/21/22 Tammy Mooney MD [address] [place] [address] PCP - General Internal Medicine 11/22/22 Pari Dawkins MD Internal Medicine 12/27/18 Abiodun Nichols MD Link Knitting Machine Operator Cardiovascular Disease 01/14/21 Charissa Bonilla NP Nurse Practitioner Cardiology 07/29/21 Lisa Patel MD [address] [address] Surgeon Neurosurgery 08/01/23 Adri Polk PA-C [address] [address] Specialist Neurosurgery 08/01/23 Nj Steele PA-C [address] [address] Specialist Neurosurgery 08/01/23 Shu Styles NP 175 [facility] 300 [place] [address] Cardiology 09/27/23 documented as of this encounter
--- OUTSIDE RECORDS SUMMARY | 2024-11-20 10:33 | XMS_ITS | Clinical Summary ---
Author Organization [facility] Address [address] [place] [address] Care Team Providers Care Palliative Care Nurse Name Role Phone Pari Dawkins MD Unavailable Unavail able Abiodun Nichols MD Unavailable Tammy Mooney MD Primary Care Provider + Lisa Patel MD Unavailable [phone] Adri Polk PA-C Unavailable Nj Steele PA-C Unavailable Shu Styles NP Unavailable Allergies No known active allergies Medications Medication Sig Dispensed Refills Start Date End Date Status Cholecalciferol (VITAMIN D3) 2000 UNITS Tab Take 2,000 Units by mouth daily. 0 Active [place]-3 Fatty Acids (SUPER OMEGA 3 EPA/DHA) 1000 MG Cap Take 1 g by mouth daily. 0 Active Multiple Vitamins-Minerals (MULTIVITAL OR) Take by mouth. 0 Activ e Blood Glucose Monitoring Suppl (ONE TOUCH ULTRA 2) W/DEVICE Kit Use to test blood sugar once a day . DX-E11.9. NIDDM *One Touch Ultra 2* 1 Kit 0 01/31/2019 Active Lancet Devices (ONE TOUCH DELICA LANCING DEV) [facility] Use to test blood sugar once a day . DX-E11.9. NIDDM *One Touch Ultra 2* 1 Each 1 07/31/2020 Active Lancets (OneTouch Delica Plus Nirtoq01T) Mis USE TO TEST BLOOD SUGAR DAILY 100 Each 1 08/24/2021 Active acetaminophen (Tylenol 8 Hour) 650 MG CR tablet Take 1 Tablet by mouth every 8 hours as needed for Pain. 60 Tablet 0 02/16/2022 Active glucose blood test strips (OneTouch Ultra) strip USE TO TEST BLOOD SUGAR ONCE DAILY 100 Strip 1 02/15/2023 Active hydrOXYzine (ATARAX) 50 MG tabletIndications:Ins omnia, unspecified type Take 1 Tablet by mouth at bedtime as needed for Anxiety (insomnia). 90 Tablet 0 07/12/2023 Active metoprolol (TOPROL-XL) 50 MG 24 hr tablet Take 1 Tablet by mouth daily. 90 Tablet 3 10/24/2023 Active silver sulfADIAZINE (SILVADENE) 1 % cream Apply topically to wound bed daily 50 g 0 11/27/2023 Active glipiZIDE (GLUCOTROL) 5 MG tablet Take 1 Tablet by mouth 2 times daily (before meals). 0 12/10/2023 Active losartan-hydrochlorot hiazide (HYZAAR) 100-25 MG per tabletIndications:Ess ential hypertension Take 1 Tablet by mouth daily. 90 Tablet 2 02/01/2024 Active atorvastatin (LIPITOR) 80 MG tabletIndications:Cor onary artery disease involving [place] coronary artery of [place] heart without angina pectoris Take 1 Tablet by mouth daily. 90 Tablet 3 02/01/2024 Active Empagliflozin 25 MG TabIndications:Type 2 diabetes mellitus with diabetic microalbuminuria, without long-term current use of insulin (HCC) Take 25 mg by mouth daily. 90 Tablet 0 05/07/2024 Active aspirin 81 MG EC tablet Take 1 Tablet by mouth. 0 Active tadalafil (CIALIS) 5 MG tabletIndications:Vipin ign prostatic hyperplasia with lower urinary tract symptoms, symptom details unspecified Take 1 Tablet by mouth daily. 0 Active gabapentin (NEURONTIN) 300 MG capsule Take 1 Capsule by mouth 2 times daily. 1 caps in the morning and 2 in the evening 0 Active ezetimibe (ZETIA) 10 MG tablet TAKE 1 TABLET BY MOUTH EVERY DAY 90 Tablet 3 07/10/2024 Active Active Problems Problem Noted Date Type 2 diabetes mellitus with cataract 1 Chronic deep vein thrombosis (DVT) of femoral vein of right lower extremity 06/25/2024 Trochanteric bursitis of both hips 06/05 Insomnia 04/27/2023 Atherosclerosis of [place] artery of both lower extremities with rest pain 03/22/2023 PAC (premature atrial contraction) 03/19 Last Assessment & Plan: The patient denies any palpitations and states that he has been feeling well on his reduced dose of metoprolol; we will not make any changes today. Venous stasis ulcer of right calf limited to breakdown of skin with varicose veins 03/19/2023 Palpitations 02/07/2023 Osteoarthritis of both hips 01/01/2023 Nocturnal leg cramps 01/01/2023 Adrenal nodule 07/07/2022 Overview: CT abdomen 07/07/22: benign per CT report Lumbar degenerative disc disease 022 Recurrent acute deep vein thrombosis (DV T) of right lower extremity 03/23/2021 Last Assessment & Plan: Continue to follow [...] We will continue to follow. Dizziness 02/09/2021 Last Assessment & Plan: Completely resolved with reduction and beta-blockade; patient will return for any new or worsening symptoms. Continue current plan. History of COVID-19 07/31/2020 Overview: Diagnosed on 07/31 Acute deep vein thrombosis (DVT) of femo ral vein of right lower extremity 07/27/2020 Prostate cancer 03/16/2020 Spinal stenosis at L4-L5 level 0 Chronic bilateral low back pain without sciatica 04/02/2019 Last Assessment & Plan: Mr. Ramirez describes [...] see if there was anything to offer. 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 Patient verbalizes understanding of this and is working to improve diet and activity. Follow-up with PCP as directed. Cataract 02/26/2019 Overview: 2017, Left, removed Diverticulosis 01/14/2019 Actinic keratosis 12/30/2018 Overview: R scalp, treated 04/06/2015. History of basal cell carcinoma (BCC) of skin 12/12/2018 Overview: Mid back, abdomen, rodriguez Tubular adenoma of colon 12/12/2018 Chronic neck pain 12/12/2018 Overview: S/p 2 surgeries Coronary artery disease invo lving [place] coronary artery of [place] heart without angina pectoris 12/04/2018 Overview: With severely abnormal calcium score cardiac catheterization [...] rest, or if they were to faint. DDD (degenerative disc disease), cervica l 12/04/2018 Overview: Previous cervical disc surgery Vitamin D deficiency 12/04/2018 BPH (benign prostatic hyperplasia) 12/04 Overview: History of elevated PSA and several biopsies done in [facility]. Negative for malignancy Hyperlipidemia 12/04/2018 Last Assessment & Plan: Last lipid panel completed 01/01/2023 with LDL at 25 which is at goal for this patient. Triglycerides remain elevated at 233; we discussed low carbohydrate diet as well as improving activity as tolerated. Continue statin and Zetia. Essential hypertension 12/04/2018 Last Assessment & Plan: Pressure is well-controlled on current medical therapy; renal function at baseline on metabolic panel 07/12/2023. Continue current plan. Obesity (BMI 30.0-34.9) 12/04/2018 Last Assessment & Plan: Patient is overweight. Approaches towards weight loss are discussed, including burning more calories than one takes in by portion control and regular exercise with an emphasis on duration rather than intensity . Resolved Problems Problem Noted Date Resolved Date Hyponatremia 04/03/2022 06/05/2024 Diet-controlled diabetes mellitus 03/16/2020 12/23/2020 Diabetes mellitus type 2, uncontrolled 9 04/10/2023 Immunizations Name Administration Dates Next Due SANGEETA (RSV) PT REPORTED 06/26/2023 COVID-19 (Moderna) 06/04/2024 COVID-19 (Pfizer) 06/26/2023,,12/26/2021,06/22,11/17/2020,10/25/2020 COVID-19 (Pfizer) Pt Reported 06/16/2022 ,12/26/2021,06/22/2021,11/17,10/25/2020 Covid-19 Bivalent (Pfizer) 01/23/2023,06/16/2022 Flu (Generic) 06/01/2021 Influenza (> 6 Months) 06/15/2022,06/03/2020 Influenza vaccine high dose age 65 and over 06/21/2023,06/15/2022,06/01/2021,06/03,05/30/2019 Pneumoccoccal(Adult) Polysac charide PPSV23 01/30/2013 Pneumococcal Conjugate PCV-13 06/19/2017 Shingrix (Patient reported) 01/09/2022, Shingrix (Recombinant zoster vaccine) 09/20/2021 TD (STATE SUPPLIED FOR ADULT S AND CHILDREN) 05/21/2021 Tdap 01/15/2023,04/24/2018 Zostavax (Patient Reported) 09/24/2015, 3 Family History Medical History Relation Name Comments Stroke Father Diabetes Mother Cancer- other, CAD Relation Name Status Comments Brother 1 Alive [...] Sign Reading Time Taken Comments Blood Pressure 115/60 06/25/2024 1:07 PM EDT Pulse 59 06/25/2024 1:07 PM EDT Temperature 36.1 ??C (97 ??F) 06/05/2024 8:55 AM EDT Respiratory Rate 16 06/05/2024 8:55 AM EDT Oxygen Saturation 97% 06/25/2024 1:07 PM EDT Inhaled Oxygen Concentration - - Weight 98.4 kg (217 lb) 07/15/2024 8:11 AM EDT Height 175.3 cm (5' 9 ) 07/15/2024 8:11 AM EDT Body Mass Index 32.05 07/15/2024 8:11 AM EDT Plan of Treatment Health Maintenance Due Date Last Done Comments DIABETES: ANNUAL EYE EXAM 06/19/20242022 (External Completion of test per patient (Patient reports normal results)), 03/01/2022 (External Completion), 07/27/2020 (External Completion), Additional history exists Covid-19 Vaccine ( season) 2024 06/04/2024, 06/26/2023, 01/23/2023, Additional history exists DIABETES: ANNUAL FOOT EXAM 08/07/202408/07 (Completed), 06/29/2022 (External Completion), 07/27/2020 (Completed), Additional history exists DIABETES: BLOOD SUGAR CONTRO L TEST (HGBA1C) 09/04/2024 06/05/2024, 02/29/2024, 12/03/2023, Additional history exists BMI CHECK/ADVISE 09/24/2024 06/05/2024 (Com pleted), 08/31/2023, 08/07/2023, Additional history exists DIABETES: ANNUAL URINE PROTE IN TEST (MICROALBUMIN) 12/02/2024 12/03/2023, 01/01/2023, 11/28/2021, Additional history exists DIABETES/HEART DISEASE: EDITH MORTON CHOLESTEROL (LDL) 02/28/2025 02/29/2024, 01/01/2023, 09/01/2022, Additional history exists DTAP/TDAP/TD (4 - Td or Tdap) 01/15/2033, 05/21/2021, 04/24/2018 PNEUMOCOCCAL VACCINE Completed 06/19/2017, 01/31/20 13 SHINGLES VACCINE Completed 01/09/2022, , 08/24/2021 INFLUENZA Completed 06/02/2024, 05/26, 06/15/2022, Additional history exists Care Teams Palliative Care Nurse Relationship Specialty Start Date End Date Tammy Mooney MD [address] [place] [address] PCP - General Internal Medicine 11/22/22 Pari Dawkins MD Internal Medicine 12/27/18 Abiodun Nichols MD Finish Specialist Cardiovascular Disease 01/14/21 Lisa Patel MD [address] [address] Surgeon Neurosurgery 08/01/23 Adri Polk PA-C [address] [address] Specialist Neurosurgery 08/01/23 Nj Steele PA-C [address] [address] Specialist Neurosurgery 08/01/23 Shu Styles NP [address] [address] Cardiology 09/27/23
--- OUTSIDE RECORDS SUMMARY | 2024-11-20 10:33 | XMS_ITS | Encounter Summary ---
Author Organization [facility] [employer] [facility] Address [address] [place] [address] Care Team Providers Care Wastewater Plant Civil Engineer Name Role Phone Pari Dawkins MD Primary Care Provider U navailable Pari Dawkins MD Unavailable Unavail able Abiodun Nichols MD Unavailable Charissa Bonilla NP Unavailable Unavailab Tl Chavis MD Primary Care Provider [phone] Tammy Mooney MD Primary Care Provider + Lisa Patel MD Unavailable [phone] Adri PolkC Unavailable [phone] Nj Steele PA-C Unavailable Shu Styles BRASS BUFFER Unavailable Encounter Details Date Type Department Care Team Description 05/01/2022 Pt. Non Urgent Medical Question Adult Medicine [facility] [address] [place] [address] Pari Dawkins MD Social History Tobacco Use [...] suspected to have Coronavirus/COVID-19? No / Unsure 04/18/2022 2:58 PM EDT documented as of this encounter Miscellaneous Notes * Telephone Encounter - Lexie Corrales M.A. - 05/01/2022 4:11 PM EDTFrom: Slava Ramirez To: David Villafana Sent: 05/01/2022 4:06 PM EDT Subject: Eyecare Last visit for diabetes checkup with Dr Gomez was on 03/01/22 documented in this encounter Plan of Treatment Not on file documented as of this encounter Visit Diagnoses Not on filedocumented in this encounter Care Teams Wastewater Plant Civil Engineer Relationship Specialty Start Date End Date Pari Dawkins MD PCP - General 12/27/18 07/23/22 Tl Stevens MD PCP - General Internal Medicine 07/24/22 11/21/22 Tammy Mooney MD [address] [place] [address] PCP - General Internal Medicine 11/22/22 Pari Dawkins MD Internal Medicine 12/27/18 Abiodun Nichols MD Assistant Kitchen Manager Cardiovascular Disease 01/14/21 Charissa Bonilla NP Nurse Practitioner Cardiology 07/29/21 Lisa Patel MD [address] [address] Surgeon Neurosurgery 08/01/23 Adri Polk PA-C [address] [address] Specialist Neurosurgery 08/01/23 Nj Steele PA-C [address] [address] Specialist Neurosurgery 08/01/23 Shu Styles, ENIO [address] [facility] [address] [place] [address] Cardiology 09/27/23 documented as of this encounter
--- OUTSIDE RECORDS SUMMARY | 2024-11-20 10:33 | XMS_ITS | Encounter Summary ---
Author Organization [facility] [employer] [facility] Address [address] [place] [address] Care Team Providers Care Breaker Up Name Role Phone Pari Dawkins MD Primary Care Provider U [facility] Pari Dawkins MD Unavailable Unavail able Abiodun Nichols MD Unavailable Charissa Bonilla NP Unavailable Unavailab Tl Chavis MD Primary Care Provider [phone] Tammy Mooney MD Primary Care Provider + Lisa Patel MD Unavailable [phone] Adri Polk PA-C Unavailable [phone] Nj Steele PA-C Unavailable Shu Styles SHELL PRESS OPERATOR Unavailable [phone] Encounter Details Date Type Department Care Team Description 03/25/2022 Pt. Non Urgent Medical Question Adult Medicine [facility] [address] [place] [address] Korey Solorazno PA-C Social History Tobacco Use Types Packs/Day [...] Telephone Encounter - Manju Astorga M.A. - 03/28/2022 8:26 AM EDTFrom: Slava Ramriez To: Mya Solorzano Sent: 03/25/2022 4:08 PM EDT Subject: Reschedule March 30 I need to reschedule our March 30 appt. What's available next? I have a yearly appt with my GP, Dr Villafana on April 03. Can this be rolled into that appt? documented in this encounter Plan of Treatment Not on file documented as of this encounter Visit Diagnoses Not on filedocumented in this encounter Care Teams Breaker Up Relationship Specialty Start Date End Date Pari Dawkins MD PCP - General 12/27/18 07/23/22 Tl Stevens MD PCP - General Internal Medicine 07/24/22 11/21/22 Tammy Mooney MD [address] [place] [address] PCP - General Internal Medicine 11/22/22 Pari Dawkins MD Internal Medicine 12/27/18 Abiodun Nichols MD Factory Clerk Cardiovascular Disease 01/14/21 Charissa Bonilla NP Nurse Practitioner Cardiology 07/29/21 Lisa Patel MD [address] [address] Surgeon Neurosurgery 08/01/23 Adri Polk PA-C [address] [address] Specialist Neurosurgery 08/01/23 Nj Steele PA-C [address] [address] Specialist Neurosurgery 08/01/23 Shu Styles NP [address] [address] Cardiology 09/27/23 documented as of this encounter
--- OUTSIDE RECORDS SUMMARY | 2024-11-20 10:33 | XMS_ITS | Encounter Summary ---
Author Organization [facility] Address [address] [place] [address] Care Team Providers Care Layout Operator Name Role Phone Pari Dawkins MD Primary Care Provider U navailable aPri Dawkins MD Unavailable Unavail able Abiodun Nichols MD Unavailable Charissa Bonlila NP Unavailable Unavailab Tl Chavis MD Primary Care Provider [phone] Tammy Mooney MD Primary Care Provider + Lisa Patel MD Unavailable [phone] Adri Polk-C Unavailable Nj Steele PA-C Unavailable Shu Styles LOCKSTITCH COLLAR SETTER Unavailable [phone] Encounter Details Date Type Department Care Team Description 06/16/2022 Pt. Non Urgent Medical Question Adult Medicine [facility] [address] [place] [address] Pari Dawkins MD Social History Tobacco Use [...] Telephone Encounter - Lexie Corrales M.A. - 06/16/2022 1:11 PM EDTFrom: Slava Ramirez To: David Villafana Sent: 06/16/2022 1:11 PM EDT Subject: Update SHot info Please update my shots information Received the High Dose Flu Vacc on 06/15 Received the latest Pfizer Covid Booster on 06/16 documented in this encounter Plan of Treatment Not on file documented as of this encounter Visit Diagnoses Not on filedocumented in this encounter Care Teams Layout Operator Relationship Specialty Start Date End Date Pari Dawkins MD PCP - General 12/27/18 07/23/22 Tl Stevens MD PCP - General Internal Medicine 07/24/22 11/21/22 Tammy Mooney MD [address] [place] [address] PCP - General Internal Medicine 11/22/22 Pari Dawkins MD Internal Medicine 12/27/18 Abiodun Nichols MD Director Enterprise Data Architecture Cardiovascular Disease 01/14/21 Charissa Bonilla NP Nurse Practitioner Cardiology 07/29/21 Lisa Patel MD [address] [address] Surgeon Neurosurgery 08/01/23 Adri Polk PA-C [address] [address] Specialist Neurosurgery 08/01/23 Nj Steele PA-C [address] [address] Specialist Neurosurgery 08/01/23 Shu Styles NP 175 [facility] [address] [place] [address] Cardiology 09/27/23 documented as of this encounter
--- OUTSIDE RECORDS SUMMARY | 2024-11-20 10:33 | XMS_ITS | Encounter Summary ---
Author Organization [facility] Address [address] [place] [address] Care Team Providers Care Scout Executive Name Role Phone Pari Dawkins MD Unavailable Unavail able Abiodun Nichols MD Unavailable Tammy Mooney MD Primary Care Provider + Lisa Patel MD Unavailable [phone] Adri Polk PA-C Unavailable Nj Steele PA-C Unavailable Shu Styles NP Unavailable [phone] Encounter Details Date Type Department Care Team Description 08/23/2023 Wick And Base Assembler Report Medical Records [address] [place] [address] Kai Mroeno PA-C Social History Tobacco Use Types Packs/Day [...] suspected to have Coronavirus/COVID-19? No / Unsure 08/07/2023 8:37 AM EST documented as of this encounter Plan of Treatment Not on file documented as of this encounter Visit Diagnoses Not on filedocumented in this encounter Care Teams Scout Executive Relationship Specialty Start Date End Date Tammy Mooney MD [address] [place] [address] PCP - General Internal Medicine 11/22/22 Pari Dawkins MD Internal Medicine 12/27/18 Abiodun Nichols MD Filter Screen Cleaner Cardiovascular Disease 01/14/21 Lisa Patel MD [address] [address] Surgeon Neurosurgery 08/01/23 Adri Polk PA-C [address] [address] Specialist Neurosurgery 08/01/23 Nj Steele PA-C [address] [address] Specialist Neurosurgery 08/01/23 Shu Styles NP [address] [address] Cardiology 09/27/23 documented as of this encounter
--- OUTSIDE RECORDS SUMMARY | 2024-11-20 10:33 | XMS_ITS | Encounter Summary ---
Author Organization [facility] Address [address] [place] [address] Care Team Providers Care Risk Professional Name Role Phone Pari Dawkins MD Primary Care Provider [facility] Pari Dawkins MD Unavailable Unavail able Abiodun Nichols MD Unavailable Charissa Bonilla NP Unavailable Unavailab Tl Chavis MD Primary Care Provider [phone] Tammy Mooney MD Primary Care Provider + Lisa Patel MD Unavailable [phone] Adri PolkC Unavailable [phone] Nj SteeleC Unavailable [phone] Shu Styles NP Unavailable [phone] Encounter Details Date Type Department Care Team Description 07/01/2021 Senior Geologist Report Medical Records [address] [place] [address] Maulik Head MD Social History Tobacco Use Types Packs/Day [...] on filedocumented in this encounter Care Teams Risk Professional Relationship Specialty Start Date End Date Pari Dawkins MD PCP - General 12/27/18 07/23/22 Tl Stevens MD PCP - General Internal Medicine 07/24/22 11/21/22 Tammy Mooney MD [address] [place] [address] PCP - General Internal Medicine 11/22/22 Pari Dawkins MD Internal Medicine 12/27/18 Abiodun Nichols MD Call Specialist Cardiovascular Disease 01/14/21 Charissa Bonilla NP Nurse Practitioner Cardiology 07/29/21 Lisa Patel MD [address] [address] Surgeon Neurosurgery 08/01/23 Adri Polk PA-C [address] [address] Specialist Neurosurgery 08/01/23 Nj Steele PA-C [address] [address] Specialist Neurosurgery 08/01/23 Shu Styles NP [address] [address] Cardiology 09/27/23 documented as of this encounter
--- OUTSIDE RECORDS SUMMARY | 2024-11-20 10:33 | XMS_ITS | Encounter Summary ---
Author Organization [facility] Address [address] [place] [address] Care Team Providers Care Launch Operator Name Role Phone Pari Dawkins MD Primary Care Provider [facility] Pari Dawkins MD Unavailable Unavail able Abiodun Nichols MD Unavailable Charissa Bonilla NP Unavailable Unavailab Tl Chavis MD Primary Care Provider [phone] Tammy Mooney MD Primary Care Provider + Lisa Patel MD Unavailable [phone] Adri PolkC Unavailable [phone] Nj SteeleC Unavailable Shu Styles NP Unavailable [phone] Encounter Details Date Type Department Care Team Description 07/12/2021 Polygraph Examiner Report Medical Records [address] [place] [address] Maulik Head MD Social History Tobacco Use [...] have Coronavirus / COVID-19? No / Unsure 07/12/2021 11:14 AM EDT documented as of this encounter Plan of Treatment Not on file documented as of this encounter Visit Diagnoses Not on filedocumented in this encounter Care Teams Launch Operator Relationship Specialty Start Date End Date Pari Dawkins MD PCP - General 12/27/18 07/23/22 Tl Stevens MD PCP - General Internal Medicine 07/24/22 11/21/22 Tammy Mooney MD [address] [place] [address] PCP - General Internal Medicine 11/22/22 Pari Dawkins MD Internal Medicine 12/27/18 Abiodun Nichols MD Retread Builder Cardiovascular Disease 01/14/21 Charissa Bonilla NP Nurse Practitioner Cardiology 07/29/21 Lisa Patel MD [address] [address] Surgeon Neurosurgery 08/01/23 Adri Polk PA-C [address] [address] Specialist Neurosurgery 08/01/23 Nj Steele PA-C [address] [address] Specialist Neurosurgery 08/01/23 Shu Styles NP [address] [address] Cardiology 09/27/23 documented as of this encounter
--- OUTSIDE RECORDS SUMMARY | 2024-11-20 10:33 | XMS_ITS | Encounter Summary ---
Author Organization [employer] [facility] Address [address] [place] [address] Care Team Providers Care Yard Hand Name Role Phone Pari Dawkins MD Unavailable Unavail able Abiodun Nichols MD Unavailable Tammy Mooney MD Primary Care Provider + Lisa Patel MD Unavailable [phone] Adri Polk PA-C Unavailable [phone] Nj SteeleC Unavailable Shu Styles NP Unavailable Encounter Details Date Type Department Care Team Description 07/26/2023 Orders Only Medical Records [address] [place] [address] Yobany Snider DO Social History Tobacco Use [...] suspected to have Coronavirus/COVID-19? No / Unsure 07/12/2023 8:18 AM EDT documented as of this encounter Plan of Treatment Not on file documented as of this encounter Procedures Procedure Name Priority Date/Time Associated Diagnosis Comments OUTSIDE MRI/MRA Routine 05/15/2023 documented in this encounter Results * OUTSIDE MRI/MRA (05/15/2023) Yobany Snider RADIOLOGY documented in this encounter Visit Diagnoses Not on filedocumented in this encounter Care Teams Yard Hand Relationship Specialty Start Date End Date Tammy Mooney MD [address] [place] [address] PCP - General Internal Medicine 11/22/22 Pari Dawkins MD Internal Medicine 12/27/18 Abiodun Nichols MD Government Relations Manager Cardiovascular Disease 01/14/21 Lisa Patel MD [address] [address] Surgeon Neurosurgery 08/01/23 Adri Polk PA-C [address] [address] Specialist Neurosurgery 08/01/23 Nj Steele PA-C [address] [address] Specialist Neurosurgery 08/01/23 Shu Styles NP [address] [address] Cardiology 09/27/23 documented as of this encounter
--- OUTSIDE RECORDS SUMMARY | 2024-11-20 10:33 | XMS_ITS | Encounter Summary ---
Author Organization [facility] Address [address] [place] [address] Care Team Providers Care Top Icer Name Role Phone Pari Dawkins MD Primary Care Provider [facility] Pari Dawkins MD Unavailable Unavail able Abiodun Nichols MD Unavailable Charissa Bonilla NP Unavailable Unavailab Tl Chavis MD Primary Care Provider Tammy Mooney MD Primary Care Provider + Lisa Patel MD Unavailable [phone] Adri Polk PA-C Unavailable Nj Steele PA-C Unavailable Shu Styles HYDRAULIC TESTER Unavailable [phone] Reason for Visit * Reason Onset Date Comments Anticoagulation 05/08/2022 Colonoscopy 07/25 Dr Nj @ [facility] Encounter Details Date Type Department Care Team Description 05/08/2022 Telephone Gastroenterology - [address] [place] [address] Reginaldo Nj MD [address] [place] [address] [id number] Anticoagulation (Colonoscopy 08/11/2022 Dr Nj @ [facility]) Social History Tobacco Use Types Packs/Day Years [...] encounter Miscellaneous Notes * Telephone Encounter - Rozina RainesP.N. - 06/21/2022 8:54 AM EDT 06/21/2022 Called patient @ [phone]. Message left & letter mailed./dg * Telephone Encounter - Mica Virgen PA-C - 06/20/2022 4:42 PM EDT Yes he can hold eliquis * Telephone Encounter - Rozina RainesP.N. - 05/08/2022 3:58 PM EDT Patient scheduled for colonoscopy Sunday08/11/[address]j @ [facility]. Patient is on Eliquis. M. O'Tool, Please determine if this patient can hold his Eliquis for 2 days prior to his colonoscopy. Please advise. Thanks./dg documented in this encounter Plan of Treatment Not on file documented as of this encounter Visit Diagnoses Not on filedocumented in this encounter Care Teams Top Icer Relationship Specialty Start Date End Date Pari Dawkins MD PCP - General 12/27/18 07/23/22 Tl Stevens MD PCP - General Internal Medicine 07/24/22 11/21/22 Tammy Mooney MD [address] [place] [address] PCP - General Internal Medicine 11/22/22 Pari Dawkins MD Internal Medicine 12/27/18 Abiodun Nichols MD Emergency Management Specialist Cardiovascular Disease 01/14/21 Charissa Bonilla NP Nurse Practitioner Cardiology 07/29/21 Lisa Patel MD [address] [address] Surgeon Neurosurgery 08/01/23 Adri Polk PA-C [address] [address] Specialist Neurosurgery 08/01/23 Nj Steele PA-C [address] [address] Specialist Neurosurgery 08/01/23 Shu Sytles NP [address] [address] Cardiology 09/27/23 documented as of this encounter
--- OUTSIDE RECORDS SUMMARY | 2024-11-20 10:33 | XMS_ITS | Encounter Summary ---
Author Organization [facility] Address [address] [place] [address] Care Team Providers Care Converter Supervisor Name Role Phone Pari Dawkins MD Unavailable Unavail able Abiodun Nichols MD Unavailable Charissa Bonilla NP Unavailable Unavailab Tl Chavis MD Primary Care Provider Tammy Mooney MD Primary Care Provider + Lisa Patel MD Unavailable [phone] Adri Polk PA-C Unavailable [phone] Nj Steele PA-C Unavailable [phone] Shu Styles INSPECTOR MOTOR VEHICLES Unavailable Encounter Details Date Type Department Care Team Description 08/16/2022 Orders Only Medical Records [address] [place] [address] Reginaldo Nj MD [address] [place] [address] Social History Tobacco Use Types Packs/Day Years [...] was confirmed or suspected to have Coronavirus/COVID-19? Unable to assess 08/03/2022 10: 37 AM EST documented as of this encounter Progress Notes * Izabella Nj MD - 08/17/2022 2:16 PM EST Dear David, The polyp(s) that were removed during your colonoscopy were precancerous, but benign. Fortunately, we removed them and therefore, they will not cause any more problems in the future. Based on the number, the size, and the features of the polyp(s) removed, I no longer recommend a follow-up colonoscopy unless you have issues in the future. I would like to personally thank you for allowing us to take care of you. Please don't hesitate to call us for any questions or concerns. Regards, Harman Nj MD Board Certified Gastroenterology and Internal Medicine Transplant Hepatology [facility] documented in this encounter Plan of Treatment Not on file documented as of this encounter Procedures Procedure Name Priority Date/Time Associated Diagnosis Comments OUTSIDE PATHOLOGY Routine 08/11/2022 documented in this encounter Results * OUTSIDE PATHOLOGY (08/11/2022) Reginaldo Nj MD OUTSIDE LAB documented in this encounter Visit Diagnoses Not on filedocumented in this encounter Care Teams Converter Supervisor Relationship Specialty Start Date End Date Tl Stevens MD PCP - General Internal Medicine 07/24/22 11/21/22 Tammy Mooney MD [address] [place] [address] PCP - General Internal Medicine 11/22/22 Pari Dawkins MD Internal Medicine 12/27/18 Abiodun Nichols MD Trimmer Meat Cardiovascular Disease 01/14/21 Charissa Bonilla NP Nurse Practitioner Cardiology 07/29/21 Lisa Patel MD [address] [address] Surgeon Neurosurgery 08/01/23 Adri Polk PA-C [address] [address] Specialist Neurosurgery 08/01/23 Nj Steele PA-C [address] [address] Specialist Neurosurgery 08/01/23 Shu Styles NP [address] [address] Cardiology 09/27/23 documented as of this encounter
--- OUTSIDE RECORDS SUMMARY | 2024-11-20 10:33 | XMS_ITS | Encounter Summary ---
Author Organization [facility] Address [address] [place] [address] Care Team Providers Care Silk Screen Printer Helper Name Role Phone Pari Dawkins MD Unavailable Unavail able Abiodun Nichols MD Unavailable Tammy Mooney MD Primary Care Provider + Lisa Patel MD Unavailable [phone] Adri Polk PA-C Unavailable Nj Steele PA-C Unavailable Shu Styles NP Unavailable [phone] Encounter Details Date Type Department Care Team Description 07/18/2024 Control Systems Developer Report Medical Records [address] [place] [address] Kai Moreno PA-C Social History Tobacco Use [...] on filedocumented in this encounter Care Teams Silk Screen Printer Helper Relationship Specialty Start Date End Date Tammy Mooney MD [address] [place] [address] [phone] PCP - General Internal Medicine 11/22/22 Pari Dawkins MD Internal Medicine 12/27/18 Abiodun Nichols MD Bellows Assembler Cardiovascular Disease 01/14/21 Lisa Patel MD [address] [address] Surgeon Neurosurgery 08/01/23 Adri Polk PA-C [address] [address] Specialist Neurosurgery 08/01/23 Nj Steele PA-C [address] [address] Specialist Neurosurgery 08/01/23 Shu Styles NP [address] [address] Cardiology 09/27/23 documented as of this encounter
--- OUTSIDE RECORDS SUMMARY | 2024-11-20 10:33 | XMS_ITS | Encounter Summary ---
Author Organization [facility] [employer] [facility] Address [address] [place] [address] Care Team Providers Care Ginseng Farmer Name Role Phone Pari Dawkins MD Unavailable Unavail able Abiodun Nichols MD Unavailable Tammy Mooney MD Primary Care Provider + Lisa Patel MD Unavailable [phone] Adri Polk PA-C Unavailable jN Steele PA-C Unavailable Shu Styles NP Unavailable Reason for Visit * Reason Onset Date Comments Medical Records 06/26/2023 Encounter Details Date Type Department Care Team Description 06/26/2023 Pt. Non Urgent Medical Question Adult Medicine [address] [id number] Tammy Mooney MD [address] [place] [address] [id number] Social History Tobacco Use Types Packs/Day Years [...] suspected to have Coronavirus/COVID-19? No / Unsure 06/28/2023 11:31 AM EDT documented as of this encounter Miscellaneous Notes * Telephone Encounter - Kayleigh Webster M.A. - 06/26/2023 12:18 PM EDTFrom: Slava Ramirez To: Pedro Mooney Sent: 06/26/2023 12:14 PM EDT Subject: Please Update my record Saw my Eye 06/19 (Patricia) Flu shot 06/21 Covid & RSV 06/26 documented in this encounter Plan of Treatment Not on file documented as of this encounter Visit Diagnoses Not on filedocumented in this encounter Care Teams Ginseng Farmer Relationship Specialty Start Date End Date Tammy Mooney MD [address] [place] [address] PCP - General Internal Medicine 11/22/22 Pari Dawkins MD Internal Medicine 12/27/18 Abiodun Nichols MD Digital Sales Executive Cardiovascular Disease 01/14/21 Lisa Patel MD [address] [address] Surgeon Neurosurgery 08/01/23 Adri Polk PA-C [address] [address] Specialist Neurosurgery 08/01/23 Nj Steele PA-C [address] [address] Specialist Neurosurgery 08/01/23 Shu Styles NP [address] [address] Cardiology 09/27/23 documented as of this encounter
--- OUTSIDE RECORDS SUMMARY | 2024-11-20 10:33 | XMS_ITS | Encounter Summary ---
Author Organization [facility] [employer] [facility] Address [address] [place] [address] Care Team Providers Care Donor Services Coordinator Name Role Phone Pari Dawkins MD Primary Care Provider U navailable Pari Dawkins MD Unavailable Unavail able Abiodun Nichols MD Unavailable Charissa Bonilla NP Unavailable Unavailab Tl Chavis MD Primary Care Provider [phone] Tammy Mooney MD Primary Care Provider + Lisa Patel MD Unavailable [phone] Adri Polk-C Unavailable Nj Steele PA-C Unavailable Shu Styles STAFF FORESTER Unavailable Encounter Details Date Type Department Care Team Description 07/08/2022 Pt. Non Urgent Medical Question Adult Medicine [facility] [address] [place] [address] Pari Dawkins MD Social History Tobacco Use [...] suspected to have Coronavirus/COVID-19? No / Unsure 07/06/2022 10:26 AM EDT documented as of this encounter Miscellaneous Notes * Telephone Encounter - Manju Astorga M.A. - 07/10/2022 8:52 AM EDTFrom: Slava Ramirez To: David Villafana Sent: 07/08/2022 9:04 AM EDT Subject: Electrocardiogram? I see a note on my record of... ELECTROCARDIOGRAM, COMPLETE (ECG) 1 of 1 Expires on Jul 21, 2022 What do I need to do? documented in this encounter Plan of Treatment Not on file documented as of this encounter Visit Diagnoses Not on filedocumented in this encounter Care Teams Donor Services Coordinator Relationship Specialty Start Date End Date Pari Dawkins MD PCP - General 12/27/18 07/23/22 Tl Stevens MD PCP - General Internal Medicine 07/24/22 11/21/22 Tammy Mooney MD [address] [place] [address] PCP - General Internal Medicine 11/22/22 Pari Dawkins MD Internal Medicine 12/27/18 Abiodun Nichols MD Hardware Installation Coordinator Cardiovascular Disease 01/14/21 Charissa Bonilla NP Nurse Practitioner Cardiology 07/29/21 Lisa Patel MD [address] [address] Surgeon Neurosurgery 08/01/23 Adri Polk PA-C [address] [address] Specialist Neurosurgery 08/01/23 Nj Steele PA-C [address] [address] Specialist Neurosurgery 08/01/23 Shu Styles NP 175 [facility] [address] [place] [address] Cardiology 09/27/23 documented as of this encounter
--- OUTSIDE RECORDS SUMMARY | 2024-11-20 10:33 | XMS_ITS | Encounter Summary ---
Author Organization [facility] [employer] [facility] Address [address] [place] [address] Care Team Providers Care Tire Buffer Name Role Phone Pari Dawkins MD Primary Care Provider [facility] Pari Dawkins MD Unavailable Unavail able Abiodun Nichols MD Unavailable Charissa Bonilla NP Unavailable Unavailab Tl Chavis MD Primary Care Provider [phone] Tammy Mooney MD Primary Care Provider + Lisa Patel MD Unavailable [phone] Adri Polk PA-C Unavailable [phone] Nj Steele PATannaC Unavailable Shu Styles NP Unavailable [phone] Encounter Details Date Type Department Care Team Description 05/01/2022 Pt. Non Urgent Medic al Question Cardio [facility] [address] [facility] [address] [place] [address] Charissa Bonilla NP Social History Tobacco Use [...] on filedocumented in this encounter Care Teams Tire Buffer Relationship Specialty Start Date End Date Pari Dawkins MD PCP - General 12/27/18 07/23/22 Tl Stevens MD PCP - General Internal Medicine 07/24/22 11/21/22 Tammy Mooney MD [address] [place] [address] PCP - General Internal Medicine 11/22/22 Pari Dawkins MD Internal Medicine 12/27/18 Abiodun Nichols MD Office Administration Cardiovascular Disease 01/14/21 Charissa Bonilla NP Nurse Practitioner Cardiology 07/29/21 Lisa Patel MD [address] [address] Surgeon Neurosurgery 08/01/23 Adri Polk PA-C [address] [address] Specialist Neurosurgery 08/01/23 Nj Steele PA-C [address] [address] Specialist Neurosurgery 08/01/23 Shu Styles NP [address] [address] Cardiology 09/27/23 documented as of this encounter
--- OUTSIDE RECORDS SUMMARY | 2024-11-20 10:33 | XMS_ITS | Encounter Summary ---
Author Organization [facility] Address [address] [place] [address] Care Team Providers Care Clean Up Supervisor Name Role Phone Tammy Mooney MD Primary Care Pr ovider Encounter Details Date Type Department Care Team (Late Contact Info) Description 08/13/2024 Lab Requisition [facility] - Main Lab [address] [facility] [place] [address] Aden Stevens MD [address] [facility] 103 [place] [phone] Personal history of malignant neoplasm of prostate [...] 8:15 AM EST Appointment Radiology Department - [address] [phone] 12/29/2024 9:00 AM EDT Consult General Surgery - [address] 110 [place] [phone] Alejandro Casas MD 175 [facility] 110 [place] [address] 01/15/2025 8:15 AM EDT Office Visit Orthopedic Surgery - [place] [address] 175 [facility] 250 [place] [address] Abdoul Chavez, DPM [address] [address] 01/15/2025 9:45 AM EDT Office Visit Endocrinology [address] [phone] Lacey Bey MD [address] [place] [address] 02/03/2025 8:30 AM EDT Office Visit Adult Medicine [address] [phone] Lena Sorto PA [address] [place] [address] 06/02/2025 9:10 AM EDT Office Visit [facility] 102 300 [facility] 102 [place] [address] Shu Styles NP 300 [facility] 102 [place] [address] documented as of this encounter Procedures Procedure Name Priority Date/Time Associated Diagnosis Comments PSA TOTAL, FREE AND COMPLEXED, DIAGNOSTIC Routine 08/13/2024 10:27 AM EST Personal history of malignant neoplasm of prostate documented in this encounter Results * PSA total, free and complexed (08/13/2024 10:27 AM EST) PSA <0.06 0.00 - 4.00 ng/mL LAB CHEMISTRY METHOD 08/14/2024 9:37 PM [facility] PSA, Complexed <0.07 0.00 - 3.00 ng/mL LAB CHEMISTRY METHOD 08/14/2024 9:37 PM [facility] PSA, Free LAB CHEMISTRY METHOD 08/14/2024 9:37 PM [facility] PSA, Free Pct LAB CHEMISTRY METHOD 08/14/2024 9:37 PM [facility] Blood Venous blood specimen [...] MD LAB BLOOD ORDERABLES Final Resul t [facility] [address] [place] [address], documented in this encounter Visit Diagnoses Diagnosis Personal history of malignant neoplasm of prostate documented in this encounter Care Teams Clean Up Supervisor Relationship Specialty Start Date End Date Tammy Mooney MD [address] [place] [address] PCP - General Internal Medicine 09/04/24 documented as of this encounter
--- OUTSIDE RECORDS SUMMARY | 2024-11-20 10:33 | XMS_ITS | Encounter Summary ---
Author Organization [facility] [employer] [facility] Address [address] [place] [address] Care Team Providers Care Senior Research Consultant Name Role Phone Pari Dawkins MD Primary Care Provider [facility] Pari Dawkins MD Unavailable Unavail able Abiodun Nichols MD Unavailable Charissa Bonilla NP Unavailable Unavailab lT Chavis MD Primary Care Provider [phone] Tammy Mooney MD Primary Care Provider + Lisa Patel MD Unavailable [phone] Adri PolkC Unavailable Nj Steele PATannaC Unavailable Shu Styles CAD DRAFTER Unavailable [phone] Encounter Details Date Type Department Care Team Description 11/29/2020 Pt. Non Urgent Medical Question Adult Medicine [facility] [place] [address] [place] [address] Pari Dawkins MD Social History Tobacco Use [...] have Coronavirus / COVID-19? No / Unsure 12/01/2020 9:21 AM EST documented as of this encounter Miscellaneous Notes * Telephone Encounter - Lexie Corrales M.A. - 11/29/2020 9:30 AM ESTFrom: Slava Ramirez To: Pari Villafana MD Sent: 11/29/2020 9:28 AM EST Subject: Diabetic Notes to carly TREVIZO? Could you please send your notes on my diabetic situation so I can get covered for ortho insets andshoes? [employer] [phone] [employer] Thanks documented in this encounter Plan of Treatment Not on file documented as of this encounter Visit Diagnoses Not on filedocumented in this encounter Care Teams Senior Research Consultant Relationship Specialty Start Date End Date Pari Dawkins MD PCP - General 12/27/18 07/23/22 Tl Stevens MD PCP - General Internal Medicine 07/24/22 11/21/22 Tammy Mooney MD [address] [place] [address] PCP - General Internal Medicine 11/22/22 Pari Dawkins MD Internal Medicine 12/27/18 Abiodun Nichols MD Off Track Betting Manager Cardiovascular Disease 01/14/21 Charissa Bonilla NP Nurse Practitioner Cardiology 07/29/21 Lisa Patel MD [address] [address] Surgeon Neurosurgery 08/01/23 Adri Polk PA-C [address] [address] Specialist Neurosurgery 08/01/23 Nj Steele PA-C [address] [address] Specialist Neurosurgery 08/01/23 Shu Styles NP [address] [address] Cardiology 09/27/23 documented as of this encounter
--- OUTSIDE RECORDS SUMMARY | 2024-11-20 10:33 | XMS_ITS | Encounter Summary ---
Author Organization [facility] Address [address] [place] [address] Care Team Providers Care Drawer In Plain Loom Name Role Phone Pari Dawkins MD Primary Care Provider U navailable Pari Dawkins MD Unavailable Unavail able Abiodun Nichols MD Unavailable Charissa Bonilla NP Unavailable Unavailab Tl Chavis MD Primary Care Provider [phone] Tammy Mooney MD Primary Care Provider + Lisa Patel MD Unavailable [phone] Adri PolkC Unavailable [phone] Nj Steele PA-C Unavailable Shu Styles DANCE MASTER Unavailable [phone] Encounter Details Date Type Department Care Team Description 05/02/2022 Pt. Non Urgent Medical Question Adult Medicine [facility] [address] [place] [address] Pari Dawkins MD Social History Tobacco Use [...] Telephone Encounter - Manju Astorga M.A. - 05/02/2022 12:36 PM EDTFrom: Slava Ramirez To: David Villafana Sent: 05/02/2022 12:36 PM EDT Subject: Vaccine? We are fully vaccinated with boosters but this new strain has us concerned especially since we are taking a (Bucket List and [employer] Ann[place] late [place]. We hear there is a new vaccine coming. Can we arrange to get that from you? Thanks documented in this encounter Plan of Treatment Not on file documented as of this encounter Visit Diagnoses Not on filedocumented in this encounter Care Teams Drawer In Plain Loom Relationship Specialty Start Date End Date Pari Dawkins MD PCP - General 12/27/18 07/23/22 Tl Stevens MD PCP - General Internal Medicine 07/24/22 11/21/22 Tammy Mooney MD [address] [place] [address] PCP - General Internal Medicine 11/22/22 Pari Dawkins MD Internal Medicine 12/27/18 Abiodun Nichols MD Advertising Strategist Cardiovascular Disease 01/14/21 Charissa Bonilla NP Nurse Practitioner Cardiology 07/29/21 Lisa Patel MD [address] [address] Surgeon Neurosurgery 08/01/23 Adri Polk PA-C [address] [address] Specialist Neurosurgery 08/01/23 Nj Steele PA-C 175 [facility] [address] [place] [address] Specialist Neurosurgery 08/01/23 Shu Styles NP 175 [facility] [address] [place] [address] Cardiology 09/27/23 documented as of this encounter
--- OUTSIDE RECORDS SUMMARY | 2024-11-20 10:33 | XMS_ITS | Clinical Summary ---
Author Organization [facility] Address [address] [id number] Care Team Providers Care Frame Runner Name Role Phone Tl Stevens MD Primary [...] mg total) by mouth daily. 0 Active [place]-3 Fatty Acids (Fish Oil) 1000 MG CPDR [...] age to complete this topic Care Teams Frame Runner Relationship Specialty Start Date End Date Tl Stevens MD PCP - General Internal Medicine 10/03/22
--- OUTSIDE RECORDS SUMMARY | 2024-11-20 10:33 | XMS_ITS | Encounter Summary ---
Author Organization [employer] [facility] Address [address] [place] [address] Care Team Providers Care Artificial Breast Fabricator Name Role Phone Pari Dawkins MD Primary Care Provider [facility] Pari Dawkins MD Unavailable Unavail able Abiodun Nichols MD Unavailable Charissa Bonilla NP Unavailable Unavailab Tl Chavis MD Primary Care Provider Tammy Mooney MD Primary Care Provider + Lisa Patel MD Unavailable [phone] Adri Polk PA-C Unavailable Nj Steele PA-C Unavailable [phone] Shu Styles CROP ADJUSTER Unavailable Encounter Details Date Type Department Care Team Description 09/12/2021 Telephone [facility] [employer] [facility] Medical [facility] Neurosurgery [place] 175 [facility] [address] [place] [phone] Adri Polk PA-C [address] [address] Social History Tobacco Use Types Packs/Day Years [...] on filedocumented in this encounter Care Teams Artificial Breast Fabricator Relationship Specialty Start Date End Date Pari Dawkins MD PCP - General 12/27/18 07/23/22 Tl Stevens MD PCP - General Internal Medicine 07/24/22 11/21/22 Tammy Mooney MD [address] [place] [address] PCP - General Internal Medicine 11/22/22 Pari Dawkins MD Internal Medicine 12/27/18 Abiodun Nichols MD Ink Jet Operator Cardiovascular Disease 01/14/21 Charissa Bonilla NP Nurse Practitioner Cardiology 07/29/21 Lisa Patel MD [address] [address] Surgeon Neurosurgery 08/01/23 Adri Polk PA-C [address] [address] Specialist Neurosurgery 08/01/23 Nj Steele PA-C [address] [address] Specialist Neurosurgery 08/01/23 Shu Styles NP [address] [address] Cardiology 09/27/23 documented as of this encounter
--- OUTSIDE RECORDS SUMMARY | 2024-11-20 10:33 | XMS_ITS | Encounter Summary ---
Author Organization [employer] [facility] Address [address] [place] [address] Care Team Providers Care Information Director Name Role Phone Pari Dawkins MD Unavailable Unavail able Abiodun Nichols MD Unavailable Charissa Bonilla NP Unavailable Unavailab Tl Chavis MD Primary Care Provider Tammy Mooney MD Primary Care Provider + Lisa Patel MD Unavailable [phone] Adri PolkC Unavailable [phone] Nj Steele PA-C Unavailable Shu Styles BASIN CLEANER Unavailable Encounter Details Date Type Department Care Team Description 08/28/2022 Pt. Non Urgent Medical Question Internal Medicine - [address], [address] [place] [address] Tl Stevens MD [address] [place], [place] [id number] Social History Tobacco Use Types Packs/Day Years [...] on filedocumented in this encounter Care Teams Information Director Relationship Specialty Start Date End Date Tl Stevens MD PCP - General Internal Medicine 07/24/22 11/21/22 Tammy Mooney MD [address] [place] [address] PCP - General Internal Medicine 11/22/22 Pari Dawkins MD Internal Medicine 12/27/18 Abiodun Nichols MD Golf Range Attendant Cardiovascular Disease 01/14/21 Charissa Bonilla NP Nurse Practitioner Cardiology 07/29/21 Lisa Patel MD [address] [address] Surgeon Neurosurgery 08/01/23 Adri Polk PA-C [address] [address] Specialist Neurosurgery 08/01/23 Nj Steele PA-C [address] [address] Specialist Neurosurgery 08/01/23 Shu Styles NP [address] [address] Cardiology 09/27/23 documented as of this encounter
--- OUTSIDE RECORDS SUMMARY | 2024-11-20 10:33 | XMS_ITS | Encounter Summary ---
Author Organization [facility] [employer] [facility] Address [address] [place] [address] Care Team Providers Care Victim Advocate Name Role Phone Pari Dawkins MD Primary Care Provider [facility] Pari Dawkins MD Unavailable Unavail able Abiodun Nichols MD Unavailable Charissa Bonilla NP Unavailable Unavailab Tl Chavis MD Primary Care Provider Tammy Mooney MD Primary Care Provider + Lisa Patel MD Unavailable [phone] Adri PolkC Unavailable Nj Steele PATannaC Unavailable [phone] Shu Styles GROUNDS CARETAKER Unavailable Encounter Details Date Type Department Care Team Description 07/04/2022 Orders Only Radiology - [place] [address] [place] [address] Lena Sorto PA-C [address] [place], [place] [id number] Diabetes mellitus without complication (HCC) (Primary Dx) Social History Tobacco Use Types [...] on file documented as of this encounter Results * CREATININE, BLOOD ASSAY (07/06/2022 10:26 AM EDT) CREAT 0.75 0.7 - 1.3 mg/dL 07/06/2022 3:11 PM EDT [facility] [employer] GLOMERULAR FILTRATION RATE 93 >60 07/06/2022 3:11 PM EDT [facility] [employer] Comment: This eGFR result was calculated using the CKD-EPI 2020 Creatinine Equation Effective 2021 we have implemented the CKD-EPI 2020 formula for calculating eGFR. ??This formula does not use race as a factor in the calculation. ??Please note that a change in the eGFR between the old and new calculation does not necessarily indicate a change in kidney function in the absence of changes in creatinine or clinical condition. 07/06/2022 10:2 6 AM EDT 07/06/2022 10:27 AM EDT Narrative [facility] - 07/06/2022 3:11 PM EDT Release to patient->Immediate Lena Sorto PA-C LAB [facility] documented in this encounter Visit Diagnoses Diagnosis Diabetes mellitus without complication (HCC)- Primary Type II or unspecified type diabetes mellitus without mention of complication, not stated as uncontrolled Diabetes mellitus without complication (HCC) Type II or unspecified type diabetes mellitus without mention of complication, not stated as uncontrolled documented in this encounter Care Teams Victim Advocate Relationship Specialty Start Date End Date Pari Dawkins MD PCP - General 12/27/18 07/23/22 Tl Stevens MD PCP - General Internal Medicine 07/24/22 11/21/22 Tammy Mooney MD [address] [place] [address] PCP - General Internal Medicine 11/22/22 Pari Dawkins MD Internal Medicine 12/27/18 Abiodun Nichols MD Can Tester Cardiovascular Disease 01/14/21 Charissa Bonilla NP Nurse Practitioner Cardiology 07/29/21 Lisa Patel MD [address] [address] Surgeon Neurosurgery 08/01/23 Adri Polk PA-C [address] [address] Specialist Neurosurgery 08/01/23 Nj Steele PA-C [address] [address] Specialist Neurosurgery 08/01/23 Shu Styles NP [address] [address] Cardiology 09/27/23 documented as of this encounter
--- OUTSIDE RECORDS SUMMARY | 2024-11-20 10:33 | XMS_ITS | Encounter Summary ---
Author Organization [facility] Address [address] [place] [address] Care Team Providers Care Admin Dir Name Role Phone Pari Dawkins MD Unavailable Unavail able Abiodun Nichols MD Unavailable Tammy Mooney MD Primary Care Provider + Lisa Patel MD Unavailable [phone] Adri Polk PA-C Unavailable [phone] Nj Steele PA-C Unavailable Shu Styles NP Unavailable Encounter Details Date Type Department Care Team Description 07/09/2023 Pt. Non Urgent Medical Question Adult Medicine [address] [id number] Tammy Mooney MD [address] [place] [address] [id number] Social History Tobacco Use Types Packs/Day Years [...] Miscellaneous Notes * Telephone Encounter - Patience Kirby L.P.N. - 07/09/2023 9:14 AM EDTFrom: Slava Ramirez To: Pedro Mooney Sent: 07/09/2023 9:08 AM EDT Subject: APT and shots I have an apt scheduled for Dr Vasquez on the at 830 but this site does not have that. This is a 6 mo follow up. Please let me know whats up. Also, I got my recent covid shot as well as RSV on Jul 27. I saw my eye dr for yearly diabetes check up on 05/10. Thank you documented in this encounter Plan of Treatment Not on file documented as of this encounter Visit Diagnoses Not on filedocumented in this encounter Care Teams Admin Dir Relationship Specialty Start Date End Date Tammy Mooney MD [address] [place] [address] PCP - General Internal Medicine 11/22/22 Pari Dawkins MD Internal Medicine 12/27/18 Abiodun Nichols MD Industrial Ecology Technician Cardiovascular Disease 01/14/21 Lisa Patel MD [address] [address] Surgeon Neurosurgery 08/01/23 Adri Polk PA-C [address] [address] Specialist Neurosurgery 08/01/23 Nj Steele PA-C [address] [address] Specialist Neurosurgery 08/01/23 Shu Styles NP 175 [facility] [address] [place] [address] Cardiology 09/27/23 documented as of this encounter
--- OUTSIDE RECORDS SUMMARY | 2024-11-20 10:33 | XMS_ITS | Encounter Summary ---
Author Organization [employer] [facility] Address [address] [place] [address] Care Team Providers Care Alternative Dispute Resolution Mediator Name Role Phone Pari Dawkins MD Unavailable Unavail able Abiodun Nichols MD Unavailable Charissa Bonilla NP Unavailable Unavailab Tl Chavis MD Primary Care Provider [phone] Tammy Mooney MD Primary Care Provider + Lisa Patel MD Unavailable [phone] Adri Polk PATannaC Unavailable [phone] Nj Steele PA-C Unavailable Shu Styles THREAD SPINNER Unavailable Encounter Details Date Type Department Care Team Description 08/28/2022 Orders Only Internal Medicine - [address], [address] [place] [address] Tl Stevens MD [address] [place] [address] 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); Essential hypertension Social History Tobacco [...] documented as of this encounter Results * (ABNORMAL) HEMOGLOBIN A1C (09/01/2022 8:03 AM EST) GLYCATED HEMOGLOBIN A1C 7.5(H) <6.5 % 09/01/2022 11:27 AM EST [facility] ESTIMATED AVERAGE GLUCOSE 169 mg/dL 09/01/2022 11:27 AM EST [facility] 09/01/2022 8:03 AM EST 09/01/2022 8:04 AM EST Narrative [facility] - 09/01/2022 11:27 AM EST Release to patient->Immediate Tl Stevens MD LAB Performing Organization Address [facility]/ZIP Co de Phone Number [facility] * (ABNORMAL) LIPID PROFILE (09/01/2022 8:03 AM EST) Cholesterol 123 0 - 200 mg/dL 09/01/2022 11:22 AM EST [facility] TRIGLYCERIDES 230(H) 0 - 150 mg/dL 09/01/2022 11:22 AM EST [facility] HDL CHOLESTEROL 49 >40 mg/dL 11:24 AM EST [facility] LDL CALCULATED 28 0 - 100 mg/dL 09/01/2022 11:24 AM EST [facility] TC-HDLC RATIO 2.5 0 - 4.4 mg/dL 09/01/2022 11:24 AM EST [facility] 09/01/2022 8:03 AM EST 09/01/2022 8:04 AM EST Narrative [facility] - 09/01/2022 11:24 AM EST Release to patient->Immediate Tl Stevens MD LAB [facility] * THYROID PROFILE W/TSH (09/01/2022 8:03 AM EST) TSH CASCADE 1.99 0.40 - 4.00 uIU/ml 09/01/2022 11:28 AM EST [facility] 09/01/2022 8:03 AM EST 09/01/2022 8:04 AM EST Narrative [facility] - 09/01/2022 11:28 AM EST Release to patient->Immediate Tl Stevens MD LAB [facility] * CBC (AUTO DIFF PLATELET) (09/01/2022 8:03 AM EST) WHITE BLOOD COUNT 6.4 4.8 - 10.8 x10-3/uL 09/01/2022 11:30 AM EST [facility] RED BLOOD COUNT 4.6 4.5 - 5.5 x10-6/uL 09/01/2022 11:30 AM EST [facility] Hemoglobin 14.6 13.5 - 17.5 g/dL 09/01/2022 11:30 AM EST [facility] Hematocrit 44.4 42 - 54 % 09/01/2022 11:30 AM EST [facility] MEAN CORPUSCULAR VOLUME 96.7 79 - 98 fL 09/01/2022 11:30 AM EST [facility] MEAN CORPUSCULAR HEMOGLOBIN 31.8 27 - 32 pg 09/01/2022 11:30 AM EST [facility] MEAN CORPUSCULAR HGB CONC 32.9 32 - 37 g/dL 09/01/2022 11:30 AM EST [facility] RED CELL DISTRIBUTION WIDTH 13.5 11 - 15 % 09/01/2022 11:30 AM EST [facility] PLT COUNT 271 130 - 400 x10-3/uL 09/01/2022 11:30 AM EST [facility] MEAN PLATELET VOLUME 9.9 7 - 11 fL 09/01/2022 11:30 AM EST [facility] NRBC % AUTO 0.0 <1 % 09/01/2022 11:30 AM EST [facility] NEUTROPHILS % 66.2 % 09/01/2022 11:30 AM EST [facility] LYMPH % 19.1 % 09/01/2022 11:30 AM EST [facility] MONO % 11.6 % 09/01/2022 11:30 AM EST [facility] EOS % 2.0 % 09/01/2022 11:30 AM EST [facility] BASO % 0.8 % 09/01/2022 11:30 AM EST [facility] IMMATURE GRANULOCYTES % 0.3 % 09/01/2022 11:30 AM EST [facility] NRBC # AUTO 0.00 <0.1 x10-3/uL 09/01/2022 11:30 AM EST [facility] NEUT # 4.24 1.5 - 7.0 x10-3/uL 09/01/2022 11:30 AM EST [facility] LYMPH # 1.22 1 - 5.0 x10-3/uL 09/01/2022 11:30 AM EST [facility] MONO # 0.74 0.2 - 1.0 x10-3/uL 09/01/2022 11:30 AM EST [facility] EOS # 0.13 0 - 0.5 x10-3/uL 09/01/2022 11:30 AM EST [facility] BASO # 0.05 0 - 0.2 x10-3/uL 09/01/2022 11:30 AM EST [facility] IMMATURE GRANULOCYTES # 0.02 0 - 0.03 x10-3/uL 09/01/2022 11:30 AM EST [facility] 09/01/2022 8:03 AM EST 09/01/2022 8:04 AM EST Narrative [facility] - 09/01/2022 11:30 AM EST Release to patient->Immediate Tl Stevens MD LAB [facility] * (ABNORMAL) COMPREHENSIVE METABOLIC PANEL (09/01/2022 8:03 AM EST) GLUCOSE 164(H) 70 - 100 mg/dL 09/01/2022 11:22 AM EST [facility] Comment:Reference range appl icable to fasting specimens only Blood Urea Nitrogen 13 5 - 25 mg/dL 09/01/2022 11:22 AM EST [facility] CREAT 0.85 0.7 - 1.3 mg/dL 09/01/2022 11:22 AM EST [facility] GLOMERULAR FILTRATION RATE 90 >60 09/01/2022 11:22 AM EST [facility] Comment: This eGFR result was calculated using the CKD-EPI 2020 Creatinine Equation NA 140 135 - 145 mEq/L 09/01/2022 11:22 AM EST [facility] K 4.0 3.5 - 5.5 mmol/L 09/01/2022 11:22 AM EST [facility] CL 103 96 - 110 mmol/L 09/01/2022 11:22 AM EST [facility] CARBON DIOXIDE (CO2) 29 21 - 32 mmol/L 09/01/2022 11:22 AM EST [facility] ANION GAP 8 3 - 11 09/01/2022 11:22 AM EST [facility] CALCIUM 9.6 8.5 - 10.5 mg/dL 09/01/2022 11:22 AM EST [facility] TOTAL PROTEIN (TP) 6.6 6.0 - 8.0 G/dL 09/01/2022 11:22 AM EST [facility] Albumin 3.9 3.2 - 5.0 G/dL 09/01/2022 11:22 AM EST [facility] BILIRUBIN TOTAL 1.4 0.0 - 1.4 mg/dL 09/01/2022 11:22 AM EST [facility] SGOT 20 10 - 42 U/L 09/01/2022 11:22 AM EST [facility] SGPT 43 10 - 60 U/L 09/01/2022 11:22 AM EST [facility] ALK PHOS 62 42 - 121 U/L 09/01/2022 11:22 AM EST [facility] 09/01/2022 8:03 AM EST 09/01/2022 8:04 AM EST Narrative [facility] - 09/01/2022 11:22 AM EST Release to patient->Immediate Tl Stevens MD LAB [facility] documented in this encounter Visit Diagnoses Diagnosis Type 2 diabetes mellitus with cataract (HCC)- Primary Essential hypertension Unspecified essential hypertension Type 2 diabetes mellitus with cataract (HCC) Essential hypertension Unspecified essential hypertension documented in this encounter Care Teams Alternative Dispute Resolution Mediator Relationship Specialty Start Date End Date Tl Stevens MD PCP - General Internal Medicine 07/24/22 11/21/22 Tammy Mooney MD [address] [place] [address] PCP - General Internal Medicine 11/22/22 Pari Dawkins MD Internal Medicine 12/27/18 Abiodun Nichols MD [address] Court Administrator Cardiovascular Disease 01/14/21 Charissa Bonilla NP Nurse Practitioner Cardiology 07/29/21 Lisa Patel MD [address] [address] Surgeon Neurosurgery 08/01/23 Adri Polk PA-C [address] [address] Specialist Neurosurgery 08/01/23 Nj Steele PA-C [address] [address] Specialist Neurosurgery 08/01/23 Shu Styles NP [address] [address] Cardiology 09/27/23 documented as of this encounter
--- OUTSIDE RECORDS SUMMARY | 2024-11-20 10:33 | XMS_ITS | Encounter Summary ---
Author Organization [employer] [facility] Address [address] [place] [address] Care Team Providers Care Deaf And Hard Of Hearing Teacher Name Role Phone Pari Dawkins MD Unavailable Unavail able Abiodun Nichols MD Unavailable Charissa Bonilla NP Unavailable Unavailab Tl Chavis MD Primary Care Provider Tammy Mooney MD Primary Care Provider + Lisa Patel MD Unavailable [phone] Adri Polk PA-C Unavailable Nj Steele PA-C Unavailable [phone] Shu Styles INFORMATION SECURITY Unavailable Encounter Details Date Type Department Care Team Description 07/31/2022 Pt. Non Urgent Medical Question Gastroenterology - [place] 175 [facility] [address] [place] [id number] Reginaldo Nj MD [address] [place] [address] [id number] Social History Tobacco Use Types Packs/Day Years [...] on filedocumented in this encounter Care Teams Deaf And Hard Of Hearing Teacher Relationship Specialty Start Date End Date Tl Stevens MD PCP - General Internal Medicine 07/24/22 11/21/22 Tammy Mooney MD [address] [place] [address] PCP - General Internal Medicine 11/22/22 Pari Dawkins MD Internal Medicine 12/27/18 Abiodun Nichols MD Central Processing Tech Cardiovascular Disease 01/14/21 Charissa Bonilla NP Nurse Practitioner Cardiology 07/29/21 Lisa Patel MD [address] [address] Surgeon Neurosurgery 08/01/23 Adri Polk PA-C [address] [address] Specialist Neurosurgery 08/01/23 Nj Steele PA-C [address] [address] Specialist Neurosurgery 08/01/23 Shu Styles NP [address] [address] Cardiology 09/27/23 documented as of this encounter
--- OUTSIDE RECORDS SUMMARY | 2024-11-20 10:33 | XMS_ITS | Encounter Summary ---
Author Organization [facility] [employer] [facility] Address [address] [place] [address] Care Team Providers Care Sewing Machine Repairer Name Role Phone Pari Dawkins MD Primary Care Provider U [facility] Pari Dawkins MD Unavailable Unavail able Abiodun Nichols MD Unavailable Charissa Bonilla NP Unavailable Unavailab Tl Chavis MD Primary Care Provider [phone] Tammy Mooney MD Primary Care Provider + Lisa Patel MD Unavailable [phone] Adri Polk PA-C Unavailable [phone] Nj Steele PA-C Unavailable Shu Styles DAIRY SUPPLIES SALES REPRESENTATIVE Unavailable Encounter Details Date Type Department Care Team Description 04/07/2022 Pt. Non Urgent Medical Question Adult Medicine [facility] [address] [place] [address] Korey Solorzano PA-C Social History Tobacco Use Types Packs/Day [...] Telephone Encounter - Manju Astorga M.A. - 04/10/2022 8:06 AM EDTFrom: Slava Ramirez To: Mya Solorzano Sent: 04/07/2022 6:24 PM EDT Subject: Missed appt. Sorry, Looks like I missed our appt. I had it my calendar but I thought it had been re-scheduled, as I had an appt with Dr Villafana this week and when I checked in they said it had been cancelled...for no reason, and no communication...so we re-scheduled it and that was what I had in mind. How soon can we re-schedule one with you? Nex t week? Thanks documented in this encounter Plan of Treatment Not on file documented as of this encounter Visit Diagnoses Not on filedocumented in this encounter Care Teams Sewing Machine Repairer Relationship Specialty Start Date End Date Pari Dawkins MD PCP - General 12/27/18 07/23/22 Tl Stevens MD PCP - General Internal Medicine 07/24/22 11/21/22 Tammy Mooney MD [address] [place] [address] PCP - General Internal Medicine 11/22/22 Pari Dawkins MD Internal Medicine 12/27/18 Abiodun Nichols MD Medical Advisor Cardiovascular Disease 01/14/21 Charissa Bonilla NP Nurse Practitioner Cardiology 07/29/21 Lisa Patel MD [address] [address] Surgeon Neurosurgery 08/01/23 Adri Polk PA-C [address] [address] Specialist Neurosurgery 08/01/23 Nj Steele PA-C [address] [address] Specialist Neurosurgery 08/01/23 Shu Styles, ENIO 175 [facility] [address] [place] [address] Cardiology 09/27/23 documented as of this encounter
--- OUTSIDE RECORDS SUMMARY | 2024-11-20 10:34 | XMS_ITS | Encounter Summary ---
Author Organization [facility] Address [address] [place] [address] Care Team Providers Care Family Dinner Service Specialist Name Role Phone Pari Dawkins MD Primary Care Provider U Pari Douglas MD Primary Care Provider U Pari Douglas MD Unavailable Unavail able Abiodun Nichols MD Unavailable Charissa Bonilla NP Unavailable Unavailab Tl Chavis MD Primary Care Provider [phone] Tammy Mooney MD Primary Care Provider + Lisa Patel MD Unavailable [phone] Adri PolkC Unavailable [phone] Nj Steele PATannaC Unavailable [phone] Shu Styles NP Unavailable [phone] Encounter Details Date Type Department Care Team Description 06/10/2017 Hospital Medical Records [address] [place] [address] Abstract, Provider Social History Tobacco Use Types [...] on filedocumented in this encounter Care Teams Family Dinner Service Specialist Relationship Specialty Start Date End Date Pari Dawkins MD PCP - General Internal Medicine 11/25/18 12/26/18 Pari Dawkins MD PCP - General 12/27/18 07/23/22 Tl Stevens MD PCP - General Internal Medicine 07/24/22 11/21/22 Tammy Mooney MD [address] [place] [address] PCP - General Internal Medicine 11/22/22 Pari Dawkins MD Internal Medicine 12/27/18 Abiodun Nichols MD Slurry Worker Cardiovascular Disease 01/14/21 Charissa Bonilla NP Nurse Practitioner Cardiology 07/29/21 Lisa Patel MD [address] [address] Surgeon Neurosurgery 08/01/23 Adri Polk PA-C [address] [address] Specialist Neurosurgery 08/01/23 Nj Steele PA-C [address] [address] Specialist Neurosurgery 08/01/23 Shu Styles NP [address] [address] Cardiology 09/27/23 documented as of this encounter
--- OUTSIDE RECORDS SUMMARY | 2024-11-20 10:34 | XMS_ITS | Encounter Summary ---
[facility] Address [address] [place] [address] Care Team Providers Care Buffer Machine Name Role Phone Pari Dawkins MD Primary Care Provider U Pari Douglas MD Primary Care Provider U Pari Douglas MD Unavailable Unavail able Aboidun Nichols MD Unavailable Charissa Bonilla NP Unavailable Unavailab Tl Chavis MD Primary Care Provider [phone] Tammy Mooney MD Primary Care Provider + Lisa Patel MD Unavailable [phone] Adri PolkC Unavailable [phone] Nj Steele PATannaC Unavailable [phone] Shu Styles NP Unavailable [phone] Encounter Details Date Type Department Care Team Description 10/23/2014 Hospital Medical Records [address] [place] [address] Abstract, Provider Social History Tobacco Use Types [...] on filedocumented in this encounter Care Teams Buffer Machine Relationship Specialty Start Date End Date Pari Dawkins MD PCP - General Internal Medicine 11/25/18 12/26/18 Pari Dawkins MD PCP - General 12/27/18 07/23/22 Tl Stevens MD PCP - General Internal Medicine 07/24/22 11/21/22 Tammy Mooney MD [address] [place] [address] PCP - General Internal Medicine 11/22/22 Pari Dawkins MD Internal Medicine 12/27/18 Abiodun Nichols MD Educational Program Assistant Cardiovascular Disease 01/14/21 Charissa Bonilla NP Nurse Practitioner Cardiology 07/29/21 Lisa Patel MD [address] [address] Surgeon Neurosurgery 08/01/23 Adri Polk PA-C [address] [address] Specialist Neurosurgery 08/01/23 Nj Steele PA-C [address] [address] Specialist Neurosurgery 08/01/23 Shu Styles NP [address] [address] Cardiology 09/27/23 documented as of this encounter
--- OUTSIDE RECORDS SUMMARY | 2024-11-20 10:34 | XMS_ITS | Encounter Summary ---
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, unspecified whether angina present Chest pain, unspecified type Procedures Exercise nuclear stress test with myocardial perfusion SD MYOCARDIAL PERFUSION IMAGING TOMOGRAPHIC MULTI STUDIES AT REST OR STRESS SD MYOCARDIAL PERFUSION IMAGING TOMOGRAPHIC SINGLE STUDY AT REST OR STRESS SD CARDIOVASCULAR STRESS TEST GLOBAL SD CV TMST/BIKE MAX/SUBMAX CONTINUOUS ECG MON/PHARM STRESS SUPVSR ONLY SD CV STRESS TEST/BIKE CONT ECG MON/PHARM STRESS INTERP & REPORT ONLY SD TEST STRESS CARDIOVASCULAR TRACING ONLY Abiodun Dong MD [address] [address] Phone: tel: fax: [facility] Referral ID Status Reason Start Date Expiration Date Visits Re quested Visits Authorized [id number] Closed 10/24/2024 04/22/2025 1 1 * Consultation (Urgent) - Authorized Specialty Diagnoses / Procedures Referred By Contac t Referred To Contact Cardiology Diagnoses 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 without angina pectoris Chest pain, unspecified type Tammy Mooney MD [address] [place] [address] Phone: tel: fax: Abiodun Dong MD [address] [address] Phone: tel: fax: Referral ID Status Reason Start Date Expiration Date Visits Requested Visits Authorized [id number] Authorized Specialty Services Required 10/06/2024 10/06/2025 6 6 Reason for Visit * Reason Comments Diabetes Hyperlipidemia Coronary Artery Disease Hypertension Encounter Details Date Type Department Care Team (Late st Contact Info) Description 10/06/2024 12:45 PM EST Office Visit Adult Medicine [address] [address] Tammy Mooney MD [address] [place] [address] 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 He noted some chest [...] cardiology. Will send a message to his c programmer-Dr. Dong Orders: ECG 12 lead Tracing Only; [...] Where can you learn more? Scan the Justworks code or Go to [email or web address].net/danniechart Enter X567 in the search box to learn more about High Blood Pressure: Care Instructions. Current as of: July 17, 2023 Content Version: 14.2 ?? 2023 [employer]. Care instructions adapted under license by your healthcare professional. If you have questions about a medical condition or this instruction, always ask your healthcare professional. [employer] disclaims any warranty or liability for [...] done by cardiology when he lived in [facility]. He tells me plan was for stent placement vs other intervention but when he moved to [facility] this was deferred. He has been [...] LANCET DEVICES (ONE TOUCH DELICA LANCING DEV) [facility]: Use to test blood sugar once a day . DX-E11.9. NIDDM *One Touch Ultra 2* blood sugar diagnostic (ONETOUCH ULTRA TEST [facility]) USE TO TEST [...] C antibody; Future 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, unspecified whether angina present See HPI. [...] cardiology. Will send a message to his c programmer-Dr. Dong Orders: ECG 12 lead Tracing Only; Future Ambulatory referral to Cardiology; Future losartan-hydroCHLOROthiazide (HYZAAR) 100-25 mg per tablet; Take 1 tablet by mouth 1 (one) time each day. Chest pain, unspecified type As above Orders: ECG 12 lead Tracing Only; Future Ambulatory referral to Cardiology; Future Tammy Mooney MD ADULT MEDICINE [address] Dept: [phone] Dept Date of Visit: 10/06/2024 documented in this encounter Plan of Treatment Upcoming Encounters Date Type Department Care Team (Late st Contact Info) Description 11/25/2024 8:15 AM EST Appointment Radiology Department [address] [phone] 12/29/2024 9:00 AM EDT Consult General Surgery [facility] [address] [phone] Alejandro Casas MD [address] [address] 01/15/2025 8:15 AM EDT Office Visit Orthopedic Surgery [place] [address] [address] [phone] Abdoul Chavez DPM [address] [address] 01/15/2025 9:45 AM EDT Office Visit Endocrinology - [address] [phone] Lacey Bey MD [address] [place] [address] 02/03/2025 8:30 AM EDT Office Visit Adult Medicine South - [address] [phone] Lena Sorto PA [address] [place] [address] 06/02/2025 9:10 AM EDT Office Visit [facility] [address] [place] [phone] Shu Styles NP [address] [place] [address] Scheduled Orders Name Type Priority Associated Diagnoses Orde r Schedule ECG 12 lead Tracing Only ECG Routine 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, unspecified whether angina present Chest pain, unspecified type 1 Occurrences starting 10/06/2024 until 10/06/2025 Scheduled Referrals Name Type Priority Associated Diagnoses Order Schedule Ambulatory referral to Cardiology Outpatient Referral Routine 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, unspecified whether angina present Chest pain, [...] Hepatitis C antibody (10/06/2024 1:54 PM EST) [facility] Hepatitis C Antibody Negative Negative LAB CHEMISTRY METHOD 10/06/2024 6:44 PM EST [facility] Blood Venous blood specimen / Unknown Venipuncture / Unknown 10/06/2024 1:54 PM EST 10/06/2024 1:54 PM EST Tammy Mooney MD LAB BLOOD ORDERA BLES Final Result [facility] [address] [place] [address], [place] [phone] * Activated partial thromboplastin time (10/06/2024 1:54 PM EST) [facility] aPTT 38.1 24.1 - 39.3 sec LAB COAGULATION METHOD 10/06/2024 4:51 PM EST [facility] Blood Venous blood specimen / Unknown Venipuncture / Unknown 10/06/2024 1:54 PM EST 10/06/2024 1:54 PM EST Tammy Mooney MD LAB BLOOD ORDERA BLES Final Result Performing Organization Address City/[facility]/ZIP Co de Phone Number [facility] [address] [place] [address], [place] [phone] * Von Willebrand factor activity (10/06/2024 1:54 PM EST) [facility] von Willebrand Factor Activity Percent 96 51 - 215 % 10/11/2024 1:24 PM EST [facility] Comment: REFERENCE INTERVAL: von Willebrand Factor, Activity (RCF) Access complete set of age- and/or gender-specific reference intervals for this test in the [facility] Test Directory ([employer]). Performed By: [employer] [address] [place] [address] Route Salesperson: Eric Luu MD, PhD CLIA Number: [id number] Blood Venous blood specimen / Unknown Venipuncture / Unknown 10/06/2024 1:54 PM EST 10/06/2024 1:54 PM EST Tammy Mooney MD LAB BLOOD ORDERA BLES Final Result [facility] [address] 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
--- OUTSIDE RECORDS SUMMARY | 2024-11-20 10:34 | XMS_ITS | Encounter Summary ---
Author Organization [facility] Address [address] [place] [address] Care Team Providers Care Director Of Operations For Therapy Name Role Phone Pari Dawkins MD Primary Care Provider [facility] Pari Dawkins MD Unavailable Unavail able Abiodun Nichols MD Unavailable Charissa Bonilla NP Unavailable Unavailab Tl Chavis MD Primary Care Provider [phone] Tammy Mooney MD Primary Care Provider + Lisa Patel MD Unavailable [phone] Adri PolkC Unavailable [phone] Nj Steele PATannaC Unavailable [phone] Shu Styles TUBE MOLDER FIBERGLASS Unavailable [phone] Encounter Details Date Type Department Care Team Description 07/21/2020 Lawyer Probate Report Medical Records [address] [place] [address] Aden Stevens MD Social History Tobacco Use [...] filedocumented in this encounter Care Teams Director Of Operations For Therapy Relationship Specialty Start Date End Date Pari Dawkins MD PCP - General 12/27/18 07/23/22 Tl Stevens MD PCP - General Internal Medicine 07/24/22 11/21/22 Tammy Mooney MD [address] [place] [address] PCP - General Internal Medicine 11/22/22 Pari Dawkins MD Internal Medicine 12/27/18 Abiodun Nichols MD Car Seat Maker Cardiovascular Disease 01/14/21 Charissa Bonilla NP Nurse Practitioner Cardiology 07/29/21 Lisa Patel MD [address] [address] Surgeon Neurosurgery 08/01/23 Adri Polk PA-C [address] [address] Specialist Neurosurgery 08/01/23 Nj Steele PA-C [address] [address] Specialist Neurosurgery 08/01/23 Shu Styles NP [address] [address] Cardiology 09/27/23 documented as of this encounter
--- OUTSIDE RECORDS SUMMARY | 2024-11-20 10:34 | XMS_ITS | Encounter Summary ---
Author Organization [facility] Address [address] [place] [address] Care Team Providers Care Longshore Equipment Operator Name Role Phone Pari Dawkins MD Primary Care Provider [facility] Pari Dawkins MD Unavailable Unavail able Abiodun Nichols MD Unavailable Charissa Bonilla NP Unavailable Unavailab Tl Chavis MD Primary Care Provider [phone] Tammy Mooney MD Primary Care Provider + Lisa Patel MD Unavailable [phone] Adri Polk PA-C Unavailable [phone] Nj Steele PA-C Unavailable Shu Styles DISBURSEMENT CLERK Unavailable [phone] Encounter Details Date Type Department Care Team Description 01/29/2019 [facility] [address] [place], [place] [id number] Md Izabel Social History Tobacco Use Types Packs/Day Years [...] encounter Miscellaneous Notes * Telephone Encounter - Mohinder Santana - 01/30/2019 6:39 AM EDTFrom: Slava Ramirez Sent: 01/29/2019 3:53 PM EDT Subject: Medication Renewal Request Slava Ramirez would like a refill of the following medications: Medication renewals requested in this message routed to other providers: glucose monitoring kit (FREESTYLE) monitoring kit [Pari Villafana MD] glucose blood test strips (FREESTYLE LITE) strip [Pari Villafana MD] FREESTYLE LANCETS Misc [Pari Villafana MD] Other - see comments for explanation Preferred pharmacy: [id number] - [place] - [address] AT Comment: [facility] says that the strips and the monitoring kit don't match...they need to know which strips you want, the Lite or other...the Lite strips and the monitoring kit do not go together according to the pharmacists. documented in this encounter Plan of Treatment Not on file documented as of this encounter Visit Diagnoses Not on filedocumented in this encounter Care Teams Longshore Equipment Operator Relationship Specialty Start Date End Date Pari Dawkins MD PCP - General 12/27/18 07/23/22 Tl Stevens MD PCP - General Internal Medicine 07/24/22 11/21/22 Tammy Mooney MD [address] [place] [address] PCP - General Internal Medicine 11/22/22 Pari Dawkins MD Internal Medicine 12/27/18 Abiodun Nichols MD Cadmium Liquor Maker Cardiovascular Disease 01/14/21 Charissa Bonilla NP Nurse Practitioner Cardiology 07/29/21 Lisa Patel MD [address] [address] Surgeon Neurosurgery 08/01/23 Adri Polk PA-C [address] [address] Specialist Neurosurgery 08/01/23 Nj Steele PA-C 175 [facility] [address] [place] [phone] Specialist Neurosurgery 08/01/23 Shu Styles NP [address] [address] Cardiology 09/27/23 documented as of this encounter
--- OUTSIDE RECORDS SUMMARY | 2024-11-20 10:34 | XMS_ITS | Encounter Summary ---
Author Organization [facility] Address [address] [place] [address] Care Team Providers Care Fibrous Wallboard Inspector Name Role Phone Pari Dawkins MD Primary Care Provider U Pari Douglas MD Primary Care Provider U Pari Douglas MD Unavailable Unavail able Abiodun Nichols MD Unavailable Charissa Bonilla NP Unavailable Unavailab Tl Chavis MD Primary Care Provider Tammy Mooney MD Primary Care Provider + Lisa Patel MD Unavailable [phone] Adri Polk PA-C Unavailable [phone] Nj Steele PA-C Unavailable [phone] Shu Styles NP Unavailable Encounter Details Date Type Department Care Team Description 02/19/2017 Heating And Refrigeration Inspector Report Medical Records [address] [place] [address] Abstract, Provider Social History Tobacco Use Types Packs/Day Years Used Date Smoking Tobacco: Never Assessed Sex Assigned at Date Recorded Male 02/09/2021 1:36 PM E DT Job Start Date Occupation Industry Not on file Not on file Not on file documented as of this encounter Plan of Treatment Not on file documented as of this encounter Visit Diagnoses Not on filedocumented in this encounter Care Teams Fibrous Wallboard Inspector Relationship Specialty Start Date End Date Pari Dawkins MD PCP - General Internal Medicine 11/25/18 12/26/18 Pari Dawkins MD PCP - General 12/27/18 07/23/22 Tl Stevens MD PCP - General Internal Medicine 07/24/22 11/21/22 Tammy Mooney MD [address] [place] [address] PCP - General Internal Medicine 11/22/22 Pari Dawkins MD Internal Medicine 12/27/18 Abiodun Nichols MD Enterprise Engineer Cardiovascular Disease 01/14/21 Charissa Bonilla NP Nurse Practitioner Cardiology 07/29/21 Lisa Patel MD [address] [address] Surgeon Neurosurgery 08/01/23 Adri Polk PA-C [address] [address] Specialist Neurosurgery 08/01/23 Nj Steele PA-C [address] [address] Specialist Neurosurgery 08/01/23 Shu Styles NP [address] [address] Cardiology 09/27/23 documented as of this encounter
--- OUTSIDE RECORDS SUMMARY | 2024-11-20 10:34 | XMS_ITS | Encounter Summary ---
Author Organization [facility] Address [address] [place] [address] Care Team Providers Care Wet Process Head Miller Name Role Phone Pari Dawkins MD Primary Care Provider U Pari Douglas MD Primary Care Provider U Pari Douglas MD Unavailable Unavail able Abiodun Nichols MD Unavailable Charissa Bonilla NP Unavailable Unavailab Tl Chavis MD Primary Care Provider [phone] Tammy Mooney MD Primary Care Provider + Lisa Patel MD Unavailable [phone] Adri PolkC Unavailable [phone] Nj Steele PATannaC Unavailable [phone] Shu Styles NP Unavailable [phone] Encounter Details Date Type Department Care Team Description 06/21/2017 Hospital Medical Records [address] [place] [address] Abstract, Provider Social History Tobacco Use Types [...] on filedocumented in this encounter Care Teams Wet Process Head Miller Relationship Specialty Start Date End Date Pari Dawkins MD PCP - General Internal Medicine 11/25/18 12/26/18 Pari Dawkins MD PCP - General 12/27/18 07/23/22 Tl Stevens MD PCP - General Internal Medicine 07/24/22 11/21/22 Tammy Mooney MD [address] [place] [address] PCP - General Internal Medicine 11/22/22 Pari Dawkins MD Internal Medicine 12/27/18 Abiodun Nichols MD Telephone Directory Deliverer Cardiovascular Disease 01/14/21 Charissa Bonilla NP Nurse Practitioner Cardiology 07/29/21 Lisa Patel MD [address] [address] Surgeon Neurosurgery 08/01/23 Adri Polk PA-C [address] [address] Specialist Neurosurgery 08/01/23 Nj Steele PA-C [address] [address] Specialist Neurosurgery 08/01/23 Shu Styles NP [address] [address] Cardiology 09/27/23 documented as of this encounter
--- OUTSIDE RECORDS SUMMARY | 2024-11-20 10:34 | XMS_ITS | Encounter Summary ---
Author Organization [facility] Address [address] [place] [address] Care Team Providers Care Draw Off Worker Name Role Phone Pari Dawkins MD Primary Care Provider U Pari Douglas MD Primary Care Provider U Pari Douglas MD Unavailable Unavail able Abiodun Nichols MD Unavailable Charissa Bonilla NP Unavailable Unavailab Tl Chavis MD Primary Care Provider [phone] Tammy Mooney MD Primary Care Provider + Lisa Patel MD Unavailable [phone] Adri PolkC Unavailable [phone] Nj Steele PATannaC Unavailable [phone] Shu Styles NP Unavailable [phone] Encounter Details Date Type Department Care Team Description 01/15/2012 Hospital Medical Records [address] [place] [address] Abstract, Provider Social History Tobacco Use Types [...] on filedocumented in this encounter Care Teams Draw Off Worker Relationship Specialty Start Date End Date Pari Dawkins MD PCP - General Internal Medicine 11/25/18 12/26/18 Pari Dawkins MD PCP - General 12/27/18 07/23/22 Tl Stevens MD PCP - General Internal Medicine 07/24/22 11/21/22 Tammy Mooney MD [address] [place] [address] PCP - General Internal Medicine 11/22/22 Pari Dawkins MD Internal Medicine 12/27/18 Abiodun Nichols MD Hose Operator Cardiovascular Disease 01/14/21 Charissa Bonilla NP Nurse Practitioner Cardiology 07/29/21 Lisa Patel MD [address] [address] Surgeon Neurosurgery 08/01/23 Adri Polk PA-C [address] [address] Specialist Neurosurgery 08/01/23 Nj Steele PA-C [address] [address] Specialist Neurosurgery 08/01/23 Shu Styles NP [address] [address] Cardiology 09/27/23 documented as of this encounter
--- OUTSIDE RECORDS SUMMARY | 2024-11-20 10:34 | XMS_ITS | Encounter Summary ---
Author Organization [facility] Address [address] [place] [address] Care Team Providers Care Strike Off Machine Operator Name Role Phone Pari Dawkins MD Unavailable Unavail able Abiodun Nichols MD Unavailable Tammy Mooney MD Primary Care Provider + Lisa Patel MD Unavailable [phone] Adri Polk PA-C Unavailable [phone] Nj Steele PA-C Unavailable [phone] Shu Styles NP Unavailable Encounter Details Date Type Department Care Team Description 04/18/2024 Sheriff Officer Report Medical Records [address] [place] [address] Kai Moreno PA-C Social History Tobacco Use [...] on filedocumented in this encounter Care Teams Strike Off Machine Operator Relationship Specialty Start Date End Date Tammy Mooney MD [address] [place] [phone] PCP - General Internal Medicine 11/22/22 Pari Dawkins MD Internal Medicine 12/27/18 Abiodun Nichols MD Yellow Pages Space Salesperson Cardiovascular Disease 01/14/21 Lisa Patel MD [address] [address] Surgeon Neurosurgery 08/01/23 Adri Polk PA-C [address] [address] Specialist Neurosurgery 08/01/23 Nj Steele PA-C [address] [address] Specialist Neurosurgery 08/01/23 Shu Styles NP [address] [address] Cardiology 09/27/23 documented as of this encounter
--- OUTSIDE RECORDS SUMMARY | 2024-11-20 10:34 | XMS_ITS | Encounter Summary ---
Author Organization [facility] Address [address] [place] [address] Care Team Providers Care Manager Cardiovascular Name Role Phone Pari Dawkins MD Primary Care Provider U Pari Douglas MD Primary Care Provider U Pari Douglas MD Unavailable Unavail able Abiodun Nichols MD Unavailable Charissa Bonilla NP Unavailable Unavailab Tl Chavis MD Primary Care Provider [phone] Tammy Mooney MD Primary Care Provider + Lisa Patel MD Unavailable [phone] Adri PolkC Unavailable [phone] Nj Steele PATannaC Unavailable [phone] Shu Styles NP Unavailable [phone] Encounter Details Date Type Department Care Team Description 02/19/2017 Hospital Medical Records [address] [place] [address] Abstract, Provider Social History Tobacco Use Types [...] on filedocumented in this encounter Care Teams Manager Cardiovascular Relationship Specialty Start Date End Date Pari Dawkins MD PCP - General Internal Medicine 11/25/18 12/26/18 Pari Dawkins MD PCP - General 12/27/18 07/23/22 Tl Stevens MD PCP - General Internal Medicine 07/24/22 11/21/22 Tammy Mooney MD [address] [place] [address] PCP - General Internal Medicine 11/22/22 Pari Dawkins MD Internal Medicine 12/27/18 Abiodun Nichols MD Vending Route Servicer Cardiovascular Disease 01/14/21 Charissa Bonilla NP Nurse Practitioner Cardiology 07/29/21 Lisa Patel MD [address] [address] Surgeon Neurosurgery 08/01/23 Adri Polk PA-C [address] [address] Specialist Neurosurgery 08/01/23 Nj Steele PA-C [address] [address] Specialist Neurosurgery 08/01/23 Shu Styles NP [address] [address] Cardiology 09/27/23 documented as of this encounter
--- OUTSIDE RECORDS SUMMARY | 2024-11-20 10:34 | XMS_ITS | Encounter Summary ---
Author Organization [facility] Address [address] [place] [address] Care Team Providers Care Singeing Torch Operator Name Role Phone Pari Dawkins MD Primary Care Provider U Pari Douglas MD Primary Care Provider U Pari Douglas MD Unavailable Unavail able Abiodun Nichols MD Unavailable Charissa Bonilla NP Unavailable Unavailab Tl Chavis MD Primary Care Provider [phone] Tammy Mooney MD Primary Care Provider + Lisa Patel MD Unavailable [phone] Adri PolkC Unavailable [phone] Nj Steele PATannaC Unavailable [phone] Shu Styles NP Unavailable [phone] Encounter Details Date Type Department Care Team Description 06/10/2017 Hospital Medical Records [address] [place] [address] Abstract, Provider Social History Tobacco Use Types [...] on filedocumented in this encounter Care Teams Singeing Torch Operator Relationship Specialty Start Date End Date Pari Dawkins MD PCP - General Internal Medicine 11/25/18 12/26/18 Pari Dawkins MD PCP - General 12/27/18 07/23/22 Tl Stevens MD PCP - General Internal Medicine 07/24/22 11/21/22 Tammy Mooney MD [address] [place] [address] PCP - General Internal Medicine 11/22/22 Pari Dawkins MD Internal Medicine 12/27/18 Abiodun Nichols MD Waiter/Waitress Room Service Cardiovascular Disease 01/14/21 Charissa Bonilla NP Nurse Practitioner Cardiology 07/29/21 Lisa Patel MD [address] [address] Surgeon Neurosurgery 08/01/23 Adri Polk PA-C [address] [address] Specialist Neurosurgery 08/01/23 Nj Steele PA-C [address] [address] Specialist Neurosurgery 08/01/23 Shu Styles NP [address] [address] Cardiology 09/27/23 documented as of this encounter
--- OUTSIDE RECORDS SUMMARY | 2024-11-20 10:34 | XMS_ITS | Encounter Summary ---
Author Organization [employer] [facility] Address [address] [place] [address] Care Team Providers Care Produce Shipper Name Role Phone Pari Dawkins MD Unavailable Unavail able Abiodun Nichols MD Unavailable Tammy Mooney MD Primary Care Provider + Lisa Patel MD Unavailable [phone] Adri Polk PA-C Unavailable Nj Steele PA-C Unavailable Shu Styles NP Unavailable Encounter Details Date Type Department Care Team Description 04/22/2024 Hospital Medical Records [address] [place] [address] [facility] Social History Tobacco Use Types Packs/Day Years [...] on filedocumented in this encounter Care Teams Produce Shipper Relationship Specialty Start Date End Date Tammy Mooney MD [address] [place] [address] [id number] PCP - General Internal Medicine 11/22/22 Pari Dawkins MD Internal Medicine 12/27/18 Abiodun Nichols MD Shop Cooper Cardiovascular Disease 01/14/21 Lisa Patel MD [address] [address] Surgeon Neurosurgery 08/01/23 Adri Polk PA-C [address] [address] Specialist Neurosurgery 08/01/23 Nj Steele PA-C [address] [address] Specialist Neurosurgery 08/01/23 Shu Styles NP [address] [address] Cardiology 09/27/23 documented as of this encounter
--- OUTSIDE RECORDS SUMMARY | 2024-11-20 10:34 | XMS_ITS | Encounter Summary ---
Author Organization [facility] Address [address] [place] [address] Care Team Providers Care Pound Attendant Name Role Phone Pari Dawkins MD Primary Care Provider [facility] Pari Dawkins MD Unavailable Unavail able Abiodun Nichols MD Unavailable Charissa Bonilla NP Unavailable Unavailab Tl Chavis MD Primary Care Provider [phone] Tammy Mooney MD Primary Care Provider + Lisa Patel MD Unavailable [phone] Adri PolkC Unavailable [phone] Nj Steele PATannaC Unavailable [phone] Shu Styles E COMMERCE MARKETING ANALYST Unavailable [phone] Encounter Details Date Type Department Care Team Description 01/01/2019 Swimmer Report Medical Records [address] [place] [address] Aden Stevens MD Social History Tobacco Use Types Packs/Day Years Used Date Smoking Tobacco: Never Alcohol Use Standard Drinks/Week Comments [...] on filedocumented in this encounter Care Teams Pound Attendant Relationship Specialty Start Date End Date Pari Dawkins MD PCP - General 12/27/18 07/23/22 Tl Stevens MD PCP - General Internal Medicine 07/24/22 11/21/22 Tammy Mooney MD [address] [place] [address] PCP - General Internal Medicine 11/22/22 Pari Dawkins MD Internal Medicine 12/27/18 Abiodun Nicohls MD Immunology Teacher Cardiovascular Disease 01/14/21 Charissa Bonilla NP Nurse Practitioner Cardiology 07/29/21 Lisa Patel MD [address] [address] Surgeon Neurosurgery 08/01/23 Adri Polk PA-C [address] [address] Specialist Neurosurgery 08/01/23 Nj Steele PA-C [address] [address] Specialist Neurosurgery 08/01/23 Shu Styles NP [address] [address] Cardiology 09/27/23 documented as of this encounter
--- OUTSIDE RECORDS SUMMARY | 2024-11-20 10:34 | XMS_ITS | Encounter Summary ---
Author Organization [employer] [facility] Address [address] [place] [address] Care Team Providers Care Disbursement Clerk Name Role Phone Pari Dawkins MD Unavailable Unavail able Abiodun Nichols MD Unavailable Tammy Mooney MD Primary Care Provider + Lisa Patel MD Unavailable [phone] Adri PolkC Unavailable Nj Steele PA-C Unavailable Shu Styles NP Unavailable Encounter Details Date Type Department Care Team Description 02/13/2024 Orders Only Medical Records [address] [place] [address] Aden Stevens MD Social History Tobacco Use [...] Name Priority Date/Time Associated Diagnosis Comments OUTSIDE ULTRASOUND Routine 02/01/2024 OUTSIDE LAB Routine 01/21/2024 documented in this encounter Results * OUTSIDE ULTRASOUND (02/01/2024) Aden Stevens MD RADIOLOGY * OUTSIDE LAB (01/21/2024) Aden Stevens MD LAB documented in this encounter Visit Diagnoses Not on filedocumented in this encounter Care Teams Disbursement Clerk Relationship Specialty Start Date End Date Tammy Mooney MD [address] [place] [address] PCP - General Internal Medicine 11/22/22 Pari Dawkins MD Internal Medicine 12/27/18 Abiodun Nichols MD Natural Sciences Professor Cardiovascular Disease 01/14/21 Lisa Patel MD [address] [address] Surgeon Neurosurgery 08/01/23 Adri Polk PA-C [address] [address] Specialist Neurosurgery 08/01/23 Nj Steele PA-C [address] [address] Specialist Neurosurgery 08/01/23 Shu Styles NP [address] [address] Cardiology 09/27/23 documented as of this encounter
--- OUTSIDE RECORDS SUMMARY | 2024-11-20 10:34 | XMS_ITS | Encounter Summary ---
Author Organization [facility] Address [address] [place] [address] Care Team Providers Care Top Steep Tender Name Role Phone Pari Dawkins MD Primary Care Provider U [facility] Pari Dawkins MD Unavailable Unavail able Abiodun Nichols MD Unavailable Charissa Bonilla NP Unavailable Unavailab Tl Chavis MD Primary Care Provider [phone] Tammy Mooney MD Primary Care Provider + Lisa Patel MD Unavailable [phone] Adri Polk PATannaC Unavailable [phone] Nj Steele PA-C Unavailable Shu Styles MASTER COASTAL WATERS Unavailable [phone] Encounter Details Date Type Department Care Team Description 11/01/2020 Pt. Non Urgent Medic al Question Physiatry - [address] [address] Yobany Snider DO Social History Tobacco Use [...] have Coronavirus / COVID-19? No / Unsure 11/04/2020 9:02 AM EST documented as of this encounter Plan of Treatment Not on file documented as of this encounter Visit Diagnoses Not on filedocumented in this encounter Care Teams Top Steep Tender Relationship Specialty Start Date End Date Pari Dawkins MD PCP - General 12/27/18 07/23/22 Tl Stevens MD PCP - General Internal Medicine 07/24/22 11/21/22 Tammy Mooney MD [address] [place] [address] PCP - General Internal Medicine 11/22/22 Pari Dawkins MD Internal Medicine 12/27/18 Abiodun Nichols MD Mail Handlers Supervisor Cardiovascular Disease 01/14/21 Charissa Bonilla NP Nurse Practitioner Cardiology 07/29/21 Lisa Patel MD [address] [address] Surgeon Neurosurgery 08/01/23 Adri Polk PA-C [address] [address] Specialist Neurosurgery 08/01/23 Nj Steele PA-C [address] [address] Specialist Neurosurgery 08/01/23 Shu Styles NP [address] [address] Cardiology 09/27/23 documented as of this encounter
--- OUTSIDE RECORDS SUMMARY | 2024-11-20 10:34 | XMS_ITS | Encounter Summary ---
Author Organization [facility] Address [address] [place] [address] Care Team Providers Care Fur Plucker Name Role Phone Pari Dawkins MD Primary Care Provider U Pari Douglas MD Primary Care Provider U Pari Douglas MD Unavailable Unavail able Abiodun Nichols MD Unavailable Charissa Bonilla NP Unavailable Unavailab Tl Chavis MD Primary Care Provider [phone] Tammy Mooney MD Primary Care Provider + Lisa Patel MD Unavailable [phone] Adri PolkC Unavailable [phone] Nj Steele PATannaC Unavailable [phone] Shu Styles NP Unavailable [phone] Encounter Details Date Type Department Care Team Description 06/22/2016 Hospital Medical Records [address] [place] [address] Abstract, Provider Social History Tobacco Use Types [...] on filedocumented in this encounter Care Teams Fur Plucker Relationship Specialty Start Date End Date Pari Dawkins MD PCP - General Internal Medicine 11/25/18 12/26/18 Pari Dawkins MD PCP - General 12/27/18 07/23/22 Tl Stevens MD PCP - General Internal Medicine 07/24/22 11/21/22 Tammy Mooney MD [address] [place] [address] PCP - General Internal Medicine 11/22/22 Pari Dawkins MD Internal Medicine 12/27/18 Abiodun Nichols MD Nursery Attendant Cardiovascular Disease 01/14/21 Charissa Bonilla NP Nurse Practitioner Cardiology 07/29/21 Lisa Patel MD [address] [address] Surgeon Neurosurgery 08/01/23 Adri Polk PA-C [address] [address] Specialist Neurosurgery 08/01/23 Nj Steele PA-C [address] [address] Specialist Neurosurgery 08/01/23 Shu Styles NP [address] [address] Cardiology 09/27/23 documented as of this encounter
--- OUTSIDE RECORDS SUMMARY | 2024-11-20 10:34 | XMS_ITS | Encounter Summary ---
Author Organization [employer] [facility] Address [address] [place] [address] Care Team Providers Care Airborne Operations Manager Name Role Phone Pari Dawkins MD Primary Care Provider [facility] Pari Dawkins MD Unavailable Unavail able Abiodun Nichols MD Unavailable Charissa Bonilla NP Unavailable Unavailab Tl Chavis MD Primary Care Provider [phone] Tammy Mooney MD Primary Care Provider + Lisa Patel MD Unavailable [phone] Adri PolkC Unavailable [phone] Nj Steele PATannaC Unavailable [phone] Shu Styles NP Unavailable [phone] Encounter Details Date Type Department Care Team Description 06/02/2020 Senior Manager Mmcoe Report Medical Records [address] [place] [address] Moni Alarcon MD Social History Tobacco Use Types Packs/Day [...] on filedocumented in this encounter Care Teams Airborne Operations Manager Relationship Specialty Start Date End Date Pari Dawkins MD PCP - General 12/27/18 07/23/22 Tl Stevens MD PCP - General Internal Medicine 07/24/22 11/21/22 Tammy Mooney MD [address] [place] [address] PCP - General Internal Medicine 11/22/22 Pari Dawkins MD Internal Medicine 12/27/18 Abiodun Nichols MD Electronics Repair Technician Cardiovascular Disease 01/14/21 Charissa Bonilla NP Nurse Practitioner Cardiology 07/29/21 Lisa Patel MD [address] [address] Surgeon Neurosurgery 08/01/23 Adri Polk PA-C [address] [address] Specialist Neurosurgery 08/01/23 Nj Steele PA-C [address] [address] Specialist Neurosurgery 08/01/23 Shu Styles NP [address] [address] Cardiology 09/27/23 documented as of this encounter
--- OUTSIDE RECORDS SUMMARY | 2024-11-20 10:34 | XMS_ITS | Encounter Summary ---
Author Organization [facility] Address [address] [place] [address] Care Team Providers Care Industrial Hygiene Engineer Name Role Phone Pari Dawkins MD Unavailable Unavail able Abiodun Nichols MD Unavailable Tammy Mooney MD Primary Care Provider + Lisa Patel MD Unavailable [phone] Adri Polk PA-C Unavailable Nj Steele PA-C Unavailable [phone] Shu Styles NP Unavailable Encounter Details Date Type Department Care Team Description 01/23/2024 Pt. Non Urgent Medical Question Adult Medicine [address] [id number] Tammy Mooney MD [address] [place] [phone] Social History Tobacco Use Types Packs/Day Years [...] Miscellaneous Notes * Telephone Encounter - Gracie Moore - 01/23/2024 3:48 PM EDTFrom: Slava Ramirez To: Pedro Mooney Sent: 01/23/2024 3:46 PM EDT Subject: How do I get my latest films and comments from [employer]? Is there a number I can call to send to my 2nd [address] in [place]. Thanks documented in this encounter Plan of Treatment Not on file documented as of this encounter Visit Diagnoses Not on filedocumented in this encounter Care Teams Industrial Hygiene Engineer Relationship Specialty Start Date End Date Tammy Mooney MD [address] [place] [address] PCP - General Internal Medicine 11/22/22 Pari Dawkins MD Internal Medicine 12/27/18 Abiodun Nichols MD Green Ware Caster Cardiovascular Disease 01/14/21 Lisa Patel MD [address] [address] Surgeon Neurosurgery 08/01/23 Adri Polk PA-C [address] [address] Specialist Neurosurgery 08/01/23 Nj Steele PA-C [address] [address] Specialist Neurosurgery 08/01/23 Shu Styles NP [address] [address] Cardiology 09/27/23 documented as of this encounter
--- OUTSIDE RECORDS SUMMARY | 2024-11-20 10:34 | XMS_ITS | Encounter Summary ---
Author Organization [facility] Address [address] [place] [address] Care Team Providers Care Wire Stretcher Name Role Phone Pari Dawkins MD Primary Care Provider [facility] Pari Dawkins MD Unavailable Unavail able Abiodun Nichols MD Unavailable Charissa Bonilla NP Unavailable Unavailab Tl Chavis MD Primary Care Provider Tammy Mooney MD Primary Care Provider + Lisa Patel MD Unavailable [phone] Adri Polk PA-C Unavailable Nj Steele PA-C Unavailable Shu Styles CORRESPONDENCE SCHOOL TEACHER Unavailable Reason for Referral * EXTERNAL (Routine) - Authorized/Booked Specialty Diagnoses / Procedures Referred By Contac t Referred To Contact Ophthalmology Procedures REFERRAL TO EXTERNAL OPHTHALMOLOGY Pari Dawkins MD [address] [place] [address] [facility] Referral ID Status Reason Start Date Expiration Date V isits Requested Visits Authorized SEE NOTE Authorized/B ooked 02/10/2019 05/14/2019 1 1 Encounter Details Date Type Department Care Team Description 02/10/2019 Pt. Non Urgent Medical Question Adult Medicine B - [address] [place] [address] Pari Dawkins MD Social History Tobacco Use [...] on file documented as of this encounter Progress Notes * Anali Hope M.A. - 02/10/2019 2:48 PM EDTFrom: Slava Ramirez To: Pari Villafana MD Sent: 02/10/2019 1:47 PM EDT Subject: Opthmologist referral? How about: Rodney Gomez MD [address] [place] [address]. [address] [place] [address] Specialties: Ophthalmology Can you send a referral for him? Thanks documented in this encounter Plan of Treatment Not on file documented as of this encounter Visit Diagnoses Not on filedocumented in this encounter Care Teams Wire Stretcher Relationship Specialty Start Date End Date Pari Dawkins MD PCP - General 12/27/18 07/23/22 Tl Stevens MD PCP - General Internal Medicine 07/24/22 11/21/22 Tamym Mooeny MD [address] [place] [address] PCP - General Internal Medicine 11/22/22 Pari Dawkins MD Internal Medicine 12/27/18 Abiodun Nichols MD Managed Care Manager Cardiovascular Disease 01/14/21 Charissa Bonilla NP Nurse Practitioner Cardiology 07/29/21 Lisa Patel MD 175 [facility] [address] [place] [address] Surgeon Neurosurgery 08/01/23 Adri Polk PA-C [address] [facility] [address] [place] [address] Specialist Neurosurgery 08/01/23 Nj Steele PA-C [address] [address] Specialist Neurosurgery 08/01/23 Shu Styles NP [address] [address] Cardiology 09/27/23 documented as of this encounter
--- OUTSIDE RECORDS SUMMARY | 2024-11-20 10:34 | XMS_ITS | Encounter Summary ---
Author Organization [facility] [employer] [facility] Address [address] [place] [address] Care Team Providers Care Refinery Operator Helper Name Role Phone Pari Dawkins MD Primary Care Provider [facility] Pari Dawkins MD Unavailable Unavail able Abiodun Nichols MD Unavailable Charissa Bonilla NP Unavailable Unavailab Tl Chavis MD Primary Care Provider [phone] Tammy Mooney MD Primary Care Provider + Lisa Patel MD Unavailable [phone] Adri PolkC Unavailable [phone] Nj SteeleC Unavailable [phone] Shu Styles NP Unavailable [phone] Encounter Details Date Type Department Care Team Description 05/30/2019 Office Clerk Assistant Report Medical Records [address] [place] [address] Lena Sprague DPM Social History Tobacco Use Types Packs/Day Years [...] on filedocumented in this encounter Care Teams Refinery Operator Helper Relationship Specialty Start Date End Date Pari Dawkins MD PCP - General 12/27/18 07/23/22 Tl Stevens MD PCP - General Internal Medicine 07/24/22 11/21/22 Tammy Mooney MD [address] [place] [address] PCP - General Internal Medicine 11/22/22 Pari Dawkins MD Internal Medicine 12/27/18 Abiodun Nichols MD Knit Goods Mender Cardiovascular Disease 01/14/21 Charissa Bonilla NP Nurse Practitioner Cardiology 07/29/21 Lisa Patel MD [address] [address] Surgeon Neurosurgery 08/01/23 Adri Polk PA-C [address] [address] Specialist Neurosurgery 08/01/23 Nj Steele PA-C [address] [address] Specialist Neurosurgery 08/01/23 Shu Styles NP [address] [address] Cardiology 09/27/23 documented as of this encounter
--- OUTSIDE RECORDS SUMMARY | 2024-11-20 10:34 | XMS_ITS | Clinical Summary ---
Author Organization 175 [facility] Address 175 [place] [address] Phone Care Team Providers Care Air Route Controller Name Role Phone Tammy Mooney MD Primary [...] tabletIndications:E ssential hypertension,Carballo ry artery disease involving tolowa dee-ni' coronary artery of tolowa dee-ni' heart, unspecified whether angina present Take 1 [...] both hips 06/05/2024 Insomnia 04/27/2023 Atherosclerosis of tolowa dee-ni' ar ashley of both lower extremities with [...] elevated PSA and several biopsies done in [facility]. Negative for malignancy Assessment & Plan (10/07/2024 9:15 PM EST): Continue follow up with urology. Continue Cialis 5mg daily Coronary artery disease invo lving tolowa dee-ni' coronary artery of tolowa dee-ni' heart 12/04/2018 Assessment & Plan (11/09/2024 2:11 [...] cardiology. 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 Nichols Orders: ECG 12 lead Tracing Only; [...] Office Visit Gastroenterology - [address] [facility] [address] [place] [phone] Brenna Savage NP Hyperbilirubinemia (Primary Dx) 11/18/2024 2:00 PM EST Office Visit Adult Medicine [address] [phone] Lena Sorto PA Localized swelling, mass or lump of neck (Primary Dx); Calculus of gallbladder without cholecystitis without obstruction; DDD (degenerative disc disease), cervical; Chronic neck pain 11/13/2024 Telephone [facility] 102 300 [facility] 102 [place] [address] Shu Styles NP Medication; Pre-op Visit 11/12/2024 Nurse Triage Adult Medicine [address] [phone] Evelina Meek RN 11/07/2024 10:40 AM EST Office Visit [facility] [place] [address] 300 [facility] 102 [place] [address] Shu Styles NP Essential hypertension (Primary Dx); Chest pain, unspecified type; Coronary artery disease involving tolowa dee-ni' coronary artery of tolowa dee-ni' heart, unspecified whether angina present; Hyperlipidemia, unspecified hyperlipidemia type; Obesity (BMI 30.0-34.9) 10/27/2024 8:30 AM EST Ancillary Procedure [facility] Cardiology [facility] [address] 300 [facility] 101 [place] [address] Coronary artery disease involving tolowa dee-ni' coronary artery of tolowa dee-ni' heart, unspecified whether angina present; Chest pain, unspecified type 10/23/2024 7:45 AM EST - 10/23/2024 11:59 PM EST Hospital Encounter Radiology Department [address] [phone] Hyperbilirubinemia Discharge Disposition: Home or Self Care 10/17/2024 12:00 PM EST Office Visit [address] [phone] Lacey Bey MD 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) (Primary Dx); Essential hypertension 10/15/2024 8:30 AM EST Office Visit Orthopedic Surgery [facility] 250 175 [facility] 250 [place] [phone] Abdoul Chavez DPDavid Diabetic mononeuropathy simplex (CMS/HCC) (Primary Dx); Dermatophytosis of nail; Pain in toe of right foot; Pain in toe of left foot; Type II diabetes mellitus with peripheral circulatory disorder (CMS/HCC); Corns and callosities; Tailor's bunionette, right; Tailor's bunionette, left 10/06/2024 12:45 PM EST Office Visit Adult Medicine [address] [phone] Tammy Mooney MD Coronary artery disease involving tolowa dee-ni' coronary artery of tolowa dee-ni' heart, unspecified whether angina present (Primary Dx); 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); Mixed hyperlipidemia; Benign prostatic hyperplasia, unspecified whether lower urinary tract symptoms present; History of prostate cancer; Essential hypertension; Easy bruising; Need for hepatitis C screening test; Chest pain, unspecified type 09/23/2024 8:30 AM EST Consult [address] [phone] Lacey Bey MD 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 Negative for malignancy Hyperlipidemia 12/04/2018 DX:Hyperlipidemi [...] Type 2 diabetes mellitus wit h cataract ([facility]/HCC) 02/26/2019 DX:Type 2 diabetes mellitus with cataract (HCC) Cataract 02/26/2019 DX:Cataract; COM MENT: 2017, Bilateral, removed Prostate cancer ([facility]) DX:Pro state cancer (HCC) Hyponatremia 04/03/2022 DX:Hyponatremia [...] 8:15 AM EST Appointment Radiology Department - [address] [phone] 12/29/2024 9:00 AM EDT Consult General Surgery [facility] [address] [phone] Alejandro Casas MD [address] [address] 01/15/2025 8:15 AM EDT Office Visit Orthopedic Surgery [facility] [address] [phone] Abdoul Chavez DPM [address] [address] 01/15/2025 9:45 AM EDT Office Visit Endocrinology - [address] [phone] Lacey Bey MD [address] [place] [address] 02/03/2025 8:30 AM EDT Office Visit Adult Medicine [facility] - [address] [phone] Lena Sorto PA [address] [place] [address] 06/02/2025 9:10 AM EDT Office Visit [facility] - [facility] [address] [phone] Shu Styles NP [address] [address] Health Maintenance Due Date Last Done Comments [...] 10:49 AM EST Coronary artery disease involving tolowa dee-ni' coronary artery of tolowa dee-ni' heart, unspecified whether angina present Chest pain, [...] 9:59 AM EST Coronary artery disease involving tolowa dee-ni' coronary artery of tolowa dee-ni' heart without angina pectoris 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) Mixed hyperlipidemia CBC AND DIFFERENTIAL Routine 09/04/2024 9:59 AM EST Coronary artery disease involving tolowa dee-ni' coronary artery of tolowa dee-ni' heart without angina pectoris 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) Mixed hyperlipidemia MICROALBUMIN CREATININE URINE RATIO Routine 09/04/2024 9:59 AM EST Coronary artery disease involving tolowa dee-ni' coronary artery of tolowa dee-ni' heart without angina pectoris 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) Mixed hyperlipidemia HEMOGLOBIN A1C Routine 09/04/2024 9:59 AM EST Coronary artery disease involving tolowa dee-ni' coronary artery of tolowa dee-ni' heart without angina pectoris 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) Mixed hyperlipidemia LIPID PANEL WITH REFLEX TO DIRECT LDL Routine 09/04/2024 9:59 AM EST Coronary artery disease involving tolowa dee-ni' coronary artery of tolowa dee-ni' heart without angina pectoris 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) Mixed hyperlipidemia COMPREHENSIVE METABOLIC PANEL Routine 09/04/2024 9:59 AM EST Coronary artery disease involving tolowa dee-ni' coronary artery of tolowa dee-ni' heart without angina pectoris Type 2 diabetes [...] Signed Date: 10/23/2024 09:03 ET Workstation ID: [id number] Transcribed By: Self Edit Transcribed Date: 10/23/2024 [...] Signed Date: 10/23/2024 09:03 ET Workstation ID: [id number] Transcribed By: Self Edit Transcribed Date: 10/23/2024 09:01 ET us Tammy Mooney MD [facility] [place] Final Result * Hepatitis C antibody (10/06/2024 1:54 PM EST) Hepatitis C Antibody Negative Negative LAB CHEMISTRY METHOD 10/06/2024 6:44 PM EST [facility] Blood Venous blood specimen / Unknown Venipuncture / Unknown 10/06/2024 1:54 PM EST 10/06/2024 1:54 PM EST Tammy Mooney MD LAB BLOOD ORDERA BLES Final Result [facility] [address] [place] [address], * (ABNORMAL) CBC auto differential (10/06/2024 1:54 PM EST) Only the most recent of2 resultswithin the time period is included. WBC 7.6 4.8 - 10.8 K/mcL LAB HEMETOLOGY METHOD 10/06/2024 4:48 PM [facility] RBC 5.50 4.50 - 5.50 M/mcL LAB HEMETOLOGY METHOD 10/06/2024 4:48 PM [facility] Hemoglobin 16.5 13.5 - 17.5 g/dL LAB HEMETOLOGY METHOD 10/06/2024 4:48 PM [facility] Hematocrit 51.8 42.0 - 54.0 % LAB HEMETOLOGY METHOD 10/06/2024 4:48 PM [facility] MCV 95.0 79.0 - 98.0 FL LAB HEMETOLOGY METHOD 10/06/2024 4:48 PM [facility] MCH 30.3 27.0 - 32.0 pcg LAB HEMETOLOGY METHOD 10/06/2024 4:48 PM [facility] MCHC 31.9(L) 32.0 - 37.0 g/dL LAB HEMETOLOGY METHOD 10/06/2024 4:48 PM [facility] RDW 14.2 11.0 - 15.0 % LAB HEMETOLOGY METHOD 10/06/2024 4:48 PM [facility] Platelets 269 130 - 400 K/mcL LAB HEMETOLOGY METHOD 10/06/2024 4:48 PM [facility] MPV 10.2 7.0 - 11.0 FL LAB HEMETOLOGY METHOD 10/06/2024 4:48 PM [facility] NRBC 0.0 <1.0 % LAB HEMETOLOGY METHOD 10/06/2024 4:48 PM [facility] NRBC Absolute 0.00 <0.10 K/mcL LAB HEMETOLOGY METHOD 10/06/2024 4:48 PM [facility] Neutrophils Relative 65.6 % LAB HEMETOLOGY METHOD 10/06/2024 4:48 PM [facility] Lymphocytes Relative 21.3 % LAB HEMETOLOGY METHOD 10/06/2024 4:48 PM [facility] Monocytes Relative 10.7 % LAB HEMETOLOGY METHOD 10/06/2024 4:48 PM [facility] Eosinophils Relative 1.1 % LAB HEMETOLOGY METHOD 10/06/2024 4:48 PM [facility] Basophils Relative 0.9 % LAB HEMETOLOGY METHOD 10/06/2024 4:48 PM [facility] Immature Granulocytes Relative 0.4 % LAB HEMETOLOGY METHOD 10/06/2024 4:48 PM [facility] Neutrophils Absolute 4.97 1.50 - 7.00 K/mcL LAB HEMETOLOGY METHOD 10/06/2024 4:48 PM [facility] Lymphocytes Absolute 1.61 1.00 - 5.00 K/mcL LAB HEMETOLOGY METHOD 10/06/2024 4:48 PM [facility] Monocytes Absolute 0.81 0.20 - 1.00 K/mcL LAB HEMETOLOGY METHOD 10/06/2024 4:48 PM [facility] Eosinophils Absolute 0.08 0.00 - 0.50 K/mcL LAB HEMETOLOGY METHOD 10/06/2024 4:48 PM EST [facility] Basophils Absolute 0.07 0.00 - 0.20 K/[facility] LAB HEMETOLOGY METHOD 10/06/2024 4:48 PM EST [facility] Immature Granulocytes Absolute 0.03 0.00 - 0.03 K/[facility] LAB HEMETOLOGY METHOD 10/06/2024 4:48 PM EST [facility] Blood Venous blood specimen / Unknown Venipuncture / Unknown 10/06/2024 1:54 PM EST 10/06/2024 1:54 PM EST Tammy Mooney MD LAB BLOOD ORDERA BLES Final Result Performing Organization Address City/[facility]/ZIP Co de Phone Number [facility] [address] [place] [address], * Von Willebrand factor activity (10/06/2024 1:54 PM EST) von Willebrand Factor Activity Percent 96 51 - 215 % 10/11/2024 1:24 PM EST [facility] Comment: REFERENCE INTERVAL: von Willebrand Factor, Activity (RCF) Access complete set of age- and/or gender-specific reference intervals for this test in the [facility] Test Directory ([employer]). Performed By: [facility] [address] [place] [id number] [employer] Manager Architect: Eric Luu MD, PhD CLIA Number: [id number] Blood Venous blood specimen / Unknown Venipuncture / Unknown 10/06/2024 1:54 PM EST 10/06/2024 1:54 PM EST Tammy Mooney MD LAB BLOOD ORDERA BLES Final Result [facility] [address] [place] [address] * Activated partial thromboplastin time (10/06/2024 1:54 PM EST) [facility] aPTT 38.1 24.1 - 39.3 sec LAB COAGULATION METHOD 10/06/2024 4:51 PM EST [facility] Blood Venous blood specimen / Unknown Venipuncture / Unknown 10/06/2024 1:54 PM EST 10/06/2024 1:54 PM EST Tammy Mooney MD LAB BLOOD ORDERA BLES Final Result [facility] [address] [place] [address], [place] [phone] * Prothrombin time with INR (10/06/2024 1:54 PM EST) [facility] Protime 11.4 10.6 - 13.9 sec LAB COAGULATION METHOD 10/06/2024 4:51 PM EST [facility] INR 0.9 LAB COAGULATION METHOD 10/06/2024 4:51 PM EST [facility] Blood Venous blood specimen / Unknown Venipuncture / Unknown 10/06/2024 1:54 PM EST 10/06/2024 1:54 PM EST Tammy Mooney MD LAB BLOOD ORDERA BLES Final Result [facility] [address] [place] [address], [place] [phone] * (ABNORMAL) Hepatic function panel (10/06/2024 1:54 PM EST) [facility] Total Protein 7.6 6.0 - 8.0 g/dL LAB CHEMISTRY METHOD 10/06/2024 5:56 PM EST [facility] Albumin 4.4 3.2 - 5.0 g/dL LAB CHEMISTRY METHOD 10/06/2024 5:56 PM EST [facility] Total Bilirubin 2.1(H) 0.0 - 1.4 mg/dL LAB CHEMISTRY METHOD 10/06/2024 5:56 PM [facility] Bilirubin, Direct 0.4(H) 0.0 - 0.3 mg/dL LAB CHEMISTRY METHOD 10/06/2024 5:56 PM [facility] Bilirubin, Indirect 1.7(H) 0.0 - 1.1 mg/dL LAB CHEMISTRY METHOD 10/06/2024 5:56 PM [facility] ALT (SGPT) 41 10 - 60 unit/L LAB CHEMISTRY METHOD 10/06/2024 5:56 PM [facility] AST (SGOT) 26 10 - 42 unit/L LAB CHEMISTRY METHOD 10/06/2024 5:56 PM [facility] Alkaline Phosphatase 82 42 - 121 unit/L LAB CHEMISTRY METHOD 10/06/2024 5:56 PM [facility] Blood Venous blood specimen / Unknown Venipuncture / Unknown 10/06/2024 1:54 PM EST 10/06/2024 1:54 PM EST Tammy Mooney MD LAB BLOOD ORDERA BLES Final Result [facility] [address] [place] [address], * (ABNORMAL) POC glucose manually resulted (09/23/2024 8:53 AM EST) Glucose POC 180 mg/dL Blood Capillary blood specimen / Unknown 09/23/2024 8:53 AM EST Lacey Bey MD POINT OF CARE TEST ENTER/EDIT OR DERABLES Final Result * Lipid panel with reflex to direct LDL (09/04/2024 9:59 AM EST) Cholesterol 152 0 - 200 mg/dL LAB CHEMISTRY METHOD 09/04/2024 1:50 PM EST [facility] Triglycerides 135 0 - 150 mg/dL LAB CHEMISTRY METHOD 09/04/2024 1:50 PM [facility] HDL 66 >=40 mg/dL LAB CHEMISTRY METHOD 09/04/2024 1:50 PM EST [facility] LDL Calculated 59 0 - 100 mg/dL LAB CHEMISTRY METHOD 09/04/2024 1:50 PM [facility] VLDL Cholesterol Alex 27 mg/dL LAB CHEMISTRY METHOD 09/04/2024 1:50 PM [facility] Non HDL Chol. (LDL+VLDL) 86 <145 mg/dL LAB CHEMISTRY METHOD 09/04/2024 1:50 PM [facility] Chol/HDL Ratio 2.3 0.0 - 4.4 LAB CHEMISTRY METHOD 09/04/2024 1:50 PM [facility] Blood Venous blood specimen / Unknown Venipuncture / Unknown 09/04/2024 9:59 AM EST 09/04/2024 9:59 AM EST Tammy Mooney MD LAB BLOOD ORDERA BLES Final Result [facility] [address] [place] [address], * Microalbumin creatinine urine ratio (09/04/2024 9:59 AM EST) Creatinine, Urine 57.0 mg/dL LAB CHEMISTRY METHOD 09/04/2024 4:54 PM EST [facility] Microalb, Ur 15.5 0.0 - 29.0 mg/L LAB CHEMISTRY METHOD 09/04/2024 4:54 PM [facility] Microalb/Creat Ratio 27 <30 mg/g creat LAB CHEMISTRY METHOD 09/04/2024 4:54 PM EST [facility] Urine Urine specimen obtained by clean catch procedure / Unknown Non-blood Collection / Unknown 09/04/2024 9:59 AM EST 09/04/2024 9:59 AM EST Tammy Mooney MD LAB URINE ORDERA BLES Final Result Performing Organization Address [facility]/ZIP Co de Phone Number [facility] [address] [place] [address], [place] [phone] * (ABNORMAL) Hemoglobin A1c (09/04/2024 9:59 AM EST) Hemoglobin A1C 7.9(H) <6.5 % LAB CHEMISTRY METHOD 09/04/2024 3:18 PM EST [facility] Mean Bld Glu Estim. 180 mg/dL LAB CHEMISTRY METHOD 09/04/2024 3:18 PM [facility] Blood Venous blood specimen / Unknown Venipuncture / Unknown 09/04/2024 9:59 AM EST 09/04/2024 9:59 AM EST Tammy Mooney MD LAB BLOOD ORDERA BLES Final Result Performing Organization Address City/[facility]/ZIP Co de Phone Number [facility] [address] [place] [address], [place] [phone] * (ABNORMAL) Comprehensive metabolic panel (09/04/2024 9:59 AM EST) Sodium 141 133 - 145 mmol/L LAB CHEMISTRY METHOD 09/04/2024 1:50 PM EST [facility] Potassium 3.9 3.5 - 5.5 mmol/L LAB CHEMISTRY METHOD 09/04/2024 1:50 PM EST [facility] Chloride 106 96 - 110 mmol/L LAB CHEMISTRY METHOD 09/04/2024 1:50 PM [facility] CO2 26 21 - 32 mmol/L LAB CHEMISTRY METHOD 09/04/2024 1:50 PM [facility] Anion Gap 9 3 - 11 LAB CHEMISTRY METHOD 09/04/2024 1:50 PM [facility] Glucose 167(H) 70 - 100 mg/dL LAB CHEMISTRY METHOD 09/04/2024 1:50 PM [facility] BUN 13 5 - 25 mg/dL LAB CHEMISTRY METHOD 09/04/2024 1:50 PM [facility] Creatinine 0.86 0.70 - 1.30 mg/dL LAB CHEMISTRY METHOD 09/04/2024 1:50 PM [facility] eGFR 88 >=60 mL/min/1. 73m2 LAB CHEMISTRY METHOD 09/04/2024 1:50 PM [facility] Comment:Calculation based on the??Chronic Kidney Disease Epidemiology Collaboration (CKD-EPI) equation refit??without adjustment for race. BUN/Creatinine Ratio 15.1 LAB CHEMISTRY METHOD 09/04/2024 1:50 PM [facility] Calcium 9.8 8.5 - 10.5 mg/dL LAB CHEMISTRY METHOD 09/04/2024 1:50 PM [facility] AST (SGOT) 18 10 - 42 unit/L LAB CHEMISTRY METHOD 09/04/2024 1:50 PM [facility] ALT (SGPT) 30 10 - 60 unit/L LAB CHEMISTRY METHOD 09/04/2024 1:50 PM [facility] Alkaline Phosphatase 74 42 - 121 unit/L LAB CHEMISTRY METHOD 09/04/2024 1:50 PM [facility] Total Protein 6.9 6.0 - 8.0 g/dL LAB CHEMISTRY METHOD 09/04/2024 1:50 PM [facility] Albumin 4.0 3.2 - 5.0 g/dL LAB CHEMISTRY METHOD 09/04/2024 1:50 PM EST [facility] Total Bilirubin 1.7(H) 0.0 - 1.4 mg/dL LAB CHEMISTRY METHOD 09/04/2024 1:50 PM EST [facility] Blood Venous blood specimen / Unknown Venipuncture / Unknown 09/04/2024 9:59 AM EST 09/04/2024 9:59 AM EST Tammy Mooney MD LAB BLOOD ORDERA BLES Final Result [facility] ([facility] [address] [place] [address], from Last 3 Months Insurance [employer] MEDICARE [employer]VANTAGE Care Teams Air Route Controller Relationship Specialty Start Date End Date Tammy Mooney MD [address] [place] [address] PCP - General Internal Medicine 09/04/24
--- OUTSIDE RECORDS SUMMARY | 2024-11-20 10:35 | XMS_ITS | Encounter Summary ---
Author Organization [facility] Address [address] [place] [address] Care Team Providers Care Office Machine Technician Name Role Phone Pari Dawkins MD Primary Care Provider [facility] Pari Dawkins MD Unavailable Unavail able Abiodun Nichols MD Unavailable Charissa Bonilla NP Unavailable Unavailab Tl Chavis MD Primary Care Provider [phone] Tammy Mooney MD Primary Care Provider + Lisa Patel MD Unavailable [phone] Adri Polk PA-C Unavailable [phone] Nj Steele PA-C Unavailable Shu Styles ETCHER MACHINE Unavailable [phone] Encounter Details Date Type Department Care Team Description 03/03/2020 Pt. Non Urgent Medic al Question Adult Medicine [address] [address] Pari Dawkins MD Social History Tobacco Use [...] as of this encounter Progress Notes * Ashanti Terrell M.A. - 03/03/2020 9:24 AM EDTFrom: Slava Ramirez To: Pari Villafana MD Sent: 03/03/2020 9:11 AM EDT Subject: Upcoming Appt and tests I have an appt in a few weeks... Will that be in person or via zoom? I also have blood tests due, since everything is closed here where is best place to get those done? How soon can I do that? I don't know if you have notes from others but, I was diagnosed with prostate cancer in Oct and almo st started treatment...that was paused and have started that back up. I had a surgery to implant gold markers and a spacor last week and meet with radiologists this Fri before they define the specific treatment for 9 weeks everyday. Thanks David Ramirez documented in this encounter Plan of Treatment Not on file documented as of this encounter Visit Diagnoses Not on filedocumented in this encounter Care Teams Office Machine Technician Relationship Specialty Start Date End Date Pari Dawkins MD PCP - General 12/27/18 07/23/22 Tl Stevens MD PCP - General Internal Medicine 07/24/22 11/21/22 Tammy Mooney MD [address] [place] [address] PCP - General Internal Medicine 11/22/22 Pari Dawkins MD Internal Medicine 12/27/18 Abiodun Nichols MD Cuff Presser Cardiovascular Disease 01/14/21 Charissa Bonilla NP Nurse Practitioner Cardiology 07/29/21 Lisa Patel MD [address] [address] Surgeon Neurosurgery 08/01/23 Adri Polk PA-C [address] [address] Specialist Neurosurgery 08/01/23 Nj Steele PA-C 175 [facility] [address] [place] [address] Specialist Neurosurgery 08/01/23 Shu Styles NP 175 [facility] [address] [place] [address] Cardiology 09/27/23 documented as of this encounter
--- OUTSIDE RECORDS SUMMARY | 2024-11-20 10:35 | XMS_ITS | Encounter Summary ---
Author Organization [facility] Address [address] [place] [address] Care Team Providers Care Warp Dyeing Tender Name Role Phone Pari Dawkins MD Primary Care Provider U Pari Douglas MD Primary Care Provider U Pari Douglas MD Unavailable Unavail able Abiodun Nichols MD Unavailable Charissa Bonilla NP Unavailable Unavailab Tl Chavis MD Primary Care Provider Tammy Mooney MD Primary Care Provider + Lisa Patel MD Unavailable [phone] Adri Polk PA-C Unavailable Nj Steele PA-C Unavailable Shu Styles NP Unavailable [phone] Encounter Details Date Type Department Care Team Description 01/14/2012 Inspector [place] Report Medical Records [address] [place] [address] Abstract, Provider Social History Tobacco Use Types [...] on filedocumented in this encounter Care Teams Warp Dyeing Tender Relationship Specialty Start Date End Date Pari Dawkins MD PCP - General Internal Medicine 11/25/18 12/26/18 Pari Dawkins MD PCP - General 12/27/18 07/23/22 Tl Stevens MD PCP - General Internal Medicine 07/24/22 11/21/22 Tammy Mooney MD [address] [place] [address] PCP - General Internal Medicine 11/22/22 Pari Dawkins MD Internal Medicine 12/27/18 Abiodun Nichols MD Machine Straw Hat Presser Cardiovascular Disease 01/14/21 Charissa Bonilla NP Nurse Practitioner Cardiology 07/29/21 Lisa Patel MD [address] [address] Surgeon Neurosurgery 08/01/23 Adri Polk PA-C [address] [address] Specialist Neurosurgery 08/01/23 Nj Steele PA-C [address] [address] Specialist Neurosurgery 08/01/23 Shu Styles NP [address] [address] Cardiology 09/27/23 documented as of this encounter
--- OUTSIDE RECORDS SUMMARY | 2024-11-20 10:35 | XMS_ITS | Encounter Summary ---
Author Organization [facility] Address [address] [place] [address] Care Team Providers Care Explosion Welder Name Role Phone Pari Dawkins MD Primary Care Provider [facility] Pari Dawkins MD Unavailable Unavail able Abiodun Nichols MD Unavailable Charissa Bonilla NP Unavailable Unavailab Tl Chavis MD Primary Care Provider Tammy Mooney MD Primary Care Provider + Lisa Patel MD Unavailable [phone] Adri Polk PA-C Unavailable [phone] Nj Steele PA-C Unavailable Shu Styles SLIVER MACHINE OPERATOR Unavailable Reason for Visit * Reason Onset Date Comments refill request 02/03/2020 Encounter Details Date Type Department Care Team Description 02/03/2020 Telephone Adult Medicine [facility] [address] [place] [address] Pari Dawkins MD refill request Social History Tobacco Use Types Packs/Day Years [...] encounter Miscellaneous Notes * Telephone Encounter - Pari Villafana MD - 02/03/2020 4:01 PM EDT Signed, thank you * Telephone Encounter - Suzan Fields M.A. - 02/03/2020 3:53 PM EDT Lab Results Component Value Date NA 142 09/22/2019 K 4.3 09/22/2019 CO2 25 09/22/2019 CL 109 09/22/2019 BUN 14 09/22/2019 CREAT 1.04 09/22/2019 GLU 112 09/22/2019 CA 9.3 09/22/2019 GFR > 60 09/22/2019 * Telephone Encounter - Marielena Bulmaro - 02/03/2020 1:59 PM EDT Patient would like script to be: E-PRESCRIBED/FAXED TO PHARMACY WHEN WAS THE PATIENT'S LAST APPOINTMENT IN ADULT MEDICINE? 09/30/19 WHEN WAS THE LAST TIME THE PATIENT SAW THEIR PCP? Same as above Does patient have an upcoming appointment? Yes 03/16/20 (THE MEDICATION REQUESTED IS ON THE MED LIST ABOVE) All of the medications requested were on the CURRENT MEDS list Did you check the Pharmacy information above?: YES Patient wants: 90 -day supply Is this a mail order prescription request ? NO If the refill is from a FAXED refill request what is the RX # listed on the fax? N/A Patients current insurance carrier is: Payor: [employer] / Plan: POS $5 EL F[place]O [id number] / Product Type: POS [id number] Insurance ID #: [id number] documented in this encounter Plan of Treatment Not on file documented as of this encounter Visit Diagnoses Not on filedocumented in this encounter Care Teams Explosion Welder Relationship Specialty Start Date End Date Pari Dawkins MD PCP - General 12/27/18 07/23/22 Tl Stevens MD PCP - General Internal Medicine 07/24/22 11/21/22 Tammy Mooney MD [address] [place] [address] PCP - General Internal Medicine 11/22/22 Pari Dawkins MD Internal Medicine 12/27/18 Abiodun Nichols MD Concert Singer Cardiovascular Disease 01/14/21 Charissa Bonilla NP Nurse Practitioner Cardiology 07/29/21 Lisa Patel MD [address] [address] Surgeon Neurosurgery 08/01/23 Adri Polk PA-C [address] [address] Specialist Neurosurgery 08/01/23 Nj Steele PA-C [address] [address] Specialist Neurosurgery 08/01/23 Shu Styles NP [address] [address] Cardiology 09/27/23 documented as of this encounter
--- OUTSIDE RECORDS SUMMARY | 2024-11-20 10:35 | XMS_ITS | Encounter Summary ---
Author Organization [facility] [employer] [facility] Address [address] [place] [address] Care Team Providers Care Marsh Buggy Operator Name Role Phone Pari Dawkins MD Primary Care Provider [facility] Pari Dawkins MD Unavailable Unavail able Abiodun Nichols MD Unavailable Charissa Bonilla NP Unavailable Unavailab Tl Chavis MD Primary Care Provider [phone] Tammy Mooney MD Primary Care Provider + Lisa Patel MD Unavailable [phone] Adri Polk PA-C Unavailable [phone] Nj Steele PA-C Unavailable Shu Styles VISITOR SERVICES REPRESENTATIVE Unavailable [phone] Reason for Visit * Reason Onset Date Comments Faxed Order 01/23/2020 Encounter Details Date Type Department Care Team Description 01/23/2020 Telephone Adult Medicine [address] [id number] Pari Dawkins MD Faxed Order Social History Tobacco Use Types Packs/Day Years [...] encounter Miscellaneous Notes * Telephone Encounter - Luiza Aguilera - 01/23/2020 3:21 PM EDT Faxed order in Dr. Villafana box for signature and to be faxed back to [phone] documented in this encounter Plan of Treatment Not on file documented as of this encounter Visit Diagnoses Not on filedocumented in this encounter Care Teams Marsh Buggy Operator Relationship Specialty Start Date End Date Pari Dawkins MD PCP - General 12/27/18 07/23/22 Tl Stevens MD PCP - General Internal Medicine 07/24/22 11/21/22 Tammy Mooney MD [address] [place] [address] PCP - General Internal Medicine 11/22/22 Pari Dawkins MD Internal Medicine 12/27/18 Abiodun Nichols MD Youth Teacher Cardiovascular Disease 01/14/21 Charissa Bonilla NP Nurse Practitioner Cardiology 07/29/21 Lisa Patel MD [address] [address] Surgeon Neurosurgery 08/01/23 Adri Polk PA-C [address] [address] Specialist Neurosurgery 08/01/23 Nj Steele PA-C [address] [address] Specialist Neurosurgery 08/01/23 Shu Styles NP [address] [address] Cardiology 09/27/23 documented as of this encounter
--- OUTSIDE RECORDS SUMMARY | 2024-11-20 10:35 | XMS_ITS | Patient Health Record ---
Author Organization [facility] Address [address] [place] [address] Care Team Providers Care Cardiovascular Specialist Name Role Phone Medina Catherine Unavailable [phone] Allergies No Known Allergies Reason For Referral [...] Problem Acquired hammer toe of right foot (727284053443024 5) Other hammer toe(s) (acquired), right foot (M20.41) Active confirmed Problem Acquired hammer toe of left foot (721073183930983 3) Other hammer toe(s) (acquired), left foot (M20.42) Active confirmed Problem Type II diabetes mellitus without complication (053331555) Type 2 diabetes mellitus without complications (E11.9) Active confirmed Problem 98941186 Osteoarthritis o f right ankle and foot (M19.071) Active confirmed Problem 50909139 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.072) Active confirmed Plan Of Treatment Pending Test Test Name Order Date X ray : Foot, left 3V 11/15/2020 X ray : Foot, right 3V 11/15/2020 [id number] NAIL, 6 OR MORE 02/27/2023 Insurance Providers Payer Name Payer Address Payer Phone Subscriber Number Group Number Insured Name Patient Relationship to Insured Coverage Start Date Coverage End Date [address] [place] [phone] [id number] Slava Ramirez Self - patient is the insured Medical (General) History Medical History History ICD Code Back,Hip,and Knee pain type II diabetes High blood pressure Measles Mumps Chicken pox Prostate cancer Surgical History Surgery Date(Month/Year) neck fusion 2016 prostate surgery 02/2020 lower back surgery 08/2021
--- OUTSIDE RECORDS SUMMARY | 2024-11-20 10:35 | XMS_ITS | Encounter Summary ---
[facility] Address [address] [place] [address] Care Team Providers Care Mechanical System Technician Name Role Phone Pari Dawkins MD Primary Care Provider [facility] Pari Dawkins MD Unavailable Unavail able Abiodun Nichols MD Unavailable Charissa Bonilla NP Unavailable Unavailab Tl Chavis MD Primary Care Provider [phone] Tammy Mooney MD Primary Care Provider + Lisa Patel MD Unavailable [phone] Adri Polk PA-C Unavailable [phone] Nj Steele PATannaC Unavailable [phone] Shu Styles NP Unavailable [phone] Encounter Details Date Type Department Care Team Description 02/26/2020 SCAN Medical Records [address] [place] [address] Kobi Pierre MD Social History Tobacco Use Types Packs/Day [...] Name Priority Date/Time Associated Diagnosis Comments OUTSIDE EKG Routine 02/26/2020 documented in this encounter Results * OUTSIDE EKG (02/26/2020) Provider Abstract CARDIOLOGY documented in this encounter Visit Diagnoses Not on filedocumented in this encounter Care Teams Mechanical System Technician Relationship Specialty Start Date End Date Pari Dawkins MD PCP - General 12/27/18 07/23/22 Tl Stevens MD PCP - General Internal Medicine 07/24/22 11/21/22 Tammy Mooney MD [address] [place] [address] PCP - General Internal Medicine 11/22/22 Pari Dawkins MD Internal Medicine 12/27/18 Abiodun Nichols MD Personal Banking Officer Cardiovascular Disease 01/14/21 Charissa Bonilla NP Nurse Practitioner Cardiology 07/29/21 Lisa Patel MD [address] [address] Surgeon Neurosurgery 08/01/23 Adri Polk PA-C [address] [address] Specialist Neurosurgery 08/01/23 Nj Steele PA-C [address] [address] Specialist Neurosurgery 08/01/23 Shu Styles NP [address] [address] Cardiology 09/27/23 documented as of this encounter
--- OUTSIDE RECORDS SUMMARY | 2024-11-20 10:35 | XMS_ITS | Encounter Summary ---
[facility] Address [address] [place] [address] Care Team Providers Care Deputy Bailiff Name Role Phone Pari Dawkins MD Primary Care Provider [facility] Pari Dawkins MD Unavailable Unavail able Abiodun Nichols MD Unavailable Charissa Bonilla NP Unavailable Unavailab Tl Chavis MD Primary Care Provider [phone] Tammy Mooney MD Primary Care Provider + Lisa Patel MD Unavailable [phone] Adri PolkC Unavailable [phone] Nj Steele PATannaC Unavailable [phone] Shu Styles NP Unavailable [phone] Encounter Details Date Type Department Care Team Description 02/26/2020 Hospital Medical Records [address] [place] [address] Kobi Pierre MD Social History Tobacco Use [...] on filedocumented in this encounter Care Teams Deputy Bailiff Relationship Specialty Start Date End Date Pari Dawkins MD PCP - General 12/27/18 07/23/22 Tl Stevens MD PCP - General Internal Medicine 07/24/22 11/21/22 Tammy Mooney MD [address] [place] [address] PCP - General Internal Medicine 11/22/22 Pari Dawkins MD Internal Medicine 12/27/18 Abiodun Nichols MD Solution Strategist Cardiovascular Disease 01/14/21 Charissa Bonilla NP Nurse Practitioner Cardiology 07/29/21 Lisa Patel MD [address] [address] Surgeon Neurosurgery 08/01/23 Adri Polk PA-C [address] [address] Specialist Neurosurgery 08/01/23 Nj Steele PA-C [address] [address] Specialist Neurosurgery 08/01/23 Shu Styles NP [address] [address] Cardiology 09/27/23 documented as of this encounter
== END 2024-11-20 10:06 | disposition home or self-care (01) ==
PROVIDERS: PCP Family Medicine; Visit Provider Anesthesiology
DX: M54.16 Radiculopathy, lumbar region (principal); M96.1 Postlaminectomy syndrome, not elsewhere classified
CPT/HCPCS: 99215

== ENCOUNTER → 2024-11-20 09:24 | Outpatient (BNVA) | payer MEDICARE, SELFPAY | PROVIDERS: PCP Family Medicine; Visit Provider Anesthesiology | DX: M54.16 Radiculopathy, lumbar region (principal); M96.1 Postlaminectomy syndrome, not elsewhere classified | CPT/HCPCS: 99212 ==

== ENCOUNTER 2024-11-28 09:00 | Outpatient (RCR) | payer MEDICARE, SELFPAY ==
--- NOTE | 2024-10-20 11:13 | MHC.PT.EP ---
[facility] [place] Office [place] Office [place] Office [address] Ton Mendoza [address] [phone] F: [phone] F: [phone] F: [phone] F: [phone] Physical Therapy Plan of Care Date of Evaluation: 10/20/24 Date of Surgery: Diagnosis: bilateral hip pain Assessment: Patient is a 78 year old R handed male who presents with s/s consistent with bilateral hip pain. He is retired but enjoys golfing but has been limited in his ability. Patient past medical history is complicated and includes fusions, DM and heart pathology. Current impairments include pain, posture, ROM, strength, flexibility, balance, activity tolerance and functional mobility. Functional limitations include decreased ability to stand, walk, transfer, golf, negotiate stairs and get out into the community. Patient is motivated with good rehab potential. Skilled PT will address impairments and functional limitations in order to achieve goals. Frequency and Duration: The patient will be seen 2x/week for 5 weeks Short Term Goals: I with HEP - 2 weeks AROM ER of hips 35 degrees b/l - 3 weeks Hip strength 4/5 grossly - 3 weeks AROM lumbar spine rotation - 50 % and pain free - 3 weeks Director Records Management Goals: LEFS 40/80 - 5 weeks LE strength 4+/5 grossly -5 weeks 90/90 HS lacking 28 or less - 5 weeks max pain with golf and daily activities - 3/10 - 5 weeks Treatment Plan: Modalities to reduce pain, spasms and effusion. Manual therapy to restore motion and function. Therapeutic exercise to improve strength and flexibility. Neuromuscular re-education for posture and balance. Therapeutic activities to return to functional activities of daily living. Electronically signed by: Rodney Oviedo, PT Please sign and return to therapist. Thank you for your referral.
--- NOTE | 2024-12-17 11:01 | MHC.PT.DC ---
[facility] [place] [facility] [place] [facility] [place] [facility] [address] Ton Mendoza [address] [phone] F: [phone] F: [phone] F: [phone] F: [phone] Physical Therapy Discharge Report Diagnosis: bilateral hip pain Date of Surgery: Date of Evaluation: 10/20/24 Date of Discharge: 12/02/24 Treatments to Date: 10 Cancellations to Date: No Shows to Date: Discharge Status: Improved Function Independent with HEP Discharge Summary: 11/28/24: pt still with TTP. good carryover and compliance. I with HEP. LEFS 39/80. Able to golf. lacking 26 b/l. L hip strength 4-/5 grossly. he has progressed in some areas but limited by L hip pain. we will d/c to HEP at this time per his request. He has bands, HEP and recommendations at his disposal. 11/25/24: held manual as he did have significant soreness afterwards. we will likely update HEP NV. 11/21/24: pt progressing with hip strength. but with more piriformis pain today. address manually. we discussed continuing 3 more visits to try to address residual piriformis involvement. 11/13/24: progressing well. reduced s/s overall and I with HEP. appropriate to d/c to HEP Nv. 11/06/24: pt has been responding well and continues to be motivated. min discomfort today and s/s less with home routine as well. AROM rotation 50% b/l and pain free. 11/04/24: pt responding well to current program. continue to progress as tolerated. 10/30/24: pt continues to progress well with skilled PT. no adverse reactions. reduced s/s overall. 10/28/24: pt progressed with strength and flex, balance. continue to progress as tolerated. 10/24/24: pt progressing well with skilled PT. added hip ROM and strength today. assess response and progress as tolerated. Patient is a 78 year old R handed male who presents with s/s consistent with bilateral hip pain. He is retired but enjoys golfing but has been limited in his ability. Patient past medical history is complicated and includes fusions, DM and heart pathology. Current impairments include pain, posture, ROM, strength, flexibility, balance, activity tolerance and functional mobility. Functional limitations include decreased ability to stand, walk, transfer, golf, negotiate stairs and get out into the community. Patient is motivated with good rehab potential. Skilled PT will address impairments and functional limitations in order to achieve goals. Electronically signed by: Rodney Oviedo, PT Please sign and return to therapist. Thank you for your referral.
== END 2024-12-17 11:02 | disposition home or self-care (01) ==
LOC: HO.PTCHIC 09:00
PROVIDERS: PCP Family Medicine; Visit Provider Orthopaedic Surgery
DX: M25.551 Pain in right hip (principal); M25.552 Pain in left hip
CPT/HCPCS: 97110; 97112; 97163

== ENCOUNTER 2025-01-09 07:55 | Day surgery (SDC) | payer MEDICARE, SELFPAY ==
[2024-12-31 13:53] VITALS: BMI 33.6
--- NOTE | 2025-01-08 09:17 | P.CONAN_ITS ---
Documented by User: Kiera Jack NP 01/08/25 10:53 HPI - Anesthesia Eval Consult details Narrative: 79yo M for Spinal Cord Stimulation Trial s/p TLIF 03/2024 Follows [facility] for CAD CAD: No prior intervention, medical management and obs only. Last office visit 10/2024 with reports of atypical CP, but nml nuc stress 10/2024 DM: FBS ~ 130 DVT's: 2019, eliquis ~ 1.5 years, No OAC now Anesthesia Pre-Procedure Meds Is the patient on any of the following meds?: SGLT2 Inhib PMFSH Active Problems Active Problems: All Active Problems Postlaminectomy syndrome (Acute) Tendinitis involving hip abductors (Acute) Hip pain, bilateral (Acute) S/P lumbar spinal fusion (Acute) Lumbar radiculopathy (Acute) Status post lumbar and lumbosacral fusion by anterior technique (Acute) Lumbar spinal stenosis due to adjacent segment disease after fusion procedure (Acute) Past Medical History Medical History Back pain Obesity (BMI 30.0-34.9) HTN (hypertension) Hyperlipidemia BPH (benign prostatic hyperplasia) Vitamin D deficiency DDD (degenerative disc disease), cervical CAD (coronary artery disease) Chronic neck pain with history of cervical spinal surgery Tubular adenoma of colon History of basal cell carcinoma (BCC) of skin Actinic keratosis of scalp Diverticulosis Diabetes Chronic lower back pain Spinal stenosis at L4-L5 level Prostate cancer Acute deep vein thrombosis (DVT) of femoral vein of right lower extremity History of COVID-19 Dizziness 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 Lumbar degenerative disc disease Hyponatremia Adrenal nodule Nocturnal leg cramps Osteoarthritis of both hips Palpitations Nonhealing ulcer of right lower extremity PAC (premature atrial contraction) Atherosclerosis Insomnia Family History Family history of problems with anesthesia: No Surgical History Surgical History (Updated 12/31/24 @ 13:38 by Jeniffer Molina RN) History of lumbar fusion History of back surgery Hx of bilateral cataract extraction Hx of prostate biopsy Hx of inguinal hernia repair Hx of shoulder surgery History of neck surgery H/O colonoscopy Hx of cardiac catheterization History of Problems with Anesthesia: No Social History Social History Household Members: Spouse Housing: House Are you a primary team primary care physician to a significant other at home: No Do you presently have visiting nurse or other home services: No Comment: COUNTS CORRECT Patient Tobacco Use Status: Never used Tobacco Use of substances other than those prescribed or required for medical reasons: Yes Substance Use Type Other:: gummies Are you DNR?: No Advance Directives: No Advance Directives Information Provided: Yes Poor oral hygiene: No service: No Meds Allergies Allergy/AdvReac Type Severity Reaction Status Date / Time No Known Allergies Allergy Verified 11/20/24 09:31 Home Medications ?Medication ?Instructions ?Recorded ?Confirmed ?Last Taken ?Type atorvastatin 80 mg tablet 80 mg PO BEDTIME 04/03/24 12/31/24 04/21/24 History cholecalciferol (vitamin D3) 50 50 mcg PO DAILY 04/03/24 12/31/24 04/15/24 History mcg (2,000 unit) tablet (Vitamin D3) gabapentin 300 mg capsule 300 mg PO TID 04/03/24 12/31/24 01/09/25 History multivitamin 1 tab PO DAILY 04/03/24 12/31/24 04/15/24 History omega-3 fatty acids 1,000 mg 1,000 mg PO DAILY 04/03/24 12/31/24 04/15/24 History capsule aspirin 81 mg tablet,delayed 81 mg PO DAILY 04/08/24 01/09/25 01/02/25 History release tadalafil 5 mg tablet 5 mg PO QPM 04/08/24 12/31/24 Unknown History empagliflozin 25 mg tablet 25 mg PO DAILY 04/22/24 12/31/24 01/05/25 History (Jardiance) losartan 100 1 tab PO DAILY 04/22/24 12/31/24 Unknown History mg-hydrochlorothiazide 25 mg tablet glipizide 10 mg tablet 10 mg PO BID 10/22/24 12/31/24 01/09/25 History ezetimibe 10 mg tablet 10 mg PO DAILY 11/20/24 12/31/24 Unknown History metoprolol succinate 50 mg 50 mg PO DAILY 11/20/24 12/31/24 01/09/25 History tablet,extended release 24 hr Exam Height,Weight and Vital Signs: Height 5 ft 8.5 in Weight 101.661 kg Narrative Narrative: Nuc exercise stress 10/2024 nml Assessment and Plan Assessment Anesthesia Assessment: Chart Reviewed Final Anesthetic Review Family History of Problems with Anesthesia: No History of Problems with Anesthesia: No Documented by User: Neo Cullen MD 01/09/25 10:58 PMFSH Past Medical History Medical History Back pain Obesity (BMI 30.0-34.9) HTN (hypertension) Hyperlipidemia BPH (benign prostatic hyperplasia) Vitamin D deficiency DDD (degenerative disc disease), cervical CAD (coronary artery disease) Chronic neck pain with history of cervical spinal surgery Tubular adenoma of colon History of basal cell carcinoma (BCC) of skin Actinic keratosis of scalp Diverticulosis Diabetes Chronic lower back pain Spinal stenosis at L4-L5 level Prostate cancer Acute deep vein thrombosis (DVT) of femoral vein of right lower extremity History of COVID-19 Dizziness 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 Surgical History Surgical History (Updated 12/31/24 @ 13:38 by Jeniffer Molina RN) History of lumbar fusion History of back surgery Hx of bilateral cataract extraction Hx of prostate biopsy Hx of inguinal hernia repair Hx of shoulder surgery History of neck surgery H/O colonoscopy Hx of cardiac catheterization Social History Social History Household Members: Spouse Housing: House Are you a primary team primary care physician to a significant other at home: No Do you presently have visiting nurse or other home services: No Comment: COUNTS CORRECT Patient Tobacco Use Status: Never used Tobacco Use of substances other than those prescribed or required for medical reasons: Yes Substance Use Type Other:: gummies Are you DNR?: No Advance Directives: No Advance Directives Information Provided: Yes Poor oral hygiene: No service: No Meds Allergies Allergy/AdvReac Type Severity Reaction Status Date / Time No Known Allergies Allergy Verified 11/20/24 09:31 Home Medications ?Medication ?Instructions ?Recorded ?Confirmed ?Last Taken ?Type atorvastatin 80 mg tablet 80 mg PO BEDTIME 04/03/24 12/31/24 04/21/24 History cholecalciferol (vitamin D3) 50 50 mcg PO DAILY 04/03/24 12/31/24 04/15/24 History mcg (2,000 unit) tablet (Vitamin D3) gabapentin 300 mg capsule 300 mg PO TID 04/03/24 12/31/24 01/09/25 History multivitamin 1 tab PO DAILY 04/03/24 12/31/24 04/15/24 History omega-3 fatty acids 1,000 mg 1,000 mg PO DAILY 04/03/24 12/31/24 04/15/24 History capsule aspirin 81 mg tablet,delayed 81 mg PO DAILY 04/08/24 01/09/25 01/02/25 History release tadalafil 5 mg tablet 5 mg PO QPM 04/08/24 12/31/24 Unknown History empagliflozin 25 mg tablet 25 mg PO DAILY 04/22/24 12/31/24 01/05/25 History (Jardiance) losartan 100 1 tab PO DAILY 04/22/24 12/31/24 Unknown History mg-hydrochlorothiazide 25 mg tablet glipizide 10 mg tablet 10 mg PO BID 10/22/24 12/31/24 01/09/25 History ezetimibe 10 mg tablet 10 mg PO DAILY 11/20/24 12/31/24 Unknown History metoprolol succinate 50 mg 50 mg PO DAILY 11/20/24 12/31/24 01/09/25 History tablet,extended release 24 hr Exam Airway Mallampati Class: II TM Dist: <=3cm Neck ROM: Full Heart: ok. see above. Lungs: ok Assessment and Plan Assessment Anesthesia Assessment: Anesthesia Plan Discussed Final Anesthetic Review NPO: Yes ASA Class: III Final Preanesthetic Review: No Changes in Pt Med Stat, Meds/Allgs Chart Reviewed, Consent Obtained/Reviewed and Anes Risks/Benef Reviewed Patient Risk: High Procedure Risk: Intermediate Anesthetic Plan Anesthetic Plan: MAC: and Agree w/ Assess. and Plan Disposition: Standard PACU
--- NOTE | ~2025-01-09 | FL_ITS ---
EXAMINATION: FL GUIDANCE ONLY HISTORY: spinal cord stim trial COMPARISON: None available. TECHNIQUE: Fluoroscopy time: 6 minutes, 12 seconds. Cumulative Dose: 259 mGy. DAP: 61.360 mGym2 Images: 5. FINDINGS: Images demonstrate a spinal stimulator in place with the tip of the lead at the inferior endplate of T7. FL/FL guidance in OR IMPRESSION: Fluoroscopy during procedure. Please see procedure report for additional information. Electronically signed by: Slava Baptiste MD 01/09/2025 12:07 PM EDT
[2025-01-09 08:05] VITALS: BMI 33.5
[2025-01-09 08:29] VITALS: BP 122/66; PULSE 65; RESP 16; TEMP 36; O2SAT 94
[2025-01-09] MEDS: Lactated Ringers 1,000 ML 100 ML IVCONT (08:50)
[2025-01-09 09:00] LABS: Glucose, Whole Blood 171 mg/dL (60-115)
--- NOTE | 2025-01-09 10:18 | MHC.SHP ---
Pre-Procedural Eval Section A - 24 Hr Update-Section A only Date of Service: 01/09/25 The patient is an INPATIENT: No Changes since office visit: Yes Patient answered all questions The patient has been examined within 24 hours of the surgical procedure. The History & Physical has been completed within 30 days and I have reviewed it.: No Section B - Complete if H&P > 30 days Chief Complaint: Postlaminectomy syndrome, not elsewhere classified Details of Present Illness: as above Relevant Family History (Specify if Yes): No Relevant Social History: None Present Medications: see Short Stay Collaborative assessment Medical History: No relevant PMH History of Previous Operations: Relevant previous surgery/procedure and date(s) Allergies: Allergies Allergy/AdvReac Type Severity Reaction Status Date / Time No Known Allergies Allergy Verified 11/20/24 09:31 Review of Systems Sugical H&P ROS: Negative: Cardiovascular, Respiratory, Neurological, Psychiatric, Hem-Onc, Allergic/Immunologic, Gastrointestinal, Genitourinary, Integumentary and Eyes/Ears/Nose/Throat and Yes, Specify: Constitution (morbid obesity), Musculoskeletal (postlaminectomy syndrome) and Endocrine Exam Surgical H&P Exam: Normal: HEENT, Normal: Heart, Normal: Lungs, Normal: Extremities, Normal: Skin and Normal: Neurological and Significant Findings: Abdomen (Enlarged due to intra-abdominal and subc fat) Plan Diagnosis/Plan: Unchanged I have reviewed the history and physical and performed a pertinent physical examination on my patient. No changes have occurred unless specified. Time Spent With Patient Time: Total time managing care of this patient today ____ 10 minutes.
--- NOTE | 2025-01-09 10:21 | P.OP_ITS ---
Operative Note Operative Note Date of Service: 01/09/25 Narrative: Trial of spinal cord stimulator [employer]. Slava is very pleasant 79 years old male who came to the operating room for trial of spinal cord stimulator [employer] for the treatment of postlamin ectomy syndrome and chronic pain syndrome. ?Preoperatively patient received ? cefazolin 2 g approximately thirty minutes before the procedure. After obtaining informed consent the patient was brought to the operating room, he was positioned prone on operating table, ASA monitor were applied and the patient was induced with general LMA anesthesia. ?Time-out was performed delineating correct site, side, the nature of the procedure, patient's allergy, preoperative antibiotic if needed.? All operating room staff was participating in OR time-out procedure. Patient's entire back was prepped with Chloraprep twice and draped with full body fenestrated laparoscopy drape.? Sterilely draped C-arm was brought over operating field and square picture of the T11, T12 , L1 vertebrae? were demonstrated on the screen.? Extensive hardware at L2-L3 as well as L4-5 artificial disc were noted on the screen. ?Attention FIRST? was concentrated on T12-L1 epidural interspace in the projection of L1 pedicle local anesthetic mixture of ropivacaine 0.5% and lidocaine 2% one-to-one was injected forming a skin wheal. Eleven blade scalpel was used to make a joseph on the skin. After the 10 cm 14 gauge introducer epidural needle was inserted through the neck and advanced to were the T12-L1 epidural interspace. Loss of resistance to air technique and guitar wire were used to locate epidural space. The needle was advancing under anterior posterior and lateral views. Epidural lead was inserted through the needle and advanced to the projection of the T11-T12 vertebra. Unfortunately here epidural needle was meeting resistance with advancement in posterior epidural space and was deviating constantly either to the left or to the right gutter. The decision was made to change the level of the insertion for T11-T12 epidural interspace using longer needle 5 in long. The 10 cm needle was removed and in the same joseph of the skin 5 in needle was reinserted and advanced to were the T11-T12 epidural interspace. Loss of resistance to air was attempted there however despite the view of the epidural interspace not containing any spurs or bone growth the needle on anterior posterior and lateral view med resistance in the projection of the probably calcified ligamentum flavum. After the decision was made to go to 1 level up with new needle insertion site. The T10-T11 epidural space was was chosen as the needle advancement point. Right pedicle of the T11 with pedicular screw in it was located on the screen and the projection of the pedicle was injected with 5 cc of lidocaine 2% mixture with r opivacaine 0.5% mixture 1-1.After that 11 blade was used to make a joseph on the skin.? 10 cm 14 gauge? introducer epidural needle was inserted through the joseph and advanced to T10-T11 epidural interspace.? The advancement of the needle was performed on anterior posterior and lateral views.?Loss of resistance to air? technique were used to locate epidural space., guitar wire was used to confirm epidural space,epidural lead was inserted through the needle and? advanced to the projection of the bottom of T7 vertebral body strictly on the midline. Lateral view demonstrated posterior position of the lead. Because of the difficulty of the advancement of the epidural lead we decided to try strictly midline positioned 16 contact epidural lead as the sole source of stimulation. The patient was awakened and the trial device was connected to the epidural lead. The patient reported that he felt the stimulation inappropriate areas corresponding to his pain.? The anchoring devices were dislodged on the leads and advanced to the level of the skin.? The anchoring devices were sutured with two 0-0 ?Silk sutures per each anchor to the skin of the patient. The central fixation screw of the anchor was rotated until three clicks were heard. The leads were connected to testing device.? Sterile dressing was applied to the patient's back.? The testing device was also taped to the patient's back.? the patient tolerated procedure well she was awaken and taken outside of the operating room to recovery room.
[2025-01-09 12:00] VITALS: BP 113/61; PULSE 62; RESP 16; TEMP 36.6; O2SAT 94
[2025-01-09 12:15] VITALS: BP 109/61; PULSE 57; RESP 16; O2SAT 93
--- NOTE | 2025-01-09 12:17 | P.BOP_ITS ---
Brief Operative Note Date of Service: 01/09/25 Pre-op diagnosis: Postlaminectomy syndrome chronic pain syndrome Post-op diagnosis: same Procedure: Trial of [employer] scientific spinal cord stimulator Implants: None permanent Surgeon: Jose Khan MD Anesthesia: MAC Was an Teletypewriter Installer used for this Procedure?: No Estimated blood loss (mL): 0 Condition: stable Disposition: PACU
[2025-01-09 12:30] VITALS: BP 123/57; PULSE 59; RESP 16; O2SAT 94
[2025-01-09 12:45] VITALS: BP 111/50; PULSE 61; RESP 16; O2SAT 94
[2025-01-09 13:06] VITALS: BP 115/54; PULSE 59; RESP 18; TEMP 36.4; O2SAT 94
== END 2025-01-09 14:03 | disposition home or self-care (01) ==
PROVIDERS: PCP Family Medicine; Visit Provider Anesthesiology
PROC: (CPT 63650; principal; 2025-01-09 10:30)
DX: M96.1 Postlaminectomy syndrome, not elsewhere classified (principal); M54.16 Radiculopathy, lumbar region; G89.4 Chronic pain syndrome; R26.2 Difficulty in walking, not elsewhere classified; E11.42 Type 2 diabetes mellitus with diabetic polyneuropathy; M48.061 Spinal stenosis, lumbar region without neurogenic claudication; M50.30 Other cervical disc degeneration, unspecified cervical region; I10 Essential (primary) hypertension; I25.10 Atherosclerotic heart disease of native coronary artery without angina pectoris; E78.5 Hyperlipidemia, unspecified; I82.501 Chronic embolism and thrombosis of unspecified deep veins of right lower extremity; Z79.82 Long term (current) use of aspirin; Z79.84 Long term (current) use of oral hypoglycemic drugs; Z79.899 Other long term (current) drug therapy; Z98.1 Arthrodesis status; Z96.9 Presence of functional implant, unspecified; Z98.890 Other specified postprocedural states
CPT/HCPCS: 63650; 82947; C1889; C1897; J0690; J2003; J2250; J2704; J2795; J3010

== ENCOUNTER → 2025-01-09 07:55 | Outpatient (BNV) | payer MEDICARE, SELFPAY | PROVIDERS: PCP Family Medicine; Visit Provider Anesthesiology | DX: M96.1 Postlaminectomy syndrome, not elsewhere classified (principal) | CPT/HCPCS: 63650 ==

== ENCOUNTER 2025-01-15 09:41 | Outpatient (AMB) | payer MEDICARE, SELFPAY ==
[2025-01-15 09:53] VITALS: BP 122/59; PULSE 81; O2SAT 95
--- NOTE | 2025-01-15 09:53 | A.OFFVIS_ITS ---
Vital Signs 01/15/25 09:53 Weight 227 lb BP 122/59 L Blood Pressure Location Rt brachial Position Sitting Pulse 81 Pulse Source Pulse Oximeter Pulse Oximetry (%) 95 Oxygen Delivery Method Room Air Intake Visit Reasons: S/p [employer] [place] [employer] SCS Trial 01/09/25 Insole Rounder Required: No Allergies No Known Allergies Allergy (Verified 01/15/25 09:54) Medication List - Last Reconciled 01/15/25 by Alexandria Jackson, CR[employer] CERAMIST aspirin 81 mg PO DAILY atorvastatin 80 mg PO BEDTIME cephalexin 1,000 mg (2 x 500 mg) PO Q8H 8 days cholecalciferol (vitamin D3) (Vitamin D3) 50 mcg PO DAILY empagliflozin (Jardiance) 25 mg PO DAILY ezetimibe 10 mg PO DAILY gabapentin 300 mg PO TID glipizide 10 mg PO BID losartan-hydrochlorothiazide 100-25 mg 1 tab PO DAILY metoprolol succinate ER 50 mg PO DAILY multivitamin 1 tab PO DAILY omega-3 fatty acids 1,000 mg PO DAILY tadalafil 5 mg PO QPM HPI Comments Details: Slava is in my office after a trial of [employer] spinal cord stimulator. The trial was very difficult. The patient received only 1 lead. However after several attempts to stimulate the [employer] representatives eventually able to demonstrate to the patient 75% pain relief with use of the machine. Because of the severe epidural adhesions and difficult approaches to the patient's posterior epidural space I would like to refer this patient to our neurosurgical colleagues Dr. Rincon for insertion of the surgical paddle spinal cord stimulator [employer] scientific. The area of the insertion of the spinal cord stimulator trial lead was prepped with ChloraPrep after removal of the dressing. The sutures were severed and the epidural lead was removed EN mass from the patient's back. The site was examined no redness no pathological discharge no swelling and no tenderness on palpation. Sterile dressing was applied. Prior: He suffers from chronic back pain. He had L3-L4 L5 lumbar fusion in 2020 2021 and he had L2-L3 lumbar interbody fusion in . Some of his symptoms were alleviated including pain radiating to the lower extremity however he continues to complain on axial back pain at the lowest portion of his bilateral scars from L3-L5 fusion. He points out to the approximate projection of the iliac crest bilaterally. However unfortunately the signs of sacroiliitis bilaterally negative see description as below. He was scheduled for a trial of [place] scientific spinal cord stimulator and now he wants to reschedule it on my schedule. He reports his pain mostly aggravates him with standing and walking. He denies pain with sitting and laying flat down. 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 We discussed possibility of switching [employer] [place] [employer] spinal cord stimulator device to [employer] device in the middle of the trial if [place] [employer] machine will not be effective to control his pain. Longevity of the spinal cord stimulator actions were discussed with the patient. Criteria for implantation were also discussed with the patient. Patient expressed understanding and he asked multiple appropriate questions. [facility] Medical History Back pain Obesity (BMI 30.0-34.9) HTN (hypertension) Hyperlipidemia BPH (benign prostatic hyperplasia) Vitamin D deficiency DDD (degenerative disc disease), cervical CAD (coronary artery disease) Chronic neck pain with history of cervical spinal surgery Tubular adenoma of colon History of basal cell carcinoma (BCC) of skin Actinic keratosis of scalp Diverticulosis Diabetes Chronic lower back pain Spinal stenosis at L4-L5 level Prostate cancer Acute deep vein thrombosis (DVT) of femoral vein of right lower extremity History of COVID-19 Dizziness 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 Lumbar degenerative disc disease Hyponatremia Adrenal nodule Nocturnal leg cramps Osteoarthritis of both hips Palpitations Nonhealing ulcer of right lower extremity PAC (premature atrial contraction) Atherosclerosis Insomnia Surgical History (Updated 12/31/24 @ 13:38 by Jeniffer Molina RN) History of lumbar fusion History of back surgery Hx of bilateral cataract extraction Hx of prostate biopsy Hx of inguinal hernia repair Hx of shoulder surgery History of neck surgery H/O colonoscopy Hx of cardiac catheterization Social History Household Members: Spouse Housing: House Are you a primary director of medicare to a significant other at home: No Do you presently have visiting nurse or other home services: No Comment: COUNTS CORRECT Patient Tobacco Use Status: Never used Tobacco service: No Review of Systems Const All systems reviewed & are unremarkable except as noted in HPI and below ENT Reports Normal hearing present Neuro Reports Normal hearing present, Denies Abnormal speech present, Reports confusion and Denies Sensory deficit (Neuro) Psych Reports confusion Physical Exam Vital Signs: Last Vital Signs Pulse 81 01/15/25 09:53 BP 122/59 L 01/15/25 09:53 Pulse Ox 95 01/15/25 09:53 Oxygen Delivery Method Room Air 01/15/25 09:53 Const General: no acute distress and confusion Nutritional Appearance: obese centrally obese Orientation/consciousness: patient oriented x3 and confusion Limitations: no limitations Eyes General: appearance normal, both eyes and all related structures Pupils: Equal, round and reactive pupils present EOM: EOMs intact bilaterally Neck Neck: Yes full ROM Chest Chest palpation & inspection: normal inspection of the chest Resp Effort & Inspection: normal respiratory effort, able to speak in complete sentences, normal respiratory pattern, no audible wheezes and no cough Cardio Jugular venous distension: no JVD GI Inspection: Yes normal to inspection Back/Spine/Pelvis Other: Bilateral paramedian scars in the projection of L3-L4 -L5 vertebras are examined, this scars very well-healed. Able to stand on bilateral tiptoes in bilateral heels exhibits non affected gait, Korey test is negative bilaterally. Reports pain in projection of greater trochanter with Korey test. Neuro General: patient oriented x3, gait normal and confusion Cranial nerves: Yes CN's II-XII intact bilaterally, Yes Equal, round and reactive pupils present, Yes Normal hearing present and Yes Ability to bilaterally elevate shoulders present Speech: No Abnormal speech present Gait exam (Neuro): Normal gait present Motor exam (neuro): 5/5 motor strength present throughout Sensory Exam: No Sensory deficit (Neuro) Extrem General: No pedal edema Psych Speech and movement: Normal speech and movement present Affect: normal affect Attitude: cooperative Thought process: Normal thought process present Thought content: Normal thought content present Insight: Good insight present (Psych) Judgement: Good judgement present (Psych) Assessment & Plan Assessment & Plan (1) Postlaminectomy syndrome: Code(s): M96.1 - Postlaminectomy syndrome, not elsewhere classified Category: Medical (2) Lumbar radiculopathy: Code(s): M54.16 - Radiculopathy, lumbar region Category: Medical Plan The trial resulted in good pain relief although technically insertion of the epidural leads was very difficult. I would like to refer this patient to Dr. Rincon to complete the job inserting paddle spinal cord stimulator in the patient's back. Orders: Referrals Neurosurgery Referral M96.1 - Postlaminectomy syndrome, not elsewhere classified Coding Level of Care Code Est Pt Level 3 (08967) Diagnoses Postlaminectomy syndrome M96.1 Lumbar radiculopathy M54.16
--- OUTSIDE RECORDS SUMMARY | 2025-01-15 10:44 | XMS_ITS | Continuity of Care Document ---
Author Organization [facility] [address] [place] [address] Phone [phone] Care Team Providers Care Biostatistics Manager Name Role Phone Pari Villafana M.D. Care Team Information Powdered Sugar Supervisor [phone] Tammy Mooney Care Team Information Rece iver [phone] Problems Active Problems Provider Date Type 2 diabetes mellitus Francis Colmenares M.D. Onset: 06/13/2022 Coronary atherosclerosis Francis Colmenares M.D. Onset: 06/13/2022 Hyperlipidemia Francis Colmenares M.D. Onset: 0 06/13/2022 Deep venous thrombosis Francis Colmenares M.D. O nset: 06/13/2022 Carcinoma of prostate Francis Clomenares M.D. On set: 06/13/2022 Essential hypertension Francis [...] SIG Qnty Indications Order ing Provider Date Gfixicenk24op Tablets 1 tab by mouth every day as directed 90tabs Francis Colmenares M.D. 03/13/2024 Dwlmdegzm3dm Tablets 1 tablet by mouth twice daily 180tabs Francis Colmenares M.D. 12/06/2023 Lfrnrmqhdz813kx Capsules 1 tab by mouth three times a day as directed 180caps Francis Colmenares M.D. 06/13/2022 Tftbfbq44li Tablets 1 by mouth every day 90tabs Francis Colmenares M.D. 06/13/[address] 1 by mouth every day Francis Colmenares M.D. 06/13/2022 Onetouch UltraStrips Pari Huggins M.D. Atorvastatin Nqaucvt66yb Tablets Take 1 tablet daily Unknown Szqqpqhbm43vk Tablets Take 1 tablet daily Unknown Metoprolol Succinate ER50mg Tablets ER 24HR Take 1 tablet daily Unknown Losartan Potassium/Hydrochloro [id number] Tablets Take 1 tablet daily Unknown History Medications Xtqydsob8or/0.5ML Solution Pen-Inject 1 injection every week as directed 2ml Francis Colmenares M.D. 06/26/2024 - 06/26/2024 Vital Signs Date Vital Result Comment 06/26/2024 9:22am BP Systolic 122 mmHg BP Diastolic 76 mmHg Heart Rate 72 /min Height 69 inches 5'9 Weight 218.00 lb BMI (Body Mass Index) 32.2 kg/m2 Results Test Acquired Date Facility Test Result H/L Range N ote Glucose Fingerstick 06/26/2024 Inhouse Glucose Fingerstick 155 Glucose Fingerstick 03/13/2024 Inhouse Glucose Fingerstick 144 Glucose Fingerstick 12/06/2023 Inhouse Glucose Fingerstick 291 Glucose Fingerstick 09/03/2023 Inhouse Glucose Fingerstick 334 Glucose Fingerstick 05/22/2023 Inhouse Glucose Fingerstick 157 Glucose Fingerstick 01/23/2023 Inhouse Glucose Fingerstick 157 Hemoglobin A1c 01/23/2023 Inhouse Hemoglobin A1c 7.3% Hemoglobin A1c 10/17/2022 Inhouse Hemoglobin A1c 7.7% Glucose Fingerstick 06/13/2022 Inhouse Glucose Fingerstick 120 Hemoglobin A1c 06/13/2022 Inhouse Hemoglobin A1c 6.9% Medical Devices Description No Information Available Encounters Type Date Location Provider Dx Diagnosis Office Visit 06/26/2024 9:15a Main Office Francis Vanderleeden, M.D. E11.8 Type 2 diabetes mellitus with unspecified complications I25.10 [facility] heart disease of [place] coronary artery w/o ang pctrs Assessments Date [...]
--- OUTSIDE RECORDS SUMMARY | 2025-01-15 10:44 | XMS_ITS | Encounter Summary ---
Author Organization [facility] Address [address] [place] [address] Care Team Providers Care Superintendent Board Mill Name Role Phone Tammy Mooney MD Primary Care Pr ovider Reason for Referral * Cardiac Stress Testing (Routine) - Closed Specialty Diagnoses / Procedures Referred By Alicja nina Referred To Contact Cardiology Diagnoses Coronary artery disease involving anvik coronary artery of anvik heart, unspecified whether angina present Chest pain, unspecified type Procedures Exercise nuclear stress test with myocardial perfusion RI MYOCARDIAL PERFUSION IMAGING TOMOGRAPHIC MULTI STUDIES AT REST OR STRESS RI MYOCARDIAL PERFUSION IMAGING TOMOGRAPHIC SINGLE STUDY AT REST OR STRESS RI CARDIOVASCULAR STRESS TEST GLOBAL RI CV TMST/BIKE MAX/SUBMAX CONTINUOUS ECG MON/PHARM STRESS SUPVSR ONLY RI CV STRESS TEST/BIKE CONT ECG MON/PHARM STRESS INTERP & REPORT ONLY RI TEST STRESS CARDIOVASCULAR TRACING ONLY Abiodun Dong MD [address] [address] Phone: tel: fax: [facility] Referral ID Status Reason Start Date Expiration Date Visits Re quested Visits Authorized [id number] Closed 10/24/2024 04/22/2025 1 1 * Consultation (Urgent) - Authorized Specialty Diagnoses / Procedures Referred By Contac t Referred To Contact Cardiology Diagnoses Coronary artery disease involving anvik coronary artery of anvik heart without angina pectoris Chest pain, unspecified type Tammy Mooney MD [address] [place] [address] Phone: tel: fax: Abiodun Dong MD [address] [address] Phone: tel: fax: Referral ID Status Reason Start Date Expiration Date Visits Requested Visits Authorized [id number] Authorized Specialty Services Required 10/06/2024 10/06/2025 6 6 Reason for Visit * Reason Comments Diabetes Hyperlipidemia Coronary Artery Disease Hypertension Encounter Details Date Type Department Care Team (Late st Contact Info) Description 10/06/2024 12:45 PM EST Office Visit Adult Medicine [address] [address] Tammy Mooney MD [address] [place] [address] Coronary artery disease involving anvik coronary artery of anvik heart, unspecified whether angina present (Primary Dx); 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 V24, CMS/HCC V28); Mixed hyperlipidemia; Benign prostatic hyperplasia, unspecified whether [...] tabletIndications: Essential hypertension,Coron rajat artery disease involving anvik coronary artery of anvik heart, unspecified whether angina present Take 1 [...] Problem(s): 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 V24, CMS/HCC V28) Continue follow up with endocrinology Continue increased [...] PM ESTAssociated Problem(s): Coronary artery disease involving anvik coronary artery of anvik heart See HPI. He noted some chest [...] cardiology. Will send a message to his websphere commerce consultant-Dr. Dong Orders: ECG 12 lead Tracing Only; [...] Where can you learn more? Scan the [employer] code or Go to [email or web address] Enter X567 in the search box to learn more about High Blood Pressure: Care Instructions. Current as of: July 17, 2023 Content Version: 14.2 ?? 2023 [employer]. Care instructions adapted under license by your healthcare professional. If you have questions about a medical condition or this instruction, always ask your healthcare professional. [employer] disclaims any warranty or liability for [...] done by cardiology when he lived in [facility]. He tells me plan was for stent placement vs other intervention but when he moved to [facility] this was deferred. He has been [...] LANCET DEVICES (ONE TOUCH DELICA LANCING DEV) [facility]: Use to test blood sugar once a day . DX-E11.9. NIDDM *One Touch Ultra 2* blood sugar diagnostic (ONETOUCH ULTRA TEST [facility]) USE TO TEST BLOOD SUGAR [...] C antibody; Future Coronary artery disease involving anvik coronary artery of anvik heart, unspecified whether angina present See HPI. [...] cardiology. Will send a message to his websphere commerce consultant-Dr. Dong Orders: ECG 12 lead Tracing Only; Future Ambulatory referral to Cardiology; Future losartan-hydroCHLOROthiazide (HYZAAR) 100-25 mg per tablet; Take 1 tablet by mouth 1 (one) time each day. Chest pain, unspecified type As above Orders: ECG 12 lead Tracing Only; Future Ambulatory referral to Cardiology; Future Tammy Mooney MD ADULT MEDICINE [address] Dept: [phone] Dept Date of Visit: 10/06/2024 documented in this encounter Plan of Treatment Upcoming Encounters Date Type Department Care Team (Late st Contact Info) Description 01/29/2025 9:30 AM EDT Office Visit Endocrinology [address] [phone] Lacey Bey MD [address] [place] [address] 02/03/2025 8:30 AM EDT Office Visit Adult Medicine [address] [phone] Lena Sorto PA [address] [place] [address] 04/16/2025 8:15 AM EDT Office Visit Orthopedic Surgery [facility] [address] [place] [phone] Abdoul Chavez, DPM [address] [place] [address] 06/02/2025 9:10 AM EDT Office Visit [facility] - [address] [place] [phone] Shu Styles, ENIO [address] [place] [address] Scheduled Referrals Name Type Priority Associated Diagnoses Order Schedule Ambulatory referral to Cardiology Outpatient Referral Routine Coronary artery disease involving anvik coronary artery of anvik heart, unspecified whether angina present Chest pain, unspecified type 1 Occurrences starting 10/06/2024 until 10/06/2025 documented as of this encounter Procedures Procedure Name Priority Date/Time Associated Diagnosis Comments ECG 12-LEAD TRACING ONLY Routine 01/12/2025 1:39 PM EDT Coronary artery disease involving anvik coronary artery of anvik heart, unspecified whether angina present Chest pain, unspecified type documented in this encounter Results * ECG 12 lead Tracing Only (01/12/2025 1:39 PM EDT) Tammy Mooney MD ECG ORDERABLES Final Result * NM EXERCISE STRESS TEST W/ MYOCARDIAL [...] Hepatitis C antibody (10/06/2024 1:54 PM EST) [facility] Hepatitis C Antibody Negative Negative LAB CHEMISTRY METHOD 10/06/2024 6:44 PM EST [facility] Blood Venous blood specimen / Unknown Venipuncture / Unknown 10/06/2024 1:54 PM EST 10/06/2024 1:54 PM EST Tammy Mooney MD LAB BLOOD ORDERA BLES Final Result [facility] [address] [place] [address], [place] [phone] * Activated partial thromboplastin time (10/06/2024 1:54 PM EST) [facility] aPTT 38.1 24.1 - 39.3 sec LAB COAGULATION METHOD 10/06/2024 4:51 PM EST [facility] Blood Venous blood specimen / Unknown Venipuncture / Unknown 10/06/2024 1:54 PM EST 10/06/2024 1:54 PM EST Tammy Mooney MD LAB BLOOD ORDERA BLES Final Result [facility] [address] [place] [address], [place] [phone] * Von Willebrand factor activity (10/06/2024 1:54 PM EST) von Willebrand Factor Activity Percent 96 51 - 215 % 10/11/2024 1:24 PM EST [facility] Comment: REFERENCE INTERVAL: von Willebrand Factor, Activity (RCF) Access complete set of age- and/or gender-specific reference intervals for this test in the ePrep Laboratory Test Directory ([facility]). Performed By: [employer] [address] [place] [address] Sheet Metal Pattern Cutter: Eric Luu MD, PhD CLIA Number: [id number] Blood Venous blood specimen / Unknown Venipuncture / Unknown 10/06/2024 1:54 PM EST 10/06/2024 1:54 PM EST Tammy Mooney MD LAB BLOOD ORDERA BLES Final Result [facility] [address] [place] [address] * Prothrombin time with INR (10/06/2024 1:54 PM EST) Protime 11.4 10.6 - 13.9 sec LAB COAGULATION METHOD 10/06/2024 4:51 PM EST [facility] INR 0.9 LAB COAGULATION METHOD 10/06/2024 4:51 PM EST [facility] Blood Venous blood specimen / Unknown Venipuncture / Unknown 10/06/2024 1:54 PM EST 10/06/2024 1:54 PM EST Tammy Mooney MD LAB BLOOD ORDERA BLES Final Result [facility] [address] [place] [address], documented in this encounter Visit Diagnoses Diagnosis Coronary artery disease involving anvik coronary artery of anvik heart, unspecified whether angina present- Primary 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 V24, CMS/HCC V28) Mixed hyperlipidemia Benign prostatic hyperplasia, unspecified whether lower urinary tract symptoms present History of prostate cancer Personal history of malignant neoplasm of prostate Essential hypertension Unspecified essential hypertension Easy bruising Other symptoms involving skin and integumentary tissues Need for hepatitis C screening test Special screening examination for other specified viral diseases Chest pain, unspecified type Coronary artery disease involving anvik coronary artery of anvik heart, unspecified whether angina present Chest pain, [...] documented as of this encounter Care Teams Superintendent Board Mill Relationship Specialty Start Date End Date Tammy Mooney MD [address] [place] [address] PCP - General Internal Medicine 09/04/24 documented as of this encounter
--- OUTSIDE RECORDS SUMMARY | 2025-01-15 10:44 | XMS_ITS | Encounter Summary ---
Author Organization [facility] Address [address] [place] [address] Care Team Providers Care Human Performance Technologist Name Role Phone Tammy Mooney MD Primary Care Pr ovider Reason for Visit * Reason Comments Follow-up Diabetic foot exam Encounter Details Date Type Department Care Team ([facility] st Contact Info) Description 01/15/2025 8:15 AM EDT Office Visit Orthopedic Surgery - [place] [address] [phone] Abdoul Chavez, DPM [address] [address] Social History Tobacco Use Types Packs/Day Years [...] - Inhaled Oxygen Concentration - - Weight 103 kg (228 lb) 01/15/2025 8:02 AM EDT Height 165.1 cm (5' 5 ) 01/15/2025 8:02 AM EDT Body Mass Index 37.94 01/15/2025 8:02 AM EDT documented in this encounter Plan of Treatment Upcoming Encounters Date Type Department Care Team (Late st Contact Info) Description 01/29/2025 9:30 AM EDT Office Visit Endocrinology [address] [phone] Lacey Bey MD [address] [place] [address] 02/03/2025 8:30 AM EDT Office Visit Adult Medicine [facility] - [address] [phone] Lena Sorto PA 305 [place] [address] 04/16/2025 8:15 AM EDT Office Visit Orthopedic Surgery - [place] [address] [address] Abdoul Chavez DPM [address] [address] 06/02/2025 9:10 AM EDT Office Visit [facility] - [facility] [address] [phone] Shu Styles, ENIO [address] [address] documented as of this encounter Visit Diagnoses Not on filedocumented in this encounter Care Teams Human Performance Technologist Relationship Specialty Start Date End Date Tammy Mooney MD 4 [place] [address] PCP - General Internal Medicine 09/04/24 documented as of this encounter
--- OUTSIDE RECORDS SUMMARY | 2025-01-15 10:44 | XMS_ITS | Patient Health Record ---
Author Organization [facility] fatimah [place] Address [address] [facility] [place] [address] Care Team Providers Care Supplier Engineer Name Role Phone Medina Catherine Unavailable [phone] Allergies No Known Allergies Reason For Referral [...] Problem Acquired hammer toe of right foot (139550146975534 5) Other hammer toe(s) (acquired), right foot (M20.41) Active confirmed Problem Acquired hammer toe of left foot (810069320659576 3) Other hammer toe(s) (acquired), left foot (M20.42) Active confirmed Problem Type II diabetes mellitus without complication (468701633) Type 2 diabetes mellitus without complications (E11.9) Active confirmed Problem 44801780 Osteoarthritis o f right ankle and foot (M19.071) Active confirmed Problem 86642409 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.072) Active confirmed Plan Of Treatment Pending Test Test Name Order Date X ray : Foot, left 3V 11/15/2020 X ray : Foot, right 3V 11/15/2020 [id number] NAIL, 6 OR MORE 02/27/2023 Insurance Providers Payer Name Payer Address Payer Phone Subscriber Number Group Number Insured Name Patient Relationship to Insured Coverage Start Date Coverage End Date [address] [place] [address] [id number] Slava Ramirez Self - patient is the insured Medical (General) History Medical History History ICD Code Back,Hip,and Knee pain type II diabetes High blood pressure Measles Mumps Chicken pox Prostate cancer Surgical History Surgery Date(Month/Year) neck fusion 2016 prostate surgery 02/2020 lower back surgery 08/2021
--- OUTSIDE RECORDS SUMMARY | 2025-01-15 10:44 | XMS_ITS | Encounter Summary ---
Author Organization [facility] Address [address] [place] [address] Care Team Providers Care Numerical Tool Programmer Name Role Phone Tammy Mooney MD Primary Care Pr ovider Reason for Visit * Reason Onset Date Comments Medical Records 12/31/2024 Encounter Details Date Type Department Care Team (Late st Contact Info) Description 12/31/2024 Telephone [facility] Cardiology [facility] [address] [place] [address] Tammy Mooney MD [address] [place] [address] Medical Records Social History Tobacco Use Types Packs/Day Years [...] as of this encounter Progress Notes * Nevin Russo - 01/13/2025 3:41 PM EDT Faxed 11/07/2024 Office Note and 10/27/2024 Nuclear Stress Test to [facility] Att Daily at [phone] on 12/31/2024 documented in this encounter Plan of Treatment Upcoming Encounters Date Type Department Care Team (Late st Contact Info) Description 01/29/2025 9:30 AM EDT Office Visit Endocrinology [address] [phone] Lacey Bey MD 305 [place] [address] 02/03/2025 8:30 AM EDT Office Visit [facility] - [address] [phone] Lena Sorto PA 305 [place] [address] 04/16/2025 8:15 AM EDT Office Visit Orthopedic Surgery - [place] [address] [phone] Abdoul Chavez, DPM [address] [address] 06/02/2025 9:10 AM EDT Office Visit [facility] - [facility] [address] [address] Shu Styles, ENIO [address] [address] documented as of this encounter Visit Diagnoses Not on filedocumented in this encounter Care Teams Numerical Tool Programmer Relationship Specialty Start Date End Date Tammy Mooney MD 4 [place] [address] PCP - General Internal Medicine 09/04/24 documented as of this encounter
--- OUTSIDE RECORDS SUMMARY | 2025-01-15 10:44 | XMS_ITS | Encounter Summary ---
Author Organization [facility] Address [address] [place] [address] Care Team Providers Care Restaurant Line Server Name Role Phone Tammy Mooney MD Primary Care Pr ovider Encounter Details Date Type Department Care Team (Late Contact Info) Description 08/13/2024 Lab Requisition [facility] - Main Lab 299 [facility] [place] [address] Aden Stevens MD [address] [phone] Personal history of malignant neoplasm of prostate [...] Department Care Team (Late Contact Info) Description 01/29/2025 9:30 AM EDT Office Visit Endocrinology - [address] [phone] Lacey Bey MD 305 [place] [address] 02/03/2025 8:30 AM EDT Office Visit Adult [facility] [address] [place], [place] [phone] Lena Sorto PA [address] [place] [address] 04/16/2025 8:15 AM EDT Office Visit Orthopedic Surgery - [place] [address] [phone] Abdoul Chavez, DPM [address] [address] 06/02/2025 9:10 AM EDT Office Visit [facility] - [facility] [address] [phone] Shu Styles, TECHNOLOGY SALES CONSULTANT 300 [facility] 102 [place] [address] documented as of this encounter Procedures Procedure Name Priority Date/Time Associated Diagnosis Comments PSA TOTAL, FREE AND COMPLEXED, DIAGNOSTIC Routine 08/13/2024 10:27 AM EST Personal history of malignant neoplasm of prostate documented in this encounter Results * PSA total, free and complexed (08/13/2024 10:27 AM EST) PSA <0.06 0.00 - 4.00 ng/mL LAB CHEMISTRY METHOD 08/14/2024 9:37 PM EST [facility] PSA, Complexed <0.07 0.00 - 3.00 ng/mL LAB CHEMISTRY METHOD 08/14/2024 9:37 PM EST [facility] PSA, Free LAB CHEMISTRY METHOD 08/14/2024 9:37 PM EST [facility] PSA, Free Pct LAB CHEMISTRY METHOD 08/14/2024 9:37 PM EST [facility] Blood Venous blood specimen / Unknown 08/13/2024 10:27 AM EST 08/13/2024 1:22 PM EST Narrative [facility] - 08/14/2024 9:37 PM EST Free PSA is a calculated value. ??The diagnostic usefulness of % free PSA has not been established in patients with Total PSA below 2.6 or above 10 ng/mL. ?? This test was performed using the Brightblueaur Chemiluminescent method. ??PSA values obtained with other methods cannot be used interchangeably. us Aden Stevens MD LAB BLOOD ORDERABLES Final Resul t [facility] [address] [place] [address], documented in this encounter Visit Diagnoses Diagnosis Personal history of malignant neoplasm of prostate documented in this encounter Care Teams Restaurant Line Server Relationship Specialty Start Date End Date Tammy Mooney MD [address] [place] [address] PCP - General Internal Medicine 09/04/24 documented as of this encounter
--- OUTSIDE RECORDS SUMMARY | 2025-01-15 10:44 | XMS_ITS | Clinical Summary ---
Author Organization [facility] Address [address] [id number] Care Team Providers Care Manager Of Revenue Name Role Phone Tl Stevens MD Primary [...] mg total) by mouth daily. 0 Active [place]-3 Fatty Acids (Fish Oil) 1000 MG CPDR [...] age to complete this topic Care Teams Manager Of Revenue Relationship Specialty Start Date End Date Tl Stevens MD PCP - General Internal Medicine 10/03/22
--- OUTSIDE RECORDS SUMMARY | 2025-01-15 10:44 | XMS_ITS | Clinical Summary ---
Author Organization 175 [facility] Address [address] [place] [address] Phone Care Team Providers Care Type Copy Examiner Name Role Phone Tammy Mooney MD Primary [...] TABLET BY MOUTH EVERY DAY 4 Active blood sugar diagnostic (ON[facility]OUCH ULTRA TEST [facility]) USE TO TEST BLOOD SUGAR ONCE DAILY 3 Active lancets (OneTouch Delica Plus Lancet) 33 gauge USE TO TEST BLOOD SUGAR DAILY 1 Active FA/mv,Ca,iron,min/ly copene/lut (MULTIVITAL ORAL) Take by mouth. Active omega-3 acid ethyl esters (LOVAZA) 1 gram capsule Take 1 g by mouth daily. Active tadalafiL (CIALIS) 5 mg tablet Take 1 Tablet by mouth daily. Active Autolet lancing device LANCET DEVICES (ONE TOUCH DELICA LANCING DEV) MISC: Use to test blood sugar once a day . DX-E11.9. NIDDM *One Touch Ultra 2* 0 Active glipiZIDE (GLUCOTROL) 10 mg tabletIndications:Ty pe 2 diabetes mellitus with microalbuminuria (CMS/HCC V24, CMS/HCC V28) Take 1 tablet (10 mg total) by mouth 2 (two) times a day before meals. 180 each 1 4 03/03/20 25 Active empagliflozin (Jardiance) 25 mg tablet Take 1 tablet (25 mg total) by mouth 1 (one) time each day in the morning. 90 tablet 1 5 Active losartan-hydroCHLORO thiazide (HYZAAR) 100-25 mg per tabletIndications:Es sential hypertension,Coronar y artery disease involving [place] coronary artery of [place] heart, unspecified whether angina present Take 1 tablet by mouth 1 (one) time each day. 90 each 1 5 04/05/20 25 Active metoprolol succinate (TOPROL-XL) 50 mg 24 hr tablet TAKE ONE TABLET BY MOUTH DAILY 90 tablet 3 5 Active gabapentin (NEURONTIN) 300 mg capsule Take 1 capsule (300 mg total) by mouth at bedtime. 90 each 1 5 05/26/20 25 Active Active Problems Problem Noted Date Diagnosed [...] of femoral vein of right lower extremity (CMS/HCC V24, CMS/HCC V28) 06/25/2024 Type 2 diabetes mellitus wit h cataract (CMS/HCC V24, CMS/HCC V28) 06/25/2024 Trochanteric bursitis of both hips 06/05/2024 Insomnia 04/27/2023 Atherosclerosis of [place] of both lower extremities with rest pain (CMS/HCC V24, CMS/HCC V28) 03/22/2023 PAC (premature atrial contraction) 03/19/2023 Overview (08/12/2024): Last Assessment & Plan: The patient denies any palpitations and states that he has been feeling well on his reduced dose of metoprolol; we will not make any changes today. 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 ([facility] V24, [facility] V28) 03/23/2021 Overview (08/12/2024): Last Assessment & Plan: [...] of femoral vein of right lower extremity ([facility] V24, [facility] V28) 07/27/2020 Prostate cancer ([facility] V24, [facility] V28) 03/16 Spinal stenosis at L4-L5 level 09/30/2019 Chronic [...] 2017, Left, removed Type 2 diabetes mellitus wit h microalbuminuria (CMS/[facility] V24, [facility] V28) 02/26/2019 Overview (08/12/2024): Last Assessment & Plan: [...] elevated PSA and several biopsies done in [facility]. Negative for malignancy Assessment & Plan (10/07/2024 9:15 PM EST): Continue follow up with urology. Continue Cialis 5mg daily Coronary artery disease invo lving [place] coronary artery of [place] heart 12/04/2018 Assessment & Plan (11/09/2024 2:11 [...] cardiology. Will send a message to his board member-Dr. Nichols Orders: ECG 12 lead Tracing Only; [...] Encounters Date Type Department Care Team Description 01/15/2025 8:15 AM EDT Office Visit Orthopedic Surgery - [place] [address] [facility] [address] [place] [phone] Abdoul Chavez, DPM 12/31/2024 Telephone [facility] [address] [place] [address] Tammy Mooney MD Medical Records 12/29/2024 9:00 AM EDT Consult General Surgery [facility] 175 [facility] [address] [place] [phone] Alejandro Casas MD Calculus of gallbladder without cholecystitis without obstruction 11/21/2024 12:29 PM EST - 11/21/2024 11:59 PM EST Hospital Encounter Radiology Department - [address] [address] Localized swelling, mass or lump of neck Discharge Disposition: Home or Self Care 11/19/2024 1:20 PM EST Office Visit Gastroenterology - 299 [facility] 299 [facility] [address] [place] [phone] Brenna Savage, PULVERIZER OPERATOR Hyperbilirubinemia (Primary Dx) 11/18/2024 2:00 PM EST Office Visit Adult Medicine [facility] - [address] [phone] Lena Sorto PA Localized swelling, mass or lump of neck (Primary Dx); Calculus of gallbladder without cholecystitis without obstruction; DDD (degenerative disc disease), cervical; Chronic neck pain 11/13/2024 Telephone [facility] [address] 300 [facility] 102 [place] [address] Shu Styles NP Medication; Pre-op Visit 11/12/2024 Nurse Triage Adult Medicine [facility] - [address] [phone] Evelina Meek RN 11/07/2024 10:40 AM EST Office Visit [facility] [address] [place] [phone] Shu Styles NP Essential hypertension (Primary Dx); Chest pain, unspecified type; Coronary artery disease involving [place] coronary artery of [place] heart, unspecified whether angina present; Hyperlipidemia, unspecified hyperlipidemia type; Obesity (BMI 30.0-34.9) 10/27/2024 8:30 AM EST Ancillary Procedure [facility] [address] [place] [phone] Coronary artery disease involving [place] coronary artery of [place] heart, unspecified whether angina present; Chest pain, unspecified type 10/23/2024 7:45 AM EST - 10/23/2024 11:59 PM EST Hospital Encounter Radiology Department - [address] [phone] Hyperbilirubinemia Discharge Disposition: Home or Self Care 10/17/2024 12:00 PM EST Office Visit Endocrinology - [address] [phone] Lacey Bey MD Type 2 diabetes mellitus with cataract ([facility] V24, [facility] V28) (Primary Dx); Essential hypertension from Last 3 Months Immunizations Name Administration Dates Next Due Influenza trivalent, 0.5mL ( Fluad) 65yo and older 06/21/2023,05/30/2019 Influenza trivalent, 0.5mL, preservative free (Fluarix; FluLaval; Fluzone) ages 6mo and older (Afluria) 3 years and older 06/15/2022,06/03/2020 Influenza trivalent, with pr eservative (Fluzone; Afluria) 6mo and older 06/01/2021 Moderna SARS-CoV-2 COVID-19, mRNA, LNP-S, preservative free 06/04/2024 Pfizer (ages 12 & older) Bivalent, COVID-19 05/10/2022,06/16/2022 Pfizer SARS-CoV-2 COVID-19, mRNA, LNP-S, preservative free [...] SURGERY; COMMENT: acromioplasty OTHER SURGICAL HISTORY PROCEDURE: OH BIOPSY PROSTATE INCISIONAL ANY APPROACH; COMMENT: x6 [...] Comments Acute deep vein thrombosis ( DVT) ([facility] V24, [facility] V28) DX:Acute deep vein thrombos is (DVT) (HCC) Diabetes mellitus ([facility] V 24, [facility] V28) DX:Diabetes mellitus (HCC) Prostate cancer (CMS/[facility] V24 , [facility] V28) DX:Prostate cancer (HCC) Skin cancer DX:Skin cancer Hypertension [...] elevated PSA and several biopsies done in [facility]. Negative for malignancy Hyperlipidemia 12/04/2018 [...] Type 2 diabetes mellitus wit h cataract ([facility] V24, [facility] V28) 02/26/2019 DX:Type 2 diabetes mellitus with cataract (HCC) Cataract 02/26/2019 DX:Cataract; COM MENT: 2017, Bilateral, removed Prostate cancer ([facility]/HCC V24 , [facility]/HCC V28) DX:Prostate cancer (HCC) Hyponatremia 04/03/2022 DX:Hyponatremia Family History [...] Sign Reading Time Taken Comments Blood Pressure 126/73 12/29/2024 9:07 AM EDT Pulse 80 12/29/2024 9:07 AM EDT Temperature 36.5 ??C (97.7 ??F) 12/29/2024 9:07 AM ED T Respiratory Rate 12 11/18/2024 2:03 PM EST Oxygen Saturation 95% 11/18/2024 2:03 PM EST Inhaled Oxygen Concentration - - Weight 103 kg (228 lb) 01/15/2025 8:02 AM EDT Height 165.1 cm (5' 5 ) 01/15/2025 8:02 AM EDT Body Mass Index 37.94 01/15/2025 8:02 AM EDT Plan of Treatment Upcoming Encounters Date Type Department Care Team (Late st Contact Info) Description 01/29/2025 9:30 AM EDT Office Visit [address] [phone] Lacey Bey MD [address] [place] [address] 02/03/2025 8:30 AM EDT Office Visit Adult Medicine [address] [phone] Lena Sorto PA 305 [facility] [place] [address] 04/16/2025 8:15 AM EDT Office Visit Orthopedic Surgery - [place] [address] 175 [facility] 250 [place] [phone] Abdoul Chavez, DPM [address] [address] 06/02/2025 9:10 AM EDT Office Visit [facility] 102 300 [facility] 102 [place] [phone] Shu Styles, ENIO 300 [facility] [address] [place] [address] Health Maintenance Due Date Last Done Comments [...] 08/25, 08/24/2021, Additional history exists RSV Immunization Adult Patients Completed 06/26/2023 Influenza Vaccine Completed 06/02/2024, , [...] age to complete this topic Meningococcal B Vaccine Aged Out No l onger eligible based on patient's age to complete [...] 1:39 PM EDT Coronary artery disease involving [place] coronary artery of [place] heart, unspecified whether angina present Chest pain, unspecified type US HEAD NECK SOFT TISSUE Routine 11/21/2024 12:47 PM EST Localized swelling, mass or lump of neck NM EXERCISE STRESS TEST W/ MYOCARDIAL PERFUSION Routine 10/27/2024 10:49 AM EST Coronary artery disease involving [place] coronary artery of [place] heart, unspecified whether angina present Chest pain, unspecified type US ABDOMEN COMPLETE Routine 10/23/2024 8 :23 AM EST Hyperbilirubinemia MICROALBUMIN CREATININE URINE RATIO Routine 09/04/2024 9:59 AM EST Coronary artery disease involving [place] coronary artery of [place] heart without angina pectoris 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 V24, CMS/HCC V28) Mixed hyperlipidemia COMPREHENSIVE METABOLIC PANEL Routine 09/04/2024 9:59 AM EST Coronary artery disease involving [place] coronary artery of [place] heart without angina pectoris 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 V24, CMS/HCC V28) Mixed hyperlipidemia HEMOGLOBIN A1C Routine 09/04/2024 9:59 AM EST Coronary artery disease involving [place] coronary artery of [place] heart without angina pectoris 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 V24, CMS/HCC V28) Mixed hyperlipidemia LIPID PANEL WITH REFLEX TO DIRECT LDL Routine 09/04/2024 9:59 AM EST Coronary artery disease involving [place] coronary artery of [place] heart without angina pectoris 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 V24, CMS/HCC V28) Mixed hyperlipidemia from Last 3 Months or Most Recently Relevant to Health Maintenance Results * ECG 12 lead Tracing Only (01/12/2025 1:39 PM EDT) us Tammy Mooney MD ECG ORDERABLES Final Result * US Head Neck Soft Tissue (11/21/2024 12:47 PM EST) Anatomical Region Laterality Modality Head and Neck Ultrasound 11/21/2024 2:10 PM EST Narrative 11/21/2024 2:11 PM EST Limited ultrasound of the right submandibular area. History swelling. Examination was directed by the patient to the area of concern in the right submandibular area. No evidence of cystic or solid masses, lymphadenopathy or focal fluid collections were identified. CONCLUSIONS: No focal ultrasonographic abnormalities in the region of concern. -------- FINAL REPORT -------- Dictated By: Tamika Newman Dictated Date: 11/21/2024 14:10 ET Assigned Physician: Tamika Newman Reviewed and Electronically Signed By: Tamika Newman Signed Date: 11/21/2024 14:11 ET Workstation ID: [id number] Transcribed By: Self Edit Transcribed Date: 11/21/2024 14:10 ET Procedure Note Tamika Newman MD - 11/21/2024 Limited ultrasound of the right submandibular area. History swelling. Examination was directed by the patient to the area of concern in theright submandibular area. No evidence of cystic or solid masses,lymphadenopathy or focal fluid collections were identified. CONCLUSIONS: No focal ultrasonographic abnormalities in the region ofconcern. -------- FINAL REPORT -------- Dictated By: Tamika Newman Dictated Date: 11/21/2024 14:10 ET Assigned Physician: Tamika Newman Reviewed and Electronically Signed By: Tamika Newman Signed Date: 11/21/2024 14:11 ET Workstation ID: [id number] Transcribed By: Self Edit Transcribed Date: 11/21/2024 14:10 ET us Lena BOOKER IMG US PROCEDURES Final Resul t * NM EXERCISE STRESS TEST W/ MYOCARDIAL [...] Signed Date: 10/23/2024 09:03 ET Workstation ID: [id number] Transcribed By: Self Edit Transcribed Date: 10/23/2024 [...] Signed Date: 10/23/2024 09:03 ET Workstation ID: [id number] Transcribed By: Self Edit Transcribed Date: 10/23/2024 09:01 ET us Tammy Mooney MD [facility] PROCEDURE S Final Result * Lipid panel with reflex to direct LDL (09/04/2024 9:59 AM EST) Cholesterol 152 0 - 200 mg/dL LAB CHEMISTRY METHOD 09/04/2024 1:[address] [facility] Triglycerides 135 0 - 150 mg/dL LAB CHEMISTRY METHOD 09/04/2024 1:[address] [facility] HDL 66 >=40 mg/dL LAB CHEMISTRY METHOD 09/04/2024 1:[address] [facility] LDL Calculated 59 0 - 100 mg/dL LAB CHEMISTRY METHOD 09/04/2024 1:50 PM [facility] VLDL Cholesterol Alex 27 mg/dL LAB CHEMISTRY METHOD 09/04/2024 1:[address] [facility] Non HDL Chol. (LDL+VLDL) 86 <145 mg/dL LAB CHEMISTRY METHOD 09/04/2024 1:50 PM [facility] Chol/HDL Ratio 2.3 0.0 - 4.4 LAB CHEMISTRY METHOD 09/04/2024 1:50 PM [facility] Blood Venous blood specimen / Unknown Venipuncture / Unknown 09/04/2024 9:59 AM EST 09/04/2024 9:59 AM EST Tammy Mooney MD LAB BLOOD ORDERA BLES Final Result [facility] [address] [place] [address], * Microalbumin creatinine urine ratio (09/04/2024 9:59 AM EST) Creatinine, Urine 57.0 mg/dL LAB CHEMISTRY METHOD 09/04/2024 4:54 PM [facility] Microalb, Ur 15.5 0.0 - 29.0 mg/L LAB CHEMISTRY METHOD 09/04/2024 4:54 PM [facility] Microalb/Creat Ratio 27 <30 mg/g creat LAB CHEMISTRY METHOD 09/04/2024 4:54 PM [facility] Urine Urine specimen obtained by clean catch procedure / Unknown Non-blood Collection / Unknown 09/04/2024 9:59 AM EST 09/04/2024 9:59 AM EST Tammy Mooney MD LAB URINE ORDERA BLES Final Result Performing Organization Address [facility]/ZIP Co de Phone Number [facility] [address] [place] [address], [place] [phone] * (ABNORMAL) Hemoglobin A1c (09/04/2024 9:59 AM EST) Pathologist [facility] Hemoglobin A1C 7.9(H) <6.5 % LAB CHEMISTRY METHOD 09/04/2024 3:[address] [facility] Mean Bld Glu Estim. 180 mg/dL LAB CHEMISTRY METHOD 09/04/2024 3:[address] [facility] Blood Venous blood specimen / Unknown Venipuncture / Unknown 09/04/2024 9:59 AM EST 09/04/2024 9:59 AM EST Tammy Mooney MD LAB BLOOD ORDERA BLES Final Result Performing Organization Address City/[facility]/ZIP Co de Phone Number [facility] [address] [place] [address], [place] [phone] * (ABNORMAL) Comprehensive metabolic panel (09/04/2024 9:59 AM EST) Pathologist [facility] Sodium 141 133 - 145 mmol/L LAB CHEMISTRY METHOD 09/04/2024 1:[address] [facility] Potassium 3.9 3.5 - 5.5 mmol/L LAB CHEMISTRY METHOD 09/04/2024 1:[address] [facility] Chloride 106 96 - 110 mmol/L LAB CHEMISTRY METHOD 09/04/2024 1:[address] [facility] CO2 26 21 - 32 mmol/L LAB CHEMISTRY METHOD 09/04/2024 1:[address] [facility] Anion Gap 9 3 - 11 LAB CHEMISTRY METHOD 09/04/2024 1:50 PM [facility] Glucose 167(H) 70 - 100 mg/dL LAB CHEMISTRY METHOD 09/04/2024 1:50 PM [facility] BUN 13 5 - 25 mg/dL LAB CHEMISTRY METHOD 09/04/2024 1:50 PM [facility] Creatinine 0.86 0.70 - 1.30 mg/dL LAB CHEMISTRY METHOD 09/04/2024 1:50 PM [facility] eGFR 88 >=60 mL/min/1. 73m2 LAB CHEMISTRY METHOD 09/04/2024 1:50 PM [facility] Comment:Calculation based on the??Chronic Kidney Disease Epidemiology Collaboration (CKD-EPI) equation refit??without adjustment for race. BUN/Creatinine Ratio 15.1 LAB CHEMISTRY METHOD 09/04/2024 1:50 PM [facility] Calcium 9.8 8.5 - 10.5 mg/dL LAB CHEMISTRY METHOD 09/04/2024 1:50 PM [facility] AST (SGOT) 18 10 - 42 unit/L LAB CHEMISTRY METHOD 09/04/2024 1:50 PM [facility] ALT (SGPT) 30 10 - 60 unit/L LAB CHEMISTRY METHOD 09/04/2024 1:50 PM [facility] Alkaline Phosphatase 74 42 - 121 unit/L LAB CHEMISTRY METHOD 09/04/2024 1:50 PM [facility] Total Protein 6.9 6.0 - 8.0 g/dL LAB CHEMISTRY METHOD 09/04/2024 1:50 PM [facility] Albumin 4.0 3.2 - 5.0 g/dL LAB CHEMISTRY METHOD 09/04/2024 1:50 PM [facility] Total Bilirubin 1.7(H) 0.0 - 1.4 mg/dL LAB CHEMISTRY METHOD 09/04/2024 1:50 PM [facility] Blood Venous blood specimen / Unknown Venipuncture / Unknown 09/04/2024 9:59 AM EST 09/04/2024 9:59 AM EST Tammy Mooney MD LAB BLOOD ORDERA BLES Final Result [facility] [address] [place] [address], from Last 3 Months or Most Recently Relevant to Health Maintenance Insurance [employer] MED[employer]AGE Care Teams Type Copy Examiner Relationship Specialty Start Date End Date Tammy Mooney MD [address] [place] [phone] PCP - General Internal Medicine 09/04/24
== END 2025-01-15 10:05 | disposition home or self-care (01) ==
LOC: HO.PMC 09:41
PROVIDERS: PCP Family Medicine; Visit Provider Anesthesiology
DX: M96.1 Postlaminectomy syndrome, not elsewhere classified (principal); M54.16 Radiculopathy, lumbar region
CPT/HCPCS: 99213

== ENCOUNTER → 2025-01-15 09:41 | Outpatient (BNVA) | payer MEDICARE, SELFPAY | PROVIDERS: PCP Family Medicine; Visit Provider Anesthesiology | DX: M96.1 Postlaminectomy syndrome, not elsewhere classified (principal); M54.16 Radiculopathy, lumbar region | CPT/HCPCS: 99212 ==

== ENCOUNTER 2025-01-30 11:21 | Outpatient (AMB) | payer MEDICARE, SELFPAY ==
--- OUTSIDE RECORDS SUMMARY | 2025-01-30 11:49 | XMS_ITS | Continuity of Care Document ---
Author Organization [facility] [address] [facility] [address] [place] [address] Phone [phone] Care Team Providers Care Housing Specialist Name Role Phone Pari Villafana M.D. Care Team Information Guide Alpine [phone] Tammy Mooney Care Team Information Rece iver [phone] Problems Active Problems Provider Date Type 2 [...] Use Start: Unknown Patient has never smoked Allergies and adverse reactions Description No Known Drug Allergies Medications Active Medications SIG Qnty Indications Order ing Provider Date [id number] Tablets 1 tab by mouth every day as directed 90tabs Francis Colmenares M.D. 03/13/2024 Rfbwckmab8sc Tablets 1 tablet by mouth twice daily 180tabs Francis Colmenares M.D. 12/06/2023 [id number] Capsules 1 tab by mouth three times a day as directed 180caps Francis Colmenares M.D. 06/13/2022 Vbtygao82ul Tablets 1 by mouth every day 90tabs Francis Colmenares M.D. 06/13/[address] 1 by mouth every day Francis Colmenares M.D. 06/13/2022 Onetouch UltraStrips Pari Huggins M.D. Atorvastatin Nulbuia36mk Tablets Take 1 tablet daily Unknown Xnrxnbeov79mn Tablets Take 1 tablet daily Unknown Metoprolol Succinate ER50mg Tablets ER 24HR Take 1 tablet daily Unknown Losartan Potassium/Hydrochloro pvrhjazj387-48yt Tablets Take 1 tablet daily Unknown History Medications Hxaygixg5po/0.5ML Solution Pen-Inject 1 injection every week as [...] unspecified complications I25.10 Athscl heart disease of [place] coronary artery w/o ang pctrs Assessments Date [...]
--- OUTSIDE RECORDS SUMMARY | 2025-01-30 11:49 | XMS_ITS | Encounter Summary ---
Author Organization [facility] Address [address] [place] [address] Care Team Providers Care Freezing Room Worker Name Role Phone Tammy Mooney MD Primary Care Pr ovider Encounter Details Date Type Department Care Team (Late st Contact Info) Description 08/13/2024 Lab Requisition [facility] - Main Lab [address] [facility] [place] [address] Aden Stevens MD [address] [phone] Personal history of malignant neoplasm of prostate [...] Department Care Team (Late Contact Info) Description 02/03/2025 8:30 AM EDT Office Visit Adult Medicine [address] [phone] Lena Sorto PA 305 [place] [address] 04/16/2025 8:15 AM EDT Office Visit Orthopedic Surgery - [place] [address] [phone] Abdoul Chavez, DPM [address] [address] 04/30/2025 9:00 AM EDT Office Visit Endocrinology [address] [place] [address] Lacey Bey MD 305 [place] [address] 06/02/2025 9:10 AM EDT Office Visit [facility] [address] [phone] Shu Styles NP 300 [facility] 102 [place] [address] documented as of this encounter Procedures Procedure Name Priority Date/Time Associated Diagnosis Comments PSA TOTAL, FREE AND COMPLEXED, DIAGNOSTIC Routine 08/13/2024 10:27 AM EST Personal history of malignant neoplasm of prostate documented in this encounter Results * PSA total, free and complexed (08/13/2024 10:27 AM EST) PSA <0.06 0.00 - 4.00 ng/mL LAB CHEMISTRY METHOD 08/14/2024 9:37 PM EST [facility] PSA, Complexed <0.07 0.00 - 3.00 ng/mL LAB CHEMISTRY METHOD 08/14/2024 9:37 PM EST [facility] PSA, Free LAB CHEMISTRY METHOD 08/14/2024 9:37 PM EST [facility] PSA, Free Pct LAB CHEMISTRY METHOD 08/14/2024 9:37 PM EST [facility] Blood Venous blood specimen / Unknown 08/13/2024 10:27 AM EST 08/13/2024 1:22 PM EST Narrative [facility] - 08/14/2024 9:37 PM EST Free PSA is a calculated value. ??The diagnostic usefulness of % free PSA has not been established in patients with Total PSA below 2.6 or above 10 ng/mL. ?? This test was performed using the [employer] Chemiluminescent method. ??PSA values obtained with other methods cannot be used interchangeably. us Aden Stevens MD LAB BLOOD ORDERABLES Final Resul t [facility] [address] [place] [address], documented in this encounter Visit Diagnoses Diagnosis Personal history of malignant neoplasm of prostate documented in this encounter Care Teams Freezing Room Worker Relationship Specialty Start Date End Date Tammy Mooney MD [address] [place] [id number] PCP - General Internal Medicine 09/04/24 documented as of this encounter
--- OUTSIDE RECORDS SUMMARY | 2025-01-30 11:49 | XMS_ITS | Clinical Summary ---
Author Organization 175 [facility] Address [address] [place] [address] Phone Care Team Providers Care Social Media Manager Name Role Phone Tammy Mooney MD [...] BY MOUTH EVERY DAY 07/10/20 24 Active blood sugar diagnostic (ONETOUCH ULTRA TEST MISC) USE TO TEST BLOOD SUGAR ONCE DAILY 02/16/20 23 Active lancets (OneTouch Delica Plus Lancet) 33 gauge USE TO TEST BLOOD SUGAR DAILY 08/24/20 21 Active FA/mv,Ca,iron,min/ly copene/lut (MULTIVITAL ORAL) Take by mouth. Active omega-3 acid ethyl esters (LOVAZA) 1 gram capsule Take 1 g by mouth daily. Active tadalafiL (CIALIS) 5 mg tablet Take 1 Tablet by mouth daily. Active Autolet lancing device LANCET DEVICES (ONE TOUCH DELICA LANCING DEV) MISC: Use to test blood sugar once a day . DX-E11.9. NIDDM *One Touch Ultra 2* 07/31/20 20 Active glipiZIDE (GLUCOTROL) 10 mg tabletIndications:Ty pe 2 diabetes mellitus with microalbuminuria (CMS/HCC V24, CMS/HCC V28) Take 1 tablet (10 mg total) by mouth 2 (two) times a day before meals. 180 each 1 09/04/20 24 025 Active losartan-hydroCHLORO thiazide (HYZAAR) 100-25 mg per tabletIndications:Es sential hypertension,Coronar y artery disease involving [place] coronary artery of [place] heart, unspecified whether angina present Take 1 tablet by mouth 1 (one) time each day. 90 each 1 10/07/19 25 025 Active metoprolol succinate (TOPROL-XL) 50 mg 24 hr tablet TAKE ONE TABLET BY MOUTH DAILY 90 tablet 3 10/09/19 25 Active gabapentin (NEURONTIN) 300 mg capsule Take 1 capsule (300 mg total) by mouth at bedtime. 90 each 1 11/28/19 25 025 Active empagliflozin (Jardiance) 25 mg tablet Take 1 tablet (25 mg total) by mouth 1 (one) time each day in the morning. 90 tablet 1 01/30/20 25 Active semaglutide (Rybelsus) 3 mg tabletIndications:Ty pe 2 diabetes mellitus with cataract (CMS/HCC V24, CMS/HCC V28) Take 1 tablet (3 mg total) by mouth 1 (one) time each day before breakfast. Take with 4 ounces (1/2 cup) of water on empty stomach, 30 min prior to other medication or food. 30 tablet 01/30/20 25 Active empagliflozin (Jardiance) 25 mg tablet Take 1 tablet (25 mg total) by mouth 1 (one) time each day in the morning. 90 tablet 1 10/06/19 25 025 Discontin ued(Reord er) Active Problems Problem Noted Date Diagnosed Date [...] both hips 06/05/2024 Insomnia 04/27/2023 Atherosclerosis of [place] of both lower extremities with [...] to breakdown of skin with varicose veins (CMS/HCC V24, CMS/HCC V28) 03/19/2023 Palpitations 02/07/2023 Nocturnal leg cramps 01/01/2023 Osteoarthritis of both hips 01/01/2023 Adrenal nodule ([facility] V24) 07/07/2022 Overview (08/12/2024): CT abdomen 07/07/22: benign per CT report Lumbar degenerative disc disease 09/26/2021 Recurrent acute deep vein th rombosis (DVT) of right lower extremity (CMS/HCC V24, CMS/HCC V28) 03/23/2021 Overview (08/12/2024): Last Assessment & [...] of femoral vein of right lower extremity ([facility] V24, [facility] V28) 07/27/2020 Prostate cancer ([facility] V24, [facility] V28) 03/16 Spinal stenosis at L4-L5 level [...] Type 2 diabetes mellitus wit h microalbuminuria ([facility] V24, [facility] V28) 02/26/2019 Overview (08/12/2024): Last Assessment & [...] elevated PSA and several biopsies done in [facility]. Negative for malignancy Assessment & Plan (10/07/2024 9:15 PM EST): Continue follow up with urology. Continue Cialis 5mg daily Coronary artery disease invo [place]ving [place] coronary artery of [place] heart 12/04/2018 Assessment & Plan (11/09/2024 2:11 [...] cardiology. Will send a message to his senior business intelligence analyst-Dr. Nichols Orders: ECG 12 lead Tracing Only; [...] Encounters Date Type Department Care Team Description 01/29/2025 9:30 AM EDT Office Visit Endocrinology [place] [id number] [place] [phone] Lacey Bey MD Type 2 diabetes mellitus with cataract ([facility] V24, [facility] V28) (Primary Dx) 01/15/2025 8:15 AM EDT Office Visit Orthopedic Surgery - [place] [address] [place] [address] [address] [place] [phone] Abdoul Chavez DPM Tailor's bunionette, right (Primary Dx); Dermatophytosis of nail; Diabetic mononeuropathy simplex ([facility] V24, [facility] V28); Pain in toe of right foot; Pain in toe of left foot; Tailor's bunionette, left; Corns and callosities; Type II diabetes mellitus with peripheral circulatory disorder ([facility] V24, [facility] V28) 12/31/2024 Telephone [facility] [address] [facility] [address] [place] [phone] Tammy Mooney MD Medical Records 12/29/2024 9:00 AM EDT Consult General Surgery - [place] 175 [facility] [address] [place] [phone] Alejandro Casas MD Calculus of gallbladder without cholecystitis without obstruction 11/21/2024 12:29 PM EST - 11/21/2024 11:59 PM EST Hospital Encounter Radiology Department [address] [phone] Localized swelling, mass or lump of neck Discharge Disposition: Home or Self Care 11/19/2024 1:20 PM EST Office Visit Gastroenterology - 299 [facility] 299 [facility] [address] [place] [phone] Brenna Savage NP Hyperbilirubinemia (Primary Dx) 11/18/2024 2:00 PM EST Office Visit Adult Medicine [address] [phone] Lena Sorto PA Localized swelling, mass or lump of neck (Primary Dx); Calculus of gallbladder without cholecystitis without obstruction; DDD (degenerative disc disease), cervical; Chronic neck pain 11/13/2024 Telephone [facility] Cardiology [facility] [address] [phone] Shu Styles NP Medication; Pre-op Visit 11/12/2024 Nurse Triage Adult [address] [phone] Evelina Meek RN 11/07/2024 10:40 AM EST Office Visit [facility] Cardiology [facility] [address] [phone] Shu Styles NP Essential hypertension (Primary Dx); Chest pain, unspecified type; Coronary artery disease involving [place] coronary artery of [place] heart, unspecified whether angina present; Hyperlipidemia, unspecified hyperlipidemia type; Obesity (BMI 30.0-34.9) from Last 3 Months Immunizations Name Administration [...] SURGERY; COMMENT: acromioplasty OTHER SURGICAL HISTORY PROCEDURE: [place] BIOPSY PROSTATE INCISIONAL ANY APPROACH; COMMENT: x6 [...] Comments Acute deep vein thrombosis ( DVT) (CMS/HCC V24, CMS/HCC V28) DX:Acute deep vein thrombos is (DVT) (HCC) Diabetes mellitus (CMS/[facility] V 24, CMS/[facility] V28) DX:Diabetes mellitus (HCC) Prostate cancer (CMS/[facility] V24 , CMS/[facility] V28) DX:Prostate cancer (HCC) Skin cancer DX:Skin [...] elevated PSA and several biopsies done in [facility]. Negative for malignancy Hyperlipidemia 12/04/2018 DX:Hyperlipidemi a [...] Type 2 diabetes mellitus wit h cataract ([facility] V24, [facility] V28) 02/26/2019 DX:Type 2 diabetes mellitus with cataract (HCC) Cataract 02/26/2019 DX:Cataract; COM MENT: 2017, Bilateral, removed Prostate cancer ([facility] V24 , [facility] V28) DX:Prostate cancer (HCC) Hyponatremia 04/03/2022 DX:Hyponatremia [...] Sign Reading Time Taken Comments Blood Pressure 128/60 01/29/2025 9:21 AM EDT Pulse 70 01/29/2025 9:21 AM EDT Temperature 35.7 ??C (96.2 ??F) 01/29/2025 9:21 AM ED T Respiratory Rate 16 01/29/2025 9:21 AM EDT Oxygen Saturation 94% 01/29/2025 9:21 AM EDT Inhaled Oxygen Concentration - - Weight 103 kg (226 lb 9.6 oz) 01/29/2025 9:21 AM EDT Height 175.3 cm (5' 9 ) 01/29/2025 9:21 AM EDT Body Mass Index 33.46 01/29/2025 9:21 AM EDT Plan of Treatment Upcoming Encounters Date Type Department Care Team (Late st Contact Info) Description 02/03/2025 8:30 AM EDT Office Visit Adult Medicine [address] [phone] Lena Sorto PA [address] [place] [address] 04/16/2025 8:15 AM EDT Office Visit Orthopedic Surgery - [place] [address] [phone] Abdoul Chavez, DPM [address] [address] 04/30/2025 9:00 AM EDT Office Visit Endocrinology [facility] [address] [place], [place] [phone] Lacey Bey MD 305 [place] [address] 06/02/2025 9:10 AM EDT Office Visit [facility] - [facility] [address] [phone] Shu Styles NP 300 [facility] [address] [place] [address] Health Maintenance Due Date Last Done Comments Diabetes: Annual Foot Exam 1955 Falls Risk Assessment 09/02/2022 Medicare Annual Wellness Visit 09/02/2022 Social Influencers of Health Screening 09/02/2022 COVID-19 Vaccine ( season) 2024 06/04/2024, 12/06/2023, 06/26/2023, Additional history exists Diabetes: Annual Retina Eye Exam 05/20/2025 05/20/2024 Diabetes: Blood Sugar Control Test (HGBA1C) 07/26/2025 01/23/2025, 09/04/2024, 06/05/2024, Additional history exists Diabetes: Annual Urine Albumin-Creatinine Ratio (uACR) 01/23/2026 01/23/2025, 09/04/2024, 12/03/2023 Diabetes: Annual GFR (Glomerular Filtration Rate) 01/23/2026 01/23/2025, 09/04/2024, 07/12/2023 Hypertension/CHF/CAD Annual BMP Blood Test 01/23/2026 01/23/2025, 09/04/2024, 07/12/2023 Depression Screening 01/27/2026 01/27/2025 Cholesterol Screening (Lipid Panel) 01/23/2030 01/23/2025, 09/04/2024, 02/29/2024, Additional history exists DTaP,Tdap,and Td Vaccines (4 - Td or [...] Procedure Name Priority Date/Time Associated Diagnosis Comments LIPID PANEL WITH REFLEX TO DIRECT LDL Routine 01/23/2025 9:03 AM EDT Cataract, diabetic ([facility] V24, [facility] V28) CREATININE, SERUM Routine 01/23/2025 9:0 3 AM EDT Type 2 diabetes mellitus with cataract ([facility] V24, [facility] V28) BUN Routine 01/23/2025 9:03 AM EDT Type 2 diabetes mellitus with cataract ([facility] V24, [facility] V28) HEMOGLOBIN A1C Routine 01/23/2025 9:03 AM EDT Type 2 diabetes mellitus with cataract ([facility] V24, [facility] V28) MICROALBUMIN CREATININE URINE RATIO Routine 01/23/2025 9:03 AM EDT Type 2 diabetes mellitus with cataract ([facility] V24, [facility] V28) HEMOGLOBIN AND HEMATOCRIT Routine 01/23/2025 9:03 AM EDT Essential hypertension ECG 12-LEAD TRACING ONLY Routine 01/12/2025 1:39 PM EDT Coronary artery disease involving [place] coronary artery of [place] heart, unspecified whether angina present Chest pain, unspecified type US HEAD NECK SOFT TISSUE Routine 11/21/2024 12:47 PM EST Localized swelling, mass or lump of neck from Last 3 Months Results * Lipid panel with reflex to direct LDL (01/23/2025 9:03 AM EDT) Cholesterol 127 0 - 200 mg/dL LAB CHEMISTRY METHOD 01/23/2025 1:17 PM EDT [facility] Triglycerides 101 0 - 150 mg/dL LAB CHEMISTRY METHOD 01/23/2025 1:17 PM EDT [facility] HDL 54 >=40 mg/dL LAB CHEMISTRY METHOD 01/23/2025 1:17 PM EDT [facility] LDL Calculated 53 0 - 100 mg/dL LAB CHEMISTRY METHOD 01/23/2025 1:17 PM T [facility] VLDL Cholesterol Alex 20.2 mg/dL LAB CHEMISTRY METHOD 01/23/2025 1:17 PM EDT [facility] Non HDL Chol. (LDL+VLDL) 73 <145 mg/dL LAB CHEMISTRY METHOD 01/23/2025 1:17 PM EDT [facility] Chol/HDL Ratio 2.4 0.0 - 4.4 LAB CHEMISTRY METHOD 01/23/2025 1:17 PM EDT [facility] Blood Venous blood specimen / Unknown Venipuncture / Unknown 01/23/2025 9:03 AM EDT 01/23/2025 9:03 AM EDT Lacey Bey MD LAB BLOOD ORDERABLES Final Resul t Performing Organization Address [facility]/ZIP Co de Phone Number [facility] [address] [place] [address], [place] [phone] * Hemoglobin and hematocrit (01/23/2025 9:03 AM EDT) Hemoglobin 15.5 13.5 - 17.5 g/dL LAB HEMETOLOGY METHOD 01/23/2025 11:57 AM EDT [facility] Hematocrit 46.7 42.0 - 54.0 % LAB HEMETOLOGY METHOD 01/23/2025 11:57 AM EDT [facility] Blood Venous blood specimen / Unknown Venipuncture / Unknown 01/23/2025 9:03 AM EDT 01/23/2025 9:03 AM EDT Lacey Bey MD LAB BLOOD ORDERABLES Final Resul t [facility] [address] [place] [address], [place] [phone] * (ABNORMAL) Microalbumin creatinine urine ratio (01/23/2025 9:03 AM EDT) Creatinine, Urine 67.0 mg/dL LAB CHEMISTRY METHOD 01/23/2025 2:14 PM EDT [facility] Microalb, Ur 43.8(H) 0.0 - 29.0 mg/L LAB CHEMISTRY METHOD 01/23/2025 2:14 PM EDT [facility] Microalb/Crea t Ratio 65(H) <30 mg/g creat LAB CHEMISTRY METHOD 01/23/2025 2:14 PM EDT [facility] Urine Urine specimen obtained by clean catch procedure / Unknown Non-blood Collection / Unknown 01/23/2025 9:03 AM EDT 01/23/2025 9:03 AM EDT Lacey Bey MD LAB URINE ORDERABLES Final Resul t Performing Organization Address [facility] de Phone Number [facility] [address] [place] [address], * Creatinine (01/23/2025 9:03 AM EDT) Creatinine 0.77 0.70 - 1.30 mg/dL LAB CHEMISTRY METHOD 01/23/2025 1:08 PM EDT [facility] eGFR 91 >=60 mL/min/1. 73m2 LAB CHEMISTRY METHOD 01/23/2025 1:08 PM EDT [facility] Comment:Calculation based on the??Chronic Kidney Disease Epidemiology Collaboration (CKD-EPI) equation refit??without adjustment for race. Blood Venous blood specimen / Unknown Venipuncture / Unknown 01/23/2025 9:03 AM EDT 01/23/2025 9:03 AM EDT Lacey Bey MD LAB BLOOD ORDERABLES Final Resul t Performing Organization Address City/[facility] Co de Phone Number [facility] [address] [place] [address], [place] [phone] * BUN (01/23/2025 9:03 AM EDT) BUN 19 5 - 25 mg/dL LAB CHEMISTRY METHOD 01/23/2025 1:51 PM EDT [facility] Blood Venous blood specimen / Unknown Venipuncture / Unknown 01/23/2025 9:03 AM EDT 01/23/2025 9:03 AM EDT Lacey Bey MD LAB BLOOD ORDERABLES Final Resul t Performing Organization Address [facility] de Phone Number [facility] [address] [place] [address], [place] [phone] * (ABNORMAL) Hemoglobin A1c (01/23/2025 9:03 AM EDT) [facility] Hemoglobin A1C 7.6(H) <6.5 % LAB CHEMISTRY METHOD 01/23/2025 2:16 PM EDT [facility] Mean Bld Glu Estim. 171 mg/dL LAB CHEMISTRY METHOD 01/23/2025 2:16 PM EDT [facility] Blood Venous blood specimen / Unknown Venipuncture / Unknown 01/23/2025 9:03 AM EDT 01/23/2025 9:03 AM EDT Lcaey Bey MD LAB BLOOD ORDERABLES Final Resul t Performing Organization Address [facility] de Phone Number [facility] [address] [place] [address], [place] [phone] * ECG 12 lead Tracing Only (01/12/2025 [...] Signed Date: 11/21/2024 14:11 ET Workstation ID: [id number] Transcribed By: Self Edit Transcribed Date: 11/21/2024 [...] Signed Date: 11/21/2024 14:11 ET Workstation ID: [id number] Transcribed By: Self Edit Transcribed Date: 11/21/2024 14:10 ET Lena BOOKER [facility] [place] PROCEDURES Final Resul t from Last 3 Months Insurance [employer] MEDICARE [employer]VANTAGE Care Teams Social Media Manager Relationship Specialty Start Date End Date Tammy Mooney MD [address] [place] [address] PCP - General Internal Medicine 09/04/24
--- OUTSIDE RECORDS SUMMARY | 2025-01-30 11:49 | XMS_ITS | Encounter Summary ---
Author Organization [facility] Address [address] [place] [address] Care Team Providers Care Perforating Machine Operator Name Role Phone Tammy Mooney MD Primary Care Pr ovider Reason for Visit * Reason Comments Diabetes Follow-up 3 MO Encounter Details Date Type Department Care Team (Late st Contact Info) Description 01/29/2025 9:30 AM EDT Office Visit Endocrinology - [address] [phone] Lacey Bey MD [address] [place] [address] Type 2 diabetes mellitus with cataract ([facility]/HCC V24, [facility]/HCC V28) (Primary Dx) Social History Tobacco Use Types [...] Mass Index 33.46 01/29/2025 9:21 AM EDT documented in this encounter Ordered Prescriptions Prescription Sig Dispense Quantity Refills Last Filled Start Date End Date semaglutide (Rybelsus) 3 mg tabletIndications: 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 V24, CMS/HCC V28) Take 1 tablet (3 mg total) by mouth 1 (one) time each day before breakfast. Take with 4 ounces (1/2 cup) of water on empty stomach, 30 min prior to other medication or food. 30 tablet 01/29/2025 documented in this encounter Progress Notes * Lacey Bye MD - 01/29/2025 9:30 AM EDT Start rybelsus daily, when starting Plan to cut down/take out glipizide. * Lacey Bey MD - 01/29/2025 9:30 AM EDT CHIEF COMPLAINT: Diabetes and Follow-up (3 MO) IDENTIFIER: Slava Ramirez is a 79 y.o. old male. HPI: 79 years old M following for DM type 2 Diagnosed since 3 years Currently on Jardiance 25 mg daily and Glipizide 5 mg BID Checking sugars, numbers reported are 125-170, mostly <150 fasting. He was on metformin, was having GI issues so stopped. ROS: No new complaints. 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 ([facility] V24, [facility] V28) 06/25/2024 Type 2 diabetes mellitus with cataract ([facility] V24, [facility] V28) 06/25/2024 Trochanteric bursitis of both hips 06/05/2024 Insomnia 04/27/2023 Atherosclerosis of augustine artery of both lower extremities with rest pain ([facility] V24, [facility] V28) 03/22/2023 PAC (premature atrial contraction) 03/19/2023 Venous stasis ulcer of right calf limited to breakdown of skin with varicose veins ([facility] V24, [facility] V28) 03/19/2023 Palpitations 02/07/2023 Nocturnal leg cramps 01/01/2023 Osteoarthritis of both hips 01/01/2023 Adrenal nodule ([facility] V24) 07/07/2022 Lumbar degenerative disc disease 09/26/2021 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 ([facility] V24, [facility] V28) 03/23/2021 Dizziness 02/09/2021 Acute deep vein thrombosis (DVT) of femoral vein of right lower extremity ([facility] V24, [facility] V28) 07/27/2020 Prostate cancer ([facility] V24, [facility] V28) 03/16/2020 Spinal stenosis at L4-L5 level 09/30/2019 Chronic bilateral low back pain without sciatica 04/02/2019 Cataract 02/26/2019 Type 2 diabetes mellitus with microalbuminuria ([facility] V24, [facility] V28) 02/26/2019 Diverticulosis 01/14/2019 Actinic keratosis 12/30/2018 Chronic neck pain 12/12/2018 Tubular adenoma of colon 12/12/2018 BPH (benign prostatic hyperplasia) 12/04/2018 Coronary artery disease involving augustine coronary artery of augustine heart 12/04/2018 DDD (degenerative disc disease), cervical [...] HISTORY PROCEDURE:neck fusion OTHER SURGICAL HISTORY PROCEDURE: [place] BIOPSY PROSTATE INCISIONAL ANY APPROACH; COMMENT: x6 [...] Outpatient Medications Marked as Taking for the 01/29/25 encounter (Office Visit) with Lacey Bey MD Medication Sig Dispense Refill aspirin 81 mg EC tablet Take 1 Tablet by mouth. atorvastatin (LIPITOR) 80 mg tablet Take 1 Tablet by mouth daily. Autolet lancing device LANCET DEVICES (ONE TOUCH DELICA LANCING DEV) MISC: Use to test blood sugar once a day . DX-E11.9. NIDDM *One Touch Ultra 2* blood sugar diagnostic (ONETOUCH ULTRA TEST MISC) [...] by mouth at bedtime. 90 each 1 glipiZIDE (GLUCOTROL) 10 mg tablet Take 1 tablet (10 mg total) by mouth 2 (two) times a day before meals. 180 each 1 lancets (BookBaguch Delica Plus Lancet) 33 gauge USE TO [...] Known Allergies PHYSICAL EXAM: Visit Vitals BP 128/60 Pulse 70 Temp 35.7 ??C (96.2 ??F) (Temporal) Resp 16 Ht 1.753 m (69 ) Wt 103 kg (226 lb 9.6 oz) SpO2 94% BMI 33.46 kg/m?? Smoking Status Never BSA 2.18 m?? APPEARANCE: Alert and in no acute distress EYES: EOMI. No low sugars NEURO: Awake, alert LABS: Lab Results Component Value Date HGBA1C 7.6 (H) 01/23/2025 CHOL 127 01/23/2025 LDL 58 02/29/2024 HDL 54 01/23/2025 TRIG 101 01/23/2025 IMPRESSION: 1. Type 2 diabetes mellitus with cataract ([facility] V24, [facility] V28) PLAN: Had a detailed discussion, doing fair. Does not report any low sugars. However he is on medication with potential for low sugars. Would like to start on GLP1A and aim to cut down/take out glipizide. Discussed potential side effects in detail. He has concerns for coverage. Asked to be watchful. Continue on current regimen. Labs before next visit. All questions answered. Retinopathy: absent; Last Eye Exam within previous: 12 months Neuropathy: Denies Nephropathy: Last UAC not elevated Lipids: On statins Medication and lab orders: No orders of the defined types were placed in this encounter. Other orders: None Lacey Bey MD on 01/29/2025 at 10:00 AM EDT documented in this encounter Plan of Treatment Upcoming Encounters Date Type Department Care Team (Late st Contact Info) Description 02/03/2025 8:30 AM EDT Office Visit Adult Medicine [address] [phone] Lena Sorto PA 305 [place] [address] 04/16/2025 8:15 AM EDT Office Visit Orthopedic Surgery - [place] [address] [phone] Abdoul Chavez DPM [address] [address] 04/30/2025 9:00 AM EDT Office Visit Endocrinology - [address] [phone] Lacey Bey MD 305 [place] [address] 06/02/2025 9:10 AM EDT Office Visit [facility] [address] [phone] Shu Styles NP 300 [facility] 102 [place] [address] documented as of this encounter Visit Diagnoses Diagnosis Type 2 diabetes mellitus with cataract ([facility] V24, [facility] V28)- Primary documented in this encounter Additional Health Concerns Assessment Noted Time PHQ-9 Depression Total Score: 0 01/28/20 25 1:51 PM EDT documented as of this encounter Care Teams Perforating Machine Operator Relationship Specialty Start Date End Date Tammy Mooney MD [address] [place] [phone] PCP - General Internal Medicine 09/04/24 documented as of this encounter
--- OUTSIDE RECORDS SUMMARY | 2025-01-30 11:49 | XMS_ITS | Clinical Summary ---
Author Organization [facility] Address [address] [id number] Care Team Providers Care Tuckpointer Name Role Phone Tl Stevens MD Primary [...] mg total) by mouth daily. 0 Active Azalea-3 Fatty Acids (Fish Oil) 1000 MG CPDR [...] age to complete this topic Care Teams Tuckpointer Relationship Specialty Start Date End Date Tl Stevens MD PCP - General Internal Medicine 10/03/22
--- OUTSIDE RECORDS SUMMARY | 2025-01-30 11:50 | XMS_ITS | Patient Health Record ---
Author Organization [facility] fatimah DotyMiky Address [address] [facility] [place] [address] Care Team Providers Care Improvement Auditor Name Role Phone Medina Catherine Unavailable [phone] Allergies No Known Allergies Reason For Referral [...] Problem Status W/U Status Risk Notes Problem Other hammer toe(s) (acquired), right foot (M20.41) Active confirmed Problem Acquired hammer toe of left foot (552477609931134 3) Other hammer toe(s) (acquired), left foot (M20.42) Active confirmed Problem Type II diabetes mellitus without complication (166109231) Type 2 diabetes mellitus without complications (E11.9) Active confirmed Problem 81938850 Osteoarthritis o f right ankle and foot (M19.071) Active confirmed Problem 28565032 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.072) Active confirmed Plan Of Treatment Pending Test Test Name Order Date X ray : Foot, left 3V 11/15/2020 X ray : Foot, right 3V 11/15/2020 [id number] NAIL, 6 OR MORE 02/27/2023 Insurance Providers Payer Name Payer Address Payer Phone Subscriber Number Group Number Insured Name Patient Relationship to Insured Coverage Start Date Coverage End Date [employer] [address] [place] [address] [id number] Slava Ramirez Self - patient is the insured Medical (General) History Medical History History ICD Code Back,Hip,and Knee pain type II diabetes High blood pressure Measles Mumps Chicken pox Prostate cancer Surgical History Surgery Date(Month/Year) neck fusion 2017 prostate surgery 02/2020 lower back surgery 08/2021
--- NOTE | 2025-01-30 11:56 | A.SPINEOV_ITS ---
Intake Visit Reasons: evaluate implantation of scientific paddle SCS Intake Note: Mr. Ramirez is here today to discuss SCS paddle implant. Leaf Stripper Required: No Allergies No Known Allergies Allergy (Verified 01/15/25 09:54) Assessment & Plan Assessment & Plan (1) Postlaminectomy syndrome: Code(s): M96.1 - Postlaminectomy syndrome, not elsewhere classified Category: Medical Plan Dear colleague, On 01/30/2025 I saw for preoperative visit Mr. Slava Ramirez. He has a failed back syndrome and was referred to pain management we implanted temporary spinal cord stimulator which gave the patient 75-80% relief of symptoms.Dr. Khan was only able to put 1 lead in and therefore he referred the patient to me to see if I can put in an spinal cord stimulator under direct vision. We briefly discussed the procedure and he is tentatively scheduled for February 18. All questions were answered. I spent 25 minutes in his consult. Giovanny Rincon MD, PhD Spine Fellowship Trained Neurosurgeon Director, [facility] Coding Level of Care Code Est Pt Level 2 (64386) Diagnoses Postlaminectomy syndrome M96.1
== END 2025-01-30 12:14 | disposition home or self-care (01) ==
LOC: HO.HNS 11:22
PROVIDERS: PCP Family Medicine; Visit Provider Neurological Surgery
DX: M96.1 Postlaminectomy syndrome, not elsewhere classified (principal)
CPT/HCPCS: 99212

== ENCOUNTER → 2025-01-30 11:21 | Outpatient (BNVA) | payer MEDICARE, SELFPAY | PROVIDERS: PCP Family Medicine; Visit Provider Neurological Surgery | DX: M96.1 Postlaminectomy syndrome, not elsewhere classified (principal) | CPT/HCPCS: 99212 ==

== ENCOUNTER 2025-03-10 06:54 | Day surgery (SDC) | payer MEDICARE, SELFPAY ==
--- OUTSIDE RECORDS SUMMARY | 2025-02-02 12:59 | XMS_ITS | Encounter Summary ---
Author Organization [facility] Address [address] [place] [address] Care Team Providers Care Application Counselor Name Role Phone Tammy Mooney MD Primary Care Pr ovider Encounter Details Date Type Department Care Team (Late st Contact Info) Description 08/13/2024 Lab Requisition [facility] - Main Lab [address] [facility] [place] [address] Aden Stevens MD [address] [phone] Personal history of malignant neoplasm of prostate [...] 8:30 AM EDT Office Visit Adult Medicine [address] [phone] Lena Sorto PA 305 [place] [address] 04/16/2025 8:15 AM EDT Office Visit Orthopedic Surgery - [place] [address] [phone] Abdoul Chavez, DPM [address] [address] 04/30/2025 9:00 AM EDT Office Visit Endocrinology [address] [place] [address] Lacey Bey MD 305 [place] [address] 06/02/2025 9:10 AM EDT Office Visit [facility] - [facility] [address] [phone] Shu Styles NP 300 [facility] 102 [place] [address] documented as of this encounter Procedures Procedure Name Priority Date/Time Associated Diagnosis Comments PSA TOTAL, FREE AND COMPLEXED, DIAGNOSTIC Routine 08/13/2024 10:27 AM EST Personal history of malignant neoplasm of prostate documented in this encounter Results * PSA total, free and complexed (08/13/2024 10:27 AM EST) PSA <0.06 0.00 - 4.00 ng/mL LAB CHEMISTRY METHOD 08/14/2024 9:37 PM EST [facility] PSA, Complexed <0.07 0.00 - 3.00 ng/mL LAB CHEMISTRY METHOD 08/14/2024 9:37 PM EST [facility] PSA, Free LAB CHEMISTRY METHOD 08/14/2024 9:37 PM EST [facility] PSA, Free Pct LAB CHEMISTRY METHOD 08/14/2024 9:37 PM EST [facility] Blood Venous blood specimen / Unknown 08/13/2024 10:27 AM EST 08/13/2024 1:22 PM EST Narrative [facility] - 08/14/2024 9:37 PM EST Free PSA is a calculated value. ??The diagnostic usefulness of % free PSA has not been established in patients with Total PSA below 2.6 or above 10 ng/mL. ?? This test was performed using the Hy-Driveaur Chemiluminescent method. ??PSA values obtained with other methods cannot be used interchangeably. us Aden Stevens MD LAB BLOOD ORDERABLES Final Resul t [facility] [address] [place] [address], documented in this encounter Visit Diagnoses Diagnosis Personal history of malignant neoplasm of prostate documented in this encounter Care Teams Application Counselor Relationship Specialty Start Date End Date Tammy Mooney MD [address] [place] [address] PCP - General Internal Medicine 09/04/24 documented as of this encounter
--- OUTSIDE RECORDS SUMMARY | 2025-02-02 12:59 | XMS_ITS | Encounter Summary ---
Author Organization [facility] Address [address] [place] [address] Care Team Providers Care Auto Emissions Technician Name Role Phone Tammy Mooney MD Primary Care Pr ovider Reason for Visit * Reason Comments Diabetes Follow-up 3 MO Encounter Details Date Type Department Care Team (Late st Contact Info) Description 01/29/2025 9:30 AM EDT Office Visit Endocrinology - [address] [phone] Lacey Bey MD [address] [place] [address] Type 2 diabetes mellitus with cataract ([facility]/HCC V24, [facility]/HCC V28) (Primary Dx) Social History [...] Progress Notes * Lacey Bey MD - 01/29/2025 9:30 AM EDT Start [...] of femoral vein of right lower extremity ([facility] V24, [facility] V28) 06/25/2024 Type 2 diabetes mellitus with cataract ([facility] V24, [facility] V28) 06/25/2024 Trochanteric bursitis of both hips 06/05/2024 Insomnia 04/27/2023 Atherosclerosis of grindstone artery of both lower extremities with rest pain ([facility] V24, [facility] V28) 03/22/2023 PAC (premature atrial contraction) 03/19/2023 Venous stasis ulcer of right calf limited to breakdown of skin with varicose veins ([facility] V24, [facility] V28) 03/19/2023 Palpitations 02/07/2023 Nocturnal leg cramps 01/01/2023 Osteoarthritis of both hips 01/01/2023 Adrenal nodule ([facility] V24) 07/07/2022 Lumbar degenerative disc disease 09/26/2021 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 ([facility] V24, [facility] V28) 03/23/2021 Dizziness 02/09/2021 Acute deep vein thrombosis (DVT) of femoral vein of right lower extremity ([facility] V24, [facility] V28) 07/27/2020 Prostate cancer ([facility] V24, [facility] V28) 03/16/2020 Spinal stenosis at L4-L5 level 09/30/2019 Chronic bilateral low back pain without sciatica 04/02/2019 Cataract 02/26/2019 Type 2 diabetes mellitus with microalbuminuria ([facility] V24, [facility] V28) 02/26/2019 Diverticulosis 01/14/2019 Actinic keratosis 12/30/2018 Chronic neck pain 12/12/2018 Tubular adenoma of colon 12/12/2018 BPH (benign prostatic hyperplasia) 12/04/2018 Coronary artery disease involving grindstone coronary artery of grindstone heart 12/04/2018 DDD (degenerative disc disease), cervical [...] HISTORY PROCEDURE:neck fusion OTHER SURGICAL HISTORY PROCEDURE: [place] BIOPSY PROSTATE INCISIONAL ANY APPROACH; COMMENT: x6 [...] day before meals. 180 each 1 lancets (Diagonal Viewuch Delica Plus Lancet) 33 gauge USE TO [...] 1. Type 2 diabetes mellitus with cataract ([facility] V24, [facility] V28) PLAN: Had a detailed discussion, doing [...] 8:30 AM EDT Office Visit Adult Medicine [address] [phone] Lena Sorto PA 305 [place] [address] 04/16/2025 8:15 AM EDT Office Visit Orthopedic Surgery - [place] [address] [phone] Abdoul Chavez DPM [address] [address] 04/30/2025 9:00 AM EDT Office Visit Endocrinology - [address] [phone] Lacey Bey MD 305 [place] [address] 06/02/2025 9:10 AM EDT Office Visit [facility] [address] [phone] Shu Styles NP 300 [facility] 102 [place] [address] documented as of this encounter Visit Diagnoses Diagnosis Type 2 diabetes mellitus with cataract ([facility] V24, [facility] V28)- Primary documented in this encounter Additional Health Concerns Assessment Noted Time PHQ-9 Depression Total Score: 0 01/28/20 25 1:51 PM EDT documented as of this encounter Care Teams Auto Emissions Technician Relationship Specialty Start Date End Date Tammy Mooney MD [address] [place] [phone] PCP - General Internal Medicine 09/04/24 documented as of this encounter
--- OUTSIDE RECORDS SUMMARY | 2025-02-02 13:00 | XMS_ITS | Patient Health Record ---
Author Organization [facility] fatimah DotyMiky Address [address] [facility] [place] [address] Care Team Providers Care Metal Drawer Name Role Phone Medina Catherine Unavailable [phone] Allergies No Known Allergies Reason For Referral [...] Problem Acquired hammer toe of right foot (309734529595757 5) Other hammer toe(s) (acquired), right foot (M20.41) Active confirmed Problem Acquired hammer toe of left foot (401849070635139 3) Other hammer toe(s) (acquired), left foot (M20.42) Active confirmed Problem Type II diabetes mellitus without complication (890926495) Type 2 diabetes mellitus without complications (E11.9) Active confirmed Problem 70384858 Osteoarthritis o f right ankle and foot (M19.071) Active confirmed Problem 80085621 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.072) Active confirmed Plan Of Treatment Pending Test Test Name Order Date X ray : Foot, left 3V 11/15/2020 X ray : Foot, right 3V 11/15/2020 [id number] NAIL, 6 OR MORE 02/27/2023 Insurance Providers Payer Name Payer Address Payer Phone Subscriber Number Group Number Insured Name Patient Relationship to Insured Coverage Start Date Coverage End Date [address] [place] [address] [id number] Slava Ramirez Self - patient is the insured Medical (General) History Medical History History ICD Code Back,Hip,and Knee pain type II diabetes High blood pressure Measles Mumps Chicken pox Prostate cancer Surgical History Surgery Date(Month/Year) neck fusion 2016 prostate surgery 02/2020 lower back surgery 08/2021
--- OUTSIDE RECORDS SUMMARY | 2025-02-02 13:00 | XMS_ITS | Clinical Summary ---
Author Organization 175 [facility] Address 175 [place] [address] Phone Care Team Providers Care Recreation Teacher Name Role Phone Tammy Mooney MD Primary [...] tabletIndications:Es sential hypertension,Coronar y artery disease involving [place] coronary artery of [place] heart, unspecified whether angina present Take 1 [...] both hips 06/05/2024 Insomnia 04/27/2023 Atherosclerosis of [place] of both lower extremities with [...] Osteoarthritis of both hips 01/01/2023 Adrenal nodule ([facility] V24) 07/07/2022 Overview (08/12/2024): CT abdomen 07/07/22: [...] of femoral vein of right lower extremity ([facility] V24, [facility] V28) 07/27/2020 Prostate cancer ([facility] V24, [facility] V28) 03/16 Spinal stenosis at L4-L5 level [...] Type 2 diabetes mellitus wit h microalbuminuria ([facility] V24, [facility] V28) 02/26/2019 Overview (08/12/2024): Last Assessment & [...] elevated PSA and several biopsies done in [facility]. Negative for malignancy Assessment & Plan (10/07/2024 9:15 PM EST): Continue follow up with urology. Continue Cialis 5mg daily Coronary artery disease invo lving [place] coronary artery of [place] heart 12/04/2018 Assessment & Plan (11/09/2024 2:11 [...] cardiology. Will send a message to his neuro psych sales specialist-Dr. Nichols Orders: ECG 12 lead Tracing Only; [...] 01/29/2025 9:30 AM EDT Office Visit Endocrinology [id number] [place] [phone] Lacey Bey MD Type 2 diabetes mellitus with cataract ([facility] V24, [facility] V28) (Primary Dx) 01/15/2025 8:15 AM EDT Office Visit Orthopedic Surgery - [place] [address] [place] [address] [address] [place] [phone] Abdoul Chavez DPM Tailor's bunionette, right (Primary Dx); Dermatophytosis of nail; Diabetic mononeuropathy simplex ([facility] V24, [facility] V28); Pain in toe of right foot; Pain in toe of left foot; Tailor's bunionette, left; Corns and callosities; Type II diabetes mellitus with peripheral circulatory disorder ([facility] V24, [facility] V28) 12/31/2024 Telephone [facility] [address] [facility] [address] [place] [phone] Tammy Mooney MD Medical Records 12/29/2024 9:00 AM EDT Consult General Surgery - [place] 175 [facility] [address] [place] [phone] Alejandro Casas MD Calculus of gallbladder without cholecystitis without obstruction 11/21/2024 12:29 PM EST - 11/21/2024 11:59 PM EST Hospital Encounter Radiology Department [address] [phone] Localized swelling, mass or lump of neck Discharge Disposition: Home or Self Care 11/19/2024 1:20 PM EST Office Visit Gastroenterology - [address] [facility] 299 [facility] [address] [place] [phone] Brenna Savage NP Hyperbilirubinemia (Primary Dx) 11/18/2024 2:00 PM EST Office Visit Adult Medicine [address] [phone] Lena Sorto PA Localized swelling, mass or lump of neck (Primary Dx); Calculus of gallbladder without cholecystitis without obstruction; DDD (degenerative disc disease), cervical; Chronic neck pain 11/13/2024 Telephone [facility] Cardiology [facility] [address] [phone] Shu Styles NP Medication; Pre-op Visit 11/12/2024 Nurse Triage Adult [address] [phone] Evelina Meek RN 11/07/2024 10:40 AM EST Office Visit [facility]iology [facility] [address] [phone] Shu Styles NP Essential hypertension (Primary Dx); Chest pain, unspecified type; Coronary artery disease involving [place] coronary artery of [place] heart, unspecified whether angina present; Hyperlipidemia, unspecified [...] SURGERY; COMMENT: acromioplasty OTHER SURGICAL HISTORY PROCEDURE: MT BIOPSY PROSTATE INCISIONAL ANY APPROACH; COMMENT: x6 [...] vein thrombos is (DVT) (HCC) Diabetes mellitus ([facility] V 24, [facility] V28) DX:Diabetes mellitus (HCC) Prostate cancer ([facility] V24 , [facility] V28) DX:Prostate cancer (HCC) Skin cancer DX:Skin [...] elevated PSA and several biopsies done in [facility]. Negative for malignancy Hyperlipidemia 12/04/2018 DX:Hyperlipidemi [...] Type 2 diabetes mellitus wit h cataract ([facility] V24, [facility] V28) 02/26/2019 DX:Type 2 diabetes mellitus with cataract (HCC) Cataract 02/26/2019 DX:Cataract; COM MENT: 2017, Bilateral, removed Prostate cancer ([facility] V24 , [facility] V28) DX:Prostate cancer (HCC) Hyponatremia 04/03/2022 DX:Hyponatremia [...] 8:30 AM EDT Office Visit Adult Medicine [address] [phone] Lena Sorto PA [address] [place] [address] 04/16/2025 8:15 AM EDT Office Visit Orthopedic Surgery - [place] [address] [phone] Abdoul Chavez, DPM [address] [address] 04/30/2025 9:00 AM EDT Office Visit Endocrinology [facility] [address] [place], [place] [phone] Lacey Bey MD [address] [place] [address] 06/02/2025 9:10 AM EDT Office Visit [facility] - [facility] [address] [phone] Shu Styles NP 300 [facility] [address] [place] [address] Health Maintenance Due Date Last Done Comments [...] Routine 01/23/2025 9:03 AM EDT Cataract, diabetic ([facility] V24, [facility] V28) CREATININE, SERUM Routine 01/23/2025 9:0 3 AM EDT Type 2 diabetes mellitus with cataract ([facility] V24, [facility] V28) BUN Routine 01/23/2025 9:03 AM EDT Type 2 diabetes mellitus with cataract ([facility] V24, [facility] V28) HEMOGLOBIN A1C Routine 01/23/2025 9:03 AM EDT Type 2 diabetes mellitus with cataract ([facility] V24, [facility] V28) MICROALBUMIN CREATININE URINE RATIO Routine 01/23/2025 9:03 AM EDT Type 2 diabetes mellitus with cataract ([facility] V24, [facility] V28) HEMOGLOBIN AND HEMATOCRIT Routine 01/23/2025 9:03 AM EDT Essential hypertension ECG 12-LEAD TRACING ONLY Routine 01/12/2025 1:39 PM EDT Coronary artery disease involving [place] coronary artery of [place] heart, unspecified whether angina present Chest pain, unspecified type US HEAD NECK SOFT TISSUE Routine 11/21/2024 12:47 PM EST Localized swelling, mass or lump of neck from Last 3 Months Results * Lipid panel with reflex to direct LDL (01/23/2025 9:03 AM EDT) Cholesterol 127 0 - 200 mg/dL LAB CHEMISTRY METHOD 01/23/2025 1:17 PM EDT [facility] Triglycerides 101 0 - 150 mg/dL LAB CHEMISTRY METHOD 01/23/2025 1:17 PM EDT [facility] HDL 54 >=40 mg/dL LAB CHEMISTRY METHOD 01/23/2025 1:17 PM EDT [facility] LDL Calculated 53 0 - 100 mg/dL LAB CHEMISTRY METHOD 01/23/2025 1:17 PM T [facility] VLDL Cholesterol Alex 20.2 mg/dL LAB CHEMISTRY METHOD 01/23/2025 1:17 PM EDT [facility] Non HDL Chol. (LDL+VLDL) 73 <145 mg/dL LAB CHEMISTRY METHOD 01/23/2025 1:17 PM EDT [facility] Chol/HDL Ratio 2.4 0.0 - 4.4 LAB CHEMISTRY METHOD 01/23/2025 1:17 PM EDT [facility] Blood Venous blood specimen / Unknown Venipuncture / Unknown 01/23/2025 9:03 AM EDT 01/23/2025 9:03 AM EDT Lacey Bey MD LAB BLOOD ORDERABLES Final Resul t Performing Organization Address [facility]/ZIP Co de Phone Number [facility] [address] [place] [address], [place] [phone] * Hemoglobin and hematocrit (01/23/2025 9:03 AM EDT) Hemoglobin 15.5 13.5 - 17.5 g/dL LAB HEMETOLOGY METHOD 01/23/2025 11:57 AM EDT [facility] Hematocrit 46.7 42.0 - 54.0 % LAB HEMETOLOGY METHOD 01/23/2025 11:57 AM EDT [facility] Blood Venous blood specimen / Unknown Venipuncture / Unknown 01/23/2025 9:03 AM EDT 01/23/2025 9:03 AM EDT Lacey Bey MD LAB BLOOD ORDERABLES Final Resul t [facility] [address] [place] [address], [place] [phone] * (ABNORMAL) Microalbumin creatinine urine ratio (01/23/2025 9:03 AM EDT) Creatinine, Urine 67.0 mg/dL LAB CHEMISTRY METHOD 01/23/2025 2:14 PM EDT [facility] Microalb, Ur 43.8(H) 0.0 - 29.0 mg/L LAB CHEMISTRY METHOD 01/23/2025 2:14 PM EDT [facility] Microalb/Crea t Ratio 65(H) <30 mg/g creat LAB CHEMISTRY METHOD 01/23/2025 2:14 PM EDT [facility] Urine Urine specimen obtained by clean catch procedure / Unknown Non-blood Collection / Unknown 01/23/2025 9:03 AM EDT 01/23/2025 9:03 AM EDT Lacey Bey MD LAB URINE ORDERABLES Final Resul t Performing Organization Address [facility] de Phone Number [facility] [address] [place] [address], * Creatinine (01/23/2025 9:03 AM EDT) Creatinine 0.77 0.70 - 1.30 mg/dL LAB CHEMISTRY METHOD 01/23/2025 1:08 PM EDT [facility] eGFR 91 >=60 mL/min/1. 73m2 LAB CHEMISTRY METHOD 01/23/2025 1:08 PM EDT [facility] Comment:Calculation based on the??Chronic Kidney Disease Epidemiology Collaboration (CKD-EPI) equation refit??without adjustment for race. Blood Venous blood specimen / Unknown Venipuncture / Unknown 01/23/2025 9:03 AM EDT 01/23/2025 9:03 AM EDT Lacey Bey MD LAB BLOOD ORDERABLES Final Resul t Performing Organization Address City/[facility] Co de Phone Number [facility] [address] [place] [address], [place] [phone] * BUN (01/23/2025 9:03 AM EDT) BUN 19 5 - 25 mg/dL LAB CHEMISTRY METHOD 01/23/2025 1:51 PM EDT [facility] Blood Venous blood specimen / Unknown Venipuncture / Unknown 01/23/2025 9:03 AM EDT 01/23/2025 9:03 AM EDT Lacey Bey MD LAB BLOOD ORDERABLES Final Resul t Performing Organization Address [facility] de Phone Number [facility] [address] [place] [address], [place] [phone] * (ABNORMAL) Hemoglobin A1c (01/23/2025 9:03 AM EDT) [facility] Hemoglobin A1C 7.6(H) <6.5 % LAB CHEMISTRY METHOD 01/23/2025 2:16 PM EDT [facility] Mean Bld Glu Estim. 171 mg/dL LAB CHEMISTRY METHOD 01/23/2025 2:16 PM EDT [facility] Blood Venous blood specimen / Unknown Venipuncture / Unknown 01/23/2025 9:03 AM EDT 01/23/2025 9:03 AM EDT Lacey Bey MD LAB BLOOD ORDERABLES Final Resul t Performing Organization Address [facility] de Phone Number [facility] [address] [place] [address], [place] [phone] * ECG 12 lead Tracing Only (01/12/2025 [...] Signed Date: 11/21/2024 14:11 ET Workstation ID: [id number] Transcribed By: Self Edit Transcribed Date: 11/21/2024 [...] Signed Date: 11/21/2024 14:11 ET Workstation ID: [id number] Transcribed By: Self Edit Transcribed Date: 11/21/2024 14:10 ET Lena BOOKER [facility] US PROCEDURES Final Resul t from Last 3 Months Insurance [employer] MEDICARE ADVANTAGE Care Teams Recreation Teacher Relationship Specialty Start Date End Date Tammy Mooney MD [address] [place] [address] PCP - General Internal Medicine 09/04/24
--- OUTSIDE RECORDS SUMMARY | 2025-02-02 13:00 | XMS_ITS | Clinical Summary ---
Author Organization [facility] Address [address] [phone] Care Team Providers Care Tile Layer Helper Name Role Phone Tl Stevens MD Primary [...] mg total) by mouth daily. 0 Active Vanzant-3 Fatty Acids (Fish Oil) 1000 MG CPDR [...] age to complete this topic Care Teams Tile Layer Helper Relationship Specialty Start Date End Date Tl Stevens MD PCP - General Internal Medicine 10/03/22
--- OUTSIDE RECORDS SUMMARY | 2025-02-02 13:00 | XMS_ITS | Continuity of Care Document ---
Author Organization [facility] [address] [facility] [address] [place] [address] Phone [phone] Care Team Providers Care Chairman & Chief Executive Officer Name Role Phone Pari Villafana M.D. Care Team Information Technical Services Rep [phone] Tammy Mooney Care Team Information Rece iver [phone] Problems Active Problems Provider Date Type 2 [...] SIG Qnty Indications Order ing Provider Date [id number] Tablets 1 tab by mouth every day as directed 90tabs Francis Colmenares M.D. 03/13/2024 Iiidrtnvv5wc Tablets 1 tablet by mouth twice daily 180tabs Francis Colmenares M.D. 12/06/2023 Vxraexjfvf227ag Capsules 1 tab by mouth three times a day as directed 180caps Francis Colmenares M.D. 06/13/2022 Gqypqfc58ir Tablets 1 by mouth every day 90tabs Francis Colmenares M.D. 06/13/[address] 1 by mouth every day Francis Colmenares M.D. 06/13/2022 Onetouch UltraStrips Pari Huggins M.D. Atorvastatin Cbpeazy96jl Tablets Take 1 tablet daily Unknown Rwrhahaut62yh Tablets Take 1 tablet daily Unknown Metoprolol Succinate ER50mg Tablets ER 24HR Take 1 tablet daily Unknown Losartan Potassium/Hydrochloro vatjnexi185-64dl Tablets Take 1 tablet daily Unknown History Medications Yvgtsiuh4pm/0.5ML Solution Pen-Inject 1 injection every week as [...] unspecified complications I25.10 Athscl heart disease of [place] coronary artery w/o ang pctrs Assessments Date [...]
[2025-02-24 11:01] VITALS: BMI 33.0
[2025-03-03 11:25] LABS: Hematocrit 49.5 % (42.0-52.0); Hemoglobin 16.3 g/dl (14.0-18.0); Mean Corpuscular HGB Conc 32.9 g/dl (31.0-36.0); Mean Corpuscular Hemoglobin 30.4 pg (27.0-33.0); Mean Corpuscular Volume 92.2 fL (80.0-98.0); Mean Platelet Volume 9.6 fL (9.4-12.4); Platelet Count 241 X10*3/uL (160-400); Red Blood Count 5.37 X10*6/uL (4.60-5.80); Red Cell Distribution Width 14.1 % (11.0-16.0)
[2025-03-03 11:48] LABS: Alanine Aminotransferase 37 U/L (0-40); Albumin Level 4.8 g/dL (3.5-5.0); Alkaline Phosphatase 72 U/L (39-117); Anion Gap 13 (12-20); Aspartate Amino Transferase 24 U/L (5-37); Blood Urea Nitrogen 17 mg/dL (9-16); Calcium 10.5 mg/dL (8.4-10.2); Carbon Dioxide 28 mmol/L (22-29); Chloride 104 mmol/L (96-108); Creatinine Clr Calc Pharmacy 86.4; Estimated Glomerular Filt Rate > 60; Glucose Random 135 mg/dL (60-115); Potassium 3.9 mmol/L (3.3-5.1); Sodium 141 mmol/L (135-145); Total Protein 7.3 g/dL (6.5-8.0)
--- NOTE | 2025-03-04 13:38 | HO.ANESPROP2 ---
Documented by User: Kiera Jack NP 03/04/25 13:42 HPI - Anesthesia Eval Consult details Narrative: 79yo M for Spinal Cord Stimulation Implant s/p Spinal Cord Stimulation Trial 12/2024 with MAC s/p TLIF 03/2024 Follows [facility] for CAD CAD: No prior intervention, medical management and obs only. Last office visit 10/2024 with reports of atypical CP, but nml nuc stress 10/2024 DM: FBS ~ 130 DVT's: 2019, eliquis ~ 1.5 years, No OAC now Anesthesia Pre-Procedure Meds Is the patient on any of the following meds?: SGLT2 Inhib PMFSH Active Problems Active Problems: All Active Problems Postlaminectomy syndrome (Acute) Tendinitis involving hip abductors (Acute) Hip pain, bilateral (Acute) S/P lumbar spinal fusion (Acute) Lumbar radiculopathy (Acute) Status post lumbar and lumbosacral fusion by anterior technique (Acute) Lumbar spinal stenosis due to adjacent segment disease after fusion procedure (Acute) Past Medical History Medical History Back pain Obesity (BMI 30.0-34.9) HTN (hypertension) Hyperlipidemia BPH (benign prostatic hyperplasia) Vitamin D deficiency DDD (degenerative disc disease), cervical CAD (coronary artery disease) Chronic neck pain with history of cervical spinal surgery Tubular adenoma of colon History of basal cell carcinoma (BCC) of skin Actinic keratosis of scalp Diverticulosis Diabetes Chronic lower back pain Spinal stenosis at L4-L5 level Prostate cancer (2019) Acute deep vein thrombosis (DVT) of femoral vein of right lower extremity History of COVID-19 Dizziness 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 Lumbar degenerative disc disease Hyponatremia Adrenal nodule Nocturnal leg cramps Osteoarthritis of both hips Palpitations Nonhealing ulcer of right lower extremity PAC (premature atrial contraction) Atherosclerosis Insomnia Family History Family history of problems with anesthesia: No Surgical History Surgical History History of surgery (01/09/25) History of lumbar fusion History of back surgery Hx of bilateral cataract extraction Hx of prostate biopsy Hx of inguinal hernia repair Hx of shoulder surgery History of neck surgery H/O colonoscopy Hx of cardiac catheterization History of Problems with Anesthesia: No Social History Social History Household Members: Spouse Housing: House Are you a primary attending ambulatory care to a significant other at home: No Do you presently have visiting nurse or other home services: No Comment: COUNTS CORRECT Patient Tobacco Use Status: Never used Tobacco e-Cigarette/Vaping Use: Never Used Use of substances other than those prescribed or required for medical reasons: Yes Substance Use Type Other:: gummies Substance Use Frequency: Occasionally Have you been hit, kicked, punched, or otherwise hurt by someone within the past year? If so, by whom?: No Do you feel safe in your current relationship?: Yes Are you DNR?: No Advance Directives: No Advance Directives Information Provided: Yes Advance Directives on File: No Poor oral hygiene: No service: No Meds Allergies Allergy/AdvReac Type Severity Reaction Status Date / Time No Known Allergies Allergy Verified 03/10/25 07:07 Home Medications ?Medication ?Instructions ?Recorded ?Confirmed ?Last Taken ?Type atorvastatin 80 mg tablet 80 mg PO BEDTIME 04/03/24 02/24/25 04/21/24 History cholecalciferol (vitamin D3) 50 50 mcg PO DAILY 04/03/24 02/24/25 04/15/24 History mcg (2,000 unit) tablet (Vitamin D3) gabapentin 300 mg capsule 300 mg PO TID 04/03/24 02/24/25 01/09/25 History multivitamin 1 tab PO DAILY 04/03/24 02/24/25 04/15/24 History omega-3 fatty acids 1,000 mg 1,000 mg PO DAILY 04/03/24 02/24/25 03/04/25 History capsule aspirin 81 mg tablet,delayed 81 mg PO DAILY 04/08/24 02/24/25 03/03/25 History release tadalafil 5 mg tablet 5 mg PO QPM 04/08/24 02/24/25 Unknown History empagliflozin 25 mg tablet 25 mg PO DAILY 04/22/24 02/24/25 03/06/25 History (Jardiance) losartan 100 1 tab PO DAILY 04/22/24 02/24/25 Unknown History mg-hydrochlorothiazide 25 mg tablet glipizide 10 mg tablet 10 mg PO BID 10/22/24 02/24/25 01/09/25 History ezetimibe 10 mg tablet 10 mg PO DAILY 11/20/24 02/24/25 Unknown History metoprolol succinate 50 mg 50 mg PO DAILY 11/20/24 02/24/25 01/09/25 History tablet,extended release 24 hr Exam Height,Weight and Vital Signs: Height 5 ft 8.5 in Weight 99.79 kg Pertinent Lab Results Pertinent Lab Results: Laboratory Tests 03/03/25 10:45 WBC 8.0 RBC 5.37 Hgb 16.3 Hct 49.5 MCV 92.2 MCH 30.4 MCHC 32.9 RDW 14.1 Plt Count 241 MPV 9.6 Absolute Nucleated RBC 0.000 Nucleated RBC % (auto) 0.0 Sodium 141 Potassium 3.9 Chloride 104 Carbon Dioxide 28 Anion Gap 13 BUN 17 H Creatinine 0.78 Estim Creat Clear Calc 86.4 Estimated GFR > 60 Random Glucose 135 H Calcium 10.5 H Total Bilirubin 2.0 H AST 24 ALT 37 Alkaline Phosphatase 72 Total Protein 7.3 Albumin 4.8 Narrative Narrative: Nuc exercise stress 10/2024 nml EKG 06/2024 SB @ 59 with PSVCs LAD Assessment and Plan Assessment Anesthesia Assessment: Chart Reviewed Final Anesthetic Review Family History of Problems with Anesthesia: No History of Problems with Anesthesia: No Documented by User: Nate Dave MD 03/10/25 09:30 HPI - Anesthesia Eval Anesthesia Pre-Procedure Meds If yes to any meds - educate patient: Pt education - increased risk of aspiration and/or euvolemic DKA [facility] Past Medical History Medical History Back pain Obesity (BMI 30.0-34.9) HTN (hypertension) Hyperlipidemia BPH (benign prostatic hyperplasia) Vitamin D deficiency DDD (degenerative disc disease), cervical CAD (coronary artery disease) Chronic neck pain with history of cervical spinal surgery Tubular adenoma of colon History of basal cell carcinoma (BCC) of skin Actinic keratosis of scalp Diverticulosis Diabetes Chronic lower back pain Spinal stenosis at L4-L5 level Prostate cancer (2019) Acute deep vein thrombosis (DVT) of femoral vein of right lower extremity History of COVID-19 Dizziness 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 Lumbar degenerative disc disease Hyponatremia Adrenal nodule Nocturnal leg cramps Osteoarthritis of both hips Palpitations Nonhealing ulcer of right lower extremity PAC (premature atrial contraction) Atherosclerosis Insomnia Functional capacity: independent ambulation Surgical History Surgical History History of surgery (01/09/25) History of lumbar fusion History of back surgery Hx of bilateral cataract extraction Hx of prostate biopsy Hx of inguinal hernia repair Hx of shoulder surgery History of neck surgery H/O colonoscopy Hx of cardiac catheterization Social History Social History Household Members: Spouse Housing: House Are you a primary attending ambulatory care to a significant other at home: No Do you presently have visiting nurse or other home services: No Comment: COUNTS CORRECT Patient Tobacco Use Status: Never used Tobacco e-Cigarette/Vaping Use: Never Used Use of substances other than those prescribed or required for medical reasons: Yes Substance Use Type Other:: gummies Substance Use Frequency: Occasionally Have you been hit, kicked, punched, or otherwise hurt by someone within the past year? If so, by whom?: No Do you feel safe in your current relationship?: Yes Are you DNR?: No Advance Directives: No Advance Directives Information Provided: Yes Advance Directives on File: No Poor oral hygiene: No service: No Meds Allergies Allergy/AdvReac Type Severity Reaction Status Date / Time No Known Allergies Allergy Verified 03/10/25 07:07 Home Medications ?Medication ?Instructions ?Recorded ?Confirmed ?Last Taken ?Type atorvastatin 80 mg tablet 80 mg PO BEDTIME 04/03/24 02/24/25 04/21/24 History cholecalciferol (vitamin D3) 50 50 mcg PO DAILY 04/03/24 02/24/25 04/15/24 History mcg (2,000 unit) tablet (Vitamin D3) gabapentin 300 mg capsule 300 mg PO TID 04/03/24 02/24/25 01/09/25 History multivitamin 1 tab PO DAILY 04/03/24 02/24/25 04/15/24 History omega-3 fatty acids 1,000 mg 1,000 mg PO DAILY 04/03/24 02/24/25 03/04/25 History capsule aspirin 81 mg tablet,delayed 81 mg PO DAILY 04/08/24 02/24/25 03/03/25 History release tadalafil 5 mg tablet 5 mg PO QPM 04/08/24 02/24/25 Unknown History empagliflozin 25 mg tablet 25 mg PO DAILY 04/22/24 02/24/25 03/06/25 History (Jardiance) losartan 100 1 tab PO DAILY 04/22/24 02/24/25 Unknown History mg-hydrochlorothiazide 25 mg tablet glipizide 10 mg tablet 10 mg PO BID 10/22/24 02/24/25 01/09/25 History ezetimibe 10 mg tablet 10 mg PO DAILY 11/20/24 02/24/25 Unknown History metoprolol succinate 50 mg 50 mg PO DAILY 11/20/24 02/24/25 01/09/25 History tablet,extended release 24 hr Exam Exam Date and Time: 03/10/2025 Airway Mallampati Class: II TM Dist: >3cm Loose/Missing/Broken Teeth: No Heart: rrr Lungs: cta Other: normal Assessment and Plan Assessment Anesthesia Assessment: Anesthesia Plan Discussed Final Anesthetic Review NPO: Yes ASA Class: III Final Preanesthetic Review: No Changes in Pt Med Stat, Meds/Allgs Chart Reviewed and Consent Obtained/Reviewed Patient Risk: Intermediate Procedure Risk: Low Anesthetic Plan Anesthetic Plan: GA Disposition: Standard PACU
[2025-03-10] VITALS (8 sets, daily range): BP systolic 118–137; BP diastolic 59–73; PULSE 54–70; RESP 12–18; TEMP 36.1–36.6; O2SAT 92–97; BMI 33.8
--- NOTE | ~2025-03-10 | FL_ITS ---
EXAMINATION: XR FLUOROSCOPY WITH IMAGES CLINICAL INFORMATION: Spinal stimulator implant. COMPARISON: None available. TECHNIQUE: Fluoroscopy provided to: Dr. Rincon Fluoroscopy time: 6.5 seconds DAP: 1.7210 Gycm2 Images: 4 FINDINGS: 4 images obtained during spinal stimulator implantation. Please refer to the full operative report for details. FL/FL guidance in OR IMPRESSION: Fluoroscopic guidance. Electronically signed by: Ayaz Peck MD 03/10/2025 11:39 AM EDT
[2025-03-10 07:22] LABS: Glucose, Whole Blood 166 mg/dL (60-115)
[2025-03-10] MEDS: Lactated Ringers 1,000 ML 100 ML IVCONT (07:43)
[2025-03-10] MEDS: methocarbamoL 750 MG TABLET PO (07:44)
--- NOTE | 2025-03-10 08:57 | P.HPSUR_ITS ---
Pre-Procedural Eval Section A - 24 Hr Update-Section A only Date of Service: 03/10/25 The patient is an INPATIENT: No Changes since office visit: No Cold of Flu in the past 2 weeks, No New Medical Problems, No Changes in Medication and No Patient answered all questions The patient has been examined within 24 hours of the surgical procedure. The History & Physical has been completed within 30 days and I have reviewed it.: No Section B - Complete if H&P > 30 days Chief Complaint: Postlaminectomy syndrome, not elsewhere classified Allergies: Allergies Allergy/AdvReac Type Severity Reaction Status Date / Time No Known Allergies Allergy Verified 03/10/25 07:07 Review of Systems Sugical H&P ROS: Negative: Constitution, Cardiovascular, Respiratory, Neurological, Psychiatric, Hem-Onc, Allergic/Immunologic, Gastrointestinal, Genitourinary, Musculoskeletal, Integumentary, Endocrine and Eyes/Ears/Nose/Thr oat Exam Surgical H&P Exam: Normal: HEENT, Normal: Heart, Normal: Lungs, Normal: Extremities, Normal: Abdomen, Normal: Skin and Normal: Neurological (awake, alert,oriented x 3 ) Plan Diagnosis/Plan: Unchanged Spinal cord stimulator placement Time Spent With Patient Time: Total time managing care of this patient today __5__ minutes.
--- NOTE | 2025-03-10 08:58 | PM.DS ---
DS: Providers Provider Date of Service: 03/10/25 Date of discharge: 03/10/25 Primary care physician: Tammy Mooney MD Admitting clinician: Giovanny Rincon DS: Diagnosis Discharge Diagnosis (1) Postlaminectomy syndrome: Status: Acute DS: Summary Time Attestation Discharge Coordination Time (in mins): 5 Quality: Safe Use of Opioids Does Pt have an Active Cancer Diagnosis on the Problem List?: No Quality: Stroke Does the patient have a stroke diagnosis?: No Physical Exam Vital Signs: Vital Signs: Last Vital Signs Temp 97.9 F 03/10/25 07:53 Pulse 70 03/10/25 07:53 Resp 18 03/10/25 07:53 BP 137/68 03/10/25 07:53 Pulse Ox 97 03/10/25 07:53 O2 Del Method Room Air 03/10/25 07:53 BMI result Body Mass Index 33.8 DS: Data Data Completed and Pending Completed studies during hospitalization [Text1]: Procedures Excision of Lumbar Vertebral Disc, Open Approach (04/22/24) Fusion of Lumbar Vertebral Joint with Interbody Fusion Device, Anterior Approach, Anterior Column, Open Approach (04/22/24) Insertion of Interspinous Process Spinal Stabilization Device into Lumbar Vertebral Joint, Open Approach (04/22/24) Monitoring of Peripheral Nervous Electrical Activity, Intraoperative, External Approach (04/22/24) Removal of Internal Fixation Device from Lumbar Vertebral Joint, Open Approach (04/22/24) Labs on day of discharge: Laboratory Results - last 24 hr 03/10/25 07:17 POC Glucose 166 H Discharge Plan Discharge Patient Disposition: Home, Self-Care Referrals: Tammy Mooney MD [Primary Care Provider] - 1 Week Discharge Medications: New oxycodone 5 mg tablet 5 mg PO Q4H PRN (Reason: pain) Qty: 20 0RF Rx Instructions: Partial Fill upon patient request. docusate sodium [Colace] 100 mg capsule 100 mg PO BID Qty: 20 0RF Continued gabapentin 300 mg Capsule 300 mg PO TID multivitamin Tablet 1 tab PO DAILY atorvastatin 80 mg tablet 80 mg PO BEDTIME omega-3 fatty acids 1,000 mg Capsule 1,000 mg PO DAILY cholecalciferol (vitamin D3) [Vitamin D3] 50 mcg (2,000 unit) Tablet 50 mcg PO DAILY tadalafil 5 mg Tablet 5 mg PO QPM losartan-hydrochlorothiazide 100-25 mg tablet 1 tab PO DAILY Jardiance 25 mg tablet 25 mg PO DAILY glipizide 10 mg tablet 10 mg PO BID ezetimibe 10 mg tablet 10 mg PO DAILY metoprolol succinate 50 mg tablet extended release 24 hr 50 mg PO DAILY Held aspirin 81 mg Tablet,Delayed Release (Dr/Ec) 81 mg PO DAILY Hold Instructions: Resume on 03/17/25. you may resume aspirin 7 days after surgery Discharge Orders: Discharge Order (Routine); Ordered 03/10/25 Ordered By: Claude Dinh Diet: Advance to usual diet Activity on Discharge: As tolerated Activity Restrictions/Additional Instructions: After your spinal surgery we ask you to observe the following restrictions/guidelines: Activity: It is normal to feel some discomfort as you increase your activity, but that will improve with time. We ask you avoid heavy lifting or acitivities that cause pain. As a general rule, 8lbs is a safe limit for lifting right after surgery. Walk as much as you feel comfortable but not to exhaustion. You will feel extra tired the first few days after surgery. Stay well hydrated. It is OK to walk up and down stairs You may return to driving when you are off narcotics (such as vicodin, oxycodone, dilaudid, etc), and you are back to normal functional capacity. If you have any concerns please check with office before driving. Return to work is specific to each patient and each surgery, so please speak with your doctor/PA at first follow up. Please bring paperwork such as FMLA at that time if you need it filled out. Medications:You may resume aspirin 7 days after surgery For optimum pain control, it is best to start with a combination of 500 mg of Tylenol every 4 hours with 600 mg of Motrin every 8 hours, and use narcotics as needed in between for breakthrough pain. We will give you a short supply of narcotics after surgery (usually one weeks worth). If you need more please call the office but do not use more than prescribed. You will need to give our office 48 hours notice if you need narcotics refilled and we do not fill narcotics on weekends or evenings. If you are on a narcotic, it is a good idea to take a stool softener such as colace or senna to avoid constipation If you take blood thinner such as aspirin, Plavix, Coumadin, Effient, Eliquis etc for conditions such as Afib, DVT, Pulmonary embolus, coronary disease, stents etc please speak with your surgeon about specific details as to when you can resume these medications. You can resume NSAIDs on post op day 1 (eg: Motrin, Naproxen, etc). Follow up: Please call the office, , after surgery to arrange a 3 week follow up for wound check. Wound Care: You may remove your dressing on the first day after surgery. You may leave open to air. Please do not remove the steri strips underneath. they will fall off on their own in one week. IT IS NORMAL FOR THE WOUND TO OOZE OR BE BLOODY FOR A FEW DAYS AFTER SURGERY. IF THIS HAPPENS JUST PLACE NEW DRESSING OVER IT TO AVOID STAINING CLOTHES. You may shower on post op day # 1 We ask that you do not let the water soak the wound. If it does get wet, just towel dry lightly. Please do not scrub your incision or place any type of chemical/ointment on the wound. No tub baths, pools or jacuzzis for one month. If you have any leaking or redness from your wound, or fevers, please call office Print Language: Bolivian
[2025-03-10] MEDS: ceFAZolin Sodium/Dextrose,Iso 2 GM/50 ML PIGGYBACK IV (09:55)
--- NOTE | 2025-03-10 11:15 | P.OP_ITS ---
Operative Note Operative Note Date of Service: 03/10/25 Narrative: Preop diagnosis: Chronic pain syndrome Postop diagnosis: Same Procedure: Implantation spinal cord stimulator Surgeon: Giovanny Rincon MD Assist: taylor Madden Description of procedure: This patient had a previous L2-L5 lumbar fusion done. He continued to complain of back pain and trials stimulator provided excellent relief. Unfortunately, the pain management team was not able to do it percutaneously and therefore they requested me to put it in under direct vision. The procedure and complications were explained. The patient was consented. The patient was brought to the operating room and endotracheally intubated. The patient was turned prone on the Tio spine table. Prepping and draping was done followed by time out. An incision was made over the T9-T10 region pre marked with fluoroscopy. Paravertebral muscles were released to expose the T9-T10 lamina. The physician social human services assistants in the meantime created a pocket above the iliac crest on the left side in preparation for the battery placement. The interspinous ligament was removed as well as part of the spinous processes of T9-T10. A T9-T10 laminotomy was done which extended laterally. The flavum ligament was opened to expose the underlying dura. Then the leads were tunneled towards the battery site and connected to battery. The physician social human services assistants place the battery subcutaneously. I advanced the lead epidurally and ablated behind the body of T8. X-rays in AP and lateral projection confirmed the correct location of the [employer] epidural lead. The telephone service representative of the company confirmed that all the leads were green. Then the epidural leads were secured below the fascia and the incision was closed in 2 layers with a 2-0 Vicryl for the fascia and a 3-0 Vicryl for the subdermal layer. The physician social human services assistants in the meantime closed the pocket with the generator in 2 layers. Steri-Strips were used to approximate the incisions. An upside with taken down was used to cover the incisions. All sponge needle counts were correct. Patient was extubated and transported stable to recovery. Anesthesia: General Estimated blood loss: 30 mL Specimen: None Surgical time: 60 minutes Deposition: Discharged home
== END 2025-03-10 12:45 | disposition home or self-care (01) ==
PROVIDERS: Nurse Practitioner; PCP Family Medicine; Visit Provider Neurological Surgery
PROC: (CPT 63685; principal; 2025-03-10 09:30)
DX: M96.1 Postlaminectomy syndrome, not elsewhere classified (principal); G89.4 Chronic pain syndrome; M54.50 Low back pain, unspecified; Z98.1 Arthrodesis status; I25.10 Atherosclerotic heart disease of native coronary artery without angina pectoris; I10 Essential (primary) hypertension; E78.5 Hyperlipidemia, unspecified; E11.9 Type 2 diabetes mellitus without complications; Z79.899 Other long term (current) drug therapy; Z79.84 Long term (current) use of oral hypoglycemic drugs; Z79.82 Long term (current) use of aspirin
CPT/HCPCS: 63685; 63655; 36415; 80053; 82947; 85027; C1767; C1787; C1820; J0131; J0690; J1100; J2003; J2405; J2704; J3010

== ENCOUNTER → 2025-03-10 06:54 | Outpatient (BNV) | payer MEDICARE, SELFPAY | PROVIDERS: PCP Family Medicine; Visit Provider Physician Assistant | DX: G89.4 Chronic pain syndrome (principal); M96.1 Postlaminectomy syndrome, not elsewhere classified | CPT/HCPCS: 63655; 63685; 99499 ==

== ENCOUNTER 2025-03-30 12:46 | Outpatient (AMB) | payer MEDICARE, SELFPAY ==
--- NOTE | 2025-03-30 13:18 | A.SPINEOV_ITS ---
Intake Visit Reasons: 1st post op Intake Note: Mr. Ramirez is here today for his 1st post op. 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 He has been in the office here working with the provider relations representative from [employer] getting the programming corrected, and it seems like it is helping out quite a bit with his neuropathy and his lower extremity symptoms. There still trying to figure out the configuration for the back pain. His wounds have all healed up beautifully. At this point he can see us back on an as-needed basis or if they need to do programming with his stimulator. Claude Rincon MD, PhD [facility] Coding Level of Care Code Global (57025) Diagnoses Failed back syndrome M96.1
--- OUTSIDE RECORDS SUMMARY | 2025-03-30 13:18 | XMS_ITS | Continuity of Care Document ---
Author Organization [facility] [address] [facility] [facility] [address] [place] [address] Phone [phone] Care Team Providers Care Clay Miller Name Role Phone Pari Villafana M.D. Care Team Information Sole Stapler Welt [phone] Tammy Mooney Care Team Information Rece iver [phone] Problems Active Problems Provider Date Type 2 diabetes mellitus Francis Colmenares M.D. Onset: 06/13/2022 Coronary atherosclerosis Francis Colmenares M.D. Onset: 06/13/2022 Hyperlipidemia Francis Colmenares M.D. Onset: 0 06/13/2022 Deep venous thrombosis Francis Colmenares M.D. O nset: 06/13/2022 Carcinoma of prostate Francis Colmenares M.D. On set: 06/13/2022 Essential hypertension Francis Colmenares M.D. O nset: 06/13/2022 Social History Type Date Description Comments Sex Male Sex Unknown Lives With Spouse ETOH Use Occasionally consumes alcoho l Tobacco Use Start: Unknown Patient has never smoked Allergies and adverse reactions Description No Known Drug Allergies Medications Active Medications SIG Qnty Indications Order ing Provider Date Edsnevwzh94zd Tablets 1 tab by mouth every day as directed 90tabs Francis Colmenares M.D. 03/13/2024 Jsdtudavb7xi Tablets 1 tablet by mouth twice daily 180tabs Francis Colmenares M.D. 12/06/2023 Gqldkcdlee670go Capsules 1 tab by mouth three times a day as directed 180caps Francis Colmenares M.D. 06/13/2022 Oxtppml63ul Tablets 1 by mouth every day 90tabs Francis Colmenares M.D. 06/13/[address] 1 by mouth every day Francis Colmenares M.D. 06/13/2022 Onetouch UltraStrips Pari Huggins M.D. Atorvastatin Fgqfjch93xa Tablets Take 1 tablet daily Unknown Eeegiuxlo19kr Tablets Take 1 tablet daily Unknown Metoprolol Succinate ER50mg Tablets ER 24HR Take 1 tablet daily Unknown Losartan Potassium/Hydrochloro htxqupbb906-57gm Tablets Take 1 tablet daily Unknown History Medications Ywyzmwms4ud/0.5ML Solution Pen-Inject 1 injection every week as [...] unspecified complications I25.10 Athscl heart disease of tangirnaq coronary artery w/o ang pctrs Assessments Date [...]
--- OUTSIDE RECORDS SUMMARY | 2025-03-30 13:18 | XMS_ITS | Encounter Summary ---
Author Organization [facility] Address [address] [place] [address] Care Team Providers Care Boots And Shoes Supervisor Name Role Phone Tammy Mooney MD Primary Care Pr ovider Encounter Details Date Type Department Care Team (Late Contact Info) Description 02/20/2025 Lab Requisition [facility] - Main Lab [address] [facility] [place] [address] Aden Stevens MD [address] [facility] [address] [place] [phone] Personal history of malignant neoplasm of prostate [...] Department Care Team (Late Contact Info) Description 04/16/2025 8:15 AM EDT Office Visit Orthopedic Surgery - [place] [address] [phone] Abdoul Chavez, DPM [address] [phone] 04/30/2025 9:00 AM EDT Office Visit Endocrinology [address] [phone] Lacey Bey MD [address] [place] [address] 06/02/2025 9:10 AM EDT Office Visit [facility] [address] [phone] Shu Styles, ENIO [address] [address] 06/11/2025 8:30 AM EDT Office Visit Adult Medicine [facility] - [address] [phone] Tammy Mooney MD [address] [place] [address] documented as of this encounter Procedures Procedure Name Priority Date/Time Associated Diagnosis Comments PROSTATE SPECIFIC ANTIGEN DIAGNOSTIC Routine 02/20/2025 11:20 AM EDT Personal history of malignant neoplasm of prostate documented in this encounter Results * Prostate specific antigen diagnostic (02/20/2025 11:20 AM EDT) PSA <0.06 0.00 - 4.00 ng/mL LAB CHEMISTRY METHOD 02/20/2025 3:[address] [facility] Blood Venous blood specimen / Unknown 02/20/2025 11:20 AM EDT 02/20/2025 1:[address] [facility] - 02/20/2025 3:57 PM EDT The Siemens Advia Canaraaur Chemiluminescent Immunoassay is used. Results obtained with different assay methods or kits cannot be used interchangeably. Results cannot be interpreted as absolute evidence of the presence or absence of malignant disease. us Aden Stevens MD LAB BLOOD ORDERABLES Final Resul t [facility] [address] [place] [address], documented in this encounter Visit Diagnoses Diagnosis Personal history of malignant neoplasm of prostate documented in this encounter Additional Health Concerns Assessment Noted Time PHQ-9 Depression Total Score: 0 01/28/20 25 1:51 PM EDT documented as of this encounter Care Teams Boots And Shoes Supervisor Relationship Specialty Start Date End Date Tammy Mooney MD [address] [place] [id number] PCP - General Internal Medicine 09/04/24 documented as of this encounter
--- OUTSIDE RECORDS SUMMARY | 2025-03-30 13:18 | XMS_ITS | Clinical Summary ---
Author Organization [facility] Address [address] [id number] Care Team Providers Care Cut Off Sawyer Log Name Role Phone Tl Stevens MD Primary [...] mg total) by mouth daily. 0 Active Kegley-3 Fatty Acids (Fish Oil) 1000 MG CPDR [...] 80 10/02/2023 9:05 AM EST Temperature 36.4 C (97.6 F) 10/02/2023 9:05 AM EST Respiratory Rate - - Oxygen Saturation 98% [...] 12/26/2021, Additional history exists Influenza Vaccine (#1) 2025 , 06/15/2022, 06/15/2022, Additional history exists DTap [...] age to complete this topic Care Teams Cut Off Sawyer Log Relationship Specialty Start Date End Date Tl Stevens MD PCP - General Internal Medicine 10/03/22
--- OUTSIDE RECORDS SUMMARY | 2025-03-30 13:18 | XMS_ITS | Patient Health Record ---
Author Organization [facility] fatimah DotyMiky Address [address] [facility] [place] [address] Care Team Providers Care Welfare Service Aide Name Role Phone Medina Catherine Unavailable [phone] Allergies No Known Allergies Reason For Referral [...] Problem Acquired hammer toe of right foot (8792711313249140 ) Other hammer toe(s) (acquired), right foot (M20.41) Active confirmed Problem Acquired hammer toe of left foot (3308857684347235 ) Other hammer toe(s) (acquired), left foot (M20.42) Active confirmed Problem Type II diabetes mellitus without complication (617773872) Type 2 diabetes mellitus without complications (E11.9) Active confirmed Problem Localized, primary osteoarthritis of the ankle and/or foot (309451699) Osteoarthritis of right ankle and foot (M19.071) Active confirmed Problem Localized, primary osteoarthritis of the ankle and/or foot (582768116) Osteoarthritis of left ankle and foot (M19.072) Active confirmed Plan Of Treatment Pending Test Test Name Order Date X ray : Foot, left 3V 11/15/2020 X ray : Foot, right 3V 11/15/2020 [id number] NAIL, 6 OR MORE 02/27/2023 Insurance Providers Payer Name Payer Address Payer Phone Subscriber Number Group Number Insured Name Patient Relationship to Insured Coverage Start Date Coverage End Date [employer] [address] [place] [phone] [id number] Slava Ramirez Self - patient is the insured Medical (General) History Medical History History ICD Code Back,Hip,and Knee pain type II diabetes High blood pressure Measles Mumps Chicken pox Prostate cancer Surgical History Surgery Date(Month/Year) neck fusion 2016 prostate surgery 02/2020 lower back surgery 08/2021
== END 2025-03-30 15:11 | disposition home or self-care (01) ==
LOC: HO.HNS 12:47
PROVIDERS: PCP Family Medicine; Visit Provider Physician Assistant
DX: M96.1 Postlaminectomy syndrome, not elsewhere classified (principal)
CPT/HCPCS: 99024

== ENCOUNTER → 2025-03-30 12:46 | Outpatient (BNVA) | payer MEDICARE, SELFPAY | PROVIDERS: PCP Family Medicine; Visit Provider Physician Assistant | DX: M96.1 Postlaminectomy syndrome, not elsewhere classified (principal) | CPT/HCPCS: 99212 ==

== ENCOUNTER → 2025-07-07 08:15 | Outpatient (BNV) | payer MEDICARE, SELFPAY | PROVIDERS: Visit Provider Radiology Diagnostic Radiology | DX: M51.369 Other intervertebral disc degeneration, lumbar region without mention of lumbar back pain or lower extremity pain (principal) | CPT/HCPCS: 72158 ==

== ENCOUNTER 2025-07-07 08:33 | Outpatient (REF) | payer MEDICARE, SELFPAY ==
--- NOTE | ~2025-07-07 | MR_ITS ---
CLINICAL HISTORY: M96.1 - Postlaminectomy syndrome, not elsewhere classified MR of the lumbar spine with without contrast Comparison: None Findings: 2 mm retrolisthesis of L1 on L2, degenerative. 5 mm anterolisthesis of L5 on S1, degenerative. Modic type 2 change at L4/L5. There are ghost tracts from previously removed transpedicular rods at L4 and L5. Status post posterior fusion at L2/L3. There are interbody disc spacers at L2/L3, L3/L4 and L4/L5. No abnormal bone marrow enhancement. No cord expansion or abnormal signal intensity. The conus medullaris terminates at L1, which is normal. The cauda equina is unremarkable. L1/L2: 3 mm broad-based disc bulge. Adjacent to the right facet joint there is a low signal lesion without enhancement measuring 0.4 x 0.6 x 0.8 cm ( series 9, image 17 ). This is favored to be focal ligamentum flavum hypertrophy and contributes to central canal stenosis. Postsurgical change may also be considered. Mild facet joint and ligamentum flavum hypertrophy. Mild central canal stenosis. No lateral recess stenosis. No foraminal stenosis. L2/L3: Status post discectomy with interbody disc spacer. No recurrent disc herniation or abnormal enhancement. Moderate facet joint and ligamentum flavum hypertrophy. Mild central canal stenosis. No right and mild left lateral recess stenosis. No foraminal stenosis. L3/L4: Status post discectomy with interbody disc spacer. No recurrent disc herniation or abnormal enhancement. Severe facet joint and ligamentum flavum hypertrophy. Mild central canal stenosis. Mild bilateral lateral recess stenosis. No foraminal stenosis. L4/L5: Status post laminectomies with an interbody disc spacer. Broad-based disc bulge measuring 4 mm. No abnormal enhancement. Severe facet joint and ligamentum flavum hypertrophy. Mild central canal stenosis. Severe bilateral lateral recess stenosis. No foraminal stenosis. L5/S1: Status post laminectomies. There is uncovering of the disc with 6 mm broad-based disc bulge. There is peripheral enhancement along the central canal likely indicating granulation tissue. Severe facet joint and ligamentum flavum hypertrophy. Mild central canal stenosis. Moderate bilateral lateral recess stenosis. No foraminal stenosis. Impression: No acute findings. Multilevel postsurgical and degenerative change, detailed above. No severe central spinal canal stenosis. This document has been electronically signed by: Amy Carreon MD on 07/09/2025 14:50:45
--- OUTSIDE RECORDS SUMMARY | 2025-07-07 08:56 | XMS_ITS | Encounter Summary ---
Author Organization [facility] Address [address] [place] [address] Care Team Providers Care Reed Polisher Name Role Phone Tammy Mooney MD Primary Care Pr ovider Encounter Details Date Type Department Care Team (Late Contact Info) Description 02/20/2025 Lab Requisition [facility] - Main Lab [address] [facility] [place] [address] Aden Stevens MD [address] [facility] [address] [place] [phone] Personal history of malignant neoplasm of prostate [...] Department Care Team (Late Contact Info) Description 07/30/2025 8:15 AM EST Office Visit Orthopedic Surgery - [place] [address] [facility] [address] [place] [address] Abdoul Chavez, DPM [address] [address] 08/10/2025 8:30 AM EST Ancillary Procedure [facility] - [address] [place] [address] 10/26/2025 8:30 AM EST Office Visit [facility] [address] [place] [address] Tammy Mooney MD [address] [place] [address] documented as of this encounter Procedures Procedure Name Priority Date/Time Associated Diagnosis Comments PROSTATE SPECIFIC ANTIGEN DIAGNOSTIC Routine 02/20/2025 11:20 AM EDT Personal history of malignant neoplasm of prostate documented in this encounter Results * Prostate specific antigen diagnostic (02/20/2025 11:20 AM EDT) PSA <0.06 0.00 - 4.00 ng/mL LAB CHEMISTRY METHOD 02/20/2025 3:57 PM EDT [facility] Blood Venous blood specimen / Unknown 02/20/2025 11:20 AM EDT 02/20/2025 1:57 PM EDT Narrative [facility] - 02/20/2025 3:57 PM EDT The Siemens Advia Centaur Chemiluminescent Immunoassay is used. Results obtained with different assay methods or kits cannot be used interchangeably. Results cannot be interpreted as absolute evidence of the presence or absence of malignant disease. us Aden Stevens MD LAB BLOOD ORDERABLES Final Resul t [facility] [address] [place] [address], [place] [phone] documented in this encounter Visit Diagnoses Diagnosis Personal history of malignant neoplasm of prostate documented in this encounter Additional Health Concerns Assessment Noted Time PHQ-9 Depression Total Score: 0 01/28/20 25 1:51 PM EDT documented as of this encounter Care Teams Reed Polisher Relationship Specialty Start Date End Date Tammy Mooney MD [address] [place] [phone] PCP - General Internal Medicine 09/04/24 documented as of this encounter
--- OUTSIDE RECORDS SUMMARY | 2025-07-07 08:56 | XMS_ITS | Clinical Summary ---
Author Organization 175 [facility] Address [address] [place] [address] Phone Care Team Providers Care Administrative Support Associate Name Role Phone Tammy Mooney MD Primary Care Pr ovider Allergies No known active allergies Medications aspirin 81 mg EC tablet Take 1 Tablet by mouth. Active cholecalciferol (VITAMIN D-3) 50 mcg (2,000 unit) tablet Take 2,000 Units by mouth daily. Active FA/mv,Ca,iron,min/l ycopene/lut (MULTIVITAL ORAL) Take by mouth. Active omega-3 acid ethyl esters (LOVAZA) 1 gram capsule Take 1 g by mouth daily. Active tadalafiL (CIALIS) 5 mg tablet Take 1 Tablet by mouth daily. Active metoprolol succinate (TOPROL-XL) 50 mg 24 hr tablet TAKE ONE TABLET BY MOUTH DAILY 90 tablet 3 025 Active empagliflozin (Jardiance) 25 mg tablet Take 1 tablet (25 mg total) by mouth 1 (one) time each day in the morning. 90 tablet 1 025 Active glipiZIDE (GLUCOTROL) 10 mg tabletIndications:T ype 2 diabetes mellitus with microalbuminuria (CMS/HCC V24, CMS/HCC V28) TAKE ONE TABLET BY MOUTH TWICE A DAY BEFORE MEALS 180 tablet 1 025 Active gabapentin (NEURONTIN) 300 mg capsule Take 1 capsule each morning and 2 capsules at bedtime 270 each 1 025 Active atorvastatin (LIPITOR) 80 mg tablet TAKE ONE TABLET BY MOUTH DAILY. 90 tablet 1 025 Active blood-glucose sensor (FreeStyle Jaimie 3 Plus Sensor) deviceIndications:T ype 2 diabetes mellitus with cataract (CMS/[facility] V24, CMS/[facility] V28) Box = Kit = EA, change sensor every 15 days 2 kit 11 025 Active losartan-hydroCHLOR Othiazide (HYZAAR) 100-25 mg per tabletIndications:E ssential hypertension,Carballo ry artery disease involving iqugmiut coronary artery of iqugmiut heart, unspecified whether angina present Take 1 tablet by mouth 1 (one) time each day. 90 each 1 025 2025 Active ezetimibe (ZETIA) 10 mg tablet TAKE ONE TABLET BY MOUTH EVERY DAY 90 tablet 3 025 Active blood-glucose meter kit Use to test blood sugar once a day . DX-E11.9. NIDDM *One Touch Ultra 2* 019 2024 Discontinued(T herapy completed) ezetimibe (ZETIA) 10 mg tablet TAKE 1 TABLET BY MOUTH EVERY DAY 024 2024 Discontinued blood sugar diagnostic (ONETOUCH ULTRA TEST MISC) USE TO TEST BLOOD SUGAR ONCE DAILY 023 2024 Discontinued(T herapy completed) lancets (OneTouch Delica Plus Lancet) 33 gauge USE TO TEST BLOOD SUGAR DAILY 021 2024 Discontinued(T herapy completed) Autolet lancing device LANCET DEVICES (ONE TOUCH DELICA LANCING DEV) MISC: Use to test blood sugar once a day . DX-E11.9. NIDDM *One Touch Ultra 2* 020 2024 Discontinued(T herapy completed) losartan-hydroCHLOR Othiazide (HYZAAR) 100-25 mg per tabletIndications:E ssential hypertension,Carballo ry artery disease involving iqugmiut coronary artery of iqugmiut heart, unspecified whether angina present Take 1 tablet by mouth 1 (one) time each day. 90 each 1 025 2024 Discontinued(R eorder) metFORMIN XR (GLUCOPHAGE-XR) 500 mg 24 hr tabletIndications:T ype 2 diabetes mellitus with cataract (CMS/HCC V24, CMS/[facility] V28) Take 1 tablet (500 mg total) by mouth 2 (two) times a day. Do not crush, chew, or split. 180 each 1 025 2024 Discontinued(S kenan effects) Active Problems Problem Noted Date Diagnosed Date Gastroesophageal reflux disease without esophagi tis 06/11/2025 Assessment & Plan (06/11/2025 11:05 AM EDT): Consistent with GERD. Will check H. Pylori Advised that if symptoms become more persistent or bothersome he will be referred to GI. For now he will continue Tums as needed Orders: Helicobacter pylori breath test; Future Cholelithiases 06/11/2025 Varicose veins of calf 06/02/2025 Assessment & Plan (06/02/2025 12:55 PM EDT): The patient has a history of a right lower extremity DVT and has noted ongoing intermittent edema in the right ankle; he has multiple varicosities noted on exam today as well as venous stasis dermatitis. He is no longer followed by vascular surgery and is very concerned about this. We will update a bilateral lower extremity venous duplex to evaluate for venous insufficiency; he does not currently have significant edema, pain, warmth, or erythema in this area to suggest recurrent DVT but his right ankle is noted to be slightly larger than the left without any pitting edema. He was encouraged to follow conservative measures with daily compression stockings, elevation, and low-sodium diet. Will continue to readdress this once the results of his venous duplex have been reviewed. Orders: Vascular US duplex lower extremity venous bilateral; Future Failed back syndrome of lumbar spine 02/03/2025 Assessment & Plan (06/11/2025 11:05 AM EDT): See HPI He still having ongoing pain in his lower back status post 2 back operations. Has a lumbar stimulator in place which has not been effective. He is also on gabapentin which is not effective for his pain. Interested in a second [facility] in [place] and was told he needed an MRI L spine before he could be scheduled for a consult. This is ordered Orders: MR Lumbar Spine wo Contrast; Future Gilbert's syndrome 11/19/2024 Fatty liver 10/24/2024 Chronic deep vein thrombosis (DVT) of femoral vein of right lower extremity ([facility] V24, CMS/HCC V28) 06/25/2024 Assessment & Plan (06/11/2025 11:05 AM EDT): Type 2 diabetes mellitus wit h cataract (CMS/HCC V24, CMS/HCC V28) 06/25/2024 Trochanteric bursitis of both hips 06/05/2024 Insomnia 04/27/2023 Atherosclerosis of iqugmiut ar ash[place] of both lower extremities with [...] Osteoarthritis of both hips 01/01/2023 Adrenal nodule ([facility] V24) 07/07/2022 Overview (08/12/2024): CT abdomen 07/07/22: benign per CT report Lumbar degenerative disc disease 09/26/2021 Assessment & Plan (06/11/2025 11:05 AM EDT): As above History of deep venous throm bosis (DVT) of distal vein of right lower extremity 03/23/2021 Overview (08/12/2024): [...] worsening symptoms. Continue current plan. History of prostate cancer 03/16/2020 Assessment & Plan (06/11/2025 11:05 AM EDT): Continue f/u with with Urology(Dr. Stevens) . Last PSA in January was essentially undetectable. Spinal stenosis at L4-L5 level 09/30/2019 Type 2 diabetes mellitus wit h microalbuminuria (CMS/[facility] V24, [facility] V28) 02/26/2019 Overview (08/12/2024): Last Assessment & Plan: Most recent A1c elevated at 8.1% on 07/12/2023; we discussed the importance of improved glycemic control for his cardiovascular health. Patient verbalizes understanding of this and is working to improve diet and activity. Follow-up with PCP as directed. Assessment & Plan (06/11/2025 11:05 AM EDT): Last A1c was poorly controlled however his CGM data indicates an A1c of 6.5 over the past 35 days.. For now he will continue with the glipizide 10 mg twice daily and Jardiance 25 mg daily. Will update labs in a few months Orders: Hemoglobin A1c; Future Assessment & Plan (10/07/2024 9:15 PM EST): [...] elevated PSA and several biopsies done in [facility]. Negative for malignancy Assessment & Plan (06/11/2025 11:05 AM EDT): Continue f/u with with Urology(Dr. Stevens) . Last PSA in January was essentially undetectable. Assessment & Plan (10/07/2024 9:15 PM EST): Continue follow up with urology. Continue Cialis 5mg daily Coronary artery disease invo lving iqugmiut coronary artery of iqugmiut heart 12/04/2018 Assessment & Plan (06/11/2025 11:05 AM EDT): Continue metoprolol, aspirin 81 mg daily, atorvastatin 80 mg Orders: losartan-hydroCHLOROthiazide (HYZAAR) 100-25 mg per tablet; Take 1 tablet by mouth 1 (one) time each day. Assessment & Plan (06/02/2025 12:55 PM EDT): The patient offers no symptoms concerning for underlying ischemia and remains as active as possible within his current functional capacity. He was encouraged to increase his activity as tolerated, though his back pain is limiting his mobility significantly at this time. We will not make any changes to his current cardioprotective medical therapy; continue metoprolol, atorvastatin, ezetimibe, Lovaza, and aspirin. We discussed cardiac risk reduction through lifestyle modifications with healthy diet, and weight management. The patient was advised to seek emergent medical attention by calling 911 if they were to develop severe dyspnea, chest pain that did not resolve with rest or nitroglycerin, or if they were to faint. Assessment & Plan (11/09/2024 2:11 PM EST): [...] cardiology. Will send a message to his inventory planner-Dr. Nichols Orders: ECG 12 lead Tracing Only; [...] 07/12/2023. Continue current plan. Assessment & Plan (06/11/2025 11:05 AM EDT): BP is well controlled continue metoprolol 50 mg daily and Hyzaar Orders: losartan-hydroCHLOROthiazide (HYZAAR) 100-25 mg per tablet; Take 1 tablet by mouth 1 (one) time each day. Assessment & Plan (06/02/2025 12:55 PM EDT): Blood pressure is well-controlled on current medical therapy; continue metoprolol and losartan-hydrochlorothiazide. His most recent metabolic panel completed 04/27/2025 showed normal renal function and electrolytes. Orders: ECG 12 lead Assessment & Plan (11/09/2024 2:11 PM EST): [...] Continue statin and Zetia. Assessment & Plan (06/11/2025 11:05 AM EDT): Continue atorvastatin 80 mg and Zetia 10 mg Assessment & Plan (06/02/2025 12:55 PM EDT): LDL goal for this patient was a history of coronary artery disease as well as diabetes is less than 70; his most recent lipid panel on 04/27/2025 showed an LDL of 61 which is very close to goal. He has been at goal in the recent past and was encouraged to work on lifestyle modifications with improved diet and increase activity as tolerated to meet this goal once again. Continue atorvastatin, ezetimibe, and Lovaza. Assessment & Plan (11/09/2024 2:11 PM EST): [...] rather than intensity . Assessment & Plan (06/02/2025 12:55 PM EDT): Patient is obese. Approaches towards weight loss are discussed, including burning more calories than one takes in by portion control and regular exercise with an emphasis on duration rather than intensity. Assessment & Plan (11/09/2024 2:11 PM EST): The patient is obese. Approaches towards weight loss are discussed, including burning more calories than one takes in by portion control and regular exercise with an emphasis on duration rather than intensity. Vitamin D deficiency 12/04/2018 Assessment & Plan (06/11/2025 11:05 AM EDT): Continue vitamin D daily Resolved Problems Problem Noted Date Diagnosed Date Resolved Date History of DVT (deep vein thrombosis) 06/02/2025 06/11/2025 Assessment & Plan (06/11/2025 11:05 AM EDT): Continue Aspirin daily. See HPI Assessment & Plan (06/02/2025 12:55 PM EDT): No longer on anticoagulation as outlined above. Will continue to readdress this as indicated. Orders: Vascular US duplex lower extremity venous bilateral; Future Chest pain 11/07/2024 06/11/2025 Assessment & Plan (11/09/2024 2:11 PM EST): Though the patient does have a documented history of coronary artery disease, his current chest discomfort appears atypical for a cardiac cause. Additionally, he had a normal exercise nuclear stress test on 10/27/2024. We had an in depth discussion regarding this today and he was reassured by these findings. Orders: Ambulatory referral to Cardiology Acute deep vein thrombosis ( DVT) of femoral vein of right lower extremity ([facility] V24, [facility] V28) 07/27/2020 06/11/2025 Chronic bilateral low back p ain without sciatica 04/02/2019 06/11/2025 Overview (08/12/2024): Last Assessment & Plan: Mr. [...] there was anything to offer. Cataract 02/26/2019 06/11/2025 Overview (08/12/2024): 2017, Left, removed Encounters Date Type Department Care Team Description 06/16/2025 9:45 AM EDT Office Visit [place] [id number] [place] [phone] Lacey Bey MD Type 2 diabetes mellitus with cataract ([facility] V24, [facility] V28) 06/11/2025 8:30 AM EDT Office Visit Adult Medicine [facility] [address] [place] [phone] Tammy Mooney MD Essential hypertension (Primary Dx); Coronary artery disease involving iqugmiut coronary artery of iqugmiut heart, unspecified whether angina present; History of DVT (deep vein thrombosis); Chronic deep vein thrombosis (DVT) of femoral vein of right lower extremity ([facility] V24, [facility] V28); Failed back syndrome of lumbar spine; Degeneration of intervertebral disc of lumbar region with discogenic back pain; Mixed hyperlipidemia; Type 2 diabetes mellitus with microalbuminuria ([facility] V24, [facility] V28); Gastroesophageal reflux disease without esophagitis; Vitamin D deficiency; Benign prostatic hyperplasia with lower urinary tract symptoms, symptom details unspecified; History of prostate cancer 06/02/2025 9:10 AM EDT Office Visit [facility] [address] [facility] [address] [place] [phone] Shu Styles NP Coronary artery disease involving iqugmiut coronary artery of iqugmiut heart, unspecified whether angina present (Primary Dx); Essential hypertension; Hyperlipidemia, unspecified hyperlipidemia type; Obesity (BMI 30.0-34.9); Varicose veins of calf; History of DVT (deep vein thrombosis) 04/30/2025 9:00 AM EDT Office Visit Endocrinology [id number] [place] [phone] Lacey Bey MD Type 2 diabetes mellitus with cataract ([facility] V24, [facility] V28) (Primary Dx) 04/16/2025 8:15 AM EDT Office Visit Orthopedic Surgery [facility] [address] [place] [phone] Abdoul Chavez, DPM Keratosis, seborrheic (Primary Dx); Dermatophytosis of nail; Diabetic mononeuropathy simplex ([facility] V24, [facility] V28); Pain in toe of right foot; Pain in toe of left foot; Tailor's bunionette, left; Tailor's bunionette, right; Type II diabetes mellitus with peripheral circulatory disorder ([facility] V24, [facility] V28); Corns and callosities from Last 3 Months Immunizations Immunization Administration Dates Next Due Influenza trivalent, 0.5mL [...] subun it RSVpreF, 0.5mL, Preservative Free (Arexvy) 50yo and older 06/26/2023 Td Tetanus diptheria (Tdvax) [...] Comments Acute deep vein thrombosis ( DVT) ([facility] V24, [facility] V28) DX:Acute deep vein thrombos is (DVT) (HCC) Diabetes mellitus ([facility] V 24, [facility] V28) DX:Diabetes mellitus (HCC) Prostate cancer ([facility] V24 , [facility] V28) DX:Prostate cancer (HCC) Skin [...] elevated PSA and several biopsies done in [facility]. Negative for malignancy Hyperlipidemia 12/04/2018 [...] Type 2 diabetes mellitus wit h cataract ([facility] V24, [facility] V28) 02/26/2019 DX:Type 2 diabetes mellitus with cataract (HCC) Cataract 02/26/2019 DX:Cataract; COM MENT: 2017, Bilateral, removed Prostate cancer ([facility] V24 , [facility] V28) DX:Prostate cancer (HCC) Hyponatremia 04/03/2022 DX:Hyponatremia Chest pain 11/07/2024 Acute deep vein thrombosis ( DVT) of femoral vein of right lower extremity ([facility] V24, [facility] V28) 07/27/2020 Family History Medical History Relation Name Comments [...] drink = 0.6 oz pur e alcohol) Housing Instability Answer Date Recorde d Are you worried that in the next 2 months you may not have stable housing? No 06/04/2025 Food Access & Nutrition Answer Date Rec orded Do you have access to a vari ety of food including fruits and vegetables? Yes 06/04/2025 Access to Healthcare Answer Date Record ed Within the last 3 months, ho w many times did you visit the emergency department for your medical care? 0 06/04/2025 Health Literacy Answer Date Recorded How often do you need to hav e someone help you when you read instructions, pamphlets, or other written material from your doctor or pharmacy? Never 06/04/2025 Caregiver: How often do you need to have someone help you when you read instructions, pamphlets, or other written material from your doctor or pharmacy? Not on file 06/04/2025 Financial Risk Answer Date Recorded How hard is it for you to pa y for the very basics like food, housing, medical care, and air conditioning / heating? Not very hard 06/04/2025 Transportation Answer Date Recorded Has the lack of transportati on kept you from meetings, work, or from getting things needed for daily living? No Has the lack of transportati on kept you from medical appointments or from getting medications? No 06/04/2025 Social Isolation Answer Date Recorded How often do you feel lonely or isolated from ose around you? Never 06/04/2025 Food Risk Answer Date Recorded Within the past 12 months we worried whether our food would run out before we got money to buy more. Never true 06/04/2025 Within the past 12 months th e food we bought just didn't last and we didn't have money to get more. Never true 06/04/2025 Dependent Care Answer Date Recorded Do you need help finding or paying for care for your loved ones. For example, child caregiver private home or elderly care for an older adult? No 06/04/2025 Education Answer Date Recorded Do you think completing more education or training, like finishing a GED, going to college, or learning a trade, would be helpful for you? No 06/04/2025 Employment and Income Answer Date Recor ded During the last four weeks, have you been actively looking for work? No 06/04/2025 Living Situation Answer Date Recorded What is your living situation? Unrecognized valu e 06/04/2025 Sex and Gender Information Value Date Recorded Sex Assigned at Male 07/25/2024 12:34 PM EDT Legal Sex Male 10:18 AM EST Gender Identity Male 07/25/2024 12:34 PM EDT Sexual Orientation Straight 07/25/2024 12 :34 PM EDT Obstetrics History Last Filed Vital Signs Vital Sign Reading Time Taken Comments Blood Pressure 112/61 06/16/2025 9:46 AM EDT Pulse 62 06/16/2025 9:46 AM EDT Temperature 36.4 C (97.5 F) 06/11/2025 8:15 AM EDT Respiratory Rate 15 06/16/2025 9:46 AM EDT Oxygen Saturation 96% 06/02/2025 8:55 AM EDT Inhaled Oxygen Concentration - - Weight 100 kg (221 lb) 06/16/2025 9:46 AM EDT Height 174 cm (5' 8.5 ) 06/16/2025 9:46 AM EDT Body Mass Index 33.11 06/16/2025 9:46 AM EDT Plan of Treatment Upcoming Encounters Date Type Department Care Team (Late st Contact Info) Description 07/30/2025 8:15 AM EST Office Visit Orthopedic Surgery - [place] [address] [place] [phone] Abdoul Chavez, DPM [address] [place] [phone] 08/10/2025 8:30 AM EST Ancillary Procedure [facility] [address] [facility] [address] [place] [phone] 10/26/2025 8:30 AM EST Office Visit Adult Medicine [facility] [address] [place], [place] [phone] Tammy Mooney MD [address] [place], [place] Health Maintenance Due Date Last Done Comments Medicare Annual Wellness Visit 09/02/2022 Diabetes: Annual Retina Eye Exam 05/20/2025 05/20/2024 Diabetes: Blood Sugar Control Test (HGBA1C) 10/28/2025 04/27/2025, 01/23/2025, 09/04/2024, Additional history exists COVID-19 Vaccine (11 - Pfizer risk ) 11/29/2025 06/01/2025, 06/04/2024, 12/06/2023, Additional history exists Diabetes: Annual Urine Albumin-Creatinine Ratio (uACR) 01/23/2026 01/23/2025, 09/04/2024, 12/03/2023 Diabetes: Annual Foot Exam 04/16/2026 04/16/2025 Diabetes: Annual GFR (Glomerular Filtration Rate) 04/27/2026 04/27/2025, 01/23/2025, 09/04/2024, Additional history exists Hypertension/CHF/CAD Annual BMP Blood Test 04/27/2026 04/27/2025, 01/23/2025, 09/04/2024, Additional history exists Social Influencers of Health Screening 06/04/2026 06/04/2025 Falls Risk Assessment 06/11/2026 06/11/2025 Cholesterol Screening (Lipid Panel) 04/27/2030 04/27/2025, 01/23/2025, 09/04/2024, Additional history exists DTaP,Tdap,and Td Vaccines (4 - Td or Tdap) 01/15/2033 01/15/2023, 05/21/2021, 04/24/2018 Pneumococcal Vaccine: 50+ Years Completed 06/19/2017, 01/30/2013 Zoster Vaccines Completed 01/09/2022, 08/25, 08/24/2021, Additional history exists RSV Immunization Adult Patients Completed 06/26/2023 Influenza Vaccine Completed 06/01/2025, , 06/21/2023, Additional history exists Depression Screening Completed 06/04/2025 HIB Vaccines Aged Out No longer eligi [...] Procedure Name Priority Date/Time Associated Diagnosis Comments HELICOBACTER PYLORI BREATH TEST Routine 06/16/2025 9:05 AM EDT Gastroesophageal reflux disease without esophagitis ECG 12-LEAD Routine 06/02/2025 12:55 PM EDT Essential hypertension COMPREHENSIVE METABOLIC PANEL Routine 04/27/2025 8:55 AM EDT Type 2 diabetes mellitus with microalbuminuria ([facility] V24, [facility] V28) HEMOGLOBIN A1C Routine 04/27/2025 8:55 AM EDT Type 2 diabetes mellitus with microalbuminuria ([facility] V24, [facility] V28) LIPID PANEL WITH REFLEX TO DIRECT LDL Routine 04/27/2025 8:55 AM EDT Cataract, diabetic ([facility] V24, [facility] V28) MICROALBUMIN CREATININE URINE RATIO Routine 01/23/2025 9:03 AM EDT Type 2 diabetes mellitus with cataract ([facility] V24, [facility] V28) from Last 3 Months or Most Recently Relevant to Health Maintenance Results * Helicobacter pylori breath test (06/16/2025 9:05 AM EDT) H Pylori Breath Test Negative Negative LAB CHEMISTRY METHOD 06/16/2025 10:58 AM EDT [facility] Breath Oral cavity structure / Unknown Non-blood Collection / Unknown 06/16/2025 9:05 AM EDT 06/16/2025 9:05 AM EDT Tammy Mooney MD LAB BODY FLUIDS AND STOOLS ORDERABLES Final Result [facility] [address] [place] [address], * ECG 12 lead (06/02/2025 12:55 PM EDT) Ventricular Rate ECG 63 BPM GEMUSE Atrial Rate 63 BPM GEMUSE P-R Interval 152 ms GEMUSE QRS Duration 80 ms GEMUSE Q-T Interval 432 ms GEMUSE QTc 442 ms GEMUSE P Wave Marland 2 degrees GEMUSE R Marland -22 degrees GEMUSE T Marland 46 degrees GEMUSE ECG Interpretation Sinus rhythm with marked sinus arrhythmia Otherwise normal ECG When compared with ECG of 29-AUG-2021 12:29, No significant change was found Confirmed by Khadijah JUAN JOHN ([id number]) on 06/15/2025 7:50:31 AM GEMUSE 06/02/2025 9:05 AM EDT 06/15/2025 7:50 AM EDT Shu Styles [employer] ECG ORDERABLES Edite d Result - Final LI * Lipid panel with reflex to direct LDL (04/27/2025 8:55 AM EDT) Cholesterol 153 0 - 200 mg/dL LAB CHEMISTRY METHOD 04/27/2025 2:47 PM EDT [facility] Triglycerides 113 0 - 150 mg/dL LAB CHEMISTRY METHOD 04/27/2025 2:47 PM EDT [facility] HDL 69 >=40 mg/dL LAB CHEMISTRY METHOD 04/27/2025 2:47 PM EDT [facility] LDL Calculated 61 0 - 100 mg/dL LAB CHEMISTRY METHOD 04/27/2025 2:47 PM EDT [facility] VLDL Cholesterol Alex 22.6 mg/dL LAB CHEMISTRY METHOD 04/27/2025 2:47 PM EDT [facility] Non HDL Chol. (LDL+VLDL) 84 <145 mg/dL LAB CHEMISTRY METHOD 04/27/2025 2:47 PM EDT [facility] Chol/HDL Ratio 2.2 0.0 - 4.4 LAB CHEMISTRY METHOD 04/27/2025 2:47 PM EDT [facility] Blood Venous blood specimen / Unknown Venipuncture / Unknown 04/27/2025 8:55 AM EDT 04/27/2025 8:55 AM EDT Lacey Bey MD LAB BLOOD ORDERABLES Final Resul t [facility] [address] [place] [address], [place] [phone] * (ABNORMAL) Hemoglobin A1c (04/27/2025 8:55 AM EDT) Hemoglobin A1C 8.4(H) <6.5 % LAB CHEMISTRY METHOD 04/27/2025 1:24 PM [facility] Mean Bld Glu Estim. 194 mg/dL LAB CHEMISTRY METHOD 04/27/2025 1:24 PM [facility] Blood Venous blood specimen / Unknown Venipuncture / Unknown 04/27/2025 8:55 AM EDT 04/27/2025 8:55 AM EDT us Lena BOOKER LAB BLOOD ORDERABLES Final Re sult [facility] [address] [place] [address], * (ABNORMAL) Comprehensive metabolic panel (04/27/2025 8:55 AM EDT) Sodium 137 133 - 145 mmol/L LAB CHEMISTRY METHOD 04/27/2025 2:47 PM [facility] Potassium 4.0 3.5 - 5.5 mmol/L LAB CHEMISTRY METHOD 04/27/2025 2:47 PM [facility] Chloride 102 96 - 110 mmol/L LAB CHEMISTRY METHOD 04/27/2025 2:47 PM [facility] CO2 25 21 - 32 mmol/L LAB CHEMISTRY METHOD 04/27/2025 2:47 PM [facility] Anion Gap 10 3 - 11 LAB CHEMISTRY METHOD 04/27/2025 2:47 PM [facility] Glucose 181(H) 70 - 100 mg/dL LAB CHEMISTRY METHOD 04/27/2025 2:47 PM [facility] BUN 15 5 - 25 mg/dL LAB CHEMISTRY METHOD 04/27/2025 2:47 PM [facility] Creatinine 0.77 0.70 - 1.30 mg/dL LAB CHEMISTRY METHOD 04/27/2025 2:47 PM [facility] eGFR 91 >=60 mL/min/1. 73m2 LAB CHEMISTRY METHOD 04/27/2025 2:47 PM EDT [facility] Comment:Calculation based on the Chronic Kidney Disease Epidemiology Collaboration (CKD-EPI) equation refit without adjustment for race. BUN/Creatinine Ratio 19.5 LAB CHEMISTRY METHOD 04/27/2025 2:47 PM EDT [facility] Calcium 9.5 8.5 - 10.5 mg/dL LAB CHEMISTRY METHOD 04/27/2025 2:47 PM T [facility] AST (SGOT) 11 10 - 42 unit/L LAB CHEMISTRY METHOD 04/27/2025 2:47 PM [facility] ALT (SGPT) 37 10 - 60 unit/L LAB CHEMISTRY METHOD 04/27/2025 2:47 PM [facility] Alkaline Phosphatase 67 42 - 121 unit/L LAB CHEMISTRY METHOD 04/27/2025 2:47 PM [facility] Total Protein 6.2 6.0 - 8.0 g/dL LAB CHEMISTRY METHOD 04/27/2025 2:47 PM [facility] Albumin 3.6 3.2 - 5.0 g/dL LAB CHEMISTRY METHOD 04/27/2025 2:47 PM [facility] Total Bilirubin 1.0 0.0 - 1.4 mg/dL LAB CHEMISTRY METHOD 04/27/2025 2:47 PM [facility] Blood Venous blood specimen / Unknown Venipuncture / Unknown 04/27/2025 8:55 AM EDT 04/27/2025 8:55 AM EDT us Lena BOOKER LAB BLOOD ORDERABLES Final Re sult [facility] [address] [place] [address], * (ABNORMAL) Microalbumin creatinine urine ratio (01/23/2025 9:03 AM EDT) Creatinine, Urine 67.0 mg/dL LAB CHEMISTRY METHOD 01/23/2025 2:14 PM EDT [facility] Microalb, Ur 43.8(H) 0.0 - 29.0 mg/L LAB CHEMISTRY METHOD 01/23/2025 2:14 PM EDT [facility] Microalb/Crea t Ratio 65(H) <30 mg/g creat LAB CHEMISTRY METHOD 01/23/2025 2:14 PM EDT [facility] Urine Urine specimen obtained by clean catch procedure / Unknown Non-blood Collection / Unknown 01/23/2025 9:03 AM EDT 01/23/2025 9:03 AM EDT Lacey Bey MD LAB URINE ORDERABLES Final Resul t [facility] [address] [place] [address], [place] [phone] from Last 3 Months or Most Recently Relevant to Health Maintenance Insurance [employer] MEDICARE ADVANTAGE Care Teams Administrative Support Associate Relationship Specialty Start Date End Date Tammy Mooney MD [address] [place] [phone] PCP - General Internal Medicine 09/04/24
--- OUTSIDE RECORDS SUMMARY | 2025-07-07 08:56 | XMS_ITS | Patient Health Record ---
Author Organization [facility] fatimah DotyAgua Dulce Address [address] [facility] [place] [address] Care Team Providers Care Legal File Clerk Name Role Phone Medina Catherine Unavailable [phone] Allergies No Known Allergies Reason For Referral [...] Vaccine Route Administration Date Status Comme nts Influenza Unknown 06/09/2022 Administered COVID-19 Pfizer BioNTech Vaccine Unknown 10/25/2020 Adm inistered Social History Tobacco Use: Social History Observation [...] Problem Acquired hammer toe of right foot (9942414158468591 ) Other hammer toe(s) (acquired), right foot (M20.41) Active confirmed Problem Acquired hammer toe of left foot (0049013772097170 ) Other hammer toe(s) (acquired), left foot (M20.42) Active confirmed Problem Type II diabetes mellitus without complication (853847277) Type 2 diabetes mellitus without complications (E11.9) Active confirmed Problem Localized, primary osteoarthritis of the ankle and/or foot (331419695) Osteoarthritis of right ankle and foot (M19.071) Active confirmed Problem Localized, primary osteoarthritis of the ankle and/or foot (682424490) Osteoarthritis of left ankle and foot (M19.072) Active confirmed Plan Of Treatment Pending Test Test Name Order Date X ray : Foot, left 3V 11/15/2020 X ray : Foot, right 3V 11/15/2020 [id number] NAIL, 6 OR MORE 02/27/2023 Insurance Providers Payer Name Payer Address Payer Phone Subscriber Number Group Number Insured Name Patient Relationship to Insured Coverage Start Date Coverage End Date A[employer] [address] [place] [phone] [id number] Slava Ramirez Self - patient is the insured Medical (General) History Medical History History ICD Code Back,Hip,and Knee pain type II diabetes High blood pressure Measles Mumps Chicken pox Prostate cancer Surgical History Surgery Date(Month/Year) neck fusion 2016 prostate surgery 02/2020 lower back surgery 08/2021
--- OUTSIDE RECORDS SUMMARY | 2025-07-07 08:56 | XMS_ITS | Encounter Summary ---
Author Organization [facility] Address [address] [place] [address] Care Team Providers Care Meat Processor Name Role Phone Tammy Mooney MD Primary Care Pr ovider Encounter Details Date Type Department Care Team (Late Contact Info) Description 08/13/2024 Lab Requisition [facility] - Main Lab [address] [facility] [place] [address] Aden Stevens MD [address] [facility] [address] [place] [phone] Personal history of malignant neoplasm of prostate [...] AM EST Office Visit [facility] - [place] [address] [facility] [address] [place] [address] Abdoul Chavez, DPM [address] [address] 08/10/2025 8:30 AM EST Ancillary Procedure [facility] [address] [place] [address] 10/26/2025 8:30 AM EST Office Visit [facility] [address] [place] [address] Tammy Mooney MD [address] [place] [address] documented as of this encounter Procedures Procedure Name Priority Date/Time Associated Diagnosis Comments PSA TOTAL, FREE AND COMPLEXED, DIAGNOSTIC Routine 08/13/2024 10:27 AM EST Personal history of malignant neoplasm of prostate documented in this encounter Results * PSA total, free and complexed (08/13/2024 10:27 AM EST) PSA <0.06 0.00 - 4.00 ng/mL LAB CHEMISTRY METHOD 08/14/2024 9:37 PM [facility] PSA, Complexed <0.07 0.00 - 3.00 ng/mL LAB CHEMISTRY METHOD 08/14/2024 9:37 PM [facility] PSA, Free LAB CHEMISTRY METHOD 08/14/2024 9:37 PM [facility] PSA, Free Pct LAB CHEMISTRY METHOD 08/14/2024 9:37 PM [facility] Blood Venous blood specimen / Unknown 08/13/2024 10:27 AM EST 08/13/2024 1:22 PM EST [facility] - 08/14/2024 9:37 PM EST Free PSA is a calculated value. The diagnostic usefulness of % free PSA has not been established in patients with Total PSA below 2.6 or above 10 ng/mL. This test was performed using the Centaur Chemiluminescent method. PSA values obtained with other methods cannot be used interchangeably. us Aden Stevens MD LAB BLOOD ORDERABLES Final Resul t [facility] [address] [place] [address], documented in this encounter Visit Diagnoses Diagnosis Personal history of malignant neoplasm of prostate documented in this encounter Care Teams Meat Processor Relationship Specialty Start Date End Date Tammy Mooney MD [address] [place] [address] PCP - General Internal Medicine 09/04/24 documented as of this encounter
--- OUTSIDE RECORDS SUMMARY | 2025-07-07 08:56 | XMS_ITS | Clinical Summary ---
Author Organization [facility] Address [address] [id number] Care Team Providers Care Rotor Casting Machine Operator Name Role Phone Tl Stevens MD Primary [...] mg total) by mouth daily. 0 Active [place]-3 Fatty Acids (Fish Oil) 1000 MG CPDR [...] 75+ series) 2019 COVID-19 Vaccine ( season) 2025 06/26/2023, 06/16/2022, 12/26/2021, Additional history exists Influenza [...] age to complete this topic Care Teams Rotor Casting Machine Operator Relationship Specialty Start Date End Date Tl Stevens MD PCP - General Internal Medicine 10/03/22
--- OUTSIDE RECORDS SUMMARY | 2025-07-07 08:56 | XMS_ITS ---
Author Name [facility] Organization Unknown Results Test Name/Text Value Interpretation Date Range Source LAB AP CLINICAL INFORMATION Basal cell carcinoma Normal 06/12/2024 [facility] LAB AP DIAGNOSIS COMMENT Received from [facility], [address], [place] [address], are one slide and one block labeled [id number] , which are retained for our files. Normal 06/12/2024 [facility] UCONNPATH LAB AP GROSS DESCRIPTION Received in formalin is an irregularly shaped fragment of skin measuring 1.1 x 0.8 x 0.1 cm. The specimen is serially sectioned and submitted entirely in one cassette. (Gross description performed by [facility].) Normal 06/12/2024 [facility] Encounters Encounter Type Encounter Reason Primary Diagnosis Location Date Ambulatory [facility] [employer] [facility] 07/04/2024 Care Team Organization Name Specialty Phone Email Start Date End Da te [facility] 2024
--- OUTSIDE RECORDS SUMMARY | 2025-07-07 08:56 | XMS_ITS | Continuity of Care Document ---
Author Organization [facility] [address] [facility] [address] [place] [address] Phone [phone] Care Team Providers Care Transmission Supervisor Name Role Phone Pari Villafana M.D. Care Team Information Representative Phlebotomy Services [phone] Tammy Mooney Care Team Information Rece iver [phone] Problems Active Problems Provider Date Type 2 [...] SIG Qnty Indications Order ing Provider Date Wkuidzbvb81sr Tablets 1 tab by mouth every day as directed 90tabs Francis Colmenares M.D. 03/13/2024 Hqksmvcnf3wp Tablets 1 tablet by mouth twice daily 180tabs Francis Colmenares M.D. 12/06/2023 Zzlgfoqloq965fb Capsules 1 tab by mouth three times a day as directed 180caps Francis Colmenares M.D. 06/13/2022 Caohuif30kf Tablets 1 by mouth every day 90tabs Francis Colmenares M.D. 06/13/[address] 1 by mouth every day Francis Colmenares M.D. 06/13/2022 [employer] UltraStrPari Dickerson M.D. Atorvastatin Iuvmpcc85yl Tablets Take 1 tablet daily Unknown Kddjhigci11ev Tablets Take 1 tablet daily Unknown Metoprolol Succinate ER50mg Tablets ER 24HR Take 1 tablet daily Unknown Losartan Potassium/Hydrochloro vregvplv777-19mh Tablets Take 1 tablet daily Unknown Vital Signs Date Vital Result Comment 06/26/2024 [...] unspecified complications I25.10 Athscl heart disease of [place] coronary artery w/o ang pctrs Assessments Date [...]
--- OUTSIDE RECORDS SUMMARY | 2025-07-07 08:56 | XMS_ITS | Clinical Summary ---
Author Organization [facility] Address [address] [place] [address] [place] [phone] Phone Care Team Providers Care Independent Film Maker Name Role Phone Tammy Mooney MD Primary Care Pr ovider Encounters Date Type Department Care Team Description 06/01/2025 Ancillary Orders [facility] [address] [place] [address] Jair Moyer MD 06/01/2025 Ancillary Orders [facility] [address] [place] [address] Jair Moyer MD 06/01/2025 Ancillary Orders [facility] [address] [place] [address] Jair Moyer MD 06/01/2025 Ancillary Orders [facility] [address] [place] [address] Jair Moyer MD 06/01/2025 Ancillary Orders [facility] [address] [place] [address] Jair Moyer MD 06/01/2025 Ancillary Orders [facility] [address] [place] [address] Jair Moyer MD 06/01/2025 Ancillary Orders [facility] [address] [place] [address] Jair Moyer MD from Last 3 Months Social History Tobacco Use Types Packs/Day Years Used Date Smoking Tobacco: Never Assessed Education Answer Date Recorded Are you interested in more education? Not on franck e 06/01/2025 Are you concerned about learning? Not on file 06/01/2025 No 06/01/2025 No 06/01/2025 Digital Access Answer Date Recorded No 06/01/2025 No 06/01/2025 Reliable internet access at home? Not on file 06/01/2025 Device with a working camera? Not on file Sex and Gender Information Value Date Recorded Sex Assigned at Male 05/21/2025 12:59 PM EDT Legal Sex Male 12:54 PM EDT Gender Identity Male 05/21/2025 12:59 PM EDT Sexual Orientation Straight 05/21/2025 12 :59 PM EDT Plan of Treatment Not on file Medical Devices Not on file Insurance MEDICARE PART A & B [employer] O MEDICARE REPLACEMENT MEDICARE PART A & B Member Subscriber Plan / Payer (Ef fective 2025-) Name:Slava Ramirez Member ID:[id number] Relation to Subscriber:Self Name:Slava Ramirez Subscriber ID:[id number] Payer ID:[id number] Group ID:Not on file Type:Medicare Address: [employer] [address] [place] [address] [place] [address] MEDICARE PART A & B Member Subscriber Plan / Payer ( fective 2025-) Name:Slava Ramirez Member ID:[id number] Relation to Subscriber:Self Name:Slava Ramirez Subscriber ID:[id number] Payer ID:[id number] Group ID:Not on file Type:Medicare Address: [employer] [address] MEDICARE REPLACEMENT MEDICARE PART A & B [facility] MEDICARE REPLACEMENT MEDICARE PART A & B [facility] MEDICARE PART A & B [employer] PPO MEDICARE REPLACEMENT Care Teams Independent Film Maker Relationship Specialty Start Date End Date Tammy Mooney MD [address] [place] [phone] PCP - General Family Medicine 05/21/25 Additional Source Comments The information contained in this document represents components of the legal health record. It is not the complete legal health record.[facility]
== END 2025-07-07 08:34 | disposition home or self-care (01) ==
LOC: HO.MRI 08:33
PROVIDERS: Visit Provider Neurological Surgery
DX: M96.1 Postlaminectomy syndrome, not elsewhere classified (principal); Z98.1 Arthrodesis status
CPT/HCPCS: 72158; A9585

== ENCOUNTER 2025-07-15 15:19 | Outpatient (AMB) | payer MEDICARE, SELFPAY ==
--- NOTE | 2025-07-15 15:22 | A.SPINEOV_ITS ---
Intake Visit Reasons: MRI f/u Intake Note: Mr. Ramirez is here today to F/u on the results to his MRI. Rock Crushing Machine Operator Required: No Allergies No Known Allergies Allergy (Verified 03/10/25 07:07) Assessment & Plan Assessment & Plan (1) Failed back syndrome: Code(s): M96.1 - Postlaminectomy syndrome, not elsewhere classified Category: Medical Plan Dear colleague, On 07/15/2025, I saw for follow-up visit Slava Ramirez. He continues to suffering from bilateral back pain that comes with walking and standing and improves when he sits down despite a spinal cord stimulator. He is still trying to figure out correct settings to hopefully reduce the symptoms. He also has a 2nd opinion in [place] to see if there was anything surgically that could be done. Fortunately, they had the same opinion as me that there was no role for additional surgery as the latest MRI show no signs of spinal stenosis. He asked me if there were any alternative method to address his pain. I told him to try relief Factor. I do not think that additional injection to going to be helpful. He will update me on his progress with spinal cord stimulator and the affect of the relief Factor. I spent 20 minutes in his consult. Giovanny Rincon MD, PhD Spine Fellowship Trained Neurosurgeon Director, [facility] Coding Level of Care Code Est Pt Level 3 (96234) Diagnoses Failed back syndrome M96.1
--- OUTSIDE RECORDS SUMMARY | 2025-07-15 21:36 | XMS_ITS | Encounter Summary ---
Author Organization [facility] Address [address] [place] [address] Care Team Providers Care Assistant Manager Retail Name Role Phone Tammy Mooney MD Primary Care Pr ovider Encounter Details Date Type Department Care Team (Late Contact Info) Description 02/20/2025 Lab Requisition [facility] - Main Lab 299 [facility] [place] [address] Aden Stevens MD [address] [facility] 103 [place] [phone] Personal history of malignant neoplasm of prostate [...] AM EST Office Visit Orthopedic Surgery - [place] 250 175 [facility] 250 [place] [address] Abdoul Chavez, DPM [address] [address] 08/10/2025 8:30 AM EST Ancillary Procedure [facility] - [address] [place] [address] 10/26/2025 8:30 AM EST Office Visit [facility] [address] [place] [address] Tammy Mooney MD [address] [place] [address] documented as of this encounter Procedures Procedure Name Priority Date/Time Associated Diagnosis Comments PROSTATE SPECIFIC ANTIGEN DIAGNOSTIC Routine 02/20/2025 11:20 AM EDT Personal history of malignant neoplasm of prostate documented in this encounter Results * Prostate specific antigen diagnostic (02/20/2025 11:20 AM EDT) PSA <0.06 0.00 - 4.00 ng/mL LAB CHEMISTRY METHOD 02/20/2025 3:57 PM EDT [facility] Blood Venous blood specimen / Unknown 02/20/2025 11:20 AM EDT 02/20/2025 1:57 PM EDT Narrative [facility] - 02/20/2025 3:57 PM EDT The Siemens Advia Centaur Chemiluminescent Immunoassay is used. Results obtained with different assay methods or kits cannot be used interchangeably. Results cannot be interpreted as absolute evidence of the presence or absence of malignant disease. us Aden Stevens MD LAB BLOOD ORDERABLES Final Resul t [facility] [address] [place] [address], [place] [phone] documented in this encounter Visit Diagnoses Diagnosis Personal history of malignant neoplasm of prostate documented in this encounter Additional Health Concerns Assessment Noted Time PHQ-9 Depression Total Score: 0 01/28/20 25 1:51 PM EDT documented as of this encounter Care Teams Assistant Manager Retail Relationship Specialty Start Date End Date Tammy Mooney MD [address] [place] [phone] PCP - General Internal Medicine 09/04/24 documented as of this encounter
--- OUTSIDE RECORDS SUMMARY | 2025-07-15 21:36 | XMS_ITS | Clinical Summary ---
Author Organization [facility] Address [address] [id number] Care Team Providers Care Dry Dip Worker Name Role Phone Tl Stevens MD Primary [...] mg total) by mouth daily. 0 Active [place]-3 Fatty Acids (Fish Oil) 1000 MG CPDR [...] age to complete this topic Care Teams Dry Dip Worker Relationship Specialty Start Date End Date Tl Stevens MD PCP - General Internal Medicine 10/03/22
--- OUTSIDE RECORDS SUMMARY | 2025-07-15 21:36 | XMS_ITS | Encounter Summary ---
Author Organization [facility] Address [address] [place] [address] Care Team Providers Care Turn Out Name Role Phone Tammy Mooney MD Primary Care Pr ovider Encounter Details Date Type Department Care Team (Late Contact Info) Description 08/13/2024 Lab Requisition [facility] - Main Lab [address] [facility] [place] [address] Aden Stevens MD [address] [facility] 103 [place] [phone] Personal history of malignant neoplasm of prostate [...] AM EST Office Visit Orthopedic Surgery - [place] 250 175 [facility] 250 [place] [address] Abdoul Chavez, DPM [address] [address] 08/10/2025 8:30 AM EST Ancillary Procedure [facility] - [address] [place] [address] 10/26/2025 8:30 AM EST Office Visit [facility] [address] [place] [address] Tammy Mooney MD [address] [place] [address] documented as of this encounter Procedures Procedure Name Priority Date/Time Associated Diagnosis Comments PSA TOTAL, FREE AND COMPLEXED, DIAGNOSTIC Routine 08/13/2024 10:27 AM EST Personal history of malignant neoplasm of prostate documented in this encounter Results * PSA total, free and complexed (08/13/2024 10:27 AM EST) PSA <0.06 0.00 - 4.00 ng/mL LAB CHEMISTRY METHOD 08/14/2024 9:37 PM [facility] PSA, Complexed <0.07 0.00 - 3.00 ng/mL LAB CHEMISTRY METHOD 08/14/2024 9:37 PM [facility] PSA, Free LAB CHEMISTRY METHOD 08/14/2024 9:37 PM [facility] PSA, Free Pct LAB CHEMISTRY METHOD 08/14/2024 9:37 PM [facility] Blood Venous blood specimen / Unknown 08/13/2024 10:27 AM EST 08/13/2024 1:22 PM EST [facility] LAB - 08/14/2024 9:37 PM [...] MD LAB BLOOD ORDERABLES Final Resul t [facility] ([facility] 299 [place] [address], documented in this encounter Visit Diagnoses Diagnosis Personal history of malignant neoplasm of prostate documented in this encounter Care Teams Turn Out Relationship Specialty Start Date End Date Tammy Mooney MD [address] [place] [address] PCP - General Internal Medicine 09/04/24 documented as of this encounter
--- OUTSIDE RECORDS SUMMARY | 2025-07-15 21:36 | XMS_ITS ---
Continuity of Care Document (CCD) Created on: July 15, 2025 James Slava External Reference #: [id number] : [id number] Sex: Male Author Organization [facility] [address] [facility] [address] [place] [address] Phone [phone] Care Team Providers Care Lathe Scalper Operator Name Role Phone Pari Villafana M.D. Care Team Information Industrial Roofer Helper [phone] Tammy Mooney Care Team Information Rece iver [phone] Problems Active Problems Provider Date Type 2 [...] SIG Qnty Indications Order ing Provider Date Ydirnkvwx07zv Tablets 1 tab by mouth every day as directed 90tabs Francis Colmenares M.D. 03/13/2024 Zbfmqbseo0dk Tablets 1 tablet by mouth twice daily 180tabs Francis Colmenares M.D. 12/06/2023 Lksgdnbmnq546pv Capsules 1 tab by mouth three times a day as directed 180caps Francis Colmenares M.D. 06/13/2022 Bhqaxdv40bv Tablets 1 by mouth every day 90tabs Francis Colmenares M.D. 06/13/[address] 1 by mouth every day Francis Colmenares M.D. 06/13/2022 Onetouch UltraStrPari Dickerson M.D. 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
--- OUTSIDE RECORDS SUMMARY | 2025-07-15 21:36 | XMS_ITS | Clinical Summary ---
Author Organization [facility] Address [address] [place] [address] Phone Care Team Providers Care Staffing Mgr Name Role Phone Tammy Mooney MD Primary [...] DAILY 90 tablet 3 10/09/19 25 Active empagliflozin (Jardiance) 25 mg tablet Take 1 tablet (25 mg total) by mouth 1 (one) time each day in the morning. 90 tablet 1 01/30/20 25 Active glipiZIDE (GLUCOTROL) 10 mg tabletIndications:T ype 2 diabetes mellitus with microalbuminuria (CMS/HCC V24, CMS/HCC V28) TAKE ONE TABLET BY MOUTH TWICE A DAY BEFORE MEALS 180 tablet 1 02/28/20 25 Active gabapentin (NEURONTIN) 300 mg capsule Take 1 capsule each morning and 2 capsules at bedtime 270 each 1 03/02/20 25 Active atorvastatin (LIPITOR) 80 mg tablet TAKE ONE TABLET BY MOUTH DAILY. 90 tablet 1 04/09/20 25 Active blood-glucose sensor (FreeStyle Jaimie 3 Plus Sensor) deviceIndications:T ype 2 diabetes mellitus with cataract ([facility] V24, [facility] V28) Box = Kit = EA, change sensor every 15 days 2 kit 11 04/30/20 25 Active losartan-hydroCHLOR Othiazide (HYZAAR) 100-25 mg per tabletIndications:E ssential hypertension,Carballo ry artery disease involving [place] coronary artery of [place] heart, unspecified whether angina present Take 1 tablet by mouth 1 (one) time each day. 90 each 1 06/11/20 25 2025 Active ezetimibe (ZETIA) 10 mg tablet TAKE ONE TABLET BY MOUTH EVERY DAY 90 tablet 3 07/03/20 25 Active ezetimibe (ZETIA) 10 mg tablet TAKE 1 TABLET BY MOUTH EVERY DAY 07/10/20 24 2024 Discontinued Active Problems Problem Noted Date Diagnosed [...] for his pain. Interested in a second [facility] in [place] and was told he needed an MRI L spine before he could be scheduled for a consult. This is ordered Orders: MR Lumbar Spine wo Contrast; Future Gilbert's syndrome 11/19/2024 Fatty liver 10/24/2024 Chronic deep vein thrombosis (DVT) of femoral vein of right lower extremity ([facility] V24, CMS/HCC V28) 06/25/2024 Assessment & Plan (06/11/2025 11:05 AM EDT): Type 2 diabetes mellitus wit h cataract (CMS/HCC V24, CMS/HCC V28) 06/25/2024 Trochanteric bursitis of both hips 06/05/2024 Insomnia 04/27/2023 Atherosclerosis of [place] ar ashley of both lower extremities with [...] Osteoarthritis of both hips 01/01/2023 Adrenal nodule (CMS/HCC V24) 07/07/2022 Overview (08/12/2024): CT abdomen 07/07/22: [...] Type 2 diabetes mellitus wit h microalbuminuria (CMS/HCC V24, CMS/HCC V28) 02/26/2019 Overview (08/12/2024): Last Assessment & [...] elevated PSA and several biopsies done in [facility]. Negative for malignancy Assessment & Plan (06/11/2025 11:05 AM EDT): Continue f/u with with Urology(Dr. Stevens) . Last PSA in January was essentially undetectable. Assessment & Plan (10/07/2024 9:15 PM EST): Continue follow up with urology. Continue Cialis 5mg daily Coronary artery disease invo lving [place] coronary artery of [place] heart 12/04/2018 Assessment & Plan (06/11/2025 11:05 [...] cardiology. Will send a message to his mill recorder-Dr. Nichols Orders: ECG 12 lead Tracing Only; [...] 11:05 AM EDT): Continue Aspirin daily. See [facility] Assessment & Plan (06/02/2025 12:55 PM EDT): [...] of femoral vein of right lower extremity ([facility] V24, [facility] V28) 07/27/2020 06/11/2025 Chronic bilateral low back [...] Description 06/16/2025 9:45 AM EDT Office Visit [address] [phone] Lacey Bey MD Type 2 diabetes mellitus with cataract ([facility] V24, [facility] V28) 06/11/2025 8:30 AM EDT Office Visit Adult Medicine [address] [phone] Tammy Mooney MD Essential hypertension (Primary Dx); Coronary artery disease involving [place] coronary artery of [place] heart, unspecified whether angina present; History of DVT (deep vein thrombosis); Chronic deep vein thrombosis (DVT) of femoral vein of right lower extremity ([facility] V24, [facility] V28); Failed back syndrome of lumbar spine; Degeneration of intervertebral disc of lumbar region with discogenic back pain; Mixed hyperlipidemia; Type 2 diabetes mellitus with microalbuminuria ([facility] V24, [facility] V28); Gastroesophageal reflux disease without esophagitis; Vitamin D deficiency; Benign prostatic hyperplasia with lower urinary tract symptoms, symptom details unspecified; History of prostate cancer 06/02/2025 9:10 AM EDT Office Visit [facility] - [facility] [address] [facility] 102 [place] [address] Shu Styles NP Coronary artery disease involving [place] coronary artery of [place] heart, unspecified whether angina present (Primary Dx); Essential hypertension; Hyperlipidemia, unspecified hyperlipidemia type; Obesity (BMI 30.0-34.9); Varicose veins of calf; History of DVT (deep vein thrombosis) 04/30/2025 9:00 AM EDT Office Visit Endocrinology [address] [phone] Lacey Bey MD Type 2 diabetes mellitus with cataract ([facility] V24, [facility] V28) (Primary Dx) 04/16/2025 8:15 AM EDT Office Visit Orthopedic Surgery [facility] [address] [place] [address] 250 [place] [phone] Abdoul Chavez DPM Keratosis, seborrheic (Primary Dx); Dermatophytosis of nail; Diabetic mononeuropathy simplex ([facility] V24, [facility] V28); Pain in toe of right foot; Pain in toe of left foot; Tailor's bunionette, left; Tailor's bunionette, right; Type II diabetes mellitus with peripheral circulatory disorder ([facility] V24, [facility] V28); Corns and callosities from Last 3 [...] SURGERY; COMMENT: acromioplasty OTHER SURGICAL HISTORY PROCEDURE: AK BIOPSY PROSTATE INCISIONAL ANY APPROACH; COMMENT: x6 [...] vein thrombos is (DVT) (HCC) Diabetes mellitus (CMS/HCC V 24, CMS/HCC V28) DX:Diabetes mellitus (HCC) Prostate cancer (CMS/HCC V24 , CMS/[facility] V28) DX:Prostate cancer (HCC) Skin cancer DX:Skin [...] elevated PSA and several biopsies done in [facility]. Negative for malignancy Hyperlipidemia 12/04/2018 DX:Hyperlipidemi a Hypertension 12/04/2018 DX:Hypertension History of basal cell carcin kushal (BCC) of skin 12/12/2018 DX:History of basal cell car cinoma (BCC) of skin; COMMENT: Mid back, abdomen, rodriguez Tubular adenoma of colon 12/12/2018 DX:Tubu lar adenoma of colon Chronic neck pain 12/12/2018 DX:Chronic nec k pain; COMMENT: S/p 2 surgeries Diabetes mellitus type 2, uncontrolled DX:Diabetes mellitus type 2, uncontrolled Diverticulosis 01/14/2019 DX:Diverticulosi s Obesity (BMI 30.0-34.9) 12/04/2018 DX:Obesi ty (BMI 30.0-34.9) Type 2 diabetes mellitus wit h cataract ([facility] V24, [facility] V28) 02/26/2019 DX:Type 2 diabetes mellitus with cataract (HCC) Cataract 02/26/2019 DX:Cataract; COM MENT: 2017, Bilateral, removed Prostate cancer ([facility] V24 , [facility] V28) DX:Prostate cancer (HCC) Hyponatremia 04/03/2022 DX:Hyponatremia Chest pain 11/07/2024 Acute deep vein thrombosis ( DVT) of femoral vein of right lower extremity ([facility] V24, [facility] V28) 07/27/2020 Family History Medical History Relation [...] Record ed Within the last 3 months, tristan aponte many times did you visit the emergency [...] do you feel lonely or isolated from th ose around you? Never 06/04/2025 Food Risk [...] for your loved ones. For example, child care centre director or elderly care for an older adult? [...] AM EST Office Visit Orthopedic Surgery - [place] [address] [phone] Abdoul Chavez, DPM [address] [phone] 08/10/2025 8:30 AM EST Ancillary Procedure [facility] 101 [address] [facility] [address] [place] [phone] 10/26/2025 8:30 AM EST Office Visit Adult Medicine [address] [phone] Tammy Mooney MD [address] [place] [phone] Health Maintenance Due Date Last Done Comments Medicare Annual Wellness Visit 09/02/2022 Diabetes: Annual Retina Eye Exam 05/20/2025 05/20/2024 Diabetes: Blood Sugar Control Test (HGBA1C) 10/28/2025 04/27/2025, 01/23/2025, 09/04/2024, Additional history exists COVID-19 Vaccine (11 - Pfizer risk 2023- season) 2025 06/01/2025, 06/04/2024, 12/06/2023, Additional history exists Diabetes: [...] EDT 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 V24, CMS/[facility] V28) HEMOGLOBIN A1C Routine 04/27/2025 8:55 AM EDT 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 V24, [facility] V28) LIPID PANEL WITH REFLEX TO DIRECT LDL Routine 04/27/2025 8:55 AM EDT Cataract, diabetic ([facility] V24, [facility] V28) MICROALBUMIN CREATININE URINE RATIO Routine 01/23/2025 9:03 AM EDT Type 2 diabetes mellitus with cataract ([facility] V24, [facility] V28) from Last 3 Months or Most Recently Relevant to Health Maintenance Results * Helicobacter pylori breath test (06/16/2025 9:05 AM EDT) Pathologist [facility] H Pylori Breath Test Negative Negative LAB CHEMISTRY METHOD 06/16/2025 10:58 AM EDT [facility] Breath Oral cavity structure / Unknown Non-blood Collection / Unknown 06/16/2025 9:05 AM EDT 06/16/2025 9:05 AM EDT Tammy Mooney MD LAB BODY FLUIDS AND STOOLS ORDERABLES Final Result [facility] [address] [place] [address], [place] [phone] * ECG 12 lead (06/02/2025 12:55 PM EDT) Pathologist [facility] Ventricular Rate ECG 63 BPM GEMUSE Atrial Rate 63 BPM GEMUSE P-R Interval 152 ms GEMUSE QRS Duration 80 ms GEMUSE Q-T Interval 432 ms GEMUSE QTc 442 ms GEMUSE P Wave [place] 2 degrees GEMUSE R [place] -22 degrees GEMUSE T [place] 46 degrees GEMUSE ECG Interpretation Sinus rhythm with marked sinus arrhythmia Otherwise normal ECG When compared with ECG of 29-AUG-2021 12:29, No significant change was found Confirmed by Khadijah JUAN JOHN ([id number]) on 06/15/2025 7:50:31 AM GEMUSE 06/02/2025 9:05 AM EDT 06/15/2025 7:50 AM EDT Shu Styles [facility] ECG ORDERABLES Edite d Result - Final GEMUSE * Lipid panel with reflex to direct LDL (04/27/2025 8:55 AM EDT) Cholesterol 153 0 - 200 mg/dL LAB CHEMISTRY METHOD 04/27/2025 2:47 PM EDT [facility] Triglycerides 113 0 - 150 mg/dL LAB CHEMISTRY METHOD 04/27/2025 2:47 PM T [facility] HDL 69 >=40 mg/dL LAB CHEMISTRY METHOD 04/27/2025 2:47 PM [facility] LDL Calculated 61 0 - 100 mg/dL LAB CHEMISTRY METHOD 04/27/2025 2:47 PM T [facility] VLDL Cholesterol Alex 22.6 mg/dL LAB CHEMISTRY METHOD 04/27/2025 2:47 PM EDT [facility] Non HDL Chol. (LDL+VLDL) 84 <145 mg/dL LAB CHEMISTRY METHOD 04/27/2025 2:47 PM EDT [facility] Chol/HDL Ratio 2.2 0.0 - 4.4 LAB CHEMISTRY METHOD 04/27/2025 2:47 PM EDT [facility] Blood Venous blood specimen / Unknown Venipuncture / Unknown 04/27/2025 8:55 AM EDT 04/27/2025 8:55 AM EDT Lacey Bey MD LAB BLOOD ORDERABLES Final Resul t Performing Organization Address [facility]/ZIP Co de Phone Number [facility] [address] [place] [address], * (ABNORMAL) Hemoglobin A1c (04/27/2025 8:55 AM EDT) [facility] Hemoglobin A1C 8.4(H) <6.5 % LAB CHEMISTRY METHOD 04/27/2025 1:24 PM EDT [facility] Mean Bld Glu Estim. 194 mg/dL LAB CHEMISTRY METHOD 04/27/2025 1:24 PM EDT [facility] Blood Venous blood specimen / Unknown Venipuncture / Unknown 04/27/2025 8:55 AM EDT 04/27/2025 8:55 AM EDT Lena BOOKER LAB BLOOD ORDERABLES Final Re sult Performing Organization Address [facility]/ZIP Co de Phone Number [facility] [address] [place] [address], * (ABNORMAL) Comprehensive metabolic panel (04/27/2025 8:55 AM EDT) [facility] Sodium 137 133 - 145 mmol/L LAB CHEMISTRY METHOD 04/27/2025 2:47 PM EDT [facility] Potassium 4.0 3.5 - 5.5 mmol/L LAB CHEMISTRY METHOD 04/27/2025 2:47 PM EDT [facility] Chloride 102 96 - 110 mmol/L LAB CHEMISTRY METHOD 04/27/2025 2:47 PM EDT [facility] CO2 25 21 - 32 [...] 73m2 LAB CHEMISTRY METHOD 04/27/2025 2:47 PM [facility] Comment:Calculation based on the Chronic Kidney Disease Epidemiology Collaboration (CKD-EPI) equation refit without adjustment for race. BUN/Creatinine Ratio 19.5 LAB CHEMISTRY METHOD 04/27/2025 2:47 PM [facility] Calcium 9.5 8.5 - 10.5 mg/dL LAB CHEMISTRY METHOD 04/27/2025 2:47 PM [facility] AST (SGOT) [...] LAB CHEMISTRY METHOD 04/27/2025 2:47 PM EDT [facility] Blood Venous blood specimen / Unknown Venipuncture / Unknown 04/27/2025 8:55 AM EDT 04/27/2025 8:55 AM EDT Lena BOOKER LAB BLOOD ORDERABLES Final Re sult Performing Organization Address [facility]/ZIP Co de Phone Number [facility] [address] [place] [address], [place] [phone] * (ABNORMAL) Microalbumin creatinine urine ratio (01/23/2025 [...] ORDERABLES Final Resul t Performing Organization Address [facility]/ZIP Co de Phone Number [facility] [address] [place] [address], [place] [phone] from Last 3 Months or Most Recently Relevant to Health Maintenance Insurance Critical [facility] [place] [address] [employer] MED[employer]ARE ADVANTAGE Care Teams Staffing Mgr Relationship Specialty Start Date End Date Tammy Mooney MD [address] [place] [phone] PCP - General Internal Medicine 09/04/24
--- OUTSIDE RECORDS SUMMARY | 2025-07-15 21:36 | XMS_ITS | Patient Health Record ---
Author Organization [facility] fatimah [facility] Address [address] [facility] [place] [address] Care Team Providers Care Playback Operator Name Role Phone Medina Catherine Unavailable [phone] Allergies No Known Allergies Reason For Referral [...] Problem Acquired hammer toe of right foot (8144244121789996 ) Other hammer toe(s) (acquired), right foot (M20.41) Active confirmed Problem Acquired hammer toe of left foot (2256359578014242 ) Other hammer toe(s) (acquired), left foot (M20.42) Active confirmed Problem Type II diabetes mellitus without complication (341106759) Type 2 diabetes mellitus without complications (E11.9) Active confirmed Problem Localized, primary osteoarthritis of the ankle and/or foot (617014396) Osteoarthritis of right ankle and foot (M19.071) Active confirmed Problem Localized, primary osteoarthritis of the ankle and/or foot (829522169) Osteoarthritis of left ankle and foot (M19.072) Active confirmed Plan Of Treatment Pending Test Test Name Order Date X ray : Foot, left 3V 11/15/2020 X ray : Foot, right 3V 11/15/2020 [id number] NAIL, 6 OR MORE 02/27/2023 Insurance Providers Payer Name Payer Address Payer Phone Subscriber Number Group Number Insured Name Patient Relationship to Insured Coverage Start Date Coverage End Date [employer] [address] [place] [address] [id number] Slava Ramirez Self - patient is the insured Medical (General) History Medical History History ICD Code Back,Hip,and Knee pain type II diabetes High blood pressure Measles Mumps Chicken pox Prostate cancer Surgical History Surgery Date(Month/Year) neck fusion 2016 prostate surgery 02/2020 lower back surgery 08/2021
--- OUTSIDE RECORDS SUMMARY | 2025-07-15 21:36 | XMS_ITS | Clinical Summary ---
Author Organization [facility] Address [address] [place] [address] [place] [phone] Phone Care Team Providers Care Field Installer Name Role Phone Tammy Mooney MD Primary Care Pr ovider Encounters Date Type Department Care Team Description 07/08/2025 Ancillary Orders [facility] [address] [place] [address] Deacon Worthy MD 07/07/2025 - 07/07/2025 11:59 PM EDT Hospital Encounter [facility] [address] [place] [address] Deacon, MD Deacon Discharge Disposition: Home or Self Care 06/01/2025 Ancillary Orders [facility] [address] [place] [address] Jair Moyer MD 06/01/2025 Ancillary Orders [facility] [address] [place] [address] Jair Moyer MD 06/01/2025 Ancillary Orders [facility] [address] [place] [address] Jair Moyer MD 06/01/2025 Ancillary Orders [facility] [address] [place] [address] Jair Moyer MD 06/01/2025 Ancillary Orders [facility] [address] [place] [address] Jair Moyer MD 06/01/2025 Ancillary Orders [facility] [address] [place] [address] Jair Moyer MD 06/01/2025 Ancillary Orders [facility] [address] [place] [address] Jair Moyer MD from Last 3 Months [...] on file Medical Devices Not on file Procedures Procedure Name Priority Date/Time Associated Diagnosis Comments MRI SPINE MUSCULOSKELETAL FOCUS OUTSIDE (NO INTERPRETATION) Routine 07/07/2025 12:00 AM EDT from Last 3 Months Results * MRI Spine (Bone) Outside (No Interpretation) (07/07/2025 12:00 AM EDT) Narrative [facility] - 07/08/2025 4:01 PM EDT This study is for PACS storage only and not for interpretation. us Unknown Unknown MD IMG OUTSIDE IMAGING W/OUT INT ERPRETATION Final Result [facility] from Last 3 Months Insurance MEDICARE PART A & B [facility]ICARE REPLACEMENT MEDICARE PART A & B [facility] MEDICARE REPLACEMENT MEDICARE PART A & B Member Subscriber Plan / Payer (Ef fective 2025-) Name:Slava Ramirez Member ID:[id number] Relation to Subscriber:Self Name:Slava Ramirez Subscriber ID:[id number] Payer ID:[id number] Group ID:Not on file Type:Medicare Address: [place] [address] MEDICARE PART A & B [employer] MEDICARE REPLACEMENT Member Subscriber Plan / Payer (Ef fective 2021-) Name:Jacquegraciela Slava Relation to Subscriber:Self Name:JacquegracielaSlava Payer ID:[id number] (NAIC) Type:Medicare Address: [place] [phone] MEDICARE PART A & B Member Subscriber Plan / Payer (Ef fective 2025-) Name:James Slava Member ID:[id number] Relation to Subscriber:Self Name:James Slava Subscriber ID:[id number] Payer ID:[id number] Group ID:Not on file Type:Medicare Address: [place] [address] [place] [id number] [place] [address] MEDICARE REPLACEMENT MEDICARE PART A & B [facility] MEDICARE REPLACEMENT Care Teams Field Installer Relationship Specialty Start Date End Date Tammy Mooney MD [address] [place] [id number] PCP - General Family Medicine 05/21/25 Additional Source Comments The information contained in this document represents components of the legal health record. It is not the complete legal health record.[facility]
== END 2025-07-15 16:05 | disposition home or self-care (01) ==
LOC: HO.HNS 15:20
PROVIDERS: Visit Provider Neurological Surgery
DX: M96.1 Postlaminectomy syndrome, not elsewhere classified (principal)
CPT/HCPCS: 99213

== ENCOUNTER → 2025-07-15 15:19 | Outpatient (BNVA) | payer MEDICARE, SELFPAY | PROVIDERS: Visit Provider Neurological Surgery | DX: M96.1 Postlaminectomy syndrome, not elsewhere classified (principal); Z96.82 Presence of neurostimulator | CPT/HCPCS: 99212 ==